=== PATIENT | female | born 1980 | race Caucasian/White ===

== ENCOUNTER 2021-06-04 10:56 | Emergency (ER) | payer MEDICARE, MEDICAID, SELFPAY ==
--- NOTE | ~2021-06-04 | CT_ITS ---
EXAMINATION: CT HEAD WITHOUT CONTRAST CLINICAL INFORMATION: Hypertension and headache COMPARISON: None TECHNIQUE: Contiguous axial imaging was performed from the skull base to vertex without intravenous administration of contrast. This CT examination was performed using dose optimization techniques as appropriate, variously including the following: *Automated exposure control *Adjustment of mA and/or kV according to patient size (this includes techniques or standardized protocols for targeted exams where dose is matched to indication/reason for exam; i.e. extremities or head) *Use of iterative reconstruction technique DLP: 651 mGy-cm FINDINGS: There is no evidence of acute intracranial hemorrhage or territorial infarction. No abnormal mass effect or midline shift is seen. Zhang to white matter differentiation is well preserved. No extra-axial fluid collections are identified. The ventricles are normal in size. There is no abnormal attenuation within the brain parenchyma. The osseous structures and soft tissues are normal. The mastoid air cells and visualized portions of the paranasal sinuses are well aerated. CT/CT head/brain wo con IMPRESSION: No acute intracranial pathology.
--- NOTE | ~2021-06-04 | CT_ITS ---
EXAMINATION: CT abdomen pelvis w con CLINICAL INFORMATION: Reason for Exam bilateral flank pain, hypertension COMPARISON: No prior CT available for comparison. TECHNIQUE: Multidetector volumetric imaging was performed from the superior aspect of the liver through the pubic symphysis 85 mL Omnipaque 350 injected Sagittal and coronal reformatted images were obtained on the technologist's workstation. This CT examination was performed using dose optimization techniques as appropriate, variously including the following: *Automated exposure control *Adjustment of mA and/or kV according to patient size (this includes techniques or standardized protocols for targeted exams where dose is matched to indication/reason for exam; i.e. extremities or head) *Use of iterative reconstruction technique DLP: 1205 mGy-cm FINDINGS: LOWER THORAX: Included lung bases are clear. HEPATOBILIARY: No focal hepatic lesions. No biliary ductal dilatation. GALLBLADDER: Gallbladder is distended. No pericholecystic fluid. SPLEEN: Spleen is enlarged 13.2 cm. PANCREAS: No focal mass or ductal dilatation. STOMACH AND GASTROINTESTINAL TRACT: Stomach is grossly unremarkable. Excess amount of stool in the colon suggests constipation. There is a segment of the sigmoid colon which exhibits circumferential wall thickening, differential would include subclinical colitis, infection or inflammatory, IBD, less commonly neoplastic. No pericolic fat stranding. No evidence of underlying diverticular disease. No CT evidence of appendicitis. ADRENALS: No adrenal nodules. KIDNEYS/URETERS: No hydronephrosis, stones or solid mass lesions. URINARY BLADDER: Circumferential wall thickening of the urinary bladder, nonspecific, this can be due to cystitis among others. PELVIC VISCERA: Unremarkable PERITONEUM: No free air or fluid. LYMPH NODES: No lymphadenopathy. VASCULAR:Abdominal aorta normal in size, no aneurysm found. BONES, ABDOMINAL WALL AND SOFT TISSUES: Age-appropriate changes of the spine and skeletal system, no destructive osteolytic or osteosclerotic bone lesion found CT/CT abdomen pelvis w con IMPRESSION: 1. No CT evidence of kidney stones or hydronephrosis. 2. There is circumferential wall thickening of a segment of the sigmoid colon left lower quadrant and pelvis without pericolic fat stranding, this is nonspecific, no evidence of significant diverticular disease, differential would include chronic subclinical colitis, infection, inflammatory, IBD versus neoplastic. Clinical correlation and follow-up recommended. May consider correlation with follow-up colonoscopy. Tsai image. 3. Excess amount of stool in the colon suggests constipation. 4. Mild circumferential wall thickening of the urinary bladder, nonspecific, in part due to its incomplete distention, cannot rule out cystitis. 5. Splenomegaly. 6. Gallbladder is distended. No pericholecystic fluid collection.
[2021-06-04 11:24] VITALS: BP 186/123; PULSE 89; RESP 18; TEMP 36.7; O2SAT 100; BMI 24.3
[2021-06-04 11:39] LABS: Glucose Urine UA NEG (NEG); Leukocyte Esterase Urine NEG (NEG); Nitrite Urine NEG (NEG); PH 6.5 (5.0-8.0); Specific Gravity - Urine <= 1.005 (1.005-1.025); Urine Blood NEG (NEG); Urine Ketones NEG (NEG); Urine Protein NEG (NEG-TRACE)
[2021-06-04 11:44] LABS: Appearance Urine CLEAR; Color Urine YELLOW; UPreg QC Valid YES; Urine Pregnancy NEGATIVE (NEGATIVE)
--- NOTE | 2021-06-04 12:14 | ED_ITS ---
HPI - General Adult General Chief complaint: General Medical Stated complaint: back pain Time Seen by Provider: 06/04/21 11:52 Source: patient Mode of arrival: ambulatory Limitations: no limitations History of Present Illness HPI narrative: 40-year-old female presents for 1 week of bilateral low back pain with a headache and hypertension. Symptoms started 1 week ago, patient thought that her back was sore from straining from packing her car or from sleeping on a lumpy bed. The pain was worse on the left side and now is worse on the right side. She has also had a mild gradual onset headache all week with no stiff neck, no fevers. Three days ago she became very fatigued, with worsening back pain with associated headache. At that time, her back pain was 9/10. The pain is a dull achy pain and it feels like a bad UTI. She feels like she was ?kicked in the back . Movement makes it worse. Today her back pain as 6/10. Back pain has been constant. She has had a headache most of the week that was gradual onset and mild, headache in the base of her neck and behind her eyes. 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 No stiff neck, no visual changes. No blood in her urine, no abdominal pain. 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 No nausea vomiting or diarrhea. No gross hematuria, no history of kidney stones, no family history of kidney stones. Patient's urine had no blood in it from urgent care today. Patient has been on lisinopril 10 mg for the past year and a half, her blood pressures are usually normotensive. Onset (ago): week(s) (1) Radiation: back Severity: moderate Severity scale (1-10): 6 Quality: aching and dull Pain Consistency: constant Relieving factors: none Exacerbating factors: movement Associated symptoms: headaches and other (hypertension) Treatments prior to arrival: none Related Data Previous Rx's Medication Instructions Recorded cyclobenzaprine 5 mg tablet 10 mg PO BEDTIME 3 Days #6 tab 06/04/21 ketorolac 10 mg tablet 10 mg PO Q6H 5 Days #20 tab 06/04/21 metronidazole 500 mg tablet 500 mg PO BID 10 Days #20 tab 08/08/21 (Flagyl) Allergies Allergy/AdvReac Type Severity Reaction Status Date / Time No Known Allergies Allergy Unverified 07/14/20 16:43 Review of Systems 2 Constitutional: Constitutional: Denies chills, Reports fatigue, Denies fever(s), Reports headache(s), Reports malaise and Denies weakness Eyes: Eyes: Denies blurry vision, Denies change in vision, Denies diplopia, Denies dry eyes, Denies loss of peripheral vision, Denies loss of vision, Denies other visual disturbances, Denies eye pain and Reports photophobia (chronic) ENT: Denies dizziness, Denies otalgia, Reports headache(s), Denies nasal discharge, Denies post nasal drip and Denies sore throat Cardiovascular: Cardiovascular: Denies chest pain, Denies chest pain with activity, Denies Epigastric Pain, Denies syncope, Denies irregular heart rhythm, Denies palpitations, Denies dyspnea and Denies dyspnea on exertion Respiratory: Respiratory: Denies chest congestion, Denies cough, Denies dyspnea and Denies dyspnea on exertion Gastrointestinal: Gastrointestinal: Denies abdominal pain, Denies melena, Denies hematochezia, Denies diarrhea, Denies loose stools and Denies vomiting Genitourinary: Genitourinary: Denies hematuria, Denies dysuria and Reports flank pain Musculoskeletal: Musculoskeletal: Reports back pain and Denies tingling Neurologic: Denies dizziness, Denies syncope, Reports headache(s), Denies loss of vision, Denies Sensory deficit (Neuro), Denies tingling and Denies weakness Psychiatric: Psychiatric: Reports no additional psychiatric complaints Endocrine: Endocrine: Reports fatigue and Denies palpitations [facility] Past Medical History Medical History (Updated 06/04/21 @ 15:59 by GERTRUDE Nowak) HTN (hypertension) Social History Social History Alcohol intake: never Patient Tobacco Use Status: Never used Tobacco Use of substances other than those prescribed or required for medical reasons: No Advance Directives: No Advance Directives Information Provided: No Patient : No Physical Exam Vital Signs: Vital Signs: Last Vital Signs Temp 99.2 F 06/04/21 15:54 Pulse 66 06/04/21 15:54 Resp 18 06/04/21 15:54 BP 166/96 H 06/04/21 15:54 Pulse Ox 96 06/04/21 15:54 Body Mass Index 24.3 Const: General: cooperative, healthy appearing, well developed, alert, awake and other (terful) Nutritional Appearance: average body habitus and well nourished Orientation/consciousness: patient oriented x3 Limitations: no limitations HENMT: Head: Yes normal to inspection, Yes normocephalic and Yes atraumatic Ears: hearing grossly normal bilaterally Face and sinus: Yes normal facial exam Mouth: Normal oral and palatal mucosa present Throat: Yes posterior oropharynx normal Eyes: Conjunctivae: conjunctivae normal Pupils: Equal, round and reactive pupils present EOM: EOMs intact bilaterally Direct Ophthalmoscopy: normal light reflex and photophobia (chronic) Neck: Neck: Yes normal visual inspection, Yes full ROM, Yes no meningeal signs, Yes trachea midline and Yes supple Resp: Effort & Inspection: normal respiratory effort and no cough Auscultation: clear to auscultation bilaterally, no crackles, no rales, no rhonchi and no wheezes Cardio: Rate: regular rate Rhythm: regular rhythm Heart sounds: S1 normal heart sound present and S2 normal heart sound present GI: Palpation (GI): Soft to palpation, not firm, nontender, no guarding and not rigid Percussion: Yes normal to percussion Auscultation: normal bowel sounds : General: Yes CVA tenderness bilateral (mild) Back/Spine/Pelvis: Back: CVA tenderness Skin: General skin exam: no rashes or lesions noted Neuro: General: patient oriented x3, tone normal, moves all extremities, Normal light touch and pain sensation, no meningeal signs, no focal motor deficits, CN's II-XI intact bilaterally and deep tendon reflexes 2+ bilaterally Cranial nerves: Yes Equal, round and reactive pupils present Cognition (Neuro): normal cognition Sensory Exam: No Sensory deficit (Neuro) Extrem: General: Yes normal to inspection, Yes full ROM and Yes capillary refill normal Psych: Appearance: grossly normal Mental Status: mental status grossly normal Affect: Anxious affect present Attitude: cooperative Thought process: Normal thought process present Thought content: Normal thought content present Course Course Course Narrative: 40-year-old female presents for 1 week of bilateral lower back pain with associated headache. Patient went to urgent care today, and was sent here for her hypertension, the patient blood pressure is 186/123. Patient had negative urine with no hematuria and negative test at urgent care. Patient is neurologically intact. On exam, patient has mild bilateral CVA tenderness no focal neuro deficits, physical exam is otherwise benign. Will get labs, repeat urine, CT abdomen pelvis with IV contrast to rule out renal artery stenosis, include head CT. Reevaluation(s) Reevaluation #1: Head CT negative, labs are unremarkable, abdominal CT shows colitis. Will treat with antibiotics for colitis, Ki of muscle relaxants and ketorolac. Consultation she needs to follow up with her PCP for colonoscopy. Medical Decision Making Lab Data Result diagrams: 06/04/21 13:13 06/04/21 13:13 Labs: Lab Results 06/04/21 06/04/21 06/04/21 Range/Units 11:34 11:34 13:13 WBC 4.7 L (4.8-10.8) X10*3/uL RBC 4.30 (4.20-5.50) X10*6/uL Hgb 13.0 (12.0-16.0) g/dl Hct 39.0 (37-47) % MCV 90.7 (80-98) fL MCH 30.2 (27.0-33.0) pg MCHC 33.3 (31.0-35.0) g/dl RDW 13.1 (11.0-16.0) % Plt Count 143 L (160-400) X10*3/uL MPV 9.4 (9.4-12.3) fL Immature Gran % (Auto) 0.2 (0.0-0.4) % Neut % (Auto) 67.0 (45-73) % Lymph % (Auto) 23.5 (20-40) % [place] % (Auto) 8.5 (2-11) % Eos % (Auto) 0.4 (0-4) % Baso % (Auto) 0.4 (0-2) % Lymph # (Auto) 1.1 L (1.2-4.9) X10*3/uL [place] # (Auto) 0.4 (0.1-1.2) X10*3/uL Eos # (Auto) 0.0 (0.0-0.4) X10*3/uL Baso # (Auto) 0.0 (0.0-0.2) X10*3/uL Abs Immat Gran (auto) 0.01 (0.00-0.03) X10*3/uL Absolute Neuts (auto) 3.1 (2.0-8.3) X10*3/uL Absolute Nucleated RBC 0.000 (0.0-0.012) X10*3/uL Nucleated RBC % (auto) 0.0 (0.0-0.2) /100WBC Sodium (135-145) mmol/L Potassium (3.3-5.1) mmol/L Chloride (96-108) mmol/L Carbon Dioxide (22-29) mmol/L Anion Gap (12-20) BUN (9-16) mg/dL Creatinine (0.5-1.4) mg/dL Estim Creat Clear Calc Estimated GFR Random Glucose (60-115) mg/dL Calcium (8.4-10.2) mg/dL Total Bilirubin (0.0-1.0) mg/dL AST (5-31) U/L ALT (0-31) U/L Alkaline Phosphatase (39-117) U/L Total Protein (6.5-8.0) g/dL Albumin (3.5-5.0) g/dL Urine Color YELLOW Urine Appearance CLEAR Urine pH 6.5 (5.0-8.0) Ur Specific [place] <= 1.005 (1.005-1.025) Urine Protein NEG (NEG-TRACE) MG/DL Urine Glucose (UA) NEG (NEG) MG/DL Urine Ketones NEG (NEG) MG/DL Urine Blood NEG (NEG) Urine Nitrite NEG (NEG) Ur Leukocyte Esterase NEG (NEG) Urine Test NEGATIVE (NEGATIVE) Coronavirus (PCR) (Negative) Influenza Type A (PCR) (Negative) Influenza Type B (PCR) (Negative) RSV RNA Qual (PCR) (Negative) 06/04/21 06/04/21 Range/Units 13:13 14:53 WBC (4.8-10.8) X10*3/uL RBC (4.20-5.50) X10*6/uL Hgb (12.0-16.0) g/dl Hct (37-47) % MCV (80-98) fL MCH (27.0-33.0) pg MCHC (31.0-35.0) g/dl RDW (11.0-16.0) % Plt Count (160-400) X10*3/uL MPV (9.4-12.3) fL Immature Gran % (Auto) (0.0-0.4) % Neut % (Auto) (45-73) % Lymph % (Auto) (20-40) % [place] % (Auto) (2-11) % Eos % (Auto) (0-4) % Baso % (Auto) (0-2) % Lymph # (Auto) (1.2-4.9) X10*3/uL [place] # (Auto) (0.1-1.2) X10*3/uL Eos # (Auto) (0.0-0.4) X10*3/uL Baso # (Auto) (0.0-0.2) X10*3/uL Abs Immat Gran (auto) (0.00-0.03) X10*3/uL Absolute Neuts (auto) (2.0-8.3) X10*3/uL Absolute Nucleated RBC (0.0-0.012) X10*3/uL Nucleated RBC % (auto) (0.0-0.2) /100WBC Sodium 136 (135-145) mmol/L Potassium 4.0 (3.3-5.1) mmol/L Chloride 101 (96-108) mmol/L Carbon Dioxide 27 (22-29) mmol/L Anion Gap 12 (12-20) BUN 13 (9-16) mg/dL Creatinine 0.95 (0.5-1.4) mg/dL Estim Creat Clear Calc 78.5 Estimated GFR > 60 Random Glucose 116 H (60-115) mg/dL Calcium 9.4 (8.4-10.2) mg/dL Total Bilirubin 0.9 (0.0-1.0) mg/dL AST 63 H (5-31) U/L ALT 46 H (0-31) U/L Alkaline Phosphatase 99 (39-117) U/L Total Protein 8.7 H (6.5-8.0) g/dL Albumin 4.1 (3.5-5.0) g/dL Urine Color Urine Appearance Urine pH (5.0-8.0) Ur Specific [place] (1.005-1.025) Urine Protein (NEG-TRACE) MG/DL Urine Glucose (UA) (NEG) MG/DL Urine Ketones (NEG) MG/DL Urine Blood (NEG) Urine Nitrite (NEG) Ur Leukocyte Esterase (NEG) Urine Test (NEGATIVE) Coronavirus (PCR) NEGATIVE (Negative) Influenza Type A (PCR) NEGATIVE (Negative) Influenza Type B (PCR) NEGATIVE (Negative) RSV RNA Qual (PCR) NEGATIVE (Negative) Discharge Plan Discharge Clinical Impression: Colitis Back pain Qualifiers: Back pain location: low back pain Chronicity: acute Back pain laterality: bilateral Sciatica presence: without sciatica Qualified Code(s): M54.5 - Low back pain Patient Disposition: Home, Self-Care Instructions: Acute Low Back Pain (ED), Colitis (ED) Additional Instructions: Please call your primary care physician for follow-up appointment to arrange for colonoscopy. Please take the Flexeril at night, your insurance would not cover the other muscle relaxant and I wanted to prescribe. Please take the ketorolac as prescribed, do not take any ibuprofen containing products while taking ketorolac. Please take the antibiotic as prescribed. Please return to the emergency room for any new or concerning symptoms. I would addiction treatment counselor you to start using your home blood pressure monitor to make sure that this is not a blood pressure issue. Your blood pressure has come down and is not dangerously high, her labs are normal, there is no kidney pathology. Prescriptions: New ketorolac 10 mg tablet 10 mg PO Q6H 5 Days Qty: 20 RF: 0 cyclobenzaprine 5 mg tablet 10 mg PO BEDTIME 3 Days Qty: 6 RF: 0 metronidazole [Flagyl] 500 mg tablet 500 mg PO BID 10 Days Qty: 20 RF: 0
[2021-06-04 12:40] VITALS: BP 159/98; PULSE 88; RESP 16; O2SAT 99
[2021-06-04] MEDS: 0.9 % Sodium Chloride 1,000 ML 999 ML IV (13:14)
[2021-06-04 13:21] LABS: Basophils Percent Auto 0.4 % (0-2); Eosinophils Percent Auto 0.4 % (0-4); Imm Gran Abs Auto 0.01 X10*3/uL (0.00-0.03); Imm Gran Pct Auto 0.2 % (0.0-0.4); Lymphocytes Absolute Auto 1.1 X10*3/uL (1.2-4.9); Lymphocytes Percent Auto 23.5 % (20-40); MANUAL DIFF FLAG NO; Mean Corpuscular HGB Conc 33.3 g/dl (31.0-35.0); Mean Corpuscular Hemoglobin 30.2 pg (27.0-33.0); Mean Corpuscular Volume 90.7 fL (80-98); Mean Platelet Volume 9.4 fL (9.4-12.3); Monocytes Absolute Auto 0.4 X10*3/uL (0.1-1.2); Monocytes Percent Auto 8.5 % (2-11); Neutrophils Absolute Auto 3.1 X10*3/uL (2.0-8.3); Platelet Count 143 X10*3/uL (160-400); Red Cell Distribution Width 13.1 % (11.0-16.0); White Blood Count 4.7 X10*3/uL (4.8-10.8)
[2021-06-04] MEDS: Ketorolac Tromethamine 15 MG/ML VIAL IVPUSH (13:41)
[2021-06-04] MEDS: Cyclobenzaprine HCl 5 MG TABLET PO (13:42)
[2021-06-04 13:51] LABS: Alanine Aminotransferase 46 U/L (0-31); Albumin Level 4.1 g/dL (3.5-5.0); Alkaline Phosphatase 99 U/L (39-117); Anion Gap 12 (12-20); Aspartate Amino Transferase 63 U/L (5-31); Bilirubin Total 0.9 mg/dL (0.0-1.0); Blood Urea Nitrogen 13 mg/dL (9-16); Calcium 9.4 mg/dL (8.4-10.2); Chloride 101 mmol/L (96-108); Creatinine Clr Calc Pharmacy 78.5; Estimated Glomerular Filt Rate > 60; Glucose Random 116 mg/dL (60-115); Sodium 136 mmol/L (135-145); Total Protein 8.7 g/dL (6.5-8.0)
[2021-06-04 13:56] LABS: Carbon Dioxide 27 mmol/L (22-29)
[2021-06-04] MEDS: iohexoL 350 MG/ML 100 ML INFUS..BTL 85 ML IV (14:39)
[2021-06-04 15:39] LABS: Influenza A PCR NEGATIVE (Negative); Influenza B PCR NEGATIVE (Negative); Resp Syncy Virus RNA Qual PCR NEGATIVE (Negative); SARS COV2 PCR INHOUSE NEGATIVE (Negative)
[2021-06-04 15:54] VITALS: BP 166/96; PULSE 66; RESP 18; TEMP 37.3; O2SAT 96
== END 2021-06-04 16:14 | disposition home or self-care (01) ==
PROVIDERS: Physician Assistant; Emergency Provider Emergency Medicine Emergency Medical Services; PCP Nurse Practitioner Family
DX: K52.9 Noninfective gastroenteritis and colitis, unspecified (principal); M54.5 Low back pain; R51.9 Headache, unspecified; I10 Essential (primary) hypertension; Z20.822 Contact with and (suspected) exposure to COVID-19
CPT/HCPCS: 0241U; 36415; 70450; 74177; 80053; 81003; 81025; 85025; 96361; 96374; 99284; J1885; Q9967

== ENCOUNTER 2022-06-30 03:53 | Emergency (ER) | payer MEDICARE, MEDICAID, SELFPAY ==
--- NOTE | ~2022-06-30 | XR_ITS ---
EXAMINATION: XR FOOT, RIGHT CLINICAL INFORMATION: Pain COMPARISON: None TECHNIQUE: AP, lateral, and oblique views of the right foot. FINDINGS: The bones and soft tissues are normal. No fracture. Alignment is anatomic. Joint spaces are maintained. XR/XR foot RT min 3V IMPRESSION: Normal right foot.
[2022-06-30 04:04] VITALS: BP 150/93; PULSE 79; RESP 18; TEMP 37.7; O2SAT 99; BMI 25.1
[2022-06-30 05:10] LABS: Hematocrit 37.3 % (37.0-47.0); Hemoglobin 12.2 g/dl (12.0-16.0); Mean Corpuscular HGB Conc 32.7 g/dl (31.0-35.0); Mean Corpuscular Volume 91.9 fL (80.0-98.0); Mean Platelet Volume 9.5 fL (9.4-12.3); Platelet Count 140 X10*3/uL (160-400); Red Blood Count 4.06 X10*6/uL (4.20-5.50); Red Cell Distribution Width 12.7 % (11.0-16.0); White Blood Count 4.2 X10*3/uL (4.8-10.8)
[2022-06-30 05:27] LABS: Alanine Aminotransferase 50 U/L (0-31); Albumin Level 3.9 g/dL (3.5-5.0); Alkaline Phosphatase 110 U/L (39-117); Anion Gap 17 (12-20); Aspartate Amino Transferase 77 U/L (5-31); Bilirubin Total 0.4 mg/dL (0.0-1.0); Blood Urea Nitrogen 10 mg/dL (9-16); Calcium 9.4 mg/dL (8.4-10.2); Carbon Dioxide 24 mmol/L (22-29); Chloride 102 mmol/L (96-108); Creatinine Clr Calc Pharmacy 95.7; Estimated Glomerular Filt Rate > 60; Glucose Random 115 mg/dL (60-115); Sodium 139 mmol/L (135-145); Total Protein 8.8 g/dL (6.5-8.0)
[2022-06-30 05:48] VITALS: BP 135/79; PULSE 69; RESP 16; TEMP 37.1; O2SAT 98
--- NOTE | 2022-06-30 06:32 | PC.NURSE ---
Pt c/o R foot pain. Pt states that if she applies pressure on the foot the pain level goes from an 8 to a 10. Source of foot pain is unknown. Foot pain was minor started today but progressively got worse throughout the day. Pt denies pain radiating anywhere else.
--- NOTE | 2022-06-30 06:46 | ED.EXTPRO ---
HPI - Extremity Problem General Chief complaint: General Medical Stated complaint: right foot pain, unknown as to why Time Seen by Provider: 06/30/22 06:45 Source: patient Mode of arrival: ambulatory Limitations: no limitations History of Present Illness MD Complaint: other (R foot pain) Onset (ago): day(s) ( ) Pain Consistency: constant Location: right and lower extremity Quality: aching and dull Radiation: none Relieving factors: immobilization Exacerbating factors: weight bearing Associated symptoms: denies other symptoms Context: other (unknown injury started hurting after wearing clogs at work) Related Data Previous Rx's Medication Instructions Recorded cyclobenzaprine 5 mg tablet 10 mg PO BEDTIME 3 days #6 tabs 06/04/21 ketorolac 10 mg tablet 10 mg PO Q6H 5 days #20 tabs 06/04/21 metronidazole 500 mg tablet 500 mg PO BID 10 days #20 tabs 06/04/21 (Flagyl) cyclobenzaprine 10 mg tablet 10 mg PO TID PRN muscle spasm #14 06/30/22 tabs ibuprofen 600 mg tablet 600 mg PO Q6H PRN pain #30 tabs 06/30/22 Allergies Allergy/AdvReac Type Severity Reaction Status Date / Time No Known Allergies Allergy Unverified 07/14/20 16:43 Review of Systems Review of Systems: Constitutional : No Fever, No Chills ENT/Mouth : No Ear Pain, No Hoarseness, No sore throat Eyes: No Eye Pain, No Swelling, No Redness, No Foreign Body Cardiovascular : No Chest Pain, No SOB Respiratory : No Cough, No Dyspnea Gastrointestinal : No Nausea, No Vomiting, No Diarrhea, No abdominal Pain Genitourinary : No Dysuria, No Hematuria Musculoskeletal : positive joint pain, No Myalgias, No Joint Swelling Skin : No Skin lacerations, No rash Neuro : No Weakness, No Numbness, No Loss of Consciousness, No Dizziness, No Headache PMFSH Past Medical History Attestation statement: The following information was validated with the patient. Medical History HTN (hypertension) Social History Social History Alcohol intake: never Patient Tobacco Use Status: Never used Tobacco Use of substances other than those prescribed or required for medical reasons: No Advance Directives: No Physical Exam Vital Signs: Vital Signs: Last Vital Signs Temp 98.7 F 06/30/22 05:48 Pulse 69 06/30/22 05:48 Resp 16 06/30/22 05:48 BP 135/79 06/30/22 05:48 Pulse Ox 98 06/30/22 05:48 O2 Del Method 06/30/22 05:48 BMI result Body Mass Index 25.1 Appearance: Alert. Oriented X3. No acute distress. Eyes: Pupils equal, round and reactive to light. ENT: Pharynx normal. Neck: Normal inspection. Neck supple. CVS: Pulses normal. Respiratory: No respiratory distress. Abdomen: Soft and nontender. Skin: Skin warm and dry. Normal skin color. Extremities: No lower extremity edema. R foot along 5th metatarsal mild swelling and moderate ttp Neuro: Oriented X 3. No motor deficit. No sensory deficit. MDM - Extremity (Nontraumatic) MDM Narrative Medical decision making narrative: 41 yo female atraumatic R foot pain along 5th metatarsal - distal NV intact. xray for fracture ordered. Possible strain/sprain/contusion/fracture. IM toradol for pain. Dispo per results and findings. Lab Data Result diagrams: 06/30/22 05:05 06/30/22 05:05 Labs: Lab Results 06/30/22 06/30/22 Range/Units 05:05 05:05 WBC 4.2 L (4.8-10.8) X10*3/uL RBC 4.06 L (4.20-5.50) X10*6/uL Hgb 12.2 (12.0-16.0) g/dl Hct 37.3 (37.0-47.0) % MCV 91.9 (80.0-98.0) fL MCH 30.0 (27.0-33.0) pg MCHC 32.7 (31.0-35.0) g/dl RDW 12.7 (11.0-16.0) % Plt Count 140 L (160-400) X10*3/uL MPV 9.5 (9.4-12.3) fL Absolute Nucleated RBC 0.000 (0.0-0.012) X10*3/uL Nucleated RBC % (auto) 0.0 (0.0-0.2) /100WBC Sodium 139 (135-145) mmol/L Potassium 4.0 (3.3-5.1) mmol/L Chloride 102 (96-108) mmol/L Carbon Dioxide 24 (22-29) mmol/L Anion Gap 17 (12-20) BUN 10 (9-16) mg/dL Creatinine 0.80 (0.5-1.4) mg/dL Estim Creat Clear Calc 95.7 Estimated GFR > 60 Random Glucose 115 (60-115) mg/dL Calcium 9.4 (8.4-10.2) mg/dL Total Bilirubin 0.4 (0.0-1.0) mg/dL AST 77 H (5-31) U/L ALT 50 H (0-31) U/L Alkaline Phosphatase 110 (39-117) U/L Total Protein 8.8 H (6.5-8.0) g/dL Albumin 3.9 (3.5-5.0) g/dL Procedures Orthopedic Splinting/Casting Injury #1: Side: right Lower Extremity Injury Location: foot Lower Extremity Immobilizer: post-op shoe Other Orthopedic Equipment: crutches Discharge Plan Discharge Clinical Impression: Foot sprain Qualifiers: Encounter type: initial encounter Laterality: right Qualified Code(s): S93.601A - Unspecified sprain of right foot, initial encounter Patient Disposition: Home, Self-Care Instructions: Crutch Instructions (ED), Foot Sprain (ED), Post Surgical Shoe (ED) Additional Instructions: return to ED for any worsening symptoms or concerns xrays do not show broken bone use post op shoe for 1 week crutches for 5 days - if not better you may need MRI with your doctor to look for stress fracture rest ice elevated for the next 3 days Prescriptions: New cyclobenzaprine 10 mg tablet 10 mg PO TID PRN (Reason: muscle spasm) Qty: 14 0RF ibuprofen 600 mg tablet 600 mg PO Q6H PRN (Reason: pain) Qty: 30 0RF No Action ketorolac 10 mg tablet 10 mg PO Q6H 5 Days Qty: 20 0RF cyclobenzaprine 5 mg tablet 10 mg PO BEDTIME 3 Days Qty: 6 0RF metronidazole [Flagyl] 500 mg tablet 500 mg PO BID 10 Days Qty: 20 0RF Stand Alone Forms: Work/School Release
[2022-06-30] MEDS: Ketorolac Tromethamine 60 MG/2 ML VIAL IM (07:22)
== END 2022-06-30 07:51 | disposition home or self-care (01) ==
PROVIDERS: Emergency Provider Emergency Medicine
DX: S93.601A Unspecified sprain of right foot, initial encounter (principal); X58.XXXA Exposure to other specified factors, initial encounter; Y93.9 Activity, unspecified; Y92.9 Unspecified place or not applicable; Y99.9 Unspecified external cause status
CPT/HCPCS: 36415; 73630; 80053; 85027; 96372; 99284; J1885

== ENCOUNTER 2023-02-06 12:38 | Emergency (ER) | payer MEDICARE, MEDICAID, SELFPAY | END 2023-02-06 13:16 | disposition left against medical advice (07) | PROVIDERS: Emergency Provider Emergency Medicine; PCP Nurse Practitioner Family | DX: Z53.21 Procedure and treatment not carried out due to patient leaving prior to being seen by health care provider (principal) ==

== ENCOUNTER 2025-02-04 15:58 | Inpatient (IN) | payer MEDICARE, MEDICAID, SELFPAY ==
[2025-02-04] VITALS (7 sets, daily range): BP systolic 166–214; BP diastolic 105–141; PULSE 76–100; RESP 16–18; TEMP 37.2; O2SAT 97–99; BMI 27.3
--- NOTE | ~2025-02-04 | CT_ITS ---
CLINICAL HISTORY: lower abd pain fever CT abdomen and pelvis with contrast Comparison: None Findings: The visualized portions of the lungs are normal in appearance. Liver is enlarged with mild nodular appearance of the surface. No intrahepatic or extrahepatic ductal dilatation is seen. The hepatic and portal veins are patent. No calcified gallstones in the gallbladder. There is dilation of the gallbladder. Pancreas and adrenals are normal in appearance. There is enlargement of the spleen measuring 15 cm in size. No suspicious focal lesion of the kidneys. No hydronephrosis or calculi. The abdominal aorta demonstrates no evidence of aneurysmal dilatation or dissection. There is asymmetric hyperdensity in the right iliac vein and femoral vein. There is moderate amount of fecal material within the colon. There is mild bowel wall thickening of the sigmoid colon. No evidence of bowel obstruction. Appendix is not visualized in the right lower quadrant. No secondary evidence of acute appendicitis. The pelvic organs are within normal limits. No intraperitoneal free air or fluid is visualized. No pathologic lymphadenopathy is seen. Calcifications of the pelvis are likely to be phleboliths. There are no osseous or soft tissue abnormalities. IMPRESSION: There is mild bowel wall thickening of the sigmoid colon. Colitis can not be excluded. Hepatosplenomegaly. Mild nodular appearance of the liver surface. Clinical correlation is recommended to exclude cirrhosis. Asymmetric hyperdensity in the right iliac vein and femoral vein. The finding may be related to contrast injection. Clinical correlation is recommended. Correlation with venous Doppler ultrasound findings as indicated. This document has been electronically signed by: Richard Connelly MD on 02/04/2025 21:09:42
--- NOTE | ~2025-02-04 | US_ITS ---
EXAMINATION: US LOWER EXTREMITY VEINS LIMITED FOLLOW UP RIGHT HISTORY: ?hyperdensity R iliac vein and femoral vein on CT COMPARISON: Correlation is made with a CT of the pelvis dated 02/04/2025. TECHNIQUE: Duplex and color Doppler sonographic examination of the deep venous system of the right lower extremity was performed. FINDINGS: The common femoral, superficial femoral, and popliteal veins are patent demonstrating normal compressibility, spontaneous flow, and augmentation. There is a normal color and spectral Doppler waveform appearance of the visualized deep venous system above the knee. The posterior tibial and peroneal veins are patent. US/US venous duplex LE RT IMPRESSION: No evidence of acute DVT in the right lower extremity. Electronically signed by: Joesph Meehan MD 02/05/2025 08:19 AM EDT
--- NOTE | ~2025-02-04 | US_ITS ---
EXAMINATION: US ABDOMEN LIMITED CLINICAL INFORMATION: Abdominal pain, liver fibrosis, elevated LFTs.. COMPARISON: None available. Correlation made with CT abdomen and pelvis 02/04/2025. TECHNIQUE: Real-time imaging of the right upper quadrant abdominal viscera. FINDINGS: PANCREAS: Visualized portions are unremarkable. LIVER: The liver is mildly enlarged with right lobe measuring 19.3 cm. Nodular liver contour. Heterogeneous in echotexture. No focal hepatic lesion. There is no intrahepatic biliary duct dilatation seen. GALLBLADDER: The gallbladder is mildly distended without evidence of stones, sludge, polyps, wall thickening or pericholecystic fluid. COMMON BILE DUCT: Normal in caliber measuring 0.6 cm in diameter. FREE FLUID: None. OTHER: Prominent peripancreatic lymph node noted measuring 3.3 x 1.3 x 2.2 cm, nonspecific. This is likely reactive in the setting of cirrhosis. This was also present on the recent CT exam. US/US abdomen limited IMPRESSION: 1. Mild hepatomegaly with nodular contour and heterogeneous echotexture, findings suggesting underlying cirrhosis. No suspicious lesion. 2. Mildly distended gallbladder which is otherwise normal without calculus. 3. Prominent peripancreatic lymph node as discussed. Electronically signed by: Jamaal Hill MD 02/05/2025 10:56 AM EDT
--- NOTE | 2025-02-04 16:33 | ED_ITS ---
HPI - Abdominal Pain General Chief Complaint: Abdominal Pain Stated Complaint: abd pain, bloating Time Seen by Provider: 02/04/25 17:30 Related Data Previous Rx's ?Medication ?Instructions ?Recorded cyclobenzaprine 5 mg tablet 10 mg (2 x 5 mg) PO BEDTIME 3 days 06/04/21 #6 tabs ketorolac 10 mg tablet 10 mg PO Q6H 5 days #20 tabs 06/04/21 metronidazole 500 mg tablet 500 mg PO BID 10 days #20 tabs 06/04/21 (Flagyl) cyclobenzaprine 10 mg tablet 10 mg PO TID PRN muscle spasm #14 06/30/22 tabs ibuprofen 600 mg tablet 600 mg PO Q6H PRN pain #30 tabs 06/30/22 Allergies Allergy/AdvReac Type Severity Reaction Status Date / Time Penicillins Allergy Unknown Verified 02/04/25 16:36 Sulfa (Sulfonamide Allergy Unknown Verified 02/04/25 16:36 Antibiotics) PMFSH Past Medical History Medical History HTN (hypertension) Social History Social History (System 09/11/23 @ 14:16 by Rehana Solorio) Alcohol intake: never Patient Tobacco Use Status: Never used Tobacco Smoked in Last 30 Days: No Use of substances other than those prescribed or required for medical reasons: Yes Substance Use Type: Heroin Advance Directives: No Advance Directives Information Provided: No Do you have a plan to hurt others: No Plan Patient : No Physical Exam ED Vital Signs: Vital Signs - 24 hr 02/04/25 16:35 02/04/25 17:47 02/04/25 20:00 Temperature 98.9 F Pulse Rate 100 88 85 Respiratory Rate 16 18 18 Blood Pressure 207/141 H 214/126 H 199/119 H Pulse Oximetry 98 99 98 Oxygen Delivery Method Room Air Room Air Room Air 02/04/25 20:25 Temperature Pulse Rate Respiratory Rate Blood Pressure 198/119 H Pulse Oximetry Oxygen Delivery Method BMI result Body Mass Index 27.3 Course Course Course Narrative: This is a Rapid Medical Exam performed in triage by Kourtney Rose PA-C. Full HPI, ROS and PE to be performed by primary ED provider. 44 y/o F with PMHx HTN, Hep C presenting to the ED c/o lower abd pain radiating to back, constipation x 1 week and N/V since yesterday. Reports fever, RM. Denies abd surgery, diarrhea, CP. Last BM today. PE: hypertensive (201/141), ttp over lower bad, no rebounding or guarding Plan: labs, EKG, UA Medical Decision Making Lab Data 02/04/25 17:02 02/04/25 17:02 Labs: Lab Results 02/04/25 02/04/25 02/04/25 Range/Units 17:02 17:51 20:20 WBC 4.6 L (4.8-10.8) X10*3/uL RBC 3.98 L (4.20-5.50) X10*6/uL Hgb 12.8 (12.0-16.0) g/dl Hct 36.7 L (37.0-47.0) % MCV 92.2 (80.0-98.0) fL MCH 32.2 (27.0-33.0) pg MCHC 34.9 (31.0-35.0) g/dl RDW 13.2 (11.0-16.0) % Plt Count 77 L D (160-400) X10*3/uL MPV 10.4 (9.4-12.3) fL Immature Gran % (Auto) 0.4 (0.0-0.4) % Neut % (Auto) 80.0 H (45-73) % Lymph % (Auto) 12.3 L (20-40) % [place] % (Auto) 6.7 (2-11) % Eos % (Auto) 0.4 (0-4) % Baso % (Auto) 0.2 (0-2) % Lymph # (Auto) 0.6 L (1.2-4.9) X10*3/uL [place] # (Auto) 0.3 (0.1-1.2) X10*3/uL Eos # (Auto) 0.0 (0.0-0.4) X10*3/uL Baso # (Auto) 0.0 (0.0-0.2) X10*3/uL Abs Immat Gran (auto) 0.02 (0.00-0.03) X10*3/uL Absolute Neuts (auto) 3.7 (2.0-8.3) x10*3/uL Absolute Nucleated RBC 0.000 (0.0-0.012) X10*3/uL Nucleated RBC % (auto) 0.0 (0.0-0.2) /100WBC Smear Tech's Comments VERIFIED Sodium 132 L (135-145) mmol/L Potassium 3.7 (3.3-5.1) mmol/L Chloride 100 (96-108) mmol/L Carbon Dioxide 22 (22-29) mmol/L Anion Gap 14 (12-20) BUN 12 (9-16) mg/dL Creatinine 0.69 (0.5-1.4) mg/dL Estim Creat Clear Calc 115.2 Estimated GFR > 60 Random Glucose 115 (60-115) mg/dL Lactic Acid (0.5-2.0) mmol/L Calcium 8.8 D (8.4-10.2) mg/dL Magnesium 1.6 (1.6-2.6) mg/dL Total Bilirubin 4.0 H (0.0-1.0) mg/dL Direct Bilirubin 2.2 H (0.0-0.5) mg/dL AST 137 H (5-31) U/L ALT 44 H (0-31) U/L Alkaline Phosphatase 128 H (39-117) U/L Troponin I High Sens 8.6 (<3.5-17.0) ng/L Total Protein 9.9 H (6.5-8.0) g/dL Albumin 3.2 L (3.5-5.0) g/dL Lipase 40 (8-78) U/L Urine Color Yellow Urine Appearance Clear Urine pH 6.5 (5.0-9.0) Ur Specific [place] <= 1.005 (1.005-1.025) Urine Protein Negative (Neg-Trace) mg/dL Urine Glucose (UA) Negative (Negative) mg/dL Urine Ketones Negative (Negative) mg/dL Urine Blood Moderate (2+) H (Negative) Urine Nitrite Negative (Negative) Ur Leukocyte Esterase Small (1+) H (Negative) Urine RBC 11-20 H (0-2) /HPF Urine WBC 6-10 H (0-5) /HPF Ur Squamous Epith Cells 0-2 (0-2) /HPF Urine Bacteria 4+ (None Seen) Hyaline Casts 0-2 (0-2) /LPF Urine Test NEGATIVE (NEGATIVE) Urine Opiates Screen POSITIVE H (Not Detect) Ur Buprenorphine Scrn Not Detected (Not Detect) ng/mL Ur Oxycodone Screen Not Detected (Not Detect) ng/mL Urine Methadone Screen Positive H (Not Detect) ng/mL Urine Fentanyl Screen POSITIVE H (Not Detect) Ur Barbiturates Screen Not Detected (Not Detect) Ur Phencyclidine Scrn Not Detected (Not Detect) Ur Amphetamines Screen Not Detected (Not Detect) U Benzodiazepines Scrn Not Detected (Not Detect) Urine Cocaine Screen Not Detected (Not Detect) U Marijuana (THC) Screen Not Detected (Not Detect) Influenza Type A (PCR) NEGATIVE (Negative) Influenza Type B (PCR) NEGATIVE (Negative) RSV RNA Qual (PCR) NEGATIVE (Negative) SARS-CoV-2 RNA (RT-PCR) NEGATIVE (Negative) 02/04/25 Range/Units 20:51 WBC (4.8-10.8) X10*3/uL RBC (4.20-5.50) X10*6/uL Hgb (12.0-16.0) g/dl Hct (37.0-47.0) % MCV (80.0-98.0) fL MCH (27.0-33.0) pg MCHC (31.0-35.0) g/dl RDW (11.0-16.0) % Plt Count (160-400) X10*3/uL MPV (9.4-12.3) fL Immature Gran % (Auto) (0.0-0.4) % Neut % (Auto) (45-73) % Lymph % (Auto) (20-40) % [place] % (Auto) (2-11) % Eos % (Auto) (0-4) % Baso % (Auto) (0-2) % Lymph # (Auto) (1.2-4.9) X10*3/uL [place] # (Auto) (0.1-1.2) X10*3/uL Eos # (Auto) (0.0-0.4) X10*3/uL Baso # (Auto) (0.0-0.2) X10*3/uL Abs Immat Gran (auto) (0.00-0.03) X10*3/uL Absolute Neuts (auto) (2.0-8.3) x10*3/uL Absolute Nucleated RBC (0.0-0.012) X10*3/uL Nucleated RBC % (auto) (0.0-0.2) /100WBC Smear Tech's Comments Sodium (135-145) mmol/L Potassium (3.3-5.1) mmol/L Chloride (96-108) mmol/L Carbon Dioxide (22-29) mmol/L Anion Gap (12-20) BUN (9-16) mg/dL Creatinine (0.5-1.4) mg/dL Estim Creat Clear Calc Estimated GFR Random Glucose (60-115) mg/dL Lactic Acid 1.0 (0.5-2.0) mmol/L Calcium (8.4-10.2) mg/dL Magnesium (1.6-2.6) mg/dL Total Bilirubin (0.0-1.0) mg/dL Direct Bilirubin (0.0-0.5) mg/dL AST (5-31) U/L ALT (0-31) U/L Alkaline Phosphatase (39-117) U/L Troponin I High Sens (<3.5-17.0) ng/L Total Protein (6.5-8.0) g/dL Albumin (3.5-5.0) g/dL Lipase (8-78) U/L Urine Color Urine Appearance Urine pH (5.0-9.0) Ur Specific [place] (1.005-1.025) Urine Protein (Neg-Trace) mg/dL Urine Glucose (UA) (Negative) mg/dL Urine Ketones (Negative) mg/dL Urine Blood (Negative) Urine Nitrite (Negative) Ur Leukocyte Esterase (Negative) Urine RBC (0-2) /HPF Urine WBC (0-5) /HPF Ur Squamous Epith Cells (0-2) /HPF Urine Bacteria (None Seen) Hyaline Casts (0-2) /LPF Urine Test (NEGATIVE) Urine Opiates Screen (Not Detect) Ur Buprenorphine Scrn (Not Detect) ng/mL Ur Oxycodone Screen (Not Detect) ng/mL Urine Methadone Screen (Not Detect) ng/mL Urine Fentanyl Screen (Not Detect) Ur Barbiturates Screen (Not Detect) Ur Phencyclidine Scrn (Not Detect) Ur Amphetamines Screen (Not Detect) U Benzodiazepines Scrn (Not Detect) Urine Cocaine Screen (Not Detect) U Marijuana (THC) Screen (Not Detect) Influenza Type A (PCR) (Negative) Influenza Type B (PCR) (Negative) RSV RNA Qual (PCR) (Negative) SARS-CoV-2 RNA (RT-PCR) (Negative) Medications Administered Discontinued Medications Generic Name Dose Route Start Last Admin Trade Name Freq PRN Reason Stop Dose Admin Sodium Chloride 1,000 mls @ 999 mls/hr 02/04/25 19:30 02/04/25 20:14 Ns IV 02/04/25 20:30 999 mls/hr .Q1H1M MARIKA Administration Iohexol 100 ml 02/04/25 19:34 02/04/25 19:35 Iohexol 350 Mg/Ml 100 Ml Infus..Btl IV 02/04/25 19:35 85 ml ONCE ONE Administration Lisinopril 10 mg 02/04/25 19:18 02/04/25 20:25 Lisinopril 10 Mg Tablet PO 02/04/25 19:19 10 mg ONCE ONE Administration Protocol Discharge Plan Discharge Clinical Impression: Hypertensive emergency Patient Disposition: Admitted As Inpatient Prescriptions: No Action ketorolac 10 mg tablet 10 mg PO Q6H 5 Days Qty: 20 0RF cyclobenzaprine 5 mg tablet 10 mg PO BEDTIME 3 Days Qty: 6 0RF metronidazole [Flagyl] 500 mg tablet 500 mg PO BID 10 Days Qty: 20 0RF cyclobenzaprine 10 mg tablet 10 mg PO TID PRN (Reason: muscle spasm) Qty: 14 0RF ibuprofen 600 mg tablet 600 mg PO Q6H PRN (Reason: pain) Qty: 30 0RF Print Language: Egyptian
--- NOTE | 2025-02-04 16:40 | ECG_ITS ---
Test Reason : ABDOMINAL PAIN Blood Pressure : */* mmHG Vent. Rate : 93 BPM Atrial Rate : 93 BPM P-R Int : 120 ms QRS Dur : 100 ms QT Int : 400 ms P-R-T Axes : 53 -20 21 degrees QTcB Int : 497 ms Normal sinus rhythm Prolonged QT Abnormal ECG No previous ECGs available Referred By: Kourtney Rose Electronically Signed By: Bello Reid
[2025-02-04 17:08] LABS: Basophils Percent Auto 0.2 % (0-2); Imm Gran Abs Auto 0.02 X10*3/uL (0.00-0.03); Imm Gran Pct Auto 0.4 % (0.0-0.4); MANUAL DIFF FLAG SCAN; Mean Corpuscular Volume 92.2 fL (80.0-98.0); Neutrophils Absolute Auto 3.7 x10*3/uL (2.0-8.3); PLT CLUMP 1; SCAN SMEAR FLAG 1
[2025-02-04 17:09] LABS: Eosinophils Percent Auto 0.4 % (0-4); Hematocrit 36.7 % (37.0-47.0); Hemoglobin 12.8 g/dl (12.0-16.0); Lymphocytes Absolute Auto 0.6 X10*3/uL (1.2-4.9); Lymphocytes Percent Auto 12.3 % (20-40); Mean Corpuscular HGB Conc 34.9 g/dl (31.0-35.0); Mean Corpuscular Hemoglobin 32.2 pg (27.0-33.0); Mean Platelet Volume 10.4 fL (9.4-12.3); Monocytes Absolute Auto 0.3 X10*3/uL (0.1-1.2); Monocytes Percent Auto 6.7 % (2-11); Red Blood Count 3.98 X10*6/uL (4.20-5.50); Red Cell Distribution Width 13.2 % (11.0-16.0)
[2025-02-04 17:19] LABS: White Blood Count 4.6 X10*3/uL (4.8-10.8)
[2025-02-04 17:20] LABS: Platelet Count 77 X10*3/uL (160-400)
[2025-02-04 17:27] LABS: Alanine Aminotransferase 44 U/L (0-31); Albumin Level 3.2 g/dL (3.5-5.0); Alkaline Phosphatase 128 U/L (39-117); Anion Gap 14 (12-20); Aspartate Amino Transferase 137 U/L (5-31); Bilirubin Direct 2.2 mg/dL (0.0-0.5); Blood Urea Nitrogen 12 mg/dL (9-16); Calcium 8.8 mg/dL (8.4-10.2); Carbon Dioxide 22 mmol/L (22-29); Chloride 100 mmol/L (96-108); Creatinine Clr Calc Pharmacy 115.2; Estimated Glomerular Filt Rate > 60; Glucose Random 115 mg/dL (60-115); Lipase 40 U/L (8-78); Magnesium 1.6 mg/dL (1.6-2.6); Potassium 3.7 mmol/L (3.3-5.1); Sodium 132 mmol/L (135-145); Total Protein 9.9 g/dL (6.5-8.0)
[2025-02-04 17:30] LABS: Troponin-I High Sensitivity 8.6 ng/L (<3.5-17.0)
[2025-02-04 17:44] LABS: SLIDE REVIEW VERIFIED
[2025-02-04 18:06] LABS: Appearance Urine Clear; Color Urine Yellow; Glucose Urine UA Negative (Negative); Leukocyte Esterase Urine Small (1+) (Negative); Nitrite Urine Negative (Negative); PH 6.5 (5.0-9.0); Specific Gravity - Urine <= 1.005 (1.005-1.025); UMIC TRIGGER UACC YES; Urine Blood Moderate (2+) (Negative); Urine Ketones Negative (Negative); Urine Protein Negative (Neg-Trace)
[2025-02-04 18:07] LABS: UPreg QC Valid YES; Urine Pregnancy NEGATIVE (NEGATIVE)
[2025-02-04 18:09] LABS: Bacteria Urine 4+ (None Seen); Hyaline Casts Urine 0-2 /LPF (0-2); Squamous Epithelial Cell Urine 0-2 /HPF (0-2); UACC Culture Trigger YES
[2025-02-04 18:11] LABS: Amphetamine Screen Urine Not Detected (Not Detect); Barbiturates, Urine Not Detected (Not Detect); Benzodiazepines Screen Urine Not Detected (Not Detect); Buprenorphine Scr Not Detected (Not Detect); Cannabinoid Screen Urine Not Detected (Not Detect); Cocaine Screen Urine Not Detected (Not Detect); Fentanyl, urine POSITIVE (Not Detect); Methadone Screen, Urine Positive (Not Detect); Opiate Screen Urine POSITIVE (Not Detect); Oxycodone Screen Urine Not Detected (Not Detect); Phencyclidine Screen Urine Not Detected (Not Detect)
[2025-02-04] MEDS: iohexoL 350 MG/ML 100 ML INFUS..BTL IV (19:35)
[2025-02-04] MEDS: 0.9 % Sodium Chloride 1,000 ML 999 ML IV (20:14)
[2025-02-04] MEDS: lisinopriL 10 MG TABLET PO (20:25)
[2025-02-04 21:10] LABS: Influenza A PCR NEGATIVE (Negative); Influenza B PCR NEGATIVE (Negative); Resp Syncy Virus RNA Qual PCR NEGATIVE (Negative); SARS COV2 PCR INHOUSE NEGATIVE (Negative)
[2025-02-04] MEDS: Labetalol HCL 100 MG/20 ML VIAL 10 MG IVPUSH (21:57)
--- NOTE | 2025-02-04 21:57 | ED.ABDPAIN ---
HPI - Abdominal Pain General Chief Complaint: Abdominal Pain Stated Complaint: abd pain, bloating Time Seen by Provider: 02/04/25 17:30 History of Present Illness HPI narrative: Patient is a 44-year-old female with a history of polysubstance abuse history of hypertension history of IV drug use endorse using heroin recently complaining of abdominal pain diffuse since yesterday with some nausea. Patient claims the pain is over the entire abdomen. No chest pain no diaphoresis. No vaginal discharge. No pain on urination. Patient is from home. No abdominal surgery done in the past. No vaginal discharge. Related Data Previous Rx's ?Medication ?Instructions ?Recorded cyclobenzaprine 5 mg tablet 10 mg (2 x 5 mg) PO BEDTIME 3 days 06/04/21 #6 tabs ketorolac 10 mg tablet 10 mg PO Q6H 5 days #20 tabs 06/04/21 metronidazole 500 mg tablet 500 mg PO BID 10 days #20 tabs 06/04/21 (Flagyl) cyclobenzaprine 10 mg tablet 10 mg PO TID PRN muscle spasm #14 06/30/22 tabs ibuprofen 600 mg tablet 600 mg PO Q6H PRN pain #30 tabs 06/30/22 Allergies Allergy/AdvReac Type Severity Reaction Status Date / Time Penicillins Allergy Unknown Verified 02/04/25 16:36 Sulfa (Sulfonamide Allergy Unknown Verified 02/04/25 16:36 Antibiotics) Review of Systems Review of Systems Positive abdominal pain Yes all other systems are reviewed and are negative PMFSH Past Medical History Attestation statement: The following information was validated with the patient. Medical History HTN (hypertension) Social History Social History Alcohol intake: never Patient Tobacco Use Status: Never used Tobacco Smoked in Last 30 Days: No Use of substances other than those prescribed or required for medical reasons: Yes Substance Use Type: Heroin Advance Directives: No Advance Directives Information Provided: No Do you have a plan to hurt others: No Plan Patient : No Physical Exam ED Vital Signs: Vital Signs - 24 hr 02/04/25 16:35 02/04/25 17:47 02/04/25 20:00 Temperature 98.9 F Pulse Rate 100 88 85 Respiratory Rate 16 18 18 Blood Pressure 207/141 H 214/126 H 199/119 H Pulse Oximetry 98 99 98 Oxygen Delivery Method Room Air Room Air Room Air 02/04/25 20:25 Temperature Pulse Rate Respiratory Rate Blood Pressure 198/119 H Pulse Oximetry Oxygen Delivery Method BMI result Body Mass Index 27.3 Appearance: Alert. Oriented X3. No acute distress. Eyes: Pupils equal, round and reactive to light. ENT: Pharynx normal. Neck: Normal inspection. Neck supple. No lymph nodes noted. No crepitus CVS: Normal heart rate and rhythm. Pulses normal. Normal S1 and S2 Respiratory: No respiratory distress. Breath sounds normal. No Wheezing. No rales Abdomen: Soft and nontender. No rigidity. No distention. good BS x4 Skin: Skin warm and dry. Normal skin color. Normal skin turgor. Multiple track hendrickson noted. Extremities: No lower extremity edema. Neurovascular intact to all extremities. No Lacerations. No Rash Neuro: Oriented X 3. No motor deficit. No sensory deficit. Moving all extermities. No slurred speech Medical Decision Making Medical Decision Making [facility] Narrative: Patient is 44 years old history of IVDU presented with having diffuse abdominal pain in the extremely Elevated at 2 20/120. Patient is white count is 5. Electrolytes are normal. LFTs are significantly elevated when compared to prior. With a total bilirubin of 4 direct of 2.2 AST ALT also elevated patient's troponin was negative. Urine showed no gross signs of infection. Tox screen was positive for opioids. Positive for methadone positive for fentanyl. Patient's test was negative no related issue. A CT scan of the abdomen pelvis was done which showed no acute evidence of appendicitis no obstruction no abscess. Question colitis. Question cirrhosis of the liver. Because of patient's extremely elevated blood pressure we gave her dose of lisinopril which is what medication she was on for hypertension. The blood pressure remain at approximately 190/120. We elected to give patient additional dose of labetalol. Will admit patient for further evaluation the hospitalist team was consulted Differential Diagnosis Differential Diagnoses: The differential diagnosis associated with the presentation includes abdominal pathology including diverticulitis kidney stone obstruction abscess perforation. Admission/Observation Consideration of admission/observation: Escalation of care including admission/observation considered Consult Healthcare Provider Management of the patient was discussed with: Hospitalist Lab Data [facility] Lab Attestation statement: I reviewed the patient's lab results. 02/04/25 17:02 02/04/25 17:02 Labs: Lab Results 02/04/25 02/04/25 02/04/25 Range/Units 17:02 17:51 20:20 WBC 4.6 L (4.8-10.8) X10*3/uL RBC 3.98 L (4.20-5.50) X10*6/uL Hgb 12.8 (12.0-16.0) g/dl Hct 36.7 L (37.0-47.0) % MCV 92.2 (80.0-98.0) fL MCH 32.2 (27.0-33.0) pg MCHC 34.9 (31.0-35.0) g/dl RDW 13.2 (11.0-16.0) % Plt Count 77 L D (160-400) X10*3/uL MPV 10.4 (9.4-12.3) fL Immature Gran % (Auto) 0.4 (0.0-0.4) % Neut % (Auto) 80.0 H (45-73) % Lymph % (Auto) 12.3 L (20-40) % [place] % (Auto) 6.7 (2-11) % Eos % (Auto) 0.4 (0-4) % Baso % (Auto) 0.2 (0-2) % Lymph # (Auto) 0.6 L (1.2-4.9) X10*3/uL [place] # (Auto) 0.3 (0.1-1.2) X10*3/uL Eos # (Auto) 0.0 (0.0-0.4) X10*3/uL Baso # (Auto) 0.0 (0.0-0.2) X10*3/uL Abs Immat Gran (auto) 0.02 (0.00-0.03) X10*3/uL Absolute Neuts (auto) 3.7 (2.0-8.3) x10*3/uL Absolute Nucleated RBC 0.000 (0.0-0.012) X10*3/uL Nucleated RBC % (auto) 0.0 (0.0-0.2) /100WBC Smear Tech's Comments VERIFIED Sodium 132 L (135-145) mmol/L Potassium 3.7 (3.3-5.1) mmol/L Chloride 100 (96-108) mmol/L Carbon Dioxide 22 (22-29) mmol/L Anion Gap 14 (12-20) BUN 12 (9-16) mg/dL Creatinine 0.69 (0.5-1.4) mg/dL Estim Creat Clear Calc 115.2 Estimated GFR > 60 Random Glucose 115 (60-115) mg/dL Lactic Acid (0.5-2.0) mmol/L Calcium 8.8 D (8.4-10.2) mg/dL Magnesium 1.6 (1.6-2.6) mg/dL Total Bilirubin 4.0 H (0.0-1.0) mg/dL Direct Bilirubin 2.2 H (0.0-0.5) mg/dL AST 137 H (5-31) U/L ALT 44 H (0-31) U/L Alkaline Phosphatase 128 H (39-117) U/L Troponin I High Sens 8.6 (<3.5-17.0) ng/L Total Protein 9.9 H (6.5-8.0) g/dL Albumin 3.2 L (3.5-5.0) g/dL Lipase 40 (8-78) U/L Urine Color Yellow Urine Appearance Clear Urine pH 6.5 (5.0-9.0) Ur Specific [place] <= 1.005 (1.005-1.025) Urine Protein Negative (Neg-Trace) mg/dL Urine Glucose (UA) Negative (Negative) mg/dL Urine Ketones Negative (Negative) mg/dL Urine Blood Moderate (2+) H (Negative) Urine Nitrite Negative (Negative) Ur Leukocyte Esterase Small (1+) H (Negative) Urine RBC 11-20 H (0-2) /HPF Urine WBC 6-10 H (0-5) /HPF Ur Squamous Epith Cells 0-2 (0-2) /HPF Urine Bacteria 4+ (None Seen) Hyaline Casts 0-2 (0-2) /LPF Urine Test NEGATIVE (NEGATIVE) Urine Opiates Screen POSITIVE H (Not Detect) Ur Buprenorphine Scrn Not Detected (Not Detect) ng/mL Ur Oxycodone Screen Not Detected (Not Detect) ng/mL Urine Methadone Screen Positive H (Not Detect) ng/mL Urine Fentanyl Screen POSITIVE H (Not Detect) Ur Barbiturates Screen Not Detected (Not Detect) Ur Phencyclidine Scrn Not Detected (Not Detect) Ur Amphetamines Screen Not Detected (Not Detect) U Benzodiazepines Scrn Not Detected (Not Detect) Urine Cocaine Screen Not Detected (Not Detect) U Marijuana (THC) Screen Not Detected (Not Detect) Influenza Type A (PCR) NEGATIVE (Negative) Influenza Type B (PCR) NEGATIVE (Negative) RSV RNA Qual (PCR) NEGATIVE (Negative) SARS-CoV-2 RNA (RT-PCR) NEGATIVE (Negative) 02/04/25 Range/Units 20:51 WBC (4.8-10.8) X10*3/uL RBC (4.20-5.50) X10*6/uL Hgb (12.0-16.0) g/dl Hct (37.0-47.0) % MCV (80.0-98.0) fL MCH (27.0-33.0) pg MCHC (31.0-35.0) g/dl RDW (11.0-16.0) % Plt Count (160-400) X10*3/uL MPV (9.4-12.3) fL Immature Gran % (Auto) (0.0-0.4) % Neut % (Auto) (45-73) % Lymph % (Auto) (20-40) % [place] % (Auto) (2-11) % Eos % (Auto) (0-4) % Baso % (Auto) (0-2) % Lymph # (Auto) (1.2-4.9) X10*3/uL [place] # (Auto) (0.1-1.2) X10*3/uL Eos # (Auto) (0.0-0.4) X10*3/uL Baso # (Auto) (0.0-0.2) X10*3/uL Abs Immat Gran (auto) (0.00-0.03) X10*3/uL Absolute Neuts (auto) (2.0-8.3) x10*3/uL Absolute Nucleated RBC (0.0-0.012) X10*3/uL Nucleated RBC % (auto) (0.0-0.2) /100WBC Smear Tech's Comments Sodium (135-145) mmol/L Potassium (3.3-5.1) mmol/L Chloride (96-108) mmol/L Carbon Dioxide (22-29) mmol/L Anion Gap (12-20) BUN (9-16) mg/dL Creatinine (0.5-1.4) mg/dL Estim Creat Clear Calc Estimated GFR Random Glucose (60-115) mg/dL Lactic Acid 1.0 (0.5-2.0) mmol/L Calcium (8.4-10.2) mg/dL Magnesium (1.6-2.6) mg/dL Total Bilirubin (0.0-1.0) mg/dL Direct Bilirubin (0.0-0.5) mg/dL AST (5-31) U/L ALT (0-31) U/L Alkaline Phosphatase (39-117) U/L Troponin I High Sens (<3.5-17.0) ng/L Total Protein (6.5-8.0) g/dL Albumin (3.5-5.0) g/dL Lipase (8-78) U/L Urine Color Urine Appearance Urine pH (5.0-9.0) Ur Specific [place] (1.005-1.025) Urine Protein (Neg-Trace) mg/dL Urine Glucose (UA) (Negative) mg/dL Urine Ketones (Negative) mg/dL Urine Blood (Negative) Urine Nitrite (Negative) Ur Leukocyte Esterase (Negative) Urine RBC (0-2) /HPF Urine WBC (0-5) /HPF Ur Squamous Epith Cells (0-2) /HPF Urine Bacteria (None Seen) Hyaline Casts (0-2) /LPF Urine Test (NEGATIVE) Urine Opiates Screen (Not Detect) Ur Buprenorphine Scrn (Not Detect) ng/mL Ur Oxycodone Screen (Not Detect) ng/mL Urine Methadone Screen (Not Detect) ng/mL Urine Fentanyl Screen (Not Detect) Ur Barbiturates Screen (Not Detect) Ur Phencyclidine Scrn (Not Detect) Ur Amphetamines Screen (Not Detect) U Benzodiazepines Scrn (Not Detect) Urine Cocaine Screen (Not Detect) U Marijuana (THC) Screen (Not Detect) Influenza Type A (PCR) (Negative) Influenza Type B (PCR) (Negative) RSV RNA Qual (PCR) (Negative) SARS-CoV-2 RNA (RT-PCR) (Negative) Independent Interpretation I performed an independent interpretation of an: EKG ( My interpretation of her EKG showed a sinus pattern heart rate is 80 OK QRS QTC normal no acute ST segment elevation.) and CT Scan ( CT scan showed no obstruction no abscess no perforation.) Radiology Impression Discussion of test interpretation with radiology: I have reviewed the radiologist's reading. External Record Review External record reviewed: Inpatient record Chronic Conditions history of IV drug use Social Determinants Patient?s care significantly limited by Social Determinants of Health including: Alcoholism and drug addiction in family and Problems related to primary support group Medications Administered Discontinued Medications Generic Name Dose Route Start Last Admin Trade Name Freq PRN Reason Stop Dose Admin Sodium Chloride 1,000 mls @ 999 mls/hr 02/04/25 19:30 02/04/25 21:15 Ns IV 02/04/25 20:30 Infused .Q1H1M MARIKA Infusion Iohexol 100 ml 02/04/25 19:34 02/04/25 19:35 Iohexol 350 Mg/Ml 100 Ml Infus..Btl IV 02/04/25 19:35 85 ml ONCE ONE Administration Lisinopril 10 mg 02/04/25 19:18 02/04/25 20:25 Lisinopril 10 Mg Tablet PO 02/04/25 19:19 10 mg ONCE ONE Administration Protocol Discharge Plan Discharge Clinical Impression: Hypertensive emergency, Abdominal pain Patient Disposition: Admitted As Inpatient Print Language: Danish
--- NOTE | 2025-02-04 22:36 | PM.IMHP ---
History of Present Illness Date of Service: 02/04/25 Attending physician on admission: Ehsan Miranda Chief Complaint: abd pain Pt is a 44 yo f with a pmhx significant for HALLIE on methadone, hx HTN (no current meds), liver fibrosis followed by [facility] YUNG, and anxiety, who presented to the ED due to lower abd pain, subjective fever of 101-102, nausea, and vomiting with constipation for the past few days. she states this feels similar to a previous bout of diveticulitis. she recently lost her mother and reports that she has used IV heroin a few times, but is on methadone through [facility] in [place]. she also reports that she has been followed by Hermila YUNG for her elevated LFTs, that have been increasing she was was diagnosed with liver fibrosis, last US in May 2024. she denies any RM, chest pain, SOB or urinary sx. Review of Systems Constitutional: Constitutional: Denies body ache(s), Denies chills, Denies fatigue, Reports fever(s) and Denies headache(s) Eyes: Eyes: Denies change in vision and Denies photophobia ENT: Denies headache(s), Denies nasal congestion, Denies nasal discharge and Denies sore throat Cardiovascular: Cardiovascular: Denies chest pain, Denies rapid heart rate, Denies leg edema, Denies lightheadedness and Denies dyspnea Respiratory: Respiratory: Denies chest congestion, Denies cough, Denies dyspnea and Denies wheezing Gastrointestinal: Gastrointestinal: Reports abdominal pain, Denies melena, Reports bloating, Denies hematochezia, Denies coffee ground emesis, Denies constipation, Reports heartburn, Denies diarrhea and Reports vomiting Genitourinary: Genitourinary: Denies hematuria, Denies dysuria and Denies urinary urgency Musculoskeletal: Musculoskeletal: Denies myalgias Integumentary/Breasts: Skin/Breast: Denies rash Neurologic: Denies confusion and Denies headache(s) Psychiatric: Psychiatric: Denies confusion Endocrine: Endocrine: Denies fatigue Hematologic/Lymphatic: Hematologic/Lymphatic: Denies easy bleeding and Denies easy bruising Allergic/Immunologic: Allergic/Immunologic: Denies wheezing [facility] Medical History (Updated 02/04/25 @ 22:51 by Diane Yu PA-C) Anxiety IVDU (intravenous drug user) Substance use disorder Liver fibrosis HTN (hypertension) Functional capacity: independent ambulation Social History Alcohol intake: never Patient Tobacco Use Status: Never used Tobacco Smoked in Last 30 Days: No Use of substances other than those prescribed or required for medical reasons: Yes Substance Use Type: Heroin Advance Directives: No Advance Directives Information Provided: No Do you have a plan to hurt others: No Plan Patient : No Narrative: no smoking or etoh. on methadone, recent IVDU. Meds Allergies Allergy/AdvReac Type Severity Reaction Status Date / Time Penicillins Allergy Unknown Verified 02/04/25 16:36 Sulfa (Sulfonamide Allergy Unknown Verified 02/04/25 16:36 Antibiotics) Active Medications: Current Medications Acetaminophen (Acetaminophen 325 Mg Tablet) 650 mg PO Q6H PRN PRN Reason: Pain, Mild 1-3,fever,headache Amlodipine Besylate (Amlodipine Besylate 2.5 Mg Tablet) 2.5 mg PO DAILY MARIKA; Protocol Calcium Carbonate (Calcium Carbonate 750 Mg Tab.Chew) 750 mg PO Q4H PRN PRN Reason: Heartburn Ceftriaxone Sodium (Ceftriaxone Sodium 1 Gm Vial) 1 gm IVPUSH Q24H MARIKA Enoxaparin Sodium (Enoxaparin Sodium 40 Mg/0.4 Ml Syringe) 40 mg SUBCUT Q24H MARIKA Hydromorphone HCl (Hydromorphone Hcl 1 Mg/Ml Syringe) 0.5 mg IVPUSH Q4H PRN; Protocol PRN Reason: Pain, Severe (Pain Scale 7-10) Metronidazole (Flagyl) 500 mg in 100 mls @ 100 mls/hr IV Q8H MARIKA Magnesium Hydroxide (Milk Of Magnesia 30 Ml Oral.Susp) 30 ml PO DAILY PRN PRN Reason: Constipation Melatonin (Melatonin 3 Mg Tablet) 6 mg PO BEDTIME PRN PRN Reason: Insomnia Morphine Sulfate (Morphine Sulfate 4 Mg/Ml Cartridge) 2 mg IVPUSH Q4H PRN; Protocol PRN Reason: Pain, Moderate(Pain Scale 4-6) Sodium Chloride (0.9 % Sodium Chloride Flush 3 Ml Syringe) 3 ml IVFLUSH QSHIFT MARIKA Physical Exam Vital Signs and Narrative: Vital Signs: Last Vital Signs Temp 98.9 F 02/04/25 22:00 Pulse 77 02/04/25 22:00 Resp 18 04/10/25 22:00 BP 192/109 H 02/04/25 22:00 Pulse Ox 97 02/04/25 22:00 O2 Del Method Room Air 02/04/25 22:00 BMI result Body Mass Index 27.3 General: AOx3, no acute distress Resp: CTA bilaterally CVS: S1, S2, RRR GI: +BS, etnder LLQ, no distention Skin: Warm, dry Neuro: Cranial nerves II-XII grossly intact bilaterally. Motor grossly intact bilaterally Extremities: No LE edema Psych: Appropriate affect Const: General: No confusion Orientation/consciousness: No confusion Eyes: Direct Ophthalmoscopy: No photophobia Neuro: General: No confusion Results Labs 02/04/25 17:02 02/04/25 17:02 Labs: Laboratory Results - last 24 hr 02/04/25 02/04/25 02/04/25 17:02 17:51 20:20 MCV 92.2 MCH 32.2 MCHC 34.9 RDW 13.2 Plt Count 77 L D MPV 10.4 Immature Gran % (Auto) 0.4 Neut % (Auto) 80.0 H Lymph % (Auto) 12.3 L Maries % (Auto) 6.7 Eos % (Auto) 0.4 Baso % (Auto) 0.2 Lymph # (Auto) 0.6 L Maries # (Auto) 0.3 Eos # (Auto) 0.0 Baso # (Auto) 0.0 Abs Immat Gran (auto) 0.02 Absolute Neuts (auto) 3.7 Absolute Nucleated RBC 0.000 Nucleated RBC % (auto) 0.0 Smear Tech's Comments VERIFIED Anion Gap 14 Estim Creat Clear Calc 115.2 Estimated GFR > 60 Random Glucose 115 Lactic Acid Calcium 8.8 D Magnesium 1.6 Total Bilirubin 4.0 H Direct Bilirubin 2.2 H AST 137 H ALT 44 H Alkaline Phosphatase 128 H Total Protein 9.9 H Albumin 3.2 L Lipase 40 Urine Color Yellow Urine Appearance Clear Urine pH 6.5 Ur Specific [place] <= 1.005 Urine Protein Negative Urine Glucose (UA) Negative Urine Ketones Negative Urine Blood Moderate (2+) H Urine Nitrite Negative Ur Leukocyte Esterase Small (1+) H Urine RBC 11-20 H Urine WBC 6-10 H Ur Squamous Epith Cells 0-2 Urine Bacteria 4+ Hyaline Casts 0-2 Urine Test NEGATIVE Urine Opiates Screen POSITIVE H Ur Buprenorphine Scrn Not Detected Ur Oxycodone Screen Not Detected Urine Methadone Screen Positive H Urine Fentanyl Screen POSITIVE H Ur Barbiturates Screen Not Detected Ur Phencyclidine Scrn Not Detected Ur Amphetamines Screen Not Detected U Benzodiazepines Scrn Not Detected Urine Cocaine Screen Not Detected U Marijuana (THC) Screen Not Detected Influenza Type A (PCR) NEGATIVE Influenza Type B (PCR) NEGATIVE RSV RNA Qual (PCR) NEGATIVE SARS-CoV-2 RNA (RT-PCR) NEGATIVE 02/04/25 20:51 MCV MCH MCHC RDW Plt Count MPV Immature Gran % (Auto) Neut % (Auto) Lymph % (Auto) Maries % (Auto) Eos % (Auto) Baso % (Auto) Lymph # (Auto) Maries # (Auto) Eos # (Auto) Baso # (Auto) Abs Immat Gran (auto) Absolute Neuts (auto) Absolute Nucleated RBC Nucleated RBC % (auto) Smear Tech's Comments Anion Gap Estim Creat Clear Calc Estimated GFR Random Glucose Lactic Acid 1.0 Calcium Magnesium Total Bilirubin Direct Bilirubin AST ALT Alkaline Phosphatase Total Protein Albumin Lipase Urine Color Urine Appearance Urine pH Ur Specific [place] Urine Protein Urine Glucose (UA) Urine Ketones Urine Blood Urine Nitrite Ur Leukocyte Esterase Urine RBC Urine WBC Ur Squamous Epith Cells Urine Bacteria Hyaline Casts Urine Test Urine Opiates Screen Ur Buprenorphine Scrn Ur Oxycodone Screen Urine Methadone Screen Urine Fentanyl Screen Ur Barbiturates Screen Ur Phencyclidine Scrn Ur Amphetamines Screen U Benzodiazepines Scrn Urine Cocaine Screen U Marijuana (THC) Screen Influenza Type A (PCR) Influenza Type B (PCR) RSV RNA Qual (PCR) SARS-CoV-2 RNA (RT-PCR) Assessment and Plan (1) Colitis: Status: Acute (2) Hypertensive urgency: Status: Acute (3) Elevated LFTs: Status: Acute (4) Acute hyponatremia: Status: Acute (5) Substance use disorder: Status: Acute Plan Pt is a 44 yo f with a pmhx significant for HALLIE on methadone, hx HTN (no current meds), liver fibrosis followed by [facility], and anxiety, who presented to the ED due to lower abd pain, subjective fever of 101-102, nausea, and vomiting with constipation for the past few days. colitis, mild, sigmoid - WBC 4.6, vitals stable, lactic acid normal, no sepsis - A/P CT with possible mild sigmoid colitis, hepatosplenomegaly, ?cirrhosis, and asymmetric hyperdensity R iliac vein and femoral vein - UA negative - LFTs elevated, but at baseline per pt - RLE venous US ordered - given 1L NS in ED, pt tolerating PO, will hold off on further fluids - pt requesting full liquid diet rather than clears - morphine and dilaudid PRN for pain - ceftriaxone and flagyl for colitis - GI consult hypertensive urgency - hx of HTN, could also be secondary to pain. no hx aneurysm. - given labetalol 10mg and lisinopril 10mg in ED - start amlodipine 2.5mg QD - monitor BP Q4H elevated LFTs - chronic, pt with liver fibrosis - hep panel - GI consult acute hypovolemic hyponatremia - secondary to poor PO intake and vomiting - given 1L NS in ED, hold off on further fluids - monitor lytes HALLIE - on methadone but recent IVDU - pt already followed by [facility] full code VTE prophy: lovenox Pt with abd pain likely secondary to colitis and hypertensive urgency, requiring admission for at least 2 midnights stay for IV abx, pain management, and monitoring. Quality Stroke Does the patient have a stroke diagnosis?: No VTE Prior VTE?: No VTE Risk Level:: Medical - moderate - high VTE Device Contraindication: Treatment Not Indicated VTE Drug Contraindication: N/A - Med Ordered
--- NOTE | 2025-02-04 23:02 | PC.NURSE ---
Report given at this time.
[2025-02-05] VITALS (9 sets, daily range): BP systolic 119–177; BP diastolic 73–99; PULSE 65–77; RESP 14–18; TEMP 36.3–36.7; O2SAT 97–100
[2025-02-05] MEDS: cefTRIAXone sodium 1 GM VIAL IVPUSH ×2 (00:55→22:21)
[2025-02-05] MEDS: Enoxaparin Sodium 40 MG/0.4 ML SYRINGE SUBCUT (00:55)
[2025-02-05] MEDS: 0.9 % Sodium Chloride Flush 3 ML SYRINGE IVFLUSH ×4 (01:55→22:21)
[2025-02-05] MEDS: metroNIDAZOLE/NS 500 MG/100 ML PIGGYBACK 100 MG IV ×3 (01:55→17:40)
[2025-02-05 04:25] LABS: HBS Num1 8.86 mIU/mL (0-7.99); HBc Num1 3.63 S/CO (0.00-0.79); HBsAGNum1 0.28 S/CO (0.00-0.99); Hepatitis B Surface Antigen Negative (Negative); ~HepC Num1 12.55 S/CO (0.00-0.79); ~Hepatitis C Antibody Reactive (Nonreactive)
[2025-02-05 05:06] LABS: HBS Num2 8.57 mIU/mL (0-7.99); HBS Num3 8.77 mIU/mL (0-7.99); HBc Num3 4.47 S/CO; Hepatitis B Core Antibody Reactive (Nonreactive); ~Hepatitis B Surface Antibody GRAYZONE (Nonreactive)
--- NOTE | 2025-02-05 07:35 | P.CNGI_ITS ---
History of Present Illness Data of Consult Service Date: 02/05/25 Requesting physician: Diane Yu Primary Care Provider: None Physician HPI Reason for consult: elevated LFTs, hepatosplenomegaly, ?cirrhosis, ?colitis 44 YF with polysubstance abuse on methadone, hx HTN (no current meds), liver fibrosis followed by [facility], and anxiety, seen at [facility] on 02/04/25 with lower abd and back pain, subjective fever of 101-102, nausea, vomiting and constipation for the past week. Pt denies any RM, chest pain, SOB or urinary sx. On 02/02/25, Pt noted increased pain with fever and vomiting and unable to keep anything down even water. The following day she was able to drink some fluids. Came to the ER yesterday with 8/10 abdominal pain. Pain was initially 8/10 and constant and became worse on moving and pressing on her belly Notes improvement in abd pain to 5/10 today and pain is intermittent Pt stated her symptoms are similar to a previous episode of diveticulitis. Pt also notes constipation and no BM since 01/31 (only had a small BM yesterday). Pt reports she was diagnosed with Hepatitis C 15 yrs ago (acquired by sharing needles) and has not been treated for it. She is being followed by [facility] in [place] since last year for liver disease and Hepatitis C. Had workup initiated to start Hep C treatment and was unable to follow up due to issues with her insurance She plans to FU with [facility] after discharge - once she is on [facility]. She recently lost her mother and reports that she has used IV heroin a few times, and is on methadone through [facility] in [place]. Pt notes she has been followed by [facility] for her elevated LFTs, that have been increasing She was was diagnosed with liver fibrosis, last US in May 2024. Pt complains of dyspepsia and denies heartburn, dysphagia, melena or hematochezia. She denies smoking or ETOH abuse. 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 Patient denies known family history of colon polyps or colon cancer, multiple family members have diverticulosis. 02/04/[address] SCAN SHOWED: There is mild bowel wall thickening of the sigmoid colon. Colitis can not be excluded. Hepatosplenomegaly. Mild nodular appearance of the liver surface. Clinical correlation is recommended to exclude cirrhosis. Asymmetric hyperdensity in the right iliac vein and femoral vein. The finding may be related to contrast injection. Clinical correlation is recommended. Correlation with venous Doppler ultrasound findings as indicated. Review of Systems 2 Constitutional: Constitutional: Denies body ache(s), Denies chills, Denies fatigue, Reports fever(s) and Denies headache(s) Eyes: Eyes: Denies change in vision and Denies photophobia ENT: Denies headache(s), Denies nasal congestion, Denies nasal discharge and Denies sore throat Cardiovascular: Cardiovascular: Denies chest pain, Denies rapid heart rate, Denies leg edema, Denies lightheadedness and Denies dyspnea Respiratory: Respiratory: Denies chest congestion, Denies cough, Denies dyspnea and Denies wheezing Gastrointestinal: Gastrointestinal: Reports abdominal pain, Denies melena, Reports bloating, Denies hematochezia, Denies coffee ground emesis, Denies constipation, Reports heartburn, Denies diarrhea and Reports vomiting Genitourinary: Genitourinary: Denies hematuria, Denies dysuria and Denies urinary urgency Musculoskeletal: Musculoskeletal: Denies myalgias Integumentary/Breasts: Skin/Breast: Denies rash Neurologic: Denies confusion and Denies headache(s) Psychiatric: Psychiatric: Denies confusion Endocrine: Endocrine: Denies fatigue Hematologic/Lymphatic: Hematologic/Lymphatic: Denies easy bleeding and Denies easy bruising Allergic/Immunologic: Allergic/Immunologic: Denies wheezing PMFSH Past Medical History Medical History (Updated 02/04/25 @ 22:51 by Diane Yu PA-C) Anxiety IVDU (intravenous drug user) Substance use disorder Liver fibrosis HTN (hypertension) Social History Social History Household Members: Other Household Members Other:: friend and niece Housing: Condominium Do you presently have visiting nurse or other home services: No Alcohol intake: never Patient Tobacco Use Status: Never used Tobacco Smoked in Last 30 Days: No Use of substances other than those prescribed or required for medical reasons: Yes Substance Use Type: Heroin Substance Use Frequency: Monthly Last Used Substance: Days (ago) Last Used Substance Other:: last week per pt Currently Displaying Signs/Symptoms of Drug Intoxication Withdrawal: No Any prior treatment program specific to substance use: Yes Have you been hit, kicked, punched, or otherwise hurt by someone within the past year? If so, by whom?: No Do you feel safe in your current relationship?: No Current Relationship Is there a partner from a previous relationship who is making you feel unsafe now?: No Are you made to feel afraid or neglected: No Advance Directives: No Advance Directives Information Provided: No Do you have a plan to hurt others: No Plan Recently lost weight without trying: No Nutrition Risks: No Nutritional Risk Patient : No : No service: No Meds Allergies Allergy/AdvReac Type Severity Reaction Status Date / Time Penicillins Allergy Unknown Verified 02/04/25 16:36 Sulfa (Sulfonamide Allergy Unknown Verified 02/04/25 16:36 Antibiotics) Active Medications: Current Medications Acetaminophen (Acetaminophen 325 Mg Tablet) 650 mg PO Q6H PRN PRN Reason: Pain, Mild 1-3,fever,headache Amlodipine Besylate (Amlodipine Besylate 2.5 Mg Tablet) 2.5 mg PO DAILY MARIKA; Protocol Calcium Carbonate (Calcium Carbonate 750 Mg Tab.Chew) 750 mg PO Q4H PRN PRN Reason: Heartburn Ceftriaxone Sodium (Ceftriaxone Sodium 1 Gm Vial) 1 gm IVPUSH Q24H [facility] Last Admin: 02/05/25 00:55 Dose: 1 gm Enoxaparin Sodium (Enoxaparin Sodium 40 Mg/0.4 Ml Syringe) 40 mg SUBCUT Q24H [facility] Last Admin: 02/05/25 00:55 Dose: 40 mg Hydromorphone HCl (Hydromorphone Hcl 1 Mg/Ml Syringe) 0.5 mg IVPUSH Q4H PRN; Protocol PRN Reason: Pain, Severe (Pain Scale 7-10) Metronidazole (Flagyl) 500 mg in 100 mls @ 100 mls/hr IV Q8H [facility] Magnesium Hydroxide (Milk Of Magnesia 30 Ml Oral.Susp) 30 ml PO DAILY PRN PRN Reason: Constipation Melatonin (Melatonin 3 Mg Tablet) 6 mg PO BEDTIME PRN PRN Reason: Insomnia Morphine Sulfate (Morphine Sulfate 4 Mg/Ml Cartridge) 2 mg IVPUSH Q4H PRN; Protocol PRN Reason: Pain, Moderate(Pain Scale 4-6) Sodium Chloride (0.9 % Sodium Chloride Flush 3 Ml Syringe) 3 ml IVFLUSH QSHIFT [facility] Last Admin: 02/05/25 01:55 Dose: 3 ml Home Medications ?Medication ?Instructions ?Recorded ?Confirmed ?Last Taken ?Type ibuprofen 200 mg tablet 400 mg PO Q6H PRN Pain 02/05/25 02/05/25 Unknown History methadone 10 mg/mL oral concentrate 50 mg PO DAILY 02/05/25 02/05/25 02/04/25 History Physical Exam 2 Vital Signs: Vital Signs: Last Vital Signs Temp 98.0 F 02/05/25 06:26 Pulse 70 02/05/25 06:26 Resp 18 02/05/25 06:26 BP 119/73 02/05/25 06:26 Pulse Ox 98 02/05/25 06:26 O2 Del Method Room Air 02/05/25 06:26 BMI result Body Mass Index 27.3 Const: General: cooperative and no acute distress; No confusion Nutritional Appearance: overweight Orientation/consciousness: No confusion L imitations: no limitations HEENT: Head: Yes normal to inspection Ears: hearing grossly normal bilaterally Mouth: Normal oral and palatal mucosa present Eyes: Sclerae: sclerae normal Pupils: Equal, round and reactive pupils present Direct Ophthalmoscopy: No photophobia Neck: Neck: Yes normal visual inspection Chest: Chest palpation & inspection: normal inspection of the chest Resp: Effort & Inspection: normal respiratory effort Auscultation: clear to auscultation bilaterally Cardio: Palpation: normal PMI Rate: regular rate Rhythm: regular rhythm Heart sounds: S1 normal heart sound present, S2 normal heart sound present and no murmurs GI: Palpation (GI): Soft to palpation, Tenderness to palpation present (GI) (mild lower abdominal tenderness) and No hepatosplenomegaly present A uscultation: normal bowel sounds Rectal Exam - Female: deferred Skin: General skin exam: no rashes or lesions noted and other (multiple tattoos) Neuro: General: No confusion Cranial nerves: Yes Equal, round and reactive pupils present Psych: Appearance: grossly normal Mental Status: mental status grossly normal Results Labs 02/05/25 09:40 02/05/25 09:40 Labs: Short CBC 02/04/25 Range/Units 17:02 WBC 4.6 L (4.8-10.8) X10*3/uL Hgb 12.8 (12.0-16.0) g/dl Hct 36.7 L (37.0-47.0) % Plt Count 77 L D (160-400) X10*3/uL BMP 02/04/25 17:02 Sodium 132 L Potassium 3.7 Chloride 100 Carbon Dioxide 22 BUN 12 Creatinine 0.69 Calcium 8.8 D Liver Function 02/04/25 Range/Units 17:02 Total Bilirubin 4.0 H (0.0-1.0) mg/dL Direct Bilirubin 2.2 H (0.0-0.5) mg/dL AST 137 H (5-31) U/L ALT 44 H (0-31) U/L Alkaline Phosphatase 128 H (39-117) U/L Albumin 3.2 L (3.5-5.0) g/dL Urine 02/04/25 Range/Units 17:51 Urine Color Yellow Urine Appearance Clear Urine pH 6.5 (5.0-9.0) Ur Specific [place] <= 1.005 (1.005-1.025) Urine Protein Negative (Neg-Trace) mg/dL Urine Glucose (UA) Negative (Negative) mg/dL Assessment and Plan (1) Elevated LFTs: Status: Acute (2) Colitis: Status: Acute (3) Abdominal pain: Status: Acute Plan 44 YF with polysubstance abuse on methadone, hx HTN (no current meds), liver fibrosis followed by [facility], and anxiety, admitted to [facility] on 02/04/25 with lower abd and back pain, subjective fever of 101-102, nausea, vomiting and constipation for the past week. Pt also notes constipation and no BM since 01/31 (only had a small BM yesterday). Pt reports she was diagnosed with Hepatitis C 15 yrs ago (acquired by sharing needles) and has not been treated for it. She is being followed by [facility] in [place] since last year for liver disease and Hepatitis C. Had workup initiated to start Hep C treatment and was unable to follow up due to issues with her insurance She plans to FU with [facility] after discharge - once she is on [facility]. She was was diagnosed with liver fibrosis, last US in May 2024. She denies smoking or ETOH abuse. Hepatitis serologies showed positive hepatitis B core antibody (likely due to past Hep B infection) and hepatitis-C antibody. Hepatitis-B surface antibody in the ivey zone Elevated LFTs and liver fibrosis likely related to Chronic Hep C. Sigmoid colitis on CT scan possibly infectious colitis or ischemic colitis associated with dehydration - abd pain is improving RECOMMENDATIONS: 1. Agree with IV antibiotics and pain medications 2. Continue full liquid diet and advance diet as tolerated 3. Check prothrombin time with am labs - order placed. 4. Pt can follow up with [facility] after discharge to initiate Hep C treatment 5. A screening colonoscopy can be scheduled after 6 to 8 weeks with [facility] Procedures Date of Service Date of Service: 02/05/25
--- NOTE | 2025-02-05 09:31 | PHA.MEDREC ---
Pharmacy Consult ? Medication Reconciliation Pharmacy has completed the medication reconciliation, spoke to patient who said she does not take anything except methadone 50mg and prn advil. Stated her last dose of methadone was yesterday (02/04).
--- NOTE | 2025-02-05 09:31 | HE.PHANOTE ---
METHADONE Dose: 50mg, last dosed at the clinic 02/02/25 @1035 and given 2 take home doses per Amy Montano LPN at [facility] .
[2025-02-05] MEDS: amLODIPine Besylate 2.5 MG TABLET PO (09:37)
[2025-02-05 09:50] LABS: Basophils Percent Auto 0.4 % (0-2); Eosinophils Percent Auto 0.9 % (0-4); Hematocrit 33.8 % (37.0-47.0); Hemoglobin 11.4 g/dl (12.0-16.0); Lymphocytes Absolute Auto 0.4 X10*3/uL (1.2-4.9); Lymphocytes Percent Auto 19.6 % (20-40); MANUAL DIFF FLAG SCAN; Mean Corpuscular HGB Conc 33.7 g/dl (31.0-35.0); Mean Corpuscular Hemoglobin 32.4 pg (27.0-33.0); Mean Platelet Volume 11.4 fL (9.4-12.3); Monocytes Absolute Auto 0.2 X10*3/uL (0.1-1.2); Monocytes Percent Auto 7.6 % (2-11); Neutrophils Absolute Auto 1.6 x10*3/uL (2.0-8.3); Neutrophils Percent Auto 71.5 % (45-73); Platelet Count 64 X10*3/uL (160-400); Red Blood Count 3.52 X10*6/uL (4.20-5.50); Red Cell Distribution Width 13.6 % (11.0-16.0); SCAN SMEAR FLAG 1; White Blood Count 2.3 X10*3/uL (4.8-10.8)
[2025-02-05 10:19] LABS: Alanine Aminotransferase 41 U/L (0-31); Albumin Level 2.7 g/dL (3.5-5.0); Alkaline Phosphatase 101 U/L (39-117); Anion Gap 10 (12-20); Aspartate Amino Transferase 129 U/L (5-31); Blood Urea Nitrogen 11 mg/dL (9-16); Calcium 8.1 mg/dL (8.4-10.2); Carbon Dioxide 23 mmol/L (22-29); Chloride 107 mmol/L (96-108); Creatinine Clr Calc Pharmacy 126.1; Estimated Glomerular Filt Rate > 60; Glucose Random 119 mg/dL (60-115); Potassium 3.5 mmol/L (3.3-5.1); Sodium 136 mmol/L (135-145); Total Protein 8.4 g/dL (6.5-8.0)
[2025-02-05 10:23] LABS: SLIDE REVIEW VERIFIED
--- NOTE | 2025-02-05 12:49 | HO.PM.IMPN ---
Subjective Subjective Date of Service: 02/05/25 Interval History: seen and examined this morning follow up for abdominal pain no diarrhea, no nausea, no fever Review of Systems Review of Systems: Yes all other systems are reviewed and are negative Constitutional Constitutional: Denies chills and Denies fever(s) ENT Ears, Nose, Mouth, and Throat: Denies dizziness Cardiovascular Cardiovascular: Denies chest pain, Denies palpitations and Denies dyspnea Respiratory Respiratory: Denies cough and Denies dyspnea Neurologic Neurologic: Denies dizziness Endocrine Endocrine: Denies palpitations Physical Exam Vital Signs: Vital Signs: Last Vital Signs Temp 97.6 F 02/05/25 12:00 Pulse 70 02/05/25 12:00 Resp 16 02/05/25 12:00 BP 156/93 H 02/05/25 12:00 Pulse Ox 99 02/05/25 12:00 O2 Del Method Room Air 02/05/25 12:00 BMI result Body Mass Index 27.3 Const: General: cooperative, comfortable, no acute distress, alert and awake Nutritional Appearance: average body habitus Orientation/consciousness: patient oriented x3 Resp: Effort & Inspection: normal respiratory effort, able to speak in complete sentences, no respiratory distress and no use of accessory muscles Cardio: Rate: regular rate GI: Inspection: No distended Palpation (GI): Soft to palpation Neuro: General: patient oriented x3, moves all extremities and CN's II-XI intact bilaterally Objective Data Active Medications Acetaminophen (Acetaminophen 325 Mg Tablet) 650 mg PO Q6H PRN PRN Reason: Pain, Mild 1-3,fever,headache Amlodipine Besylate (Amlodipine Besylate 2.5 Mg Tablet) 2.5 mg PO DAILY [facility]; Protocol Last Admin: 02/05/25 09:37 Dose: 2.5 mg Documented By: FABIO Calcium Carbonate (Calcium Carbonate 750 Mg Tab.Chew) 750 mg PO Q4H PRN PRN Reason: Heartburn Ceftriaxone Sodium (Ceftriaxone Sodium 1 Gm Vial) 1 gm IVPUSH Q24H [facility] Last Admin: 02/05/25 00:55 Dose: 1 gm Documented By: LISSET Enoxaparin Sodium (Enoxaparin Sodium 40 Mg/0.4 Ml Syringe) 40 mg SUBCUT Q24H [facility] Last Admin: 02/05/25 00:55 Dose: 40 mg Documented By: HO.RICET Hydromorphone HCl (Hydromorphone Hcl 1 Mg/Ml Syringe) 0.5 mg IVPUSH Q4H PRN; Protocol PRN Reason: Pain, Severe (Pain Scale 7-10) Metronidazole (Flagyl) 500 mg in 100 mls @ 100 mls/hr IV Q8H [facility] Last Infusion: 02/05/25 11:03 Dose: Infused Documented By: FABIO Magnesium Hydroxide (Milk Of Magnesia 30 Ml Oral.Susp) 30 ml PO DAILY PRN PRN Reason: Constipation Melatonin (Melatonin 3 Mg Tablet) 6 mg PO BEDTIME PRN PRN Reason: Insomnia Methadone HCl (Methadone Hcl 20 Mg/2 Ml Oral.Conc) 50 mg PO DAILY [facility] Last Admin: 02/05/25 10:33 Dose: Not Given Documented By: FABIO Non-Admin Reason: Medication Discontinued Oxycodone HCl (Oxycodone Hcl Immed Release 5 Mg Tablet) 5 mg PO Q6H PRN PRN Reason: Pain, Moderate(Pain Scale 4-6) Sodium Chloride (0.9 % Sodium Chloride Flush 3 Ml Syringe) 3 ml IVFLUSH QSHIFT [facility] Last Admin: 02/05/25 08:59 Dose: 3 ml Documented By: FABIO Labs 02/05/25 09:40 02/05/25 09:40 Labs: Laboratory Results - last 24 hr 02/04/25 02/04/25 02/04/25 17:02 17:51 20:20 MCV 92.2 MCH 32.2 MCHC 34.9 RDW 13.2 Plt Count 77 L D MPV 10.4 Immature Gran % (Auto) 0.4 Neut % (Auto) 80.0 H Lymph % (Auto) 12.3 L Bowie % (Auto) 6.7 Eos % (Auto) 0.4 Baso % (Auto) 0.2 Lymph # (Auto) 0.6 L Bowie # (Auto) 0.3 Eos # (Auto) 0.0 Baso # (Auto) 0.0 Abs Immat Gran (auto) 0.02 Absolute Neuts (auto) 3.7 Absolute Nucleated RBC 0.000 Nucleated RBC % (auto) 0.0 Smear Tech's Comments VERIFIED Anion Gap 14 Estim Creat Clear Calc 115.2 Estimated GFR > 60 Random Glucose 115 Lactic Acid Calcium 8.8 D Magnesium 1.6 Total Bilirubin 4.0 H Direct Bilirubin 2.2 H AST 137 H ALT 44 H Alkaline Phosphatase 128 H Total Protein 9.9 H Albumin 3.2 L Lipase 40 Urine Color Yellow Urine Appearance Clear Urine pH 6.5 Ur Specific [place] <= 1.005 Urine Protein Negative Urine Glucose (UA) Negative Urine Ketones Negative Urine Blood Moderate (2+) H Urine Nitrite Negative Ur Leukocyte Esterase Small (1+) H Urine RBC 11-20 H Urine WBC 6-10 H Ur Squamous Epith Cells 0-2 Urine Bacteria 4+ Hyaline Casts 0-2 Urine Test NEGATIVE Urine Opiates Screen POSITIVE H Ur Buprenorphine Scrn Not Detected Ur Oxycodone Screen Not Detected Urine Methadone Screen Positive H Urine Fentanyl Screen POSITIVE H Ur Barbiturates Screen Not Detected Ur Phencyclidine Scrn Not Detected Ur Amphetamines Screen Not Detected U Benzodiazepines Scrn Not Detected Urine Cocaine Screen Not Detected U Marijuana (THC) Screen Not Detected Hep Bs Antigen Hep Bs Antibody Hep B Core Total Ab Hepatitis C Ab (EIA) Influenza Type A (PCR) NEGATIVE Influenza Type B (PCR) NEGATIVE RSV RNA Qual (PCR) NEGATIVE SARS-CoV-2 RNA (RT-PCR) NEGATIVE 02/04/25 02/04/25 02/05/25 20:51 23:38 09:40 MCV 96.0 MCH 32.4 MCHC 33.7 RDW 13.6 Plt Count 64 L MPV 11.4 Immature Gran % (Auto) 0.0 Neut % (Auto) 71.5 Lymph % (Auto) 19.6 L Bowie % (Auto) 7.6 Eos % (Auto) 0.9 Baso % (Auto) 0.4 Lymph # (Auto) 0.4 L Bowie # (Auto) 0.2 Eos # (Auto) 0.0 Baso # (Auto) 0.0 Abs Immat Gran (auto) 0.00 Absolute Neuts (auto) 1.6 L Absolute Nucleated RBC 0.000 Nucleated RBC % (auto) 0.0 Smear Tech's Comments VERIFIED Anion Gap 10 L Estim Creat Clear Calc 126.1 Estimated GFR > 60 Random Glucose 119 H Lactic Acid 1.0 Calcium 8.1 L D Magnesium Total Bilirubin 3.0 H Direct Bilirubin AST 129 H ALT 41 H Alkaline Phosphatase 101 Total Protein 8.4 H Albumin 2.7 L Lipase Urine Color Urine Appearance Urine pH Ur Specific [place] Urine Protein Urine Glucose (UA) Urine Ketones Urine Blood Urine Nitrite Ur Leukocyte Esterase Urine RBC Urine WBC Ur Squamous Epith Cells Urine Bacteria Hyaline Casts Urine Test Urine Opiates Screen Ur Buprenorphine Scrn Ur Oxycodone Screen Urine Methadone Screen Urine Fentanyl Screen Ur Barbiturates Screen Ur Phencyclidine Scrn Ur Amphetamines Screen U Benzodiazepines Scrn Urine Cocaine Screen U Marijuana (THC) Screen Hep Bs Antigen Negative Hep Bs Antibody GRAYZONE Hep B Core Total Ab Reactive Hepatitis C Ab (EIA) Reactive H Influenza Type A (PCR) Influenza Type B (PCR) RSV RNA Qual (PCR) SARS-CoV-2 RNA (RT-PCR) Microbiology Microbiology Results: Microbiology 02/04/25 18:10 Urine Culture - Preliminary Urine clean catch - Clean Catch Midstream Culture in progress. Assessment and Plan (1) Elevated LFTs: Status: Acute (2) Hypertensive urgency: Status: Acute (3) Colitis: Status: Acute Plan Pt is a 44 yo f with a pmhx significant for HALLIE on methadone, hx HTN (no current meds), liver fibrosis followed by [facility], and [facility], who presented to the ED due to lower abd pain, subjective fever of 101-102, nausea, and vomiting with constipation for the past few days. abdominal pain CT with possible colitis sigmoid; lactic acid normal, no sepsis no further nausea, vomiting; no diarrhea continue ceftriaxone and flagyl for colitis GI consult pending Blood cultures pending hypertensive urgency hx of HTN, could also be secondary to pain Increase Norvasc to 5 mg daily Monitor blood pressure closely elevated LFTs Transaminitis elevated at baseline, bili now elevated Abdominal ultrasound with no evidence of gallstones Ultrasound showing probable cirrhosis -Likely due to patient's history of hepatitis-C which has been untreated HCP+ remainder of hepatitis screen pending GI consult pending Pancytopenia Likely due to liver disease acute hypovolemic hyponatremia resolved HALLIE continue methadone full code VTE: lovenox Patient requires ongoing inpatient stay for abd pain likely secondary to colitis and hypertensive urgency, requiring IV abx, pain management, and monitoring. Quality Stroke Does the patient have a stroke diagnosis?: No VTE Prior VTE?: No VTE Risk Level:: Medical - moderate - high VTE Device Contraindication: Treatment Not Indicated VTE Drug Contraindication: N/A - Med Ordered
--- NOTE | 2025-02-05 14:11 | MHC.CM.PN ---
PT FROM HOME WITH FRIEND, NIECE. INDP W/ CARE NO SERVICES NO PCP, PT DECLINED HCP IMM DELIVERED DP- HOME SELF CARE VIA OWN CAR
--- NOTE | 2025-02-05 15:33 | PC.NURSE ---
BP elevated 177/99 pulse 69,pt c/o headache,will medicate with tylenol,GERTRUDE Kay notified
[2025-02-05] MEDS: Acetaminophen 325 MG TABLET 650 MG PO (15:36)
[2025-02-05] MEDS: amLODIPine Besylate 5 MG TABLET PO (16:20)
[2025-02-05] MEDS: polyethylene glycoL 3350 17 GM POWD.PACK PO (17:06)
[2025-02-06] MEDS: metroNIDAZOLE/NS 500 MG/100 ML PIGGYBACK 100 MG IV ×2 (02:41→09:26)
[2025-02-06 03:47] VITALS: BP 148/78; PULSE 63; RESP 18; TEMP 36.2; O2SAT 99
[2025-02-06 06:06] LABS: Alanine Aminotransferase 45 U/L (0-31); Albumin Level 2.7 g/dL (3.5-5.0); Alkaline Phosphatase 106 U/L (39-117); Anion Gap 12 (12-20); Aspartate Amino Transferase 133 U/L (5-31); Bilirubin Total 2.5 mg/dL (0.0-1.0); Blood Urea Nitrogen 8 mg/dL (9-16); Calcium 8.3 mg/dL (8.4-10.2); Carbon Dioxide 21 mmol/L (22-29); Chloride 108 mmol/L (96-108); Creatinine Clr Calc Pharmacy 111.9; Estimated Glomerular Filt Rate > 60; Glucose Random 73 mg/dL (60-115); Potassium 3.8 mmol/L (3.3-5.1); Sodium 137 mmol/L (135-145); Total Protein 8.5 g/dL (6.5-8.0)
[2025-02-06 07:15] VITALS: BP 139/86; PULSE 69; RESP 16; TEMP 36.8; O2SAT 97
[2025-02-06 08:02] LABS: Eosinophils Percent Auto 2.2 % (0-4); Hematocrit 33.3 % (37.0-47.0); Hemoglobin 11.1 g/dl (12.0-16.0); Imm Gran Abs Auto 0.01 X10*3/uL (0.00-0.03); Imm Gran Pct Auto 0.6 % (0.0-0.4); Lymphocytes Absolute Auto 0.5 X10*3/uL (1.2-4.9); Lymphocytes Percent Auto 26.1 % (20-40); MANUAL DIFF FLAG SCAN; Mean Corpuscular HGB Conc 33.3 g/dl (31.0-35.0); Mean Corpuscular Hemoglobin 31.9 pg (27.0-33.0); Mean Corpuscular Volume 95.7 fL (80.0-98.0); Mean Platelet Volume 10.3 fL (9.4-12.3); Monocytes Absolute Auto 0.2 X10*3/uL (0.1-1.2); Monocytes Percent Auto 12.2 % (2-11); Neutrophils Absolute Auto 1.1 x10*3/uL (2.0-8.3); Neutrophils Percent Auto 58.9 % (45-73); Red Blood Count 3.48 X10*6/uL (4.20-5.50); Red Cell Distribution Width 13.5 % (11.0-16.0); SCAN SMEAR FLAG 1
[2025-02-06 08:10] LABS: Platelet Count 58 X10*3/uL (160-400); White Blood Count 1.8 X10*3/uL (4.8-10.8)
[2025-02-06 08:38] LABS: SLIDE REVIEW VERIFIED
--- NOTE | 2025-02-06 08:59 | P.DS_ITS ---
DS: Providers Provider Date of Service: 02/06/25 Date of admission: 02/04/25 22:32 Date of discharge: 02/06/25 Primary care physician: None Physician Consults: 02/04/25 21:58 Consult to Gastroenterology Routine Consulting Provider: Monty Auguste Reason for consultation: elevated LFTs, hepatosplenomegaly, ?cirrhosis, ?colitis Has provider been notified: No 02/05/25 09:53 Inpt - Recovery Team Routine Comment: Reason for consultation: HALLIE eval DS: Diagnosis Discharge Diagnosis (1) Elevated LFTs: Status: Acute (2) Colitis: Status: Acute (3) Abdominal pain: Status: Acute DS: Summary Hospital Course Hospital Course: History and physical as per admitting provider. Pt is a 44 yo f with a pmhx significant for HALLIE on methadone, hx HTN (no current meds), liver fibrosis followed by Hermila YUNG, and anxiety, who presented to the ED due to lower abd pain, subjective fever of 101-102, nausea, and vomiting with constipation for the past few days. she states this feels similar to a previous bout of diveticulitis. she recently lost her mother and reports that she has used IV heroin a few times, but is on methadone through [facility] in [place]. she also reports that she has been followed by Hermila YUNG for her elevated LFTs, that have been increasing she was was diagnosed with liver fibrosis, last US in May 2024. she denies any RM, chest pain, SOB or urinary sx. 44-year-old woman treated for abdominal pain secondary to colitis with nausea, vomiting initially, no diarrhea. Treated with Rocephin and Flagyl. Seen and evaluated by Gastroenterology with recommendation for outpatient follow up with regular mobile developer and outpatient colonoscopy. Patient was able to tolerate a regular diet. She will be discharged on oral Levaquin and Flagyl for 5 more days. She had an episode of hypertensive urgency likely secondary to pain. Norvasc was increased to 5 mg daily blood pressure has recovered well. She was noted to have elevated LFTs but normally elevated at baseline, abdominal ultrasound negative for gallstones, ultrasound showing probable cirrhosis seco ndary to untreated hepatitis-C. Patient should follow up with mobile developer for treatment of hep C. Pancytopenia secondary to liver disease Hyponatremia. Resolved with the placement Substance abuse. Continue methadone. Seek outpatient treatment for assistance with this. Time Attestation Discharge Coordination Time (in mins): 40 Quality: Safe Use of Opioids Does Pt have an Active Cancer Diagnosis on the Problem List?: No Quality: Stroke Does the patient have a stroke diagnosis?: No Physical Exam Vital Signs: Vital Signs: Last Vital Signs Temp 98.3 F 02/06/25 07:15 Pulse 69 02/06/25 07:15 Resp 16 02/06/25 07:15 BP 139/86 02/06/25 07:15 Pulse Ox 97 02/06/25 07:15 O2 Del Method Room Air 02/06/25 07:15 BMI result Body Mass Index 27.3 Appearing in no acute distress head is normocephalic atraumatic eyes pupils are PERRLA sclera is anicteric mouth throat mucous membranes are intact and moist neck is supple no lymphadenopathy, no JVD noted lung sounds are clear to auscultation heart regular rate rhythm, clear S1, S2 positive bowel sounds, abdomen is soft, nontender neuro patient is alert x3, no focal deficits DS: Data Data Completed and Pending Labs on day of discharge: Laboratory Results - last 24 hr 02/05/25 02/06/25 02/06/25 09:40 05:22 07:43 WBC 2.3 L 1.8 L RBC 3.52 L 3.48 L Hgb 11.4 L 11.1 L Hct 33.8 L 33.3 L MCV 96.0 95.7 MCH 32.4 31.9 MCHC 33.7 33.3 RDW 13.6 13.5 Plt Count 64 L 58 L MPV 11.4 10.3 Immature Gran % (Auto) 0.0 0.6 H Neut % (Auto) 71.5 58.9 Lymph % (Auto) 19.6 L 26.1 [place] % (Auto) 7.6 12.2 H Eos % (Auto) 0.9 2.2 Baso % (Auto) 0.4 0.0 Lymph # (Auto) 0.4 L 0.5 L [place] # (Auto) 0.2 0.2 Eos # (Auto) 0.0 0.0 Baso # (Auto) 0.0 0.0 Abs Immat Gran (auto) 0.00 0.01 Absolute Neuts (auto) 1.6 L 1.1 L Absolute Nucleated RBC 0.000 0.000 Nucleated RBC % (auto) 0.0 0.0 Smear Tech's Comments VERIFIED VERIFIED Sodium 136 137 Potassium 3.5 3.8 Chloride 107 108 Carbon Dioxide 23 21 L Anion Gap 10 L 12 BUN 11 8 L Creatinine 0.63 0.71 Estim Creat Clear Calc 126.1 111.9 Estimated GFR > 60 > 60 Random Glucose 119 H 73 Calcium 8.1 L D 8.3 L Total Bilirubin 3.0 H 2.5 H AST 129 H 133 H ALT 41 H 45 H Alkaline Phosphatase 101 106 Total Protein 8.4 H 8.5 H Albumin 2.7 L 2.7 L Preliminary micro results at discharge 02/04/25 20:45 Blood Culture - Preliminary Blood - Venous No growth after 24 hours. 02/04/25 20:51 Blood Culture - Preliminary Blood - Venous No growth after 24 hours. 02/04/25 18:10 Urine Culture - Preliminary Urine clean catch - Clean Catch Midstream Culture in progress. Discharge Plan Discharge Anticipated Discharge Date/Time: 02/06/25 08:48 Patient Disposition: Home, Self-Care Discharge Diagnosis: Colitis Hypertensive urgency Transaminitis Hyponatremia Discharge Medications: New levofloxacin 750 mg tablet 750 mg PO DAILY Qty: 5 0RF metronidazole 500 mg tablet 500 mg PO Q8H Qty: 15 0RF Continued ibuprofen 200 mg Tablet 400 mg PO Q6H PRN (Reason: Pain) methadone 10 mg/mL Concentrate 50 mg PO DAILY Discharge Orders: Discharge Order (Routine); Ordered 02/06/25 Ordered By: Kristy Marcial Diet: Advance to usual diet Activity on Discharge: As tolerated Stand Alone Forms: Patient Portal Discharge page Print Language: Luxembourgish Care Plan Goals: Complete abx course Health Concerns: Colitis Hypertensive urgency Transaminitis Hyponatremia Plan of Treatment: Follow-up with primary care provider as needed Take all medications as prescribed Assessment: See discharge summary
--- NOTE | 2025-02-06 09:17 | MHC.CM.PN ---
PT TO DC TODAY, HOME WITH NO SERVICES, VIA SELF TRANSPORT
[2025-02-06] MEDS: 0.9 % Sodium Chloride Flush 3 ML SYRINGE IVFLUSH (09:25)
[2025-02-06] MEDS: polyethylene glycoL 3350 17 GM POWD.PACK PO (09:27)
[2025-02-06] MEDS: methADONE HCl 20 MG/2 ML ORAL.CONC 50 MG PO (09:27)
[2025-02-06] MEDS: amLODIPine Besylate 5 MG TABLET PO (09:28)
[2025-02-07 13:39] LABS: Hepatitis B Core Antibody IgM NON-REACTIVE (NON-REACTIVE)
[2025-02-09 08:07] LABS: Hepatitis A Antibody IgM 0.39 Index (0-0.79); ~Hepatitis A Antibody IgM Nonreactive (Nonreactive)
== END 2025-02-06 11:58 | disposition home or self-care (01) | DRG 392 ==
LOC: HO.ED 21:49 → HO.EDOVER 22:37 → HO.S3 02-05 07:17
PROVIDERS: Physician Assistant; Admitting Provider Physician Assistant; Emergency Provider Emergency Medicine Emergency Medical Services; Visit Provider Nurse Practitioner Acute Care
DX: K52.9 Noninfective gastroenteritis and colitis, unspecified (principal); I16.1 Hypertensive emergency; F11.20 Opioid dependence, uncomplicated; E87.1 Hypo-osmolality and hyponatremia; D61.818 Other pancytopenia; K74.69 Other cirrhosis of liver; B18.2 Chronic viral hepatitis C; I10 Essential (primary) hypertension; K74.00 Hepatic fibrosis, unspecified; F19.10 Other psychoactive substance abuse, uncomplicated; E86.1 Hypovolemia; Z86.19 Personal history of other infectious and parasitic diseases; Z20.822 Contact with and (suspected) exposure to COVID-19; Z79.899 Other long term (current) drug therapy
CPT/HCPCS: 0241U; 36415; 74177; 76705; 80048; 80053; 80076; 80307; 81001; 81025; 83605; 83690; 83735; 84484; 85025; 86704; 86705; 86706; 86709; 86803; 87040; 87086; 87088; 87186; 87340; 93005; 93971; 99285; J0696; J1650; J1836; J1920; Q9967; S9485

== ENCOUNTER → 2025-02-04 16:40 | Outpatient (BNV) | payer MEDICARE, MEDICAID, SELFPAY | PROVIDERS: Admitting Provider Physician Assistant; Emergency Provider Emergency Medicine Emergency Medical Services; Visit Provider Internal Medicine Cardiovascular Disease | DX: I45.81 Long QT syndrome (principal) | CPT/HCPCS: 93010 ==

== ENCOUNTER → 2025-02-04 19:18 | Outpatient (BNV) | payer MEDICARE, MEDICAID, SELFPAY | PROVIDERS: Emergency Provider Emergency Medicine Emergency Medical Services; Visit Provider Nuclear Medicine | DX: R10.30 Lower abdominal pain, unspecified (principal) | CPT/HCPCS: 74177 ==

== ENCOUNTER 2025-02-04 22:32 | Outpatient (BNV) | payer MEDICARE, MEDICAID, SELFPAY | END 2025-02-05 07:27 | PROVIDERS: Admitting Provider Physician Assistant; Emergency Provider Emergency Medicine Emergency Medical Services; Visit Provider Radiology Diagnostic Radiology | DX: R10.11 Right upper quadrant pain (principal); I82.421 Acute embolism and thrombosis of right iliac vein | CPT/HCPCS: 76705; 93971 ==

== ENCOUNTER → 2025-02-04 22:32 | Outpatient (BNV) | payer MEDICARE, MEDICAID, SELFPAY | PROVIDERS: Admitting Provider Physician Assistant; Emergency Provider Emergency Medicine Emergency Medical Services; Visit Provider Physician Assistant Medical | DX: R79.89 Other specified abnormal findings of blood chemistry (principal); K52.9 Noninfective gastroenteritis and colitis, unspecified; R10.9 Unspecified abdominal pain | CPT/HCPCS: 99223; 99232; 99239 ==

== ENCOUNTER → 2025-02-04 22:32 | Outpatient (BNV) | payer MEDICAID, SELFPAY | PROVIDERS: Admitting Provider Physician Assistant; Emergency Provider Emergency Medicine Emergency Medical Services; Visit Provider Internal Medicine Gastroenterology | DX: R74.01 Elevation of levels of liver transaminase levels (principal); K52.9 Noninfective gastroenteritis and colitis, unspecified; R10.9 Unspecified abdominal pain | CPT/HCPCS: 99222 ==

== ENCOUNTER 2025-08-19 17:08 | Inpatient (IN) | payer MEDICARE, MEDICAID, SELFPAY ==
--- NOTE | ~2025-08-19 | US_ITS ---
CLINICAL HISTORY: pain, asess for ascites, also check liver cyst US abdomen limited Comparison: 02/05/2025 Findings: The liver is 16 cm in length with a heterogeneous echotexture and lobulated contour. Correlate for hepatocellular pathology such as cirrhosis. There is no intrahepatic bile duct dilatation. The common duct is 5.0 mm in diameter. The gallbladder is normal. There is positive sonographic Galdamez sign. The main portal vein is antegrade. Moderate ascites, largest pockets in the lower quadrants. IMPRESSION: 1. Nonspecific hepatic findings possibly related to cirrhosis. Correlate clinically. 2. Ascites. 3. Sonographic galdamez's sign, significance indeterminate This document has been electronically signed by: Geovani Gonzalez MD on 08/29/2025 08:39:28
--- NOTE | ~2025-08-19 | CT_ITS ---
CLINICAL HISTORY: abd pain, anemia, cirrhosis Exam: CT Abdomen and Pelvis Without IV Contrast Comparison: Ultrasound of the gallbladder 08/28/2025 Findings: Above the diaphragm there are bilateral posterior lower lobe consolidations with air bronchograms. The liver is enlarged, 20 cm, the liver density is homogeneous The gallbladder is mildly distended. No calculi visible with CT and no calculi on recent ultrasound Spleen is enlarged, measuring 16 cm in length. No pancreatic ductal dilatation. Pancreas size is normal. No hydronephrosis Normal bowel caliber No secondary signs of acute appendicitis There is moderate ascites. The abdominal aorta caliber is normal Bladder outline is smooth No suspicious skeletal lesions Impression: 1. Bilateral posterior costophrenic sulcus consolidations/early pneumonia. 2. Anasarca with small posterior lower lung field effusions , mesenteric edema, moderate ascites, and abdominal wall edema consistent with fluid and electrolyte imbalance. 3. Hepatosplenomegaly This document has been electronically signed by: Christopher Lopez MD on 08/29/2025 13:33:58
--- NOTE | ~2025-08-19 | XR_ITS ---
EXAMINATION: XR ABDOMEN KUB CLINICAL INDICATION: abdominal pain COMPARISON: Correlated to CT dated February 04, 2025. TECHNIQUE: AP view of the abdomen. FINDINGS: Gas throughout nondilated intestine. Multilevel spondylosis. Degenerative changes in the hips and sacroiliac joints. Patient's large body habitus/obesity. Spleen shadow projects below the rib cage. XR/XR abdomen 1V IMPRESSION: No intestinal obstruction pattern. Splenomegaly. Electronically signed by: Tao Hall MD 08/26/2025 01:52 PM EDT
--- NOTE | ~2025-08-19 | XR_ITS ---
CLINICAL HISTORY: sob 1 view chest x-ray Comparison: CR/SR - XR CHEST 1 VIEW - 08/30/25 16:48 EST Findings: Left upper lobe and right lung patchy areas of ground-glass opacity. Right arm approach PICC line with tip projected over the right atrium. Cardiomegaly. No acute fracture. IMPRESSION: 1. Bilateral pneumonias. 2. Cardiomegaly. 3. Right arm PICC line with tip projected over the right atrium. This document has been electronically signed by: Ivan Fitzpatrick MD on 09/02/2025 22:11:25
--- NOTE | ~2025-08-19 | XR_ITS ---
EXAMINATION: XR CHEST CLINICAL INFORMATION: hypoxia COMPARISON: None available. TECHNIQUE: Frontal view of the chest was obtained. FINDINGS: Right PICC in place, tip terminating at the cavoatrial junction. There is prominence of the cardiac silhouette. The mediastinal and hilar contours appear normal. The lungs demonstrate low lung volumes bilaterally. There are patchy opacities in the bilateral perihilar regions and lower lungs, suggestive of pneumonia. No definite effusion or pneumothorax. No focal osseous or soft tissue abnormality. XR/XR chest 1V IMPRESSION: 1. PICC in good position. 2. Low lung volumes bilaterally. 3. Patchy opacities in the bilateral perihilar regions and lower lungs, suggestive of pneumonia in the appropriate clinical setting. Electronically signed by: Jamaal Hill MD 08/30/2025 04:16 PM GABRIEL LANDAVERDE
--- NOTE | ~2025-08-19 | XR_ITS ---
CLINICAL HISTORY: Persistent pain and swelling Two views of the right knee. COMPARISON: XR right knee dated 08/20/25 at 00:08 EDT FINDINGS: Large suprapatellar joint effusion with small amount of internal gas. Joint spaces are maintained. Well corticated ossification present along the tibial spine possibly representing an intra-articular ossification. Visualized portions of the distal femur, patella, and proximal tibia and fibula appear intact. Fabella present. IMPRESSION: 1. Large right suprapatellar joint effusion with small amount of internal gas. This raises suspicion for septic infection. Of note joint effusion has increased since prior imaging and internal gas is new since prior imaging. This document has been electronically signed by: Bill Dover MD on 08/22/2025 14:44:16
--- NOTE | ~2025-08-19 | US_ITS ---
CLINICAL HISTORY: edema, rule out DVT Right lower extremity duplex venous Doppler Comparison: US - US VENOUS DUPLEX LE RT - 08/19/25 17:50 EDT Technique: Grayscale/Color/Duplex Doppler sonographic evaluation of the deep venous system within the right lower extremity. Findings: Right lower extremity Common femoral vein: Patent CFV/GSV junction: Patent Femoral vein: Patent Popliteal vein: Patent Infrapopliteal veins: Patent where seen Soft tissue: No focal abnormality Impression: 1. Negative for right lower extremity DVT. 2. No Lara's cyst This document has been electronically signed by: William Villa MD on 08/27/2025 19:40:14
--- NOTE | ~2025-08-19 | XR_ITS ---
CLINICAL HISTORY: large effusion septic --- Additional Notes or Special Instructions: She can not really range the joint, I am taking the x-ray 2 view right knee Comparison: None provided Findings: This examination is limited by suboptimal patient positioning. No acute fracture or dislocation injury identified. No cortical destruction of the bone. Small to moderate right suprapatellar joint fluid visualized on the lateral image. Edema identified throughout the right knee soft tissues. IMPRESSION: 1. Mildly limited examination related to suboptimal patient positioning, limiting evaluation of the proximal right fibula. No acute fracture or dislocation injury identified at the right knee. No radiographic evidence for active osteomyelitis. 2. Nonspecific edema identified throughout the right knee soft tissues with small to moderate volume right suprapatellar joint fluid. This document has been electronically signed by: Junaid Grant MD on 08/20/2025 00:45:25
--- NOTE | ~2025-08-19 | CT_ITS ---
CLINICAL HISTORY: LIVER FAILURE CT abdomen and pelvis without contrast Comparison: CT/REG/SR - CT ABDOMEN PELVIS WO IV CON - 08/29/25 12:22 EST Findings: Trace bilateral pleural effusions. Right lower lobe and right middle lobe meniscus of subsegmental atelectasis. The gallbladder and solid organs are within normal limits. No renal stones. There is diffuse fecal material seen throughout the colon. Calcified coronary atherosclerotic disease. The uterus is within normal limits. Small amount of ascites. The bladder is decompressed Aguirre catheter in lumen. The bones are intact. Circumferential subcutaneous edema. IMPRESSION: 1. Trace bilateral pleural effusions. 2. Small amount of ascites. 3. Anasarca. 4. Right lower lobe and right middle lobe pneumonias. 5. Constipation. 6. Calcified coronary atherosclerotic disease. 7. No acute intraabdominal or pelvic findings. This document has been electronically signed by: Ivan Fitzpatrick MD on 09/02/2025 18:23:19
--- NOTE | ~2025-08-19 | US_ITS ---
CLINICAL HISTORY: R lower extremity swelling Venous duplex ultrasound right lower extremity Comparison: None provided Findings: The visualized deep veins are fully compressible with normal Doppler color flow and spectral tracings. No popliteal cyst. IMPRESSION: 1. Negative for right lower extremity deep vein thrombosis. This document has been electronically signed by: Guy Dubois MD on 08/19/2025 18:36:16
--- NOTE | ~2025-08-19 | US_ITS ---
EXAMINATION: US GUIDED PARACENTESIS CLINICAL INFORMATION: Rule out SBP. COMPARISON: Ultrasound abdomen 08/28/2025. TECHNIQUE: Following explaining ultrasound-guided paracentesis procedure, benefits and risk, a written consent was obtained. Patient was placed supine on ultrasound stretcher and preliminary four-quadrant ultrasound imaging was obtained. An optimal site was selected along the right lower quadrant and marked on the skin. The marked site was cleaned and draped in usual sterile manner. Through a small skin incision a 5 [place] Yueh catheter was advanced from the skin into the peritoneal space . After observing fluid return, stylet was withdrawn and catheter connected to vacuum bottle via connecting cannula. Initially 50 mL of ascites fluid was collected in a syringe and sent to lab for diagnostic evaluation. After removing all fluid and observing no more fluid return, catheter was withdrawn and complete hemostasis achieved at puncture site. Sterile dressing applied post procedure. Patient tolerated procedure extremely well. FINDINGS: There is small to moderate amount of ascites. Approximately 700 mL of clear yellowish-xiomy color fluid was drained from the right lower quadrant. Part of this fluid was sent to lab as requested. US/US paracentesis abd w/image IMPRESSION: Successful ultrasound-guided diagnostic and therapeutic paracentesis performed without immediate complications. Electronically signed by: Cisoc Norwood MD 08/31/2025 08:04 AM [facility]
[2025-08-19 17:24] VITALS: BP 143/78; BP 151/84; PULSE 100; PULSE 92; RESP 18; TEMP 36.5; O2SAT 97; O2SAT 99; BMI 27.4
--- NOTE | 2025-08-19 17:24 | ED_ITS ---
HPI - Extremity Injury (Lower) General Chief Complaint: Extremity Injury, Lower Stated Complaint: pain and swelling R leg x 1 week: Ortho found zero Time Seen by Provider: 08/19/25 19:05 Source: patient Limitations: no limitations History of Present Illness ED Provider: Radha Aguirre PA-C HPI Narrative: 44-year-old female with a history of hypertension, IVDA on methadone, hepatitis- C, liver fibrosis, colitis, who presents to the ER with complaints of right lower leg pain and swelling. Reports that she tripped over her cat and twisted her right knee. She had an MRI at [facility] which showed knee joint synovitis, advanced patellofemoral compartment chondromalacia. She does report that she went back to the orthopedist who she followed up with and was told to report to the emergency room for further evaluation. She does admit to active IVDA secondary to significant pain in her leg. Associated faint erythema and warmth of the joint. The patient is unable to flex or extend secondary to pain. Denies fever. Related Data Home Medications ?Medication ?Instructions ?Recorded ?Confirmed ibuprofen 200 mg tablet 400 mg PO Q6H PRN Pain 02/0502/05/25 methadone 10 mg/mL oral concentrate 50 mg PO DAILY 09/2102/05/25 Previous Rx's ?Medication ?Instructions ?Recorded amlodipine 5 mg tablet 5 mg PO DAILY #30 tabs 02/06 levofloxacin 750 mg tablet 750 mg PO DAILY #5 tabs 10/21 metronidazole 500 mg tablet 500 mg PO Q8H #15 tabs 10/21 Allergies Allergy/AdvReac Type Severity Reaction Status Date / Time Penicillins Allergy Unknown Verified 08/19/25 17:28 Sulfa (Sulfonamide Allergy Unknown Verified 08/19/25 17:28 Antibiotics) Review of Systems 2 Review of Systems: Yes all other systems are reviewed and are negative Constitutional: Constitutional: Denies fatigue and Denies fever(s) Cardiovascular: Cardiovascular: Denies chest pain and Denies dyspnea Respiratory: Respiratory: Denies dyspnea Musculoskeletal: Musculoskeletal: Reports arthralgias and Reports joint swelling Integumentary/Breasts: Skin/Breast: Reports erythema and Reports skin swelling Endocrine: Endocrine: Denies fatigue PMF Past Medical History Attestation statement: The following information was validated with the patient. Medical History (Updated 08/20/25 @ 00:19 by GERTRUDE Null) Anxiety IVDU (intravenous drug user) Substance use disorder Liver fibrosis HTN (hypertension) Social History Social History Household Members: Other Household Members Other:: friend and niece Housing: Condominium Do you presently have visiting nurse or other home services: No Alcohol intake: never Patient Tobacco Use Status: Never used Tobacco Smoked in Last 30 Days: No Use of substances other than those prescribed or required for medical reasons: Yes Substance Use Type: Heroin Substance Use Frequency: Chronic Longstanding Advance Directives: No Advance Directives Information Provided: Yes service: No Physical Exam 2 Vital Signs: Vital Signs: Last Vital Signs Temp 98.3 F 08/19/25 22:08 Pulse 93 08/19/25 23:11 Resp 18 08/19/25 23:11 BP 129/71 08/19/25 23:11 Pulse Ox 92 08/19/25 23:11 O2 Del Method Room Air 08/19/25 23:11 BMI result Body Mass Index 27.4 Const: Other: Alert, appears older than stated age Orientation/consciousness: patient oriented x3 Resp: Effort & Inspection: normal respiratory effort Cardio: Other: Normal peripheral perfusion Skin: Other: Warm dry no rash Neuro: General: patient oriented x3, gait normal, no focal motor deficits and CN's II-XI intact bilaterally Extrem: Other: Erythema and warmth noted of the right knee which is markedly swollen when compared to the left. The swelling spans from thigh to the foot, pulses intact, the erythema radiates superiorly over medial thigh patient is not able to flex or extend the knee Psych: Other: Cooperative, anxious, tearful at times Course Course Course Narrative: This is an RME: Additional HPI, ROS, PE not included below will be deferred to primary provider. RME assessment and note performed by: Adele Pedraza PA-C This is a [id number], with a hx of IVDA on methadone, colitis, who presents to the ER with complaints of right lower leg pain and swelling. Reports that she tripped over her cat and twisted her right knee. She had an MRI at [facility] which showed knee joint synovitis, advanced patellofemoral compartment chondromalacia. She does report that she went back to the orthopedist who she followed up with and was told to report to the emergency room for further evaluation. She does admit to active IVDA secondary to significant pain in her leg. She does have palpable pulses. She has 3+ pitting edema noted in the right lower extremity. Plan: Labs, ultrasound, further ER evaluation needed. Consultations Consultation #1: Dr. Wilkinson Time: 00:12 Medications Administered Discontinued Medications Generic Name Dose Route Start Last Admin Trade Name Toña PRN Reason Stop Dose Admin Hydromorphone HCl 1 mg 08/19/25 19:55 08/19/25 20:40 Hydromorphone Hcl 1 Mg/Ml Syringe IVPUSH 08/19/25 19:56 1 mg ONCE ONE Administration Protocol Hydromorphone HCl 1 mg 08/19/25 22:46 08/19/25 23:00 Hydromorphone Hcl 1 Mg/Ml Syringe IVPUSH 08/19/25 22:47 1 mg ONCE ONE Administration Protocol Sodium Chloride 1,000 mls @ 999 mls/hr 08/19/25 20:00 08/19/25 21:57 Ns IV 08/19/25 21:00 Infused .Q1H1M MARIKA Infusion Vancomycin HCl 1,500 mg/ 500 mls @ 333.333 mls/hr 08/19/25 19:56 08/19/25 22:47 Sodium Chloride IV 08/19/25 21:25 Infused POSTOP ONE Infusion Ceftriaxone Sodium 2 gm/ 50 mls @ 100 mls/hr 08/19/25 19:56 08/19/25 21:56 Sodium Chloride IV 08/19/25 20:25 Infused ONCE ONE Infusion Lidocaine/Epinephrine 10 ml 08/19/25 20:42 08/19/25 21:08 Lidocaine Hcl 1%/Epi 1:100,000 10 Ml Vial INFILTRATI 08/19/25 20:43 10 ml ONCE ONE Administration Midazolam HCl 2 mg 08/19/25 19:55 08/19/25 20:40 Midazolam Hcl 2 Mg/2 Ml Vial IVPUSH 08/19/25 19:56 2 mg ONCE ONE Administration Midazolam HCl 4 mg 08/19/25 22:46 08/19/25 23:01 Midazolam Hcl 2 Mg/2 Ml Vial IVPUSH 08/19/25 22:47 4 mg ONCE ONE Administration Medical Decision Making Medical Decision Making MDM Narrative: 44-year-old female with a history of hypertension, IVDA on methadone, colitis, who presents to the ER with complaints of right lower leg pain and swelling. Reports that she tripped over her cat and twisted her right knee. She had an MRI at [facility] which showed knee joint synovitis, advanced patellofemoral compartment chondromalacia. She does report that she went back to the orthopedist who she followed up with and was told to report to the emergency room for further evaluation. She does admit to active IVDA secondary to significant pain in her leg. Associated faint erythema and warmth of the joint. The patient is unable to flex or extend secondary to pain. Denies fever. Problem: IV drug abuse, liver fibrosis, hepatitis-C History: Per patient I have considered the following differential diagnoses: Septic arthritis/effusion, we already know with the patient has Plan: Patient has a MRI report here with her, she has significant swelling is unable to range the joint, this is most certainly a septic joint. We will be obtaining fluid analysis of the synovial fluid. We will be obtaining blood cultures and a lactic, starting vanco and ceftriaxone. We will reach out to the orthopedic service, she will be admitted to Medicine with them following the joint fluid studies. I have independently reviewed the following tests: Labs: Pancytopenic, left shift of 94, hyponatremic at 132, , creatinine 1.25, lactic 1.4, chronically elevated LFTs, C-reactive protein 12, ESR 121, joint analysis pending X-ray right knee: Differential Diagnosis Differential Diagnoses: The differential diagnosis associated with the presentation includes See medical decision-making Admission/Observation Consideration of admission/observation: Escalation of care including admission/observation considered We will require adding Consult Healthcare Provider Management of the patient was discussed with: Hospitalist and Lithographic Retoucher Apprentice Orthopedic Lab Data MDM Lab Attestation statement: I reviewed the patient's lab results. 08/19/25 17:49 08/19/25 17:49 Labs: Lab Results 08/19/25 08/19/25 08/19/25 Range/Units 17:49 20:31 23:23 WBC 5.1 (4.8-10.8) X10*3/uL RBC 2.88 L (4.20-5.50) X10*6/uL Hgb 9.1 L (12.0-16.0) g/dl Hct 27.3 L (37.0-47.0) % MCV 94.8 (80.0-98.0) fL MCH 31.6 (27.0-33.0) pg MCHC 33.3 (31.0-35.0) g/dl RDW 14.6 (11.0-16.0) % Plt Count 43 L D (160-400) X10*3/uL MPV 11.9 (9.4-12.3) fL Immature Gran % (Auto) Cancelled Neut % (Auto) Cancelled Lymph % (Auto) Cancelled [place] % (Auto) Cancelled Eos % (Auto) Cancelled Baso % (Auto) Cancelled Lymph # (Auto) Cancelled [place] # (Auto) Cancelled Eos # (Auto) Cancelled Baso # (Auto) Cancelled Abs Immat Gran (auto) Cancelled Absolute Neuts (auto) Cancelled Absolute Nucleated RBC 0.000 (0.0-0.012) X10*3/uL Nucleated RBC % (auto) 0.0 (0.0-0.2) /100WBC Neutrophils % (Manual) 94 H (45-73) % Band Neutrophils % 1 L (3-5) % Lymphocytes % (Manual) 2 L (20-40) % Monocytes % (Manual) 2 (2-11) % Metamyelocytes % 1 % Abs Neuts (Manual) 4.8 (2.0-8.3) X10*3/uL Lymphocytes # (Manual) 0.1 L (1.2-4.9) X10*3/uL Monocytes # (Manual) 0.1 (0.1-1.2) X10*3/uL Metamyelocytes # 0.1 X10*3/uL Toxic Granulation PRESENT Platelet Estimate DECREASED (NORMAL) Plt Morphology Comment NORMAL RBC Morphology NORMAL ESR 121 H (0-20) MM/HR Sodium 132 L (135-145) mmol/L Potassium 3.8 (3.3-5.1) mmol/L Chloride 105 (96-108) mmol/L Carbon Dioxide 16 L (22-29) mmol/L Anion Gap 15 (12-20) BUN 25 H (9-16) mg/dL Creatinine 1.25 (0.5-1.4) mg/dL Estim Creat Clear Calc 63.7 Estimated GFR 46 Random Glucose 90 (60-115) mg/dL Lactic Acid 1.4 (0.5-2.0) mmol/L Calcium 8.7 (8.4-10.2) mg/dL Magnesium 1.9 (1.6-2.6) mg/dL Total Bilirubin 4.9 H (0.0-1.0) mg/dL Direct Bilirubin 3.3 H (0.0-0.5) mg/dL AST 113 H (5-31) U/L ALT 21 (0-31) U/L Alkaline Phosphatase 115 (39-117) U/L C-Reactive Protein 12.00 H (< or = 0.50) mg/dL Total Protein 8.3 H (6.5-8.0) g/dL Albumin 2.2 L (3.5-5.0) g/dL Synovial Source right knee Radiology Impression Discussion of test interpretation with radiology: I have reviewed the radiologist's reading. Procedures Procedure Narrative Procedure Narrative: Ultrasound-guided IV 20 gauge 1-3/4 inch IV placed in left upper extremity. Adequate blood return flushes well secured with Tegaderm Joint Aspiration/Injection Joint Asp./Inject. 1: Time Out Performed: Yes Side of body: right Joint Aspirated: knee Ultrasound Guidance: Yes Skin Prep: Povidone-Iodine1% Local Anesthetic: lidocaine 1% and with epi Amount of anesthesia used (mL): 10 Needle Size Used: 18G Fluid Obtained: purulent Total fluid obtained (mL): 20 Patient Tolerated Procedure: well Complications: none Critical Care Time Critical Care Time Critical Care Time: Yes Total Critical Care Time: 35 Attestation: I Radha Aguirre PA-C have personally performed 35 minutes of critical care time not including lines and procedures; septic joint, need for orthopedic consult, need for IV antibiotic therapy, need for analgesia, need for hospital admission Discharge Plan Discharge Clinical Impression: IVDU (intravenous drug user), Septic joint of right knee joint Patient Disposition: Admitted As Inpatient Print Language: Upper Sorbian
[2025-08-19 17:55] LABS: Hematocrit 27.3 % (37.0-47.0); Hemoglobin 9.1 g/dl (12.0-16.0); Mean Corpuscular HGB Conc 33.3 g/dl (31.0-35.0); Mean Corpuscular Hemoglobin 31.6 pg (27.0-33.0); Mean Corpuscular Volume 94.8 fL (80.0-98.0); NRBC Abs Auto 0.000 X10*3/uL (0.0-0.012); NRBC Pct Auto 0.0 /100WBC (0.0-0.2); Red Blood Count 2.88 X10*6/uL (4.20-5.50); White Blood Count 5.1 X10*3/uL (4.8-10.8)
[2025-08-19 18:07] LABS: Platelet Count 43 X10*3/uL (160-400)
[2025-08-19 18:18] LABS: Alanine Aminotransferase 21 U/L (0-31); Albumin Level 2.2 g/dL (3.5-5.0); Alkaline Phosphatase 115 U/L (39-117); Anion Gap 15 (12-20); Aspartate Amino Transferase 113 U/L (5-31); Blood Urea Nitrogen 25 mg/dL (9-16); Calcium 8.7 mg/dL (8.4-10.2); Carbon Dioxide 16 mmol/L (22-29); Chloride 105 mmol/L (96-108); Creatinine Clr Calc Pharmacy 63.7; Estimated Glomerular Filt Rate 46; Magnesium 1.9 mg/dL (1.6-2.6); Potassium 3.8 mmol/L (3.3-5.1); Sodium 132 mmol/L (135-145); Total Protein 8.3 g/dL (6.5-8.0)
[2025-08-19 18:54] LABS: Band Neutrophils Percent 1 % (3-5); Lymphocytes Absolute Manual 0.1 X10*3/uL (1.2-4.9); Lymphocytes Percent Manual 2 % (20-40); Metamyelocytes Absolute 0.1 X10*3/uL; Metamyelocytes Percent 1 %; Monocytes Absolute Manual 0.1 X10*3/uL (0.1-1.2); Monocytes Percent Manual 2 % (2-11); Neutrophils Absolute Manual 4.8 X10*3/uL (2.0-8.3); Neutrophils Percent Manual 94 % (45-73)
[2025-08-19 18:55] LABS: Toxic Granulation PRESENT
[2025-08-19 18:56] LABS: RBC Morphology NORMAL
--- NOTE | 2025-08-19 19:10 | PC.NURSE ---
Took over care at 19:00, pt a&o, right leg swollen, positive cms and pedal pulses by Doppler, area is marked. pt awaiting to be seen.
[2025-08-19 20:44] VITALS: BP 140/77; PULSE 91; RESP 16; TEMP 36.6; O2SAT 98
--- NOTE | 2025-08-19 20:51 | PC.NURSE ---
pt labs collected and sent after ultra sound Iv placed, medicated per dec, provider into drain right knee.
[2025-08-19] MEDS: Lidocaine HCl 1%/Epi 1:100,000 10 ML VIAL INFILTRATI (21:08)
--- NOTE | 2025-08-19 21:21 | PC.NURSE ---
Pt medicated per mar.
[2025-08-19 22:08] VITALS: BP 132/76; PULSE 85; RESP 14; TEMP 36.8; O2SAT 96
--- NOTE | 2025-08-19 22:23 | MHC.EDTECH ---
Patient used bedpan
[2025-08-19 22:59] VITALS: BP 129/71; PULSE 90; RESP 20; O2SAT 92
[2025-08-19 23:11] VITALS: BP 129/71; PULSE 93; RESP 18; O2SAT 92
[2025-08-19 23:14] VITALS: BP 124/63; PULSE 91; RESP 17; O2SAT 92
[2025-08-19 23:36] LABS: Source Synovial Fluid right knee
[2025-08-20] VITALS (25 sets, daily range): BP systolic 122–175; BP diastolic 65–94; PULSE 84–99; RESP 13–22; TEMP 36.1–37; O2SAT 92–98
--- NOTE | 2025-08-20 00:21 | PC.NURSE ---
right knee drain, x-ray taken.
--- NOTE | 2025-08-20 00:24 | PM.IMHP ---
History of Present Illness Date of Service: 08/20/25 Attending physician on admission: Ehsan Miranda Chief Complaint: R knee pain Patient is a 44-year-old female with a past medical history significant for hypertension, hep C, liver fibrosis, IVDA on methadone, colitis, who presented to the ED due to complaints of right lower leg pain and swelling. The patient reports that she tripped over a cat and twisted her right knee. She had an MRI at [facility] recently which showed right knee joint synovitis with advanced patellofemoral compartment chondromalacia. She went back to her orthopedist for follow-up after her MRI and was suggested to report to the emergency department. She has been having increased pain, faint erythema and warmth of the joint. No fever, chills, nausea or vomiting. She has been unable to flex or extend her leg due to the pain. She reports using IV drugs due to her pain. Joint fluid analysis pending, suspicious for septic arthritis. Patient to be admitted for IV antibiotics and orthopedic consultation. Duplex ultrasound negative for DVT. Review of Systems Constitutional: Constitutional: Denies body ache(s), Denies chills, Denies fatigue, Denies fever(s) and Denies headache(s) Eyes: Eyes: Denies change in vision ENT: Denies headache(s), Denies nasal congestion and Denies sore throat Cardiovascular: Cardiovascular: Denies chest pain, Denies rapid heart rate, Reports leg edema, Denies lightheadedness and Denies dyspnea Respiratory: Respiratory: Denies cough, Denies dyspnea and Denies wheezing Gastrointestinal: Gastrointestinal: Denies abdominal pain, Denies nausea and Denies vomiting Genitourinary: Genitourinary: Denies dysuria and Denies urinary urgency Musculoskeletal: Musculoskeletal: Reports as per HPI Integumentary/Breasts: Skin/Breast: Reports as per HPI Neurologic: Denies confusion and Denies headache(s) Psychiatric: Psychiatric: Denies confusion Endocrine: Endocrine: Denies fatigue Hematologic/Lymphatic: Hematologic/Lymphatic: Denies easy bleeding and Denies easy bruising Allergic/Immunologic: Allergic/Immunologic: Denies wheezing [facility] Medical History Anxiety IVDU (intravenous drug user) Substance use disorder Liver fibrosis HTN (hypertension) Functional capacity: independent ambulation Social History Household Members: Other Household Members Other:: friend and niece Housing: Condominium Do you presently have visiting nurse or other home services: No Alcohol intake: never Patient Tobacco Use Status: Never used Tobacco Smoked in Last 30 Days: No Use of substances other than those prescribed or required for medical reasons: Yes Substance Use Type: Heroin Substance Use Frequency: Chronic Longstanding Advance Directives: No Advance Directives Information Provided: Yes service: No Meds Allergies Allergy/AdvReac Type Severity Reaction Status Date / Time Penicillins Allergy Unknown Verified 08/19/25 17:28 Sulfa (Sulfonamide Allergy Unknown Verified 08/19/25 17:28 Antibiotics) Home Medications ?Medication ?Instructions ?Recorded ?Confirmed ?Last Taken ?Type ibuprofen 200 mg tablet 400 mg PO Q6H PRN Pain 02/05/25 02/05/25 Unknown History methadone 10 mg/mL oral concentrate 50 mg PO DAILY 02/05/25 02/05/25 02/04/25 History Physical Exam Vital Signs and Narrative: Vital Signs: Last Vital Signs Temp 98.3 F 08/19/25 22:08 Pulse 93 08/19/25 23:11 Resp 18 08/19/25 23:11 BP 129/71 08/19/25 23:11 Pulse Ox 92 08/19/25 23:11 O2 Del Method Room Air 08/19/25 23:11 BMI result Body Mass Index 27.4 General: AOx3, no acute distress Resp: CTA bilaterally CVS: S1, S2, RRR GI: +BS, NT, no distention Skin: Warm, dry Neuro: Cranial nerves II-XII grossly intact bilaterally. Motor grossly intact bilaterally Extremities: 2+ edema RLE. unable to move RLE due to pain. mild erythema and warmth R knee. Psych: Appropriate affect Const: General: No confusion Orientation/consciousness: No confusion Neuro: General: No confusion Results Labs 08/19/25 17:49 08/19/25 17:49 Labs: Laboratory Results - last 24 hr 08/19/25 08/19/25 08/19/25 17:49 20:31 23:23 MCV 94.8 MCH 31.6 MCHC 33.3 RDW 14.6 Plt Count 43 L D MPV 11.9 Immature Gran % (Auto) Cancelled Neut % (Auto) Cancelled Lymph % (Auto) Cancelled [place] % (Auto) Cancelled Eos % (Auto) Cancelled Baso % (Auto) Cancelled Lymph # (Auto) Cancelled [place] # (Auto) Cancelled Eos # (Auto) Cancelled Baso # (Auto) Cancelled Abs Immat Gran (auto) Cancelled Absolute Neuts (auto) Cancelled Absolute Nucleated RBC 0.000 Nucleated RBC % (auto) 0.0 Neutrophils % (Manual) 94 H Band Neutrophils % 1 L Lymphocytes % (Manual) 2 L Monocytes % (Manual) 2 Metamyelocytes % 1 Abs Neuts (Manual) 4.8 Lymphocytes # (Manual) 0.1 L Monocytes # (Manual) 0.1 Metamyelocytes # 0.1 Toxic Granulation PRESENT Platelet Estimate DECREASED Plt Morphology Comment NORMAL RBC Morphology NORMAL ESR 121 H Anion Gap 15 Estim Creat Clear Calc 63.7 Estimated GFR 46 Random Glucose 90 Lactic Acid 1.4 Calcium 8.7 Magnesium 1.9 Total Bilirubin 4.9 H Direct Bilirubin 3.3 H AST 113 H ALT 21 Alkaline Phosphatase 115 C-Reactive Protein 12.00 H Total Protein 8.3 H Albumin 2.2 L Synovial Source right knee Assessment and Plan (1) Septic joint of right knee joint: Status: Acute (2) RICHARD (acute kidney injury): Status: Acute (3) Metabolic acidosis: Status: Acute Plan Patient is a 44-year-old female with a past medical history significant for hypertension, hep C, liver fibrosis, IVDA on methadone, colitis, who presented to the ED due to complaints of right lower leg pain and swelling. joint aspiration in ED suspicious for septic arthritis septic arthritis - joint fluid anaysis pending - vancomycin and ceftriaxone - ortho consult and ID consult - NPO pending ortho consult - pain management RICHARD, metabolic acidosis - IVF - monitor BMP - avoid nephrotoxins when possible HTN - continue home meds hep C s/p tx - elevated LFTs at baseline due to liver fibrosis chronic pancytopenia - secondary to liver disease, at baseline IVDU - addiction med consult med rec pending full code VTE prophy: SCDs where tolerated, anticoagulant contraindicated due to thrombocytopenia Pt with suspected septic arthritis, requiring admission for at least 2 midnights stay for IV abx and ortho consult. Quality Stroke Does the patient have a stroke diagnosis?: No VTE Prior VTE?: No VTE Risk Level:: Medical - moderate - high VTE Device Contraindication: N/A - Device Ordered VTE Drug Contraindication: Treatment Not Tolerated
[2025-08-20] MEDS: Lactated Ringers 1,000 ML 80 ML IVCONT (01:10)
--- NOTE | 2025-08-20 01:35 | PC.NURSE ---
pt resting in bed reposition for comfort.
[2025-08-20 04:34] LABS: BF Shift QC OK YES
[2025-08-20 04:35] LABS: Man Diluent Bkgrd OK YES
[2025-08-20 04:45] LABS: Hemoglobin 8.0 g/dl (12.0-16.0); NRBC Abs Auto 0.000 X10*3/uL (0.0-0.012); NRBC Pct Auto 0.0 /100WBC (0.0-0.2); PLT CLUMP 1
[2025-08-20 04:47] LABS: Hematocrit 24.7 % (37.0-47.0); Mean Corpuscular HGB Conc 32.4 g/dl (31.0-35.0); Mean Corpuscular Hemoglobin 31.0 pg (27.0-33.0); Mean Corpuscular Volume 95.7 fL (80.0-98.0); Red Blood Count 2.58 X10*6/uL (4.20-5.50)
[2025-08-20 05:06] LABS: Anion Gap 14 (12-20); Blood Urea Nitrogen 23 mg/dL (9-16); Calcium 8.2 mg/dL (8.4-10.2); Carbon Dioxide 19 mmol/L (22-29); Chloride 108 mmol/L (96-108); Creatinine Clr Calc Pharmacy 69.8; Estimated Glomerular Filt Rate 52; Potassium 3.5 mmol/L (3.3-5.1); Sodium 137 mmol/L (135-145)
[2025-08-20 05:15] LABS: WBC ABN SCTR FOR CBC 1
[2025-08-20] MEDS: Dextrose 5 % and Lactated Ring 1,000 ML 80 ML IVCONT ×2 (05:20→15:29)
[2025-08-20 05:26] LABS: Band Neutrophils Percent 40 % (3-5); Lymphocytes Percent Manual 3 % (20-40); Neutrophils Percent Manual 57 % (45-73); RBC Morphology NORMAL
[2025-08-20 05:27] LABS: Burr Cells 2+ (3-5) /OIF; Large Platelet PRESENT; Schistocytes 1+ (0-2) /OIF
[2025-08-20 05:28] LABS: Toxic Vacuolation PRESENT
[2025-08-20 05:29] LABS: Lymphocytes Absolute Manual 0.2 X10*3/uL (1.2-4.9); Neutrophils Absolute Manual 4.9 X10*3/uL (2.0-8.3); Platelet Count 34 X10*3/uL (160-400); White Blood Count 5.0 X10*3/uL (4.8-10.8)
[2025-08-20 05:44] LABS: Glucose, Whole Blood 137 mg/dL (60-115)
--- NOTE | 2025-08-20 07:23 | PC.NURSE ---
Arrived to ED overflow via stretcher at approx 0200. Pt A&O x 4. CALLAHAN. Able to follow commands. Able to make needs known. IVF running per MAR. at 0503, RN was notified of critical?glucose of 46 by lab. GERTRUDE Yu was notified. New orders for D50 and change of fluids given. POC recheck was 137. Call rivera in reach. Fall precautions in place.?See flowsheets, worklist tasks, and MAR for more info. Plan of care ongoing.?
--- NOTE | 2025-08-20 08:16 | MHC.RECOVRN ---
TW called [facility] [phone] and verified Methadone. Last dose was 55mg 08/19/25 @ 0721am, no take homes given per Albertina HAZEL. verification form sent to pharmacy and primary RNRafia verified via telephone.
--- NOTE | 2025-08-20 08:24 | HE.PHANOTE ---
METHADONE Pt last received 55mg on 08/19/25 @ 0721 per [facility]IR Eng at [facility], .
[2025-08-20 08:57] LABS: MN% 13.4 %; Monocytes Synovial Fluid 2 %; PMN% 86.6 %
[2025-08-20 09:04] LABS: Lymphocytes Synovial Fluid 11 %; Neutrophils Synovial Fluid 87 %; RBC Synovial Fluid 0.280 X10*6/uL
[2025-08-20] MEDS: methADONE HCl 20 MG/2 ML ORAL.CONC 55 MG PO (09:04)
[2025-08-20 09:05] LABS: Other Cells Synovial Fluid 0
--- NOTE | 2025-08-20 10:05 | PM.CNOR ---
History of Present Illness HPI Consult date: 08/20/25 Chief complaint: Septic Arthritis Narrative: Ms. Jeff is a 44-year-old female who presented to the emergency department for complaints of extreme right knee pain with the inability to ambulate. She reports that roughly 1 week ago she was seen at [facility] for complaints of right knee pain. They ordered an MRI which was only significant for synovitis. She continued to have increasing pain. She does have a past medical history significant for IVDA and states that her pain was so significant that she recently injected heroin. Her pain continued to increase and therefore she contacted [facility] who recommended presenting to the emergency department for further evaluation and treatment. While in the emergency department a right knee aspiration was performed and sent for analysis. Patient has joint fluid g stain was significant for 4+ polys and 4+ Gram-positive cocci. The patient was admitted to the medicine service with orthopedic consult. She has been NPO. Review of Systems Review of Systems: Yes all other systems are reviewed and are negative PMFSH Past Medical History Medical History Anxiety IVDU (intravenous drug user) Substance use disorder Liver fibrosis HTN (hypertension) Social History Social History Household Members: Other Household Members Other:: friend and niece Housing: [facility] Do you presently have visiting nurse or other home services: No Alcohol intake: never Patient Tobacco Use Status: Never used Tobacco Smoked in Last 30 Days: No Use of substances other than those prescribed or required for medical reasons: Yes Substance Use Type: Heroin Substance Use Frequency: Chronic Longstanding Advance Directives: No Advance Directives Information Provided: Yes service: No Meds Allergies Allergy/AdvReac Type Severity Reaction Status Date / Time Penicillins Allergy Unknown Verified 08/19/25 17:28 Sulfa (Sulfonamide Allergy Unknown Verified 08/19/25 17:28 Antibiotics) Active Medications: Current Medications Acetaminophen (Acetaminophen 325 Mg Tablet) 650 mg PO Q6H PRN PRN Reason: Pain, Mild 1-3,fever,headache Calcium Carbonate (Calcium Carbonate 750 Mg Tab.Chew) 750 mg PO Q4H PRN PRN Reason: Heartburn Hydromorphone HCl (Hydromorphone Hcl 1 Mg/Ml Syringe) 0.5 mg IVPUSH Q4H PRN; Protocol PRN Reason: Pain, Severe (Pain Scale 7-10) Last Admin: 08/20/25 09:57 Dose: 0.5 mg Ceftriaxone Sodium 2 gm/ (Sodium Chloride) 50 mls @ 100 mls/hr IV Q24H [facility] Dextrose/Lactated Ringer's (D5lr) 1,000 mls @ 80 mls/hr IVCONT .[id number] [facility] Last Admin: 08/20/25 05:20 Dose: 80 mls/hr Vancomycin HCl 1,000 mg/ (Sodium Chloride) 270 mls @ 270 mls/hr IV Q12H [facility] Magnesium Hydroxide (Milk Of Magnesia 30 Ml Oral.Susp) 30 ml PO DAILY PRN PRN Reason: Constipation Melatonin (Melatonin 3 Mg Tablet) 6 mg PO BEDTIME PRN PRN Reason: Insomnia Methadone HCl (Methadone Hcl 20 Mg/2 Ml Oral.Conc) 55 mg PO DAILY [facility] Last Admin: 08/20/25 09:04 Dose: 55 mg Ondansetron HCl (Ondansetron Hcl 4 Mg/2 Ml Vial) 4 mg IVPUSH Q8H PRN PRN Reason: Nausea and Vomiting Oxycodone HCl (Oxycodone Hcl Immed Release 5 Mg Tablet) 5 mg PO Q6H PRN PRN Reason: Pain, Moderate(Pain Scale 4-6) Pharmacy Consult (Consult Rx Vancomycin Dosing) 1 each MISCELLANE DAILY PRN PRN Reason: Consult order Sodium Chloride (0.9 % Sodium Chloride Flush 3 Ml Syringe) 3 ml IVFLUSH QSHIFT [facility] Last Admin: 08/20/25 08:59 Dose: Not Given Home Medications ?Medication ?Instructions ?Recorded ?Confirmed ?Last Taken ?Type ibuprofen 200 mg tablet 400 mg PO Q6H PRN Pain 02/05/25 02/05/25 Unknown History methadone 10 mg/mL oral concentrate 55 mg PO DAILY 02/05/25 08/20/25 08/19/25 07:21 History Physical Exam Vital Signs: Vital Signs: Last Vital Signs Temp 97.8 F 08/20/25 08:00 Pulse 88 08/20/25 08:00 Resp 16 08/20/25 08:00 BP 137/79 08/20/25 08:00 Pulse Ox 96 08/20/25 08:00 O2 Del Method Room Air 08/20/25 08:00 BMI result Body Mass Index 27.4 Const: General: cooperative, healthy appearing and no acute distress Resp: Effort & Inspection: normal respiratory effort and able to speak in complete sentences Extrem: Other: Right knee pain out of proportion to palpation. Unable to flex and extend the knee due to extreme pain. Able to dorsiflex and plantar flex. Sensation is reportedly intact. Pedal pulse intact. Psych: Appearance: grossly normal Mental Status: mental status grossly normal Attitude: cooperative Results Labs 08/20/25 04:32 08/20/25 04:32 Labs: Abnormal lab results 08/19/25 08/20/25 08/20/25 Range/Units 17:49 04:32 05:39 RBC 2.88 L 2.58 L (4.20-5.50) X10*6/uL Hgb 9.1 L 8.0 L (12.0-16.0) g/dl Hct 27.3 L 24.7 L (37.0-47.0) % Plt Count 43 L D 34 L (160-400) X10*3/uL Immature Gran % (Auto) 0.6 H (0.0-0.4) % Neut % (Auto) 83.7 H (45-73) % Lymph % (Auto) 4.4 L (20-40) % Lymph # (Auto) 0.2 L (1.2-4.9) X10*3/uL Neutrophils % (Manual) 94 H (45-73) % Band Neutrophils % 1 L 40 H (3-5) % Lymphocytes % (Manual) 2 L 3 L (20-40) % Lymphocytes # (Manual) 0.1 L 0.2 L (1.2-4.9) X10*3/uL ESR 121 H (0-20) MM/HR Sodium 132 L (135-145) mmol/L Carbon Dioxide 16 L 19 L (22-29) mmol/L BUN 25 H 23 H (9-16) mg/dL POC Glucose 137 H (60-115) mg/dL Random Glucose 46 L* (60-115) mg/dL Calcium 8.2 L (8.4-10.2) mg/dL Total Bilirubin 4.9 H (0.0-1.0) mg/dL Direct Bilirubin 3.3 H (0.0-0.5) mg/dL AST 113 H (5-31) U/L C-Reactive Protein 12.00 H (< or = 0.50) mg/dL Total Protein 8.3 H (6.5-8.0) g/dL Albumin 2.2 L (3.5-5.0) g/dL H & H 08/19/25 08/20/25 Range/Units 17:49 04:32 Hgb 9.1 L 8.0 L (12.0-16.0) g/dl Hct 27.3 L 24.7 L (37.0-47.0) % All other labs normal. Assessment and Plan (1) IVDU (intravenous drug user): Status: Acute (2) Septic joint of right knee joint: Status: Acute Plan The risks, benefits, and alternatives were discussed in detail with the patient. Risks include but are not limited to: bleeding, infection, blood clots (DVT/PE), stiffness, persistent pain, nerve/vessel injury, anesthesia risks, recurrence of symptoms, need for further surgery, and possible amputation for severe/life-threatening/uncontrolled infection or extensive necrosis. Benefits: pain relief, improved function, improved mobility, management of infection, joint preservation. Alternatives: IV antibiotics and close monitoring, serial needle aspirations. The patient had ample opportunity to ask questions. All questions were answered to the patient's satisfaction. The patient verbalized understanding and agreed to move forward with a right knee arthroscopic lavage with Dr. Muñoz. The patient demonstrates understanding of the risks, benefits and alternatives. She will remain NPO with plans to bring her to the operating room this morning. Procedures Date of Service Date of Service: 08/20/25
--- NOTE | 2025-08-20 10:15 | PHA.MEDREC ---
Addendum entered by Christine Dang PharmD 08/20/25 10:32: [facility] reviewed Original Note: Pharmacy Consult ? Medication Reconciliation Pharmacy has completed the medication reconciliation. Patient was able to name all of her medications. Patient confirmed Methadone 55 mg daily from [facility], last does was yesterday.
[2025-08-20 10:41] LABS: UPreg QC Valid YES
--- NOTE | 2025-08-20 10:47 | HO.NURTONUR ---
Pt A/Ox4. Present to ED with right knee pain. Taken to pre-op at 1045 for washout with ortho. 20g u/s IV to left upper arm. IV Vanco infusing at time of transfer to preop. Report given to Elaina in short stay
[2025-08-20 10:53] LABS: Cannabinoid Screen Urine Not Detected (Not Detect)
--- NOTE | 2025-08-20 10:56 | HO.ANESPROP2 ---
HPI - Anesthesia Eval Consult details Narrative: septic knee, ivda,last heroin saturday per pt PMFSH Active Problems Active Problems: All Active Problems Metabolic acidosis (Acute) RICHARD (acute kidney injury) (Acute) Septic joint of right knee joint (Acute) Colitis (Acute) Anxiety (Acute) IVDU (intravenous drug user) (Acute) Liver fibrosis (Acute) Past Medical History Medical History Anxiety IVDU (intravenous drug user) Substance use disorder Liver fibrosis HTN (hypertension) Functional capacity: independent ambulation Family History Family history of problems with anesthesia: No Surgical History History of Problems with Anesthesia: No Social History Social History Household Members: Other Household Members Other:: friend and niece Housing: [facility] Do you presently have visiting nurse or other home services: No Alcohol intake: never Patient Tobacco Use Status: Never used Tobacco Smoked in Last 30 Days: No Use of substances other than those prescribed or required for medical reasons: Yes Substance Use Type: Heroin Substance Use Frequency: Chronic Longstanding Advance Directives: No Advance Directives Information Provided: Yes service: No Meds Allergies Allergy/AdvReac Type Severity Reaction Status Date / Time Penicillins Allergy Unknown Verified 08/19/25 17:28 Sulfa (Sulfonamide Allergy Unknown Verified 08/19/25 17:28 Antibiotics) Active Medications: Current Medications Acetaminophen (Acetaminophen 325 Mg Tablet) 650 mg PO Q6H PRN PRN Reason: Pain, Mild 1-3,fever,headache Calcium Carbonate (Calcium Carbonate 750 Mg Tab.Chew) 750 mg PO Q4H PRN PRN Reason: Heartburn Hydromorphone HCl (Hydromorphone Hcl 1 Mg/Ml Syringe) 0.5 mg IVPUSH Q4H PRN; Protocol PRN Reason: Pain, Severe (Pain Scale 7-10) Last Admin: 08/20/25 09:57 Dose: 0.5 mg Ceftriaxone Sodium 2 gm/ (Sodium Chloride) 50 mls @ 100 mls/hr IV Q24H MARIKA Dextrose/Lactated Ringer's (D5lr) 1,000 mls @ 80 mls/hr IVCONT .[id number] MARIKA Last Admin: 08/20/25 05:20 Dose: 80 mls/hr Vancomycin HCl 1,000 mg/ (Sodium Chloride) 270 mls @ 270 mls/hr IV Q12H [facility] Last Admin: 08/20/25 10:24 Dose: 270 mls/hr Magnesium Hydroxide (Milk Of Magnesia 30 Ml Oral.Susp) 30 ml PO DAILY PRN PRN Reason: Constipation Melatonin (Melatonin 3 Mg Tablet) 6 mg PO BEDTIME PRN PRN Reason: Insomnia Methadone HCl (Methadone Hcl 20 Mg/2 Ml Oral.Conc) 55 mg PO DAILY [facility] Last Admin: 08/20/25 09:04 Dose: 55 mg Ondansetron HCl (Ondansetron Hcl 4 Mg/2 Ml Vial) 4 mg IVPUSH Q8H PRN PRN Reason: Nausea and Vomiting Oxycodone HCl (Oxycodone Hcl Immed Release 5 Mg Tablet) 5 mg PO Q6H PRN PRN Reason: Pain, Moderate(Pain Scale 4-6) Pharmacy Consult (Consult Rx Vancomycin Dosing) 1 each MISCELLANE DAILY PRN PRN Reason: Consult order Sodium Chloride (0.9 % Sodium Chloride Flush 3 Ml Syringe) 3 ml IVFLUSH QSHIFT [facility] Last Admin: 08/20/25 08:59 Dose: Not Given Home Medications ?Medication ?Instructions ?Recorded ?Confirmed ?Last Taken ?Type methadone 10 mg/mL oral concentrate 55 mg PO DAILY 02/05/25 08/20/25 08/19/25 07:21 History hydrochlorothiazide 12.5 mg capsule 12.5 mg PO DAILY 08/20/25 08/20/25 Unknown History Exam Height,Weight and Vital Signs: Height 5 ft 8 in Weight 81.647 kg Last Vital Signs Temp 97.8 F 08/20/25 08:00 Pulse 88 08/20/25 08:00 Resp 16 08/20/25 08:00 BP 137/79 08/20/25 08:00 Pulse Ox 96 08/20/25 08:00 O2 Del Method Room Air 08/20/25 08:00 Pertinent Lab Results Pertinent Lab Results: Laboratory Tests 08/19/25 08/19/25 08/19/25 17:49 20:31 23:23 WBC 5.1 RBC 2.88 L Hgb 9.1 L Hct 27.3 L MCV 94.8 MCH 31.6 MCHC 33.3 RDW 14.6 Plt Count 43 L D MPV 11.9 Immature Gran % (Auto) Cancelled Neut % (Auto) Cancelled Lymph % (Auto) Cancelled [place] % (Auto) Cancelled Eos % (Auto) Cancelled Baso % (Auto) Cancelled Lymph # (Auto) Cancelled [place] # (Auto) Cancelled Eos # (Auto) Cancelled Baso # (Auto) Cancelled Abs Immat Gran (auto) Cancelled Absolute Neuts (auto) Cancelled Absolute Nucleated RBC 0.000 Nucleated RBC % (auto) 0.0 Neutrophils % (Manual) 94 H Band Neutrophils % 1 L Lymphocytes % (Manual) 2 L Monocytes % (Manual) 2 Metamyelocytes % 1 Abs Neuts (Manual) 4.8 Lymphocytes # (Manual) 0.1 L Monocytes # (Manual) 0.1 Metamyelocytes # 0.1 Toxic Granulation PRESENT Toxic Vacuolation Platelet Estimate DECREASED Large Platelets Plt Morphology Comment NORMAL RBC Morphology NORMAL Sasha Cells Schistocytes ESR 121 H Hold Purple Top Sodium 132 L Potassium 3.8 Chloride 105 Carbon Dioxide 16 L Anion Gap 15 BUN 25 H Creatinine 1.25 Estim Creat Clear Calc 63.7 Estimated GFR 46 POC Glucose Random Glucose 90 Estimat Average Glucose Hemoglobin A1c % Lactic Acid 1.4 Calcium 8.7 Magnesium 1.9 Total Bilirubin 4.9 H Direct Bilirubin 3.3 H AST 113 H ALT 21 Alkaline Phosphatase 115 C-Reactive Protein 12.00 H Total Protein 8.3 H Albumin 2.2 L Urine Test Synovial Source right knee Synovial WBC 168.760 Synovial RBC 0.280 Synovial Neutrophils 87 Synovial Lymphocytes 11 Synovial Monocytes 2 Synovial Other Cells 0 Urine Opiates Screen Ur Buprenorphine Scrn Ur Oxycodone Screen Urine Methadone Screen Urine Fentanyl Screen Ur Barbiturates Screen Ur Phencyclidine Scrn Ur Amphetamines Screen U Benzodiazepines Scrn Urine Cocaine Screen U Marijuana (THC) Screen 08/20/25 08/20/25 08/20/25 04:32 05:39 10:29 WBC 5.0 RBC 2.58 L Hgb 8.0 L Hct 24.7 L MCV 95.7 MCH 31.0 MCHC 32.4 RDW 14.6 Plt Count 34 L MPV 10.5 Immature Gran % (Auto) 0.6 H Neut % (Auto) 83.7 H Lymph % (Auto) 4.4 L [place] % (Auto) 10.7 Eos % (Auto) 0.0 Baso % (Auto) 0.6 Lymph # (Auto) 0.2 L [place] # (Auto) 0.5 Eos # (Auto) 0.0 Baso # (Auto) 0.0 Abs Immat Gran (auto) 0.03 Absolute Neuts (auto) 4.2 Absolute Nucleated RBC 0.000 Nucleated RBC % (auto) 0.0 Neutrophils % (Manual) 57 Band Neutrophils % 40 H Lymphocytes % (Manual) 3 L Monocytes % (Manual) Metamyelocytes % Abs Neuts (Manual) 4.9 Lymphocytes # (Manual) 0.2 L Monocytes # (Manual) Metamyelocytes # Toxic Granulation Toxic Vacuolation PRESENT Platelet Estimate DECREASED Large Platelets PRESENT Plt Morphology Comment NOTED RBC Morphology NORMAL Index Cells 2+ (3-5) Schistocytes 1+ (0-2) ESR Hold Purple Top SEE NOTE Sodium 137 Potassium 3.5 Chloride 108 Carbon Dioxide 19 L Anion Gap 14 BUN 23 H Creatinine 1.14 Estim Creat Clear Calc 69.8 Estimated GFR 52 POC Glucose 137 H Random Glucose 46 L* Estimat Average Glucose 88 Hemoglobin A1c % 4.7 Lactic Acid Calcium 8.2 L Magnesium Total Bilirubin Direct Bilirubin AST ALT Alkaline Phosphatase C-Reactive Protein Total Protein Albumin Urine Test Synovial Source Synovial WBC Synovial RBC Synovial Neutrophils Synovial Lymphocytes Synovial Monocytes Synovial Other Cells Urine Opiates Screen Ur Buprenorphine Scrn Ur Oxycodone Screen Urine Methadone Screen Urine Fentanyl Screen Ur Barbiturates Screen Ur Phencyclidine Scrn Ur Amphetamines Screen U Benzodiazepines Scrn Urine Cocaine Screen U Marijuana (THC) Screen 08/20/25 10:30 WBC RBC Hgb Hct MCV MCH MCHC RDW Plt Count MPV Immature Gran % (Auto) Neut % (Auto) Lymph % (Auto) [place] % (Auto) Eos % (Auto) Baso % (Auto) Lymph # (Auto) [place] # (Auto) Eos # (Auto) Baso # (Auto) Abs Immat Gran (auto) Absolute Neuts (auto) Absolute Nucleated RBC Nucleated RBC % (auto) Neutrophils % (Manual) Band Neutrophils % Lymphocytes % (Manual) Monocytes % (Manual) Metamyelocytes % Abs Neuts (Manual) Lymphocytes # (Manual) Monocytes # (Manual) Metamyelocytes # Toxic Granulation Toxic Vacuolation Platelet Estimate Large Platelets Plt Morphology Comment RBC Morphology Sasha Cells Schistocytes ESR Hold Purple Top Sodium Potassium Chloride Carbon Dioxide Anion Gap BUN Creatinine Estim Creat Clear Calc Estimated GFR POC Glucose Random Glucose Estimat Average Glucose Hemoglobin A1c % Lactic Acid Calcium Magnesium Total Bilirubin Direct Bilirubin AST ALT Alkaline Phosphatase C-Reactive Protein Total Protein Albumin Urine Test NEGATIVE Synovial Source Synovial WBC Synovial RBC Synovial Neutrophils Synovial Lymphocytes Synovial Monocytes Synovial Other Cells Urine Opiates Screen POSITIVE H Ur Buprenorphine Scrn Not Detected Ur Oxycodone Screen Not Detected Urine Methadone Screen Positive H Urine Fentanyl Screen POSITIVE H Ur Barbiturates Screen Not Detected Ur Phencyclidine Scrn Not Detected Ur Amphetamines Screen Not Detected U Benzodiazepines Scrn POSITIVE H Urine Cocaine Screen Not Detected U Marijuana (THC) Screen Not Detected Airway Mallampati Class: II TM Dist: >3cm Neck ROM: Full Heart: rrr Lungs: cta Assessment and Plan Assessment Anesthesia Assessment: Anesthesia Plan Discussed and Chart Reviewed Final Anesthetic Review Family History of Problems with Anesthesia: No History of Problems with Anesthesia: No NPO: Yes ASA Class: III Final Preanesthetic Review: No Changes in Pt Med Stat, Meds/Allgs Chart Reviewed, Consent Obtained/Reviewed and Anes Risks/Benef Reviewed Patient Risk: Intermediate Procedure Risk: Low Anesthetic Plan Anesthetic Plan: GA and Agree w/ Assess. and Plan Disposition: Standard PACU
[2025-08-20 11:00] LABS: Alanine Aminotransferase 19 U/L (0-31); Albumin Level 2.0 g/dL (3.5-5.0); Alkaline Phosphatase 123 U/L (39-117); Aspartate Amino Transferase 107 U/L (5-31); Total Protein 7.0 g/dL (6.5-8.0)
--- NOTE | 2025-08-20 11:17 | MHC.SHP ---
Pre-Procedural Eval Section A - 24 Hr Update-Section A only Date of Service: 08/20/25 The patient is an INPATIENT: Yes Changes since office visit: No Cold of Flu in the past 2 weeks, No New Medical Problems, No Changes in Medication and No Patient answered all questions The patient has been examined within 24 hours of the surgical procedure. The History & Physical has been completed within 30 days and I have reviewed it.: Yes Section B - Complete if H&P > 30 days Chief Complaint: Septic Arthritis Allergies: Allergies Allergy/AdvReac Type Severity Reaction Status Date / Time Penicillins Allergy Unknown Verified 08/19/25 17:28 Sulfa (Sulfonamide Allergy Unknown Verified 08/19/25 17:28 Antibiotics) Plan I have reviewed the history and physical and performed a pertinent physical examination on my patient. No changes have occurred unless specified. Time Spent With Patient Time: Total time managing care of this patient today ____ minutes.
--- NOTE | 2025-08-20 12:30 | PM.OP ---
Brief Operative Note Date of Service: 08/20/25 Pre-op diagnosis: Septic right knee Post-op diagnosis: same Procedure: Arthroscopic lavage and debridement right knee Implants: none Surgeon: Ty Muñoz MD Anesthesia: GLMA and local Was an Business Intelligence Engineer used for this Procedure?: No Estimated blood loss (mL): 25 Tourniquet time (min): 29 IV fluids (mL): 750 Pathology: none sent Condition: stable Disposition: PACU
--- NOTE | 2025-08-20 14:43 | PM.EVENT ---
Event Note Date of Service: 08/20/25 Event Note: Patient is a 44-year-old female with a past medical history significant for hypertension, hep C, liver fibrosis, IVDA on methadone, colitis, who presented to the ED due to complaints of right lower leg pain and swelling. joint aspiration in ED suspicious for septic arthritis GPC bacteremia due to Right knee septic arthritis / blood cultures from 08/19 growing GPC; gram stain from right knee fluid analysis growing GPC plan for wash out today per ortho continue IV vancomycin for now, await final sensitivities check surveillance blood cultures 08/21 - if persistently positive check echo ortho following ID consult pending RICHARD, metabolic acidosis renal function and bicarb improving with IVF hold HCTZ HTN hold HCTZ for RICHARD continue norvasc hep C s/p tx/liver fibrosis elevated LFTs at baseline chronic pancytopenia secondary to liver disease, at baseline H/H trending down, likely in the setting of acute illness, no overt bleeding noted repeat H/H this afternoon IVDU continue methadone addiction med consult full code VTE ppx: SCDs where tolerated, anticoagulant contraindicated due to thrombocytopenia Pt with suspected septic arthritis, requiring admission for at least 2 midnights stay for IV abx and ortho consult. Time Spent With Patient Time: Total time managing care of this patient today ____ minutes.
[2025-08-20 14:51] LABS: Glucose Synovial Fluid 2; Total Protein Synovial Fluid 5.7
[2025-08-20] MEDS: oxyCODONE HCl Immed Release 5 MG TABLET PO ×2 (15:23→22:04)
--- NOTE | 2025-08-20 15:23 | MHC.CM.PN ---
pt is independent has own ride home dc plan home no services
[2025-08-20] MEDS: 0.9 % Sodium Chloride Flush 3 ML SYRINGE IVFLUSH (15:35)
--- NOTE | 2025-08-20 15:52 | HO.ADDICT_ITS ---
History of Present Illness Date of Service: 08/20/2025 Chief Complaint: Septic Arthritis Reason for Consult: OUD Sources of Information: patient interviewed and chart reviewed HPI Narrative: Patient is a 44 year old female with history of OUD, medically admitted with septic arthritis of the knee. She is engaged in treatment for OUD--methadone 55mg QD. Consult requested for ongoing substance use. Patient seen in room 376. She was in OR earlier for lavage of the knee. She is awake, alert, and c/o significant pain. Appearing uncomfortable, restless, slightly irritable. Not appropriate to obtain full substance history due to patient level of discomfort Chart review shows that patient reported recent IVDU to address Medical Evaluation Reviewed: Yes Review of Systems Constitutional: Reports as per HPI Diagnostics Vital Signs (24Hr): Vital Signs - 24 hr 08/19/25 17:24 08/19/25 20:44 08/19/25 22:08 Temperature 97.7 F 97.8 F 98.3 F Pulse Rate 100 91 85 Respiratory Rate 18 16 14 Blood Pressure 143/78 H 140/77 H 132/76 Pulse Oximetry 99 98 96 Oxygen Delivery Method Room Air Room Air Room Air Oxygen Flow Rate 08/19/25 22:59 08/19/25 23:11 08/19/25 23:14 Temperature Pulse Rate 90 93 91 Respiratory Rate 20 18 17 Blood Pressure 129/71 129/71 124/63 Pulse Oximetry 92 92 92 Oxygen Delivery Method Room Air Room Air Room Air Oxygen Flow Rate 08/20/25 00:00 08/20/25 01:24 08/20/25 02:19 Temperature 97.0 F Pulse Rate 92 93 84 Respiratory Rate 15 18 16 Blood Pressure 133/71 131/65 135/69 Pulse Oximetry 93 96 Oxygen Delivery Method Room Air Room Air Oxygen Flow Rate 08/20/25 04:35 08/20/25 08:00 08/20/25 10:57 Temperature 97.2 F 97.8 F 98.6 F Pulse Rate 84 88 99 Respiratory Rate 16 16 18 Blood Pressure 122/74 137/79 136/77 Pulse Oximetry 94 96 96 Oxygen Delivery Method Room Air Room Air Room Air Oxygen Flow Rate 08/20/25 12:40 08/20/25 12:45 08/20/25 12:45 Temperature 98.4 F Pulse Rate 95 99 Respiratory Rate 18 20 20 Blood Pressure 137/86 151/82 H Pulse Oximetry 98 98 Oxygen Delivery Method Simple Mask Simple Mask Oxygen Flow Rate 6 6 08/20/25 12:50 08/20/25 12:50 08/20/25 12:55 Temperature Pulse Rate 96 Respiratory Rate 20 20 16 Blood Pressure 151/85 H Pulse Oximetry 98 Oxygen Delivery Method Simple Mask Oxygen Flow Rate 6 08/20/25 12:55 08/20/25 13:00 08/20/25 13:00 Temperature Pulse Rate 93 96 Respiratory Rate 20 18 20 Blood Pressure 145/87 H 158/87 H Pulse Oximetry 98 98 Oxygen Delivery Method Simple Mask Simple Mask Oxygen Flow Rate 6 6 08/20/25 13:03 08/20/25 13:03 08/20/25 13:08 Temperature Pulse Rate 92 92 Respiratory Rate 20 16 13 Blood Pressure 149/83 H 155/90 H Pulse Oximetry 94 92 Oxygen Delivery Method Room Air Room Air Oxygen Flow Rate 08/20/25 13:08 08/20/25 13:13 08/20/25 13:13 Temperature Pulse Rate 92 Respiratory Rate 13 17 22 H Blood Pressure 155/88 H Pulse Oximetry 92 Oxygen Delivery Method Room Air Oxygen Flow Rate 08/20/25 13:18 08/20/25 13:18 08/20/25 13:23 Temperature Pulse Rate 91 90 Respiratory Rate 17 17 15 Blood Pressure 141/84 H 155/88 H Pulse Oximetry 94 94 Oxygen Delivery Method Nasal Cannula Nasal Cannula Oxygen Flow Rate 3 3 08/20/25 13:30 08/20/25 13:30 08/20/25 13:35 Temperature Pulse Rate 88 Respiratory Rate 15 15 18 Blood Pressure 155/92 H Pulse Oximetry 96 Oxygen Delivery Method Nasal Cannula Oxygen Flow Rate 3 08/20/25 13:35 08/20/25 13:40 08/20/25 13:50 Temperature Pulse Rate 88 87 Respiratory Rate 18 17 20 Blood Pressure 155/84 H 154/86 H Pulse Oximetry 95 98 Oxygen Delivery Method Nasal Cannula Nasal Cannula Oxygen Flow Rate 3 3 08/20/25 13:50 08/20/25 13:55 08/20/25 14:10 Temperature 97.8 F Pulse Rate 92 87 87 Respiratory Rate 16 15 16 Blood Pressure 159/85 H 144/85 H 135/83 Pulse Oximetry 97 96 97 Oxygen Delivery Method Nasal Cannula Nasal Cannula Nasal Cannula Oxygen Flow Rate 3 3 3 08/20/25 14:44 08/20/25 15:45 Temperature 98.6 F 98.1 F Pulse Rate 85 88 Respiratory Rate 18 16 Blood Pressure 175/83 H 169/94 H Pulse Oximetry 96 96 Oxygen Delivery Method Nasal Cannula Room Air Oxygen Flow Rate 2 BMI result Body Mass Index 27.4 Labs 08/20/25 04:32 08/20/25 04:32 Labs: Laboratory Results - last 48 hr 08/19/25 08/19/25 08/19/25 17:49 20:31 23:23 WBC 5.1 RBC 2.88 L Hgb 9.1 L Hct 27.3 L MCV 94.8 MCH 31.6 MCHC 33.3 RDW 14.6 Plt Count 43 L D MPV 11.9 Immature Gran % (Auto) Cancelled Neut % (Auto) Cancelled Lymph % (Auto) Cancelled [place] % (Auto) Cancelled Eos % (Auto) Cancelled Baso % (Auto) Cancelled Lymph # (Auto) Cancelled [place] # (Auto) Cancelled Eos # (Auto) Cancelled Baso # (Auto) Cancelled Abs Immat Gran (auto) Cancelled Absolute Neuts (auto) Cancelled Absolute Nucleated RBC 0.000 Nucleated RBC % (auto) 0.0 Neutrophils % (Manual) 94 H Band Neutrophils % 1 L Lymphocytes % (Manual) 2 L Monocytes % (Manual) 2 Metamyelocytes % 1 Abs Neuts (Manual) 4.8 Lymphocytes # (Manual) 0.1 L Monocytes # (Manual) 0.1 Metamyelocytes # 0.1 Toxic Granulation PRESENT Toxic Vacuolation Platelet Estimate DECREASED Large Platelets Plt Morphology Comment NORMAL RBC Morphology NORMAL [place] Cells Schistocytes ESR 121 H Hold Purple Top Sodium 132 L Potassium 3.8 Chloride 105 Carbon Dioxide 16 L Anion Gap 15 BUN 25 H Creatinine 1.25 Estim Creat Clear Calc 63.7 Estimated GFR 46 POC Glucose Random Glucose 90 Estimat Average Glucose Hemoglobin A1c % Lactic Acid 1.4 Calcium 8.7 Magnesium 1.9 Total Bilirubin 4.9 H Direct Bilirubin 3.3 H AST 113 H ALT 21 Alkaline Phosphatase 115 C-Reactive Protein 12.00 H Total Protein 8.3 H Albumin 2.2 L Urine Test Synovial Source right knee Synovial WBC 168.760 Synovial RBC 0.280 Synovial Neutrophils 87 Synovial Lymphocytes 11 Synovial Monocytes 2 Synovial Other Cells 0 Synovial Glucose 2 Synovial Total Protein 5.7 Synovial Uric Acid 3 Urine Opiates Screen Ur Buprenorphine Scrn Ur Oxycodone Screen Urine Methadone Screen Urine Fentanyl Screen Ur Barbiturates Screen Ur Phencyclidine Scrn Ur Amphetamines Screen U Benzodiazepines Scrn Urine Cocaine Screen U Marijuana (THC) Screen 08/20/25 08/20/25 08/20/25 04:32 05:39 10:26 WBC 5.0 RBC 2.58 L Hgb 8.0 L Hct 24.7 L MCV 95.7 MCH 31.0 MCHC 32.4 RDW 14.6 Plt Count 34 L MPV 10.5 Immature Gran % (Auto) 0.6 H Neut % (Auto) 83.7 H Lymph % (Auto) 4.4 L [place] % (Auto) 10.7 Eos % (Auto) 0.0 Baso % (Auto) 0.6 Lymph # (Auto) 0.2 L [place] # (Auto) 0.5 Eos # (Auto) 0.0 Baso # (Auto) 0.0 Abs Immat Gran (auto) 0.03 Absolute Neuts (auto) 4.2 Absolute Nucleated RBC 0.000 Nucleated RBC % (auto) 0.0 Neutrophils % (Manual) 57 Band Neutrophils % 40 H Lymphocytes % (Manual) 3 L Monocytes % (Manual) Metamyelocytes % Abs Neuts (Manual) 4.9 Lymphocytes # (Manual) 0.2 L Monocytes # (Manual) Metamyelocytes # Toxic Granulation Toxic Vacuolation PRESENT Platelet Estimate DECREASED Large Platelets PRESENT Plt Morphology Comment NOTED RBC Morphology NORMAL Sasha Cells 2+ (3-5) Schistocytes 1+ (0-2) ESR Hold Purple Top Sodium 137 Potassium 3.5 Chloride 108 Carbon Dioxide 19 L Anion Gap 14 BUN 23 H Creatinine 1.14 Estim Creat Clear Calc 69.8 Estimated GFR 52 POC Glucose 137 H Random Glucose 46 L* Estimat Average Glucose 88 Hemoglobin A1c % 4.7 Lactic Acid Calcium 8.2 L Magnesium Total Bilirubin 4.4 H Direct Bilirubin 3.4 H AST 107 H ALT 19 Alkaline Phosphatase 123 H C-Reactive Protein Total Protein 7.0 Albumin 2.0 L Urine Test Synovial Source Synovial WBC Synovial RBC Synovial Neutrophils Synovial Lymphocytes Synovial Monocytes Synovial Other Cells Synovial Glucose Synovial Total Protein Synovial Uric Acid Urine Opiates Screen Ur Buprenorphine Scrn Ur Oxycodone Screen Urine Methadone Screen Urine Fentanyl Screen Ur Barbiturates Screen Ur Phencyclidine Scrn Ur Amphetamines Screen U Benzodiazepines Scrn Urine Cocaine Screen U Marijuana (THC) Screen 08/20/25 08/20/25 10:29 10:30 WBC RBC Hgb Hct MCV MCH MCHC RDW Plt Count MPV Immature Gran % (Auto) Neut % (Auto) Lymph % (Auto) [place] % (Auto) Eos % (Auto) Baso % (Auto) Lymph # (Auto) [place] # (Auto) Eos # (Auto) Baso # (Auto) Abs Immat Gran (auto) Absolute Neuts (auto) Absolute Nucleated RBC Nucleated RBC % (auto) Neutrophils % (Manual) Band Neutrophils % Lymphocytes % (Manual) Monocytes % (Manual) Metamyelocytes % Abs Neuts (Manual) Lymphocytes # (Manual) Monocytes # (Manual) Metamyelocytes # Toxic Granulation Toxic Vacuolation Platelet Estimate Large Platelets Plt Morphology Comment RBC Morphology [place] Cells Schistocytes ESR Hold Purple Top SEE NOTE Sodium Potassium Chloride Carbon Dioxide Anion Gap BUN Creatinine Estim Creat Clear Calc Estimated GFR POC Glucose Random Glucose Estimat Average Glucose Hemoglobin A1c % Lactic Acid Calcium Magnesium Total Bilirubin Direct Bilirubin AST ALT Alkaline Phosphatase C-Reactive Protein Total Protein Albumin Urine Test NEGATIVE Synovial Source Synovial WBC Synovial RBC Synovial Neutrophils Synovial Lymphocytes Synovial Monocytes Synovial Other Cells Synovial Glucose Synovial Total Protein Synovial Uric Acid Urine Opiates Screen POSITIVE H Ur Buprenorphine Scrn Not Detected Ur Oxycodone Screen Not Detected Urine Methadone Screen Positive H Urine Fentanyl Screen POSITIVE H Ur Barbiturates Screen Not Detected Ur Phencyclidine Scrn Not Detected Ur Amphetamines Screen Not Detected U Benzodiazepines Scrn POSITIVE H Urine Cocaine Screen Not Detected U Marijuana (THC) Screen Not Detected Mental Status Exam Mental Status Exam Level of Consciousness: Awake and Alert Patient Behavior: Appropriate Affect Description: Blunted Speech Pattern: Clear Thought Process: Intact Thought Content: positive for Intact Judgement: Good Medications Medications Current Medications Acetaminophen (Acetaminophen 325 Mg Tablet) 650 mg PO Q6H PRN PRN Reason: Pain, Mild 1-3,fever,headache Last Admin: 08/20/25 15:23 Dose: 650 mg Amlodipine Besylate (Amlodipine Besylate 5 Mg Tablet) 5 mg PO DAILY MARIKA; Protocol Calcium Carbonate (Calcium Carbonate 750 Mg Tab.Chew) 750 mg PO Q4H PRN PRN Reason: Heartburn Fentanyl (Fentanyl Citrate/Pf 100 Mcg/2 Ml Vial) 25 mcg IVPUSH Q5M PRN PRN Reason: Pain, Moderate to Severe (Pain Scale 4-10) Stop: 08/20/25 16:58 Last Admin: 08/20/25 13:00 Dose: 25 mcg Hydromorphone HCl (Hydromorphone Hcl 1 Mg/Ml Syringe) 0.5 mg IVPUSH Q4H PRN; Protocol PRN Reason: Pain, Severe (Pain Scale 7-10) Last Admin: 08/20/25 09:57 Dose: 0.5 mg Hydromorphone HCl (Hydromorphone Hcl 0.5 Mg/0.5 Ml Syringe) 0.25 mg IVPUSH Q5M PRN PRN Reason: Pain, Moderate to Severe (Pain Scale 4-10) Stop: 08/20/25 18:58 Last Admin: 08/20/25 13:50 Dose: 0.25 mg Dextrose/Lactated Ringer's (D5lr) 1,000 mls @ 80 mls/hr IVCONT .[id number] [facility] Last Admin: 08/20/25 15:29 Dose: 80 mls/hr Vancomycin HCl 1,000 mg/ (Sodium Chloride) 270 mls @ 270 mls/hr IV Q12H [facility] Last Infusion: 08/20/25 15:10 Dose: Infused Magnesium Hydroxide (Milk Of Magnesia 30 Ml Oral.Susp) 30 ml PO DAILY PRN PRN Reason: Constipation Melatonin (Melatonin 3 Mg Tablet) 6 mg PO BEDTIME PRN PRN Reason: Insomnia Methadone HCl (Methadone Hcl 20 Mg/2 Ml Oral.Conc) 55 mg PO DAILY [facility] Last Admin: 08/20/25 09:04 Dose: 55 mg Naloxone HCl (Naloxone Hcl 0.4 Mg/Ml Vial) 0.04 mg IVPUSH Q5M PRN PRN Reason: Excessive sedation or RR < 8 Naloxone HCl (Naloxone Hcl 0.4 Mg/Ml Vial) 0.04 mg IVPUSH Q5M PRN PRN Reason: Excessive sedation or RR < 8 Ondansetron HCl (Ondansetron Hcl 4 Mg/2 Ml Vial) 4 mg IVPUSH Q8H PRN PRN Reason: Nausea and Vomiting Ondansetron HCl (Ondansetron Hcl 4 Mg/2 Ml Vial) 4 mg IVPUSH ONCE PRN PRN Reason: Nausea and Vomiting Stop: 08/20/25 16:58 Oxycodone HCl (Oxycodone Hcl Immed Release 5 Mg Tablet) 5 mg PO Q6H PRN PRN Reason: Pain, Moderate(Pain Scale 4-6) Last Admin: 08/20/25 15:23 Dose: 5 mg Pharmacy Consult (Consult Rx Vancomycin Dosing) 1 each MISCELLANE DAILY PRN PRN Reason: Consult order Sodium Chloride (0.9 % Sodium Chloride Flush 3 Ml Syringe) 3 ml IVFLUSH QSHIFT [facility]IKA Last Admin: 08/20/25 15:35 Dose: 3 ml Allergies Allergies Allergy/AdvReac Type Severity Reaction Status Date / Time Penicillins Allergy Unknown Verified 08/19/25 17:28 Sulfa (Sulfonamide Allergy Unknown Verified 08/19/25 17:28 Antibiotics) Assessment & Plan Assessment & Plan (1) Opioid use disorder: Status: Acute Code(s): F11.90 - Opioid use, unspecified, uncomplicated Assessment and Plan: * methadone dose in place 55mg QD * will likely require higher doses of opiate pain medications due to opiate tolerance, and reduced pain tolerance. 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 PMFSH Past Medical History Medical History Anxiety IVDU (intravenous drug user) Substance use disorder Liver fibrosis HTN (hypertension) Social History Social History Household Members: Other Household Members Other:: 21 yr old niece Housing: Apartment Do you presently have visiting nurse or other home services: No Alcohol intake: never Comment: COUNTS CORRECT Patient Tobacco Use Status: Never used Tobacco Substance Use Type: Heroin service: No
[2025-08-20 17:56] LABS: Hematocrit 25.6 % (37.0-47.0); Hemoglobin 8.5 g/dl (12.0-16.0)
[2025-08-20 18:09] LABS: Reticulocytes Absolute 0.064 X10*6/uL (0.026-0.095)
[2025-08-20 18:23] LABS: Iron 36 mcg/dL (30-160); Percent Iron Saturation 31 % (15-50); Total Iron Binding Capacity 118 mcg/dL (228-428); Unsaturated Iron Binding 82 ug/dL
[2025-08-20 18:36] LABS: Ferritin 690 ng/mL (10-250)
--- NOTE | 2025-08-20 21:40 | HE.PHANOTE ---
RE: vanco Random came back at 14.7; predicted trough/AUC supratherapeutic at 1g Q12, reduced to 750mg Q12h with predicted trough of 16.4, AUC of 495 mg/L. Next level 08/21 @2100
[2025-08-20] MEDS: traZODone HCL 25 MG HALFTAB PO (22:05)
[2025-08-21] VITALS (11 sets, daily range): BP systolic 121–171; BP diastolic 68–89; PULSE 74–94; RESP 14–18; TEMP 36–37.2; O2SAT 93–97
[2025-08-21] MEDS: Dextrose 5 % and Lactated Ring 1,000 ML 80 ML IVCONT ×2 (03:37→19:57)
[2025-08-21 06:19] LABS: Mean Corpuscular HGB Conc 32.4 g/dl (31.0-35.0); Mean Corpuscular Hemoglobin 31.1 pg (27.0-33.0); Mean Corpuscular Volume 95.9 fL (80.0-98.0); NRBC Abs Auto 0.000 X10*3/uL (0.0-0.012); NRBC Pct Auto 0.0 /100WBC (0.0-0.2); Red Blood Count 2.19 X10*6/uL (4.20-5.50); White Blood Count 7.4 X10*3/uL (4.8-10.8)
[2025-08-21 06:21] LABS: Platelet Count 31 X10*3/uL (160-400)
[2025-08-21 06:25] LABS: Hemoglobin 6.8 g/dl (12.0-16.0)
[2025-08-21 06:26] LABS: Hematocrit 21.0 % (37.0-47.0)
[2025-08-21 06:35] LABS: Anion Gap 10 (12-20); Blood Urea Nitrogen 30 mg/dL (9-16); Calcium 7.8 mg/dL (8.4-10.2); Carbon Dioxide 22 mmol/L (22-29); Chloride 106 mmol/L (96-108); Creatinine Clr Calc Pharmacy 75.1; Estimated Glomerular Filt Rate 56; Potassium 3.8 mmol/L (3.3-5.1); Sodium 134 mmol/L (135-145)
[2025-08-21 07:35] LABS: Band Neutrophils Percent 13 % (3-5); Lymphocytes Absolute Manual 0.1 X10*3/uL (1.2-4.9); Lymphocytes Percent Manual 1 % (20-40); Neutrophils Absolute Manual 7.3 X10*3/uL (2.0-8.3); Neutrophils Percent Manual 86 % (45-73)
[2025-08-21 07:43] LABS: Burr Cells 1+ (0-2) /OIF; Dohle Bodies PRESENT; RBC Morphology NOTED; Schistocytes 1+ (0-2) /OIF; Toxic Granulation PRESENT
[2025-08-21] MEDS: methADONE HCl 20 MG/2 ML ORAL.CONC 55 MG PO (08:17)
[2025-08-21] MEDS: 0.9 % Sodium Chloride Flush 3 ML SYRINGE IVFLUSH ×2 (08:20→17:29)
--- NOTE | 2025-08-21 09:16 | HO.POSTANES ---
Post Anesthesia Evaluation Post Anesthesia Evaluation Date of Service: 08/21/25 Vital Signs: Vital Signs Temp Pulse Resp BP Pulse Ox O2 Del Method 08/21/25 07:43 97.0 F 81 18 123/68 95 Room Air 08/21/25 03:45 96.8 F 78 16 140/79 H 93 Room Air 08/21/25 00:00 96.8 F 78 18 131/72 94 Room Air Anesthesia: General LMA Mental Status: Awake Pain Control: Satisfactory Nausea/Vomiting: None Hydration: Adequate Anesthesia-Related Issues: No Anes. Related Issues
--- NOTE | 2025-08-21 09:51 | HO.PM.IMPN ---
Subjective Subjective Date of Service: 08/21/25 Interval History: seen and examined this morning follow up for abdominal pain no diarrhea, no nausea, no fever Review of Systems Review of Systems: Yes all other systems are reviewed and are negative Constitutional Constitutional: Denies chills and Denies fever(s) ENT Ears, Nose, Mouth, and Throat: Denies dizziness Cardiovascular Cardiovascular: Denies chest pain, Denies palpitations and Denies dyspnea Respiratory Respiratory: Denies cough and Denies dyspnea Neurologic Neurologic: Denies dizziness Endocrine Endocrine: Denies palpitations Physical Exam Exam: Exam: Appearing in no acute distress lung sounds are clear to auscultation heart regular rate rhythm, clear S1, S2 positive bowel sounds, abdomen is soft, nontender neuro patient is alert x3, no focal deficits Knee dressing Vital Signs: Vital Signs: Last Vital Signs Temp 97.0 F 08/21/25 07:43 Pulse 81 08/21/25 07:43 Resp 18 08/21/25 07:43 BP 123/68 08/21/25 07:43 Pulse Ox 95 08/21/25 07:43 O2 Del Method Room Air 08/21/25 07:43 O2 Flow Rate 2 08/20/25 14:44 BMI result Body Mass Index 27.4 Objective Data Active Medications Acetaminophen (Acetaminophen 325 Mg Tablet) 650 mg PO Q6H PRN PRN Reason: Pain, Mild 1-3,fever,headache Last Admin: 08/20/25 22:04 Dose: 650 mg Documented By: ASHLEY Comments: per pt request Amlodipine Besylate (Amlodipine Besylate 5 Mg Tablet) 5 mg PO DAILY [facility]; Protocol Last Admin: 08/21/25 08:16 Dose: 5 mg Documented By: CHRIS Calcium Carbonate (Calcium Carbonate 750 Mg Tab.Chew) 750 mg PO Q4H PRN PRN Reason: Heartburn Hydromorphone HCl (Hydromorphone Hcl 1 Mg/Ml Syringe) 0.5 mg IVPUSH Q4H PRN; Protocol PRN Reason: Pain, Severe (Pain Scale 7-10) Last Admin: 08/21/25 08:16 Dose: 0.5 mg Documented By: CHRIS Dextrose/Lactated Ringer's (D5lr) 1,000 mls @ 80 mls/hr IVCONT .[id number] [facility] Last Admin: 08/21/25 06:20 Dose: Not Given Documented By: ASHLEY Non-Admin Reason: IV Running Vancomycin HCl 750 mg/ Sodium (Chloride) 265 mls @ 265 mls/hr IV Q12H [facility] Last Infusion: 08/21/25 00:22 Dose: Infused Documented By: ASHLEY Magnesium Hydroxide (Milk Of Magnesia 30 Ml Oral.Susp) 30 ml PO DAILY PRN PRN Reason: Constipation Melatonin (Melatonin 3 Mg Tablet) 6 mg PO BEDTIME PRN PRN Reason: Insomnia Methadone HCl (Methadone Hcl 20 Mg/2 Ml Oral.Conc) 55 mg PO DAILY [facility] Last Admin: 08/21/25 08:17 Dose: 55 mg Documented By: CHRIS Co-signed By: BENTLEY Naloxone HCl (Naloxone Hcl 0.4 Mg/Ml Vial) 0.04 mg IVPUSH Q5M PRN PRN Reason: Excessive sedation or RR < 8 Naloxone HCl (Naloxone Hcl 0.4 Mg/Ml Vial) 0.04 mg IVPUSH Q5M PRN PRN Reason: Excessive sedation or RR < 8 Ondansetron HCl (Ondansetron Hcl 4 Mg/2 Ml Vial) 4 mg IVPUSH Q8H PRN PRN Reason: Nausea and Vomiting Oxycodone HCl (Oxycodone Hcl Immed Release 5 Mg Tablet) 5 mg PO Q6H PRN PRN Reason: Pain, Moderate(Pain Scale 4-6) Last Admin: 08/20/25 22:04 Dose: 5 mg Documented By: ASHLEY Comments: per pt request Pharmacy Consult (Consult Rx Vancomycin Dosing) 1 each MISCELLANE DAILY PRN PRN Reason: Consult order Sodium Chloride (0.9 % Sodium Chloride Flush 3 Ml Syringe) 3 ml IVFLUSH QSHIFT [facility] Last Admin: 08/21/25 08:20 Dose: 3 ml Documented By: CHRIS Trazodone HCl (Trazodone Hcl 25 Mg Halftab) 25 mg PO BEDTIME MRX1 PRN PRN Reason: Sleep Last Admin: 08/20/25 22:05 Dose: 25 mg Documented By: ASHLEY Labs 08/21/25 05:46 08/21/25 05:46 Labs: Laboratory Results - last 24 hr 08/19/25 08/20/25 08/20/25 23:23 10:26 10:29 MCV MCH MCHC RDW Plt Count MPV Immature Gran % (Auto) Neut % (Auto) Lymph % (Auto) [place] % (Auto) Eos % (Auto) Baso % (Auto) Lymph # (Auto) [place] # (Auto) Eos # (Auto) Baso # (Auto) Abs Immat Gran (auto) Absolute Neuts (auto) Absolute Nucleated RBC Nucleated RBC % (auto) Neutrophils % (Manual) Band Neutrophils % Lymphocytes % (Manual) Abs Neuts (Manual) Lymphocytes # (Manual) Toxic Granulation Dohle Bodies Platelet Estimate Plt Morphology Comment RBC Morphology [place] Cells Schistocytes Absolute Retic Percent Retic Immature Retic Fraction Retic Hgb Equivalent Hold Purple Top SEE NOTE Anion Gap Estim Creat Clear Calc Estimated GFR Random Glucose Haptoglobin 97 Calcium Iron 36 TIBC 118 L % Saturation 31 Unsat Iron Binding 82 Ferritin 690 H Total Bilirubin 4.4 H Direct Bilirubin 3.4 H AST 107 H ALT 19 Alkaline Phosphatase 123 H Lactate Dehydrogenase 152 Total Protein 7.0 Albumin 2.0 L Urine Test Synovial Glucose 2 Synovial Total Protein 5.7 Synovial Uric Acid 3 Random Vancomycin Urine Opiates Screen Ur Buprenorphine Scrn Ur Oxycodone Screen Urine Methadone Screen Urine Fentanyl Screen Ur Barbiturates Screen Ur Phencyclidine Scrn Ur Amphetamines Screen U Benzodiazepines Scrn Urine Cocaine Screen U Marijuana (THC) Screen Blood Type Antibody Screen SHELLEY, Polyspecific Positive SHELLEY Work-up Crossmatch 08/20/25 08/20/25 08/20/25 10:30 17:48 21:12 MCV MCH MCHC RDW Plt Count MPV Immature Gran % (Auto) Neut % (Auto) Lymph % (Auto) [place] % (Auto) Eos % (Auto) Baso % (Auto) Lymph # (Auto) [place] # (Auto) Eos # (Auto) Baso # (Auto) Abs Immat Gran (auto) Absolute Neuts (auto) Absolute Nucleated RBC Nucleated RBC % (auto) Neutrophils % (Manual) Band Neutrophils % Lymphocytes % (Manual) Abs Neuts (Manual) Lymphocytes # (Manual) Toxic Granulation Dohle Bodies Platelet Estimate Plt Morphology Comment RBC Morphology [place] Cells Schistocytes Absolute Retic 0.064 Percent Retic 2.4 H Immature Retic Fraction 21.2 H Retic Hgb Equivalent 38.8 H Hold Purple Top Anion Gap Estim Creat Clear Calc Estimated GFR Random Glucose Haptoglobin Calcium Iron TIBC % Saturation Unsat Iron Binding Ferritin Total Bilirubin Direct Bilirubin AST ALT Alkaline Phosphatase Lactate Dehydrogenase Total Protein Albumin Urine Test NEGATIVE Synovial Glucose Synovial Total Protein Synovial Uric Acid Random Vancomycin 14.7 L Urine Opiates Screen POSITIVE H Ur Buprenorphine Scrn Not Detected Ur Oxycodone Screen Not Detected Urine Methadone Screen Positive H Urine Fentanyl Screen POSITIVE H Ur Barbiturates Screen Not Detected Ur Phencyclidine Scrn Not Detected Ur Amphetamines Screen Not Detected U Benzodiazepines Scrn POSITIVE H Urine Cocaine Screen Not Detected U Marijuana (THC) Screen Not Detected Blood Type Antibody Screen SHELLEY, Polyspecific Positive SHELLEY Work-up Crossmatch 08/21/25 08/21/25 05:46 06:56 MCV 95.9 MCH 31.1 MCHC 32.4 RDW 14.9 Plt Count 31 L MPV 10.2 Immature Gran % (Auto) Cancelled Neut % (Auto) Cancelled Lymph % (Auto) Cancelled [place] % (Auto) Cancelled Eos % (Auto) Cancelled Baso % (Auto) Cancelled Lymph # (Auto) Cancelled [place] # (Auto) Cancelled Eos # (Auto) Cancelled Baso # (Auto) Cancelled Abs Immat Gran (auto) Cancelled Absolute Neuts (auto) Cancelled Absolute Nucleated RBC 0.000 Nucleated RBC % (auto) 0.0 Neutrophils % (Manual) 86 H Band Neutrophils % 13 H Lymphocytes % (Manual) 1 L Abs Neuts (Manual) 7.3 Lymphocytes # (Manual) 0.1 L Toxic Granulation PRESENT Dohle Bodies PRESENT Platelet Estimate DECREASED Plt Morphology Comment NORMAL RBC Morphology NOTED [place] Cells 1+ (0-2) Schistocytes 1+ (0-2) Absolute Retic Percent Retic Immature Retic Fraction Retic Hgb Equivalent Hold Purple Top Anion Gap 10 L Estim Creat Clear Calc 75.1 Estimated GFR 56 Random Glucose 122 H Haptoglobin Calcium 7.8 L Iron TIBC % Saturation Unsat Iron Binding Ferritin Total Bilirubin Direct Bilirubin AST ALT Alkaline Phosphatase Lactate Dehydrogenase Total Protein Albumin Urine Test Synovial Glucose Synovial Total Protein Synovial Uric Acid Random Vancomycin Urine Opiates Screen Ur Buprenorphine Scrn Ur Oxycodone Screen Urine Methadone Screen Urine Fentanyl Screen Ur Barbiturates Screen Ur Phencyclidine Scrn Ur Amphetamines Screen U Benzodiazepines Scrn Urine Cocaine Screen U Marijuana (THC) Screen Blood Type A Negative Antibody Screen NEGATIVE SHELLEY, Polyspecific NEGATIVE Positive SHELLEY Work-up TNP Crossmatch See Detail Microbiology Microbiology Results: Microbiology 08/19/25 20:31 Blood Culture - Preliminary Blood - Venous Methicillin Res Staph Aureus 08/19/25 20:31 Blood Culture - Preliminary Blood - Venous Methicillin Res Staph Aureus 08/19/25 23:23 Gram Stain - Final Knee aspirate Gross Specimen Examination - Final Fluid Crystals - Final Assessment and Plan (1) Anxiety: Status: Acute Plan 44-year-old female with a past medical history significant for hypertension, hep C, liver fibrosis, IVDA on methadone, colitis, who presented to the ED due to complaints of right lower leg pain and swelling. joint aspiration in ED suspicious for septic arthritis Acute on chronic Anemia/pancytopenia, unspecified so far no blood loss HH 6.8/21.0 2 units PRBC ordered check CBC post transfusion MRSA bacteremia due to Right knee septic arthritis / blood cultures gram stain from right knee fluid analysis growing GPC s/p wash out 08/20 continue IV vancomycin, will need picc line echocardiogram ortho following ID consult pending RICHARD, metabolic acidosis renal function and bicarb improving with IVF hold HCTZ HTN hold HCTZ for RICHARD continue norvasc hep C s/p tx/liver fibrosis elevated LFTs at baseline Chronic pancytopenia secondary to liver disease, at baseline, also o/p workup as per PCP H/H trending down, likely in the setting of acute illness, no overt bleeding noted repeat H/H this afternoon IVDU continue methadone addiction med consult full code VTE ppx: SCDs where tolerated, anticoagulant contraindicated due to thrombocytopenia Pt with suspected septic arthritis, requiring admission for at least 2 midnights stay for IV abx and ortho consult. Quality Stroke Does the patient have a stroke diagnosis?: No VTE Prior VTE?: No VTE Risk Level:: Medical - moderate - high VTE Device Contraindication: N/A - Device Ordered VTE Drug Contraindication: Treatment Not Tolerated
--- NOTE | 2025-08-21 10:04 | P.PNOP_ITS ---
Subjective Subjective Date of Service: 08/21/25 Interval history: POD1 s/p right knee arthroscopic lavage Patient is resting in bed comfortably No overnight events Reports pain No additional complaints Physical Exam Vital Signs: Vital Signs: Last Vital Signs Temp 98.9 F 08/21/25 09:57 Pulse 84 08/21/25 09:57 Resp 16 08/21/25 09:57 BP 140/80 H 08/21/25 09:57 Pulse Ox 95 08/21/25 07:43 O2 Del Method Room Air 08/21/25 07:43 O2 Flow Rate 2 08/20/25 14:44 BMI result Body Mass Index 27.4 Const: General: cooperative, healthy appearing and no acute distress Resp: Effort & Inspection: normal respiratory effort and able to speak in com plete sentences Extrem: Other: Right knee global tenderness to palpation. Unable to flex and extend the knee due to extreme pain. Able to dorsiflex and plantar flex. Sensation is reportedly intact. Pedal pulse intact. Psych: Appearance: grossly normal Mental Status: mental status grossly normal Attitude: cooperative Procedures Date of Service Date of Service: 08/21/25 Progress Note: A&P Assessment and plan (1) IVDU (intravenous drug user): Status: Acute (2) Septic joint of right knee joint: Status: Acute Plan Continue pain mgmnt Encourage gentle ROM of the knee WBAT Continue abx per medicine Time Spent With Patient Time: Total time managing care of this patient today ____ minutes. Quality Stroke Does the patient have a stroke diagnosis?: No VTE Prior VTE?: No VTE Risk Level:: Medical - moderate - high VTE Device Contraindication: N/A - Device Ordered VTE Drug Contraindication: Treatment Not Tolerated
[2025-08-21] MEDS: oxyCODONE HCl Immed Release 5 MG TABLET PO ×2 (13:11→19:54)
[2025-08-21 22:04] LABS: Hematocrit 25.6 % (37.0-47.0); Hemoglobin 8.7 g/dl (12.0-16.0)
[2025-08-21] MEDS: traZODone HCL 25 MG HALFTAB PO (22:49)
[2025-08-22 02:59] VITALS: BP 117/77; PULSE 71; RESP 16; TEMP 36.5; O2SAT 94
[2025-08-22 07:18] VITALS: BP 176/99; PULSE 70; RESP 18; TEMP 36.7; O2SAT 97
[2025-08-22] MEDS: oxyCODONE HCl Immed Release 5 MG TABLET PO ×3 (07:43→21:00)
[2025-08-22] MEDS: Dextrose 5 % and Lactated Ring 1,000 ML 80 ML IVCONT ×2 (07:44→20:29)
[2025-08-22] MEDS: methADONE HCl 20 MG/2 ML ORAL.CONC 55 MG PO (07:45)
[2025-08-22 12:00] VITALS: BP 140/73; PULSE 90; RESP 16; TEMP 36.9; O2SAT 98
--- NOTE | 2025-08-22 12:03 | P.PNIM_ITS ---
Subjective Subjective Date of Service: 08/22/25 Interval History: seen and examined this morning follow up for abdominal pain no diarrhea, no nausea, no fever still with alot of pain to knee Review of Systems Review of Systems: Yes all other systems are reviewed and are negative Constitutional Constitutional: Denies chills and Denies fever(s) ENT Ears, Nose, Mouth, and Throat: Denies dizziness Cardiovascular Cardiovascular: Denies chest pain, Denies palpitations and Denies dyspnea Respiratory Respiratory: Denies cough and Denies dyspnea Neurologic Neurologic: Denies dizziness Endocrine Endocrine: Denies palpitations Physical Exam 2 Exam: Exam: Appearing in no acute distress lung sounds are clear to auscultation heart regular rate rhythm, clear S1, S2 positive bowel sounds, abdomen is soft, nontender neuro patient is alert x3, no focal deficits Right LE edema from knee to ankle, dressing intact Vital Signs: Vital Signs: Last Vital Signs Temp 98.1 F 08/22/25 07:18 Pulse 70 08/22/25 07:18 Resp 18 08/22/25 07:18 BP 176/99 H 08/22/25 07:18 Pulse Ox 97 08/22/25 07:18 O2 Del Method Room Air 08/22/25 07:18 O2 Flow Rate 2 08/20/25 14:44 BMI result Body Mass Index 27.4 Objective Data Active Medications Acetaminophen (Acetaminophen 325 Mg Tablet) 650 mg PO Q6H PRN PRN Reason: Pain, Mild 1-3,fever,headache Last Admin: 08/21/25 19:53 Dose: 650 mg Documented By: ASHLEY Comments: per pt request Amlodipine Besylate (Amlodipine Besylate 5 Mg Tablet) 5 mg PO DAILY [facility]; Protocol Last Admin: 08/22/25 07:43 Dose: 5 mg Documented By: DIANA Calcium Carbonate (Calcium Carbonate 750 Mg Tab.Chew) 750 mg PO Q4H PRN PRN Reason: Heartburn Diazepam (Diazepam 10 Mg/2 Ml Cartridge) 10 mg IVPUSH Q6H PRN PRN Reason: Anxiety Hydromorphone HCl (Hydromorphone Hcl 1 Mg/Ml Syringe) 0.5 mg IVPUSH Q3H PRN; Protocol PRN Reason: Pain, Severe (Pain Scale 7-10) Last Admin: 08/22/25 09:41 Dose: 0.5 mg Documented By: DIANA Dextrose/Lactated Ringer's (D5lr) 1,000 mls @ 80 mls/hr IVCONT .[id number] [facility] Last Admin: 08/22/25 07:44 Dose: 80 mls/hr Documented By: DIANA Vancomycin HCl 750 mg/ Sodium (Chloride) 265 mls @ 265 mls/hr IV Q12H [facility] Last Infusion: 08/22/25 11:54 Dose: Infused Documented By: DIANA Magnesium Hydroxide (Milk Of Magnesia 30 Ml Oral.Susp) 30 ml PO DAILY PRN PRN Reason: Constipation Melatonin (Melatonin 3 Mg Tablet) 6 mg PO BEDTIME PRN PRN Reason: Insomnia Methadone HCl (Methadone Hcl 20 Mg/2 Ml Oral.Conc) 55 mg PO DAILY [facility] Last Admin: 08/22/25 07:45 Dose: 55 mg Documented By: DIANA Co-signed By: CHRIS Naloxone HCl (Naloxone Hcl 0.4 Mg/Ml Vial) 0.04 mg IVPUSH Q5M PRN PRN Reason: Excessive sedation or RR < 8 Naloxone HCl (Naloxone Hcl 0.4 Mg/Ml Vial) 0.04 mg IVPUSH Q5M PRN PRN Reason: Excessive sedation or RR < 8 Ondansetron HCl (Ondansetron Hcl 4 Mg/2 Ml Vial) 4 mg IVPUSH Q8H PRN PRN Reason: Nausea and Vomiting Oxycodone HCl (Oxycodone Hcl Immed Release 5 Mg Tablet) 5 mg PO Q4H PRN PRN Reason: Pain, Moderate(Pain Scale 4-6) Last Admin: 08/22/25 07:43 Dose: 5 mg Documented By: DIANA Pharmacy Consult (Consult Rx Vancomycin Dosing) 1 each MISCELLANE DAILY PRN PRN Reason: Consult order Sodium Chloride (0.9 % Sodium Chloride Flush 3 Ml Syringe) 3 ml IVFLUSH QSHIFT [facility] Last Admin: 08/22/25 11:54 Dose: Not Given Documented By: DIANA Non-Admin Reason: IV Running Tramadol HCl (Tramadol Hcl 50 Mg Tablet) 50 mg PO Q6H PRN PRN Reason: Pain, Mild (Pain Scale 1-3) Last Admin: 08/21/25 16:12 Dose: 50 mg Documented By: EKATERINA Trazodone HCl (Trazodone Hcl 25 Mg Halftab) 25 mg PO BEDTIME MRX1 PRN PRN Reason: Sleep Last Admin: 08/21/25 22:49 Dose: 25 mg Documented By: ASHLEY Labs 08/21/25 21:53 08/21/25 05:46 Labs: Laboratory Results - last 24 hr 08/21/25 08/21/25 06:56 21:53 Random Vancomycin 17.2 Blood Type A Negative Antibody Screen NEGATIVE Crossmatch See Detail Microbiology Microbiology Results: Microbiology 08/21/25 13:05 Blood Culture - Preliminary Blood - Venous Prelim: GPC Gram Stain only 08/19/25 23:23 Gram Stain - Final Knee aspirate Anaerobic Culture - Preliminary Culture in progress. Gross Specimen Examination - Final Fluid Crystals - Final Joint Fluid Culture - Final Methicillin Res Staph Aureus 08/19/25 20:31 Blood Culture - Final Blood - Venous Methicillin Res Staph Aureus 08/19/25 20:31 Blood Culture - Final Blood - Venous Methicillin Res Staph Aureus Assessment and Plan (1) Anxiety: Status: Acute Plan 44-year-old female with a past medical history significant for hypertension, hep C, liver fibrosis, IVDA on methadone, colitis, who presented to the ED due to complaints of right lower leg pain and swelling. joint aspiration in ED suspicious for septic arthritis Acute on chronic Anemia/pancytopenia, unspecified so far no blood loss HH 6.8/21.0 s/p 2 units PRBC ordered 08/21/25 CBC post tx normalized MRSA bacteremia due to Right knee septic arthritis 2/2 blood cultures gram stain from right knee fluid analysis growing MRSA s/p wash out 08/20 continue IV vancomycin, will need picc line echocardiogram ortho following ID consult pending Repeat blood cx GPC unable to bare weight to right knee RICHARD, metabolic acidosis. Resolved IVF continue to hold HCTZ HTN hold HCTZ for RICHARD continue norvasc hep C s/p tx/liver fibrosis elevated LFTs at baseline Chronic pancytopenia secondary to liver disease, at baseline, also o/p workup as per PCP H/H trending down, likely in the setting of acute illness, no overt bleeding noted repeat H/H this afternoon IVDU continue methadone addiction med consult full code VTE ppx: SCDs where tolerated, anticoagulant contraindicated due to thrombocytopenia Pt with suspected septic arthritis, requiring admission for at least 2 midnights stay for IV abx and ortho consult. Quality Stroke Does the patient have a stroke diagnosis?: No VTE Prior VTE?: No VTE Risk Level:: Medical - moderate - high VTE Device Contraindication: N/A - Device Ordered VTE Drug Contraindication: Treatment Not Tolerated
[2025-08-22 15:11] LABS: MANUAL DIFF FLAG NO
[2025-08-22 15:14] LABS: Hematocrit 29.2 % (37.0-47.0); Hemoglobin 9.9 g/dl (12.0-16.0); Imm Gran Abs Auto 0.38 X10*3/uL (0.00-0.03); Imm Gran Pct Auto 1.8 % (0.0-0.4); Lymphocytes Absolute Auto 1.2 X10*3/uL (1.2-4.9); Mean Corpuscular HGB Conc 33.9 g/dl (31.0-35.0); Mean Corpuscular Hemoglobin 31.7 pg (27.0-33.0); Mean Corpuscular Volume 93.6 fL (80.0-98.0); NRBC Abs Auto 0.000 X10*3/uL (0.0-0.012); NRBC Pct Auto 0.0 /100WBC (0.0-0.2); Red Blood Count 3.12 X10*6/uL (4.20-5.50); White Blood Count 21.5 X10*3/uL (4.8-10.8)
[2025-08-22 15:38] LABS: Platelet Count 82 X10*3/uL (160-400)
[2025-08-22 20:00] VITALS: BP 163/70; PULSE 76; RESP 18; TEMP 36.3; O2SAT 96
[2025-08-22 21:25] LABS: Anion Gap 10 (12-20); Blood Urea Nitrogen 28 mg/dL (9-16); Calcium 7.9 mg/dL (8.4-10.2); Carbon Dioxide 22 mmol/L (22-29); Chloride 106 mmol/L (96-108); Creatinine Clr Calc Pharmacy 89.4; Estimated Glomerular Filt Rate > 60; Potassium 3.4 mmol/L (3.3-5.1); Sodium 135 mmol/L (135-145)
[2025-08-22] MEDS: 0.9 % Sodium Chloride Flush 3 ML SYRINGE IVFLUSH (23:06)
[2025-08-22] MEDS: traZODone HCL 25 MG HALFTAB PO (23:11)
[2025-08-22 23:49] VITALS: BP 165/80; PULSE 80; RESP 18; TEMP 36.7; O2SAT 97
[2025-08-23] VITALS (16 sets, daily range): BP systolic 107–171; BP diastolic 62–105; PULSE 80–101; RESP 9–19; TEMP 36.4–37.8; O2SAT 96–100
[2025-08-23] MEDS: oxyCODONE HCl Immed Release 5 MG TABLET PO (06:32)
[2025-08-23 06:57] LABS: Hematocrit 26.7 % (37.0-47.0); Hemoglobin 9.1 g/dl (12.0-16.0); Mean Corpuscular HGB Conc 34.1 g/dl (31.0-35.0); Mean Corpuscular Hemoglobin 31.7 pg (27.0-33.0); Mean Corpuscular Volume 93.0 fL (80.0-98.0); NRBC Abs Auto 0.020 X10*3/uL (0.0-0.012); NRBC Pct Auto 0.2 /100WBC (0.0-0.2); Red Blood Count 2.87 X10*6/uL (4.20-5.50); White Blood Count 11.5 X10*3/uL (4.8-10.8)
[2025-08-23 06:58] LABS: Platelet Count 59 X10*3/uL (160-400)
--- NOTE | 2025-08-23 07:00 | CA_ITS ---
Transthoracic Echocardiogram Patient (Last, First, Middle): Afia Jeff M Gender: F Date of : 1980 Age: 44 Procedure Date: 08/23/2025 Procedure Type: Transthoracic Echocardiogram Location: S3E Height: 172.72 cm Weight: 81.65 kg BSA: 1.95 m2 Heart Rate: 88 bpm BP: 163 / 62 mmHg Oncology Patient Navigator: SINA Referring MD: Kristy Marcial NP Symptoms: MRSA bacteremia Study Quality: Adequate ECG Rhythm: Sinus Conclusions: - The left ventricular systolic function is normal. The calculated ejection fraction is 66% by biplane method. - No obvious valvular pathology seen on this study. - There is mild dilatation of the ascending aorta measuring 3.90 cm. - Probable liver cyst, 7.2 x 4.8cm, consider dedicated liver ultrasound. Findings Left Ventricle Normal left ventricular cavity size. There is mildly increased left ventricular wall thickness. The left ventricular systolic function is normal. The calculated ejection fraction is 66% by biplane method. There is no evidence of regional wall motion abnormalities. Diastolic function is normal for age. Right Ventricle Normal right ventricular cavity size and systolic function. Atria The left atrium is moderately dilated. The right atrium is normal in size. Aortic Valve There is a normal trileaflet aortic valve. There is no aortic valve stenosis. There is no aortic valve regurgitation. Mitral Valve The mitral valve appears normal. There is no mitral valve regurgitation. There is no mitral valve stenosis. Pulmonic Valve The pulmonic valve is likely normal. Tricuspid Valve Normal tricuspid valve structure. There is no tricuspid valve regurgitation. Tricuspid regurgitation envelope is inadequate for calculation of right ventricular systolic pressure. Great Vessels There is mild dilatation of the ascending aorta measuring 3.90 cm. Venous The inferior vena cava is normal in size and collapses greater than 50% with inspiration. Pericardium/Pleural There is no evidence of pericardial effusion. Prior Study Comparison No prior study available for comparison. Recommendations, Care & Conclusions No obvious valvular pathology seen on this study. Measurements 2D Linear Measurements IVSd: 1.14 0.6-0.9/0.6-1.0 cm LVIDd: 5.42 3.9-5.3/4.2-5.9 cm LVIDd Index: 2.78 2.4-3.2/2.2-3.1 cm/m2 LVIDs: 3.35 2.0-3.6 cm LVPWd: 1.08 0.7-1.1 cm LA Diam: 3.80 2.7-3.8/3.0-4.0 cm LAIDs Index: 1.95 1.5-2.3 cm/m2 LV Mass: 298.19 67-162/88-224 g LV Mass Index: 152.92 43-95/49-115 g/m2 LVOT Diam: 2.10 3.0+(-)1.3 cm 2D Systolic Function EF 4C: 63.20 >55% EF 2C: 70.00 >55% EF BiP: 65.90 >55% Mitral Valve MV Pk E: 1.02 MV PK A: 0.82 MV Decel Time: 192.00 E/A: 1.20 E'Lateral: 11.40 E'Medial: 7.40 E/E' Med: 13.80 E/E' Lat: 8.90 PHT: 56.00 MVA PHT: 3.93 Decel [place]: 5.32 Aortic Valve AoV Pk Leland: 2.07 AoV Mn Leland: 1.55 AoV VTI: 0.43 AoV Pk Grad: 17.00 Aov Mn Grad: 10.00 TARA Cont.VTI: 2.47 LVOT LVOT Pk Leland: 1.51 LVOT Mn Leland: 1.14 LVOT VTI: 0.30 LVOT Pk Grad: 9.00 LVOT Mn Grad: 6.00 LVOT Diam: 2.10 LVOT Area: 3.46 Diastolic Function MV Pk E: 1.02 MV Pk A: 0.82 E/A: 1.20 E'Medial: 7.40 E/E' Med: 13.80 E' Laterial: 11.40 E/E' Lat: 8.90 Right Ventricle TAPSE (mm): 30.20 TVS' Leland: 13.90 Tricuspid Valve RA Press: 3.00 Great Vessels Aorta Sinus of Valsalva: 3.70 2.0-3.5 cm Ao Asc: 3.90 2.1-3.4 cm Ao Arch: 3.30 Pulmonary Veins Pulm Vein S/D 1.40 Pulmonary Valve PV Pk Leland: 1.39 Peak PV Grad: 8.00 Updated in Other Vendor System with Status of Final Jose Juan Rai MD electronically signed on 08/23/2025 11:50:16 AM with status of Final
[2025-08-23 07:12] LABS: Anion Gap 12 (12-20); Blood Urea Nitrogen 25 mg/dL (9-16); Calcium 7.6 mg/dL (8.4-10.2); Carbon Dioxide 20 mmol/L (22-29); Chloride 108 mmol/L (96-108); Creatinine Clr Calc Pharmacy 102.1; Estimated Glomerular Filt Rate > 60; Potassium 3.7 mmol/L (3.3-5.1); Sodium 136 mmol/L (135-145)
--- NOTE | 2025-08-23 07:49 | PM.PNORT ---
Subjective Subjective Date of Service: 08/23/25 Interval history: POD3 s/p right knee arthroscopic lavage Patient is resting in bed No overnight events Reports extreme pain Unable to move the right knee due to pain No additional complaints Physical Exam Vital Signs: Vital Signs: Last Vital Signs Temp 98.1 F 08/23/25 03:32 Pulse 88 08/23/25 03:32 Resp 18 08/23/25 05:30 BP 163/62 H 08/23/25 03:32 Pulse Ox 97 08/23/25 03:32 O2 Del Method Room Air 08/23/25 03:32 O2 Flow Rate 2 08/20/25 14:44 BMI result Body Mass Index 27.4 Const: General: cooperative, healthy appearing and no acute distress Resp: Effort & Inspection: normal respiratory effort and able to speak in complete sentences Extrem: Other: Right knee global tenderness to palpation. Unable to flex and extend the knee due to extreme pain. Incision sites are c/d/i. Sutures intact. No drainage. Able to dorsiflex and plantar flex but significantly limited due to pain. Sensation is reportedly intact. Pedal pulse intact. Psych: Appearance: grossly normal Mental Status: mental status grossly normal Attitude: cooperative Procedures Date of Service Date of Service: 08/23/25 Progress Note: A&P Assessment and plan (1) IVDU (intravenous drug user): Status: Acute (2) Septic joint of right knee joint: Status: Acute Plan Continue pain mgmnt NPO Possible washout later today Encourage gentle ROM ID consult pending Continue abx per medicine Time Spent With Patient Time: Total time managing care of this patient today ____ minutes. Quality Stroke Does the patient have a stroke diagnosis?: No VTE Prior VTE?: No VTE Risk Level:: Medical - moderate - high VTE Device Contraindication: N/A - Device Ordered VTE Drug Contraindication: Treatment Not Tolerated
[2025-08-23] MEDS: methADONE HCl 20 MG/2 ML ORAL.CONC 55 MG PO (07:52)
[2025-08-23] MEDS: 0.9 % Sodium Chloride Flush 3 ML SYRINGE IVFLUSH ×2 (07:59→16:06)
--- NOTE | 2025-08-23 08:44 | HO.PM.IMPN ---
Subjective Subjective Date of Service: 08/23/25 Interval History: seen and examined this morning follow up for right knee pain no diarrhea, no nausea, no fever Review of Systems Review of Systems: Yes all other systems are reviewed and are negative Constitutional Constitutional: Denies chills and Denies fever(s) ENT Ears, Nose, Mouth, and Throat: Denies dizziness Cardiovascular Cardiovascular: Denies chest pain, Denies palpitations and Denies dyspnea Respiratory Respiratory: Denies cough and Denies dyspnea Neurologic Neurologic: Denies dizziness Endocrine Endocrine: Denies palpitations Physical Exam Exam: Exam: Appearing in no acute distress lung sounds are clear to auscultation heart regular rate rhythm, clear S1, S2 positive bowel sounds, abdomen is soft, nontender neuro patient is alert x3, no focal deficits Right knee down to foot with edema Vital Signs: Vital Signs: Last Vital Signs Temp 98.1 F 08/23/25 03:32 Pulse 88 08/23/25 03:32 Resp 18 08/23/25 05:30 BP 171/96 H 08/23/25 07:51 Pulse Ox 97 08/23/25 03:32 O2 Del Method Room Air 08/23/25 03:32 O2 Flow Rate 2 08/20/25 14:44 BMI result Body Mass Index 27.4 Objective Data Active Medications Acetaminophen (Acetaminophen 325 Mg Tablet) 650 mg PO Q6H PRN PRN Reason: Pain, Mild 1-3,fever,headache Last Admin: 08/22/25 14:23 Dose: 650 mg Documented By: DIANA Amlodipine Besylate (Amlodipine Besylate 5 Mg Tablet) 5 mg PO DAILY [facility]; Protocol Last Admin: 08/23/25 07:51 Dose: 5 mg Documented By: EBONIE Calcium Carbonate (Calcium Carbonate 750 Mg Tab.Chew) 750 mg PO Q4H PRN PRN Reason: Heartburn Diazepam (Diazepam 10 Mg/2 Ml Cartridge) 10 mg IVPUSH Q6H PRN PRN Reason: Anxiety Hydromorphone HCl (Hydromorphone Hcl 1 Mg/Ml Syringe) 0.5 mg IVPUSH Q3H PRN; Protocol PRN Reason: Pain, Severe (Pain Scale 7-10) Last Admin: 08/23/25 05:30 Dose: 0.5 mg Documented By: ANA Dextrose/Lactated Ringer's (D5lr) 1,000 mls @ 80 mls/hr IVCONT .[id number] [facility] Last Infusion: 08/23/25 00:05 Dose: 80 mls/hr Documented By: ANA Vancomycin HCl 750 mg/ Sodium (Chloride) 265 mls @ 265 mls/hr IV Q12H [facility] Last Infusion: 08/23/25 00:05 Dose: Infused Documented By: ANA Levofloxacin (Levaquin) 750 mg in 150 mls @ 100 mls/hr IV Q24H [facility] Last Infusion: 08/22/25 18:30 Dose: Infused Documented By: DIANA Ketorolac Tromethamine (Ketorolac Tromethamine 15 Mg/Ml Vial) 15 mg IVPUSH Q6H [facility] Last Admin: 08/23/25 04:36 Dose: 15 mg Documented By: ANA Magnesium Hydroxide (Milk Of Magnesia 30 Ml Oral.Susp) 30 ml PO DAILY PRN PRN Reason: Constipation Melatonin (Melatonin 3 Mg Tablet) 6 mg PO BEDTIME PRN PRN Reason: Insomnia Methadone HCl (Methadone Hcl 20 Mg/2 Ml Oral.Conc) 55 mg PO DAILY [facility] Last Admin: 08/23/25 07:52 Dose: 55 mg Documented By: EBONIE Co-signed By: EDMUND Naloxone HCl (Naloxone Hcl 0.4 Mg/Ml Vial) 0.04 mg IVPUSH Q5M PRN PRN Reason: Excessive sedation or RR < 8 Naloxone HCl (Naloxone Hcl 0.4 Mg/Ml Vial) 0.04 mg IVPUSH Q5M PRN PRN Reason: Excessive sedation or RR < 8 Ondansetron HCl (Ondansetron Hcl 4 Mg/2 Ml Vial) 4 mg IVPUSH Q8H PRN PRN Reason: Nausea and Vomiting Oxycodone HCl (Oxycodone Hcl Immed Release 5 Mg Tablet) 5 mg PO Q4H PRN PRN Reason: Pain, Moderate(Pain Scale 4-6) Last Admin: 08/23/25 06:32 Dose: 5 mg Documented By: ANA Pharmacy Consult (Consult Rx Vancomycin Dosing) 1 each MISCELLANE DAILY PRN PRN Reason: Consult order Sodium Chloride (0.9 % Sodium Chloride Flush 3 Ml Syringe) 3 ml IVFLUSH QSHIFT [facility] Last Admin: 08/23/25 07:59 Dose: 3 ml Documented By: EBONIE Tramadol HCl (Tramadol Hcl 50 Mg Tablet) 50 mg PO Q6H PRN PRN Reason: Pain, Mild (Pain Scale 1-3) Last Admin: 08/21/25 16:12 Dose: 50 mg Documented By: EKATERINA Trazodone HCl (Trazodone Hcl 25 Mg Halftab) 25 mg PO BEDTIME MRX1 PRN PRN Reason: Sleep Last Admin: 08/22/25 23:11 Dose: 25 mg Documented By: ANA Labs 08/23/25 06:41 08/23/25 06:41 Labs: Laboratory Results - last 24 hr 08/22/25 08/22/25 08/23/25 15:00 20:58 06:41 MCV 93.6 93.0 MCH 31.7 31.7 MCHC 33.9 34.1 RDW 14.9 15.2 Plt Count 82 L D 59 L D MPV 10.2 10.2 Immature Gran % (Auto) 1.8 H Neut % (Auto) 85.4 H Lymph % (Auto) 5.4 L Love % (Auto) 6.8 Eos % (Auto) 0.2 Baso % (Auto) 0.4 Lymph # (Auto) 1.2 Love # (Auto) 1.5 H Eos # (Auto) 0.0 Baso # (Auto) 0.1 Abs Immat Gran (auto) 0.38 H Absolute Neuts (auto) 18.4 H Absolute Nucleated RBC 0.000 0.020 H Nucleated RBC % (auto) 0.0 0.2 Anion Gap 10 L 12 Estim Creat Clear Calc 89.4 102.1 Estimated GFR > 60 > 60 Random Glucose 83 73 Calcium 7.9 L 7.6 L Random Vancomycin 17.2 Microbiology Microbiology Results: Microbiology 08/19/25 23:23 Gram Stain - Final Knee aspirate Anaerobic Culture - Preliminary Culture in progress. Gross Specimen Examination - Final Fluid Crystals - Final Joint Fluid Culture - Final Methicillin Res Staph Aureus 08/21/25 10:09 Blood Culture - Final Blood - Venous 08/21/25 13:05 Blood Culture - Final Blood - Venous Methicillin Res Staph Aureus 08/19/25 20:31 Blood Culture - Final Blood - Venous Methicillin Res Staph Aureus 08/19/25 20:31 Blood Culture - Final Blood - Venous Methicillin Res Staph Aureus Assessment and Plan (1) Anxiety: Status: Acute Plan 44-year-old female with a past medical history significant for hypertension, hep C, liver fibrosis, IVDA on methadone, colitis, who presented to the ED due to complaints of right lower leg pain and swelling. joint aspiration in ED suspicious for septic arthritis Acute on chronic Anemia/pancytopenia, unspecified so far no blood loss HH 6.8/21.0, s/p 2 units PRBC ordered 08/21/25 CBC post tx normalized MRSA bacteremia due to Right knee septic arthritis 2/2 blood cultures with repeat positive gram stain from right knee fluid analysis growing MRSA s/p wash out 08/20 echocardiogram without valvular abnormality ID consult pending unable to bare weight to right knee continue IV vancomycin, will need picc line, added Levaquin due to fever washout today RICHARD, metabolic acidosis. Resolved s/p IVF continue to hold HCTZ HTN hold HCTZ for RICHARD continue norvasc hep C s/p tx/liver fibrosis elevated LFTs at baseline Chronic pancytopenia secondary to liver disease, at baseline, also o/p workup as per PCP H/H trending down, likely in the setting of acute illness, no overt bleeding noted IVDU continue methadone addiction med consult full code VTE ppx: SCDs where tolerated, anticoagulant contraindicated due to thrombocytopenia Pt with suspected septic arthritis, requiring admission for at least 2 midnights stay for IV abx and ortho consult. Quality Stroke Does the patient have a stroke diagnosis?: No VTE Prior VTE?: No VTE Risk Level:: Medical - moderate - high VTE Device Contraindication: N/A - Device Ordered VTE Drug Contraindication: Treatment Not Tolerated
[2025-08-23 09:03] LABS: Alanine Aminotransferase 40 U/L (0-31); Albumin Level 2.0 g/dL (3.5-5.0); Alkaline Phosphatase 111 U/L (39-117); Aspartate Amino Transferase 143 U/L (5-31); Total Protein 7.6 g/dL (6.5-8.0)
[2025-08-23] MEDS: diazePAM 10 MG/2 ML CARTRIDGE IVPUSH ×2 (09:23→17:33)
[2025-08-23] MEDS: Dextrose 5 % and Lactated Ring 1,000 ML 80 ML IVCONT (09:27)
--- NOTE | 2025-08-23 12:23 | MHC.SHP ---
Pre-Procedural Eval Section A - 24 Hr Update-Section A only Date of Service: 08/23/25 The patient is an INPATIENT: Yes Changes since office visit: No Cold of Flu in the past 2 weeks, No New Medical Problems, No Changes in Medication and No Patient answered all questions The patient has been examined within 24 hours of the surgical procedure. The History & Physical has been completed within 30 days and I have reviewed it.: Yes Section B - Complete if H&P > 30 days Chief Complaint: Septic Arthritis Allergies: Allergies Allergy/AdvReac Type Severity Reaction Status Date / Time Penicillins Allergy Unknown Verified 08/19/25 17:28 Sulfa (Sulfonamide Allergy Unknown Verified 08/19/25 17:28 Antibiotics) Plan I have reviewed the history and physical and performed a pertinent physical examination on my patient. No changes have occurred unless specified. Time Spent With Patient Time: Total time managing care of this patient today ____ minutes.
[2025-08-23] MEDS: Lactated Ringers 1,000 ML 80 ML IVCONT (12:26)
--- NOTE | 2025-08-23 12:33 | HO.ANESPROP2 ---
HPI - Anesthesia Eval Consult details Narrative: knee wash out PMFSH Active Problems Active Problems: All Active Problems Opioid use disorder (Acute) Metabolic acidosis (Acute) RICHARD (acute kidney injury) (Acute) Septic joint of right knee joint (Acute) Colitis (Acute) Anxiety (Acute) IVDU (intravenous drug user) (Acute) Liver fibrosis (Acute) Past Medical History Medical History Anxiety IVDU (intravenous drug user) Substance use disorder Liver fibrosis HTN (hypertension) Functional capacity: independent ambulation Family History Family history of problems with anesthesia: No Surgical History History of Problems with Anesthesia: No Social History Social History Household Members: Other Household Members Other:: 21 yr old niece Housing: Apartment Do you presently have visiting nurse or other home services: No Alcohol intake: never Comment: COUNTS CORRECT Patient Tobacco Use Status: Never used Tobacco Substance Use Type: Heroin service: No Meds Allergies Allergy/AdvReac Type Severity Reaction Status Date / Time Penicillins Allergy Unknown Verified 08/19/25 17:28 Sulfa (Sulfonamide Allergy Unknown Verified 08/19/25 17:28 Antibiotics) Active Medications: Current Medications Acetaminophen (Acetaminophen 325 Mg Tablet) 650 mg PO Q6H PRN PRN Reason: Pain, Mild 1-3,fever,headache Last Admin: 08/22/25 14:23 Dose: 650 mg Amlodipine Besylate (Amlodipine Besylate 5 Mg Tablet) 5 mg PO DAILY [facility]; Protocol Last Admin: 08/23/25 07:51 Dose: 5 mg Calcium Carbonate (Calcium Carbonate 750 Mg Tab.Chew) 750 mg PO Q4H PRN PRN Reason: Heartburn Diazepam (Diazepam 10 Mg/2 Ml Cartridge) 10 mg IVPUSH Q6H PRN PRN Reason: Anxiety Hydromorphone HCl (Hydromorphone Hcl 1 Mg/Ml Syringe) 0.5 mg IVPUSH Q3H PRN; Protocol PRN Reason: Pain, Severe (Pain Scale 7-10) Last Admin: 08/23/25 05:30 Dose: 0.5 mg Dextrose/Lactated Ringer's (D5lr) 1,000 mls @ 80 mls/hr IVCONT .[id number] MARIKA Last Admin: 08/23/25 09:27 Dose: 80 mls/hr Vancomycin HCl 750 mg/ Sodium (Chloride) 265 mls @ 265 mls/hr IV Q12H [facility] Last Admin: 08/23/25 11:39 Dose: 265 mls/hr Levofloxacin (Levaquin) 750 mg in 150 mls @ 100 mls/hr IV Q24H [facility] Last Infusion: 08/22/25 18:30 Dose: Infused Lactated Ringer's (Lr) 1,000 mls @ 80 mls/hr IVCONT .[id number] [facility] Last Admin: 08/23/25 12:26 Dose: 80 mls/hr Ketorolac Tromethamine (Ketorolac Tromethamine 15 Mg/Ml Vial) 15 mg IVPUSH Q6H [facility] Last Admin: 08/23/25 11:33 Dose: 15 mg Magnesium Hydroxide (Milk Of Magnesia 30 Ml Oral.Susp) 30 ml PO DAILY PRN PRN Reason: Constipation Melatonin (Melatonin 3 Mg Tablet) 6 mg PO BEDTIME PRN PRN Reason: Insomnia Methadone HCl (Methadone Hcl 20 Mg/2 Ml Oral.Conc) 55 mg PO DAILY [facility] Last Admin: 08/23/25 07:52 Dose: 55 mg Naloxone HCl (Naloxone Hcl 0.4 Mg/Ml Vial) 0.04 mg IVPUSH Q5M PRN PRN Reason: Excessive sedation or RR < 8 Naloxone HCl (Naloxone Hcl 0.4 Mg/Ml Vial) 0.04 mg IVPUSH Q5M PRN PRN Reason: Excessive sedation or RR < 8 Ondansetron HCl (Ondansetron Hcl 4 Mg/2 Ml Vial) 4 mg IVPUSH Q8H PRN PRN Reason: Nausea and Vomiting Oxycodone HCl (Oxycodone Hcl Immed Release 5 Mg Tablet) 5 mg PO Q4H PRN PRN Reason: Pain, Moderate(Pain Scale 4-6) Last Admin: 08/23/25 06:32 Dose: 5 mg Pharmacy Consult (Consult Rx Vancomycin Dosing) 1 each MISCELLANE DAILY PRN PRN Reason: Consult order Sodium Chloride (0.9 % Sodium Chloride Flush 3 Ml Syringe) 3 ml IVFLUSH QSHIFT [facility] Last Admin: 08/23/25 07:59 Dose: 3 ml Tramadol HCl (Tramadol Hcl 50 Mg Tablet) 50 mg PO Q6H PRN PRN Reason: Pain, Mild (Pain Scale 1-3) Last Admin: 08/21/25 16:12 Dose: 50 mg Trazodone HCl (Trazodone Hcl 25 Mg Halftab) 25 mg PO BEDTIME MRX1 PRN PRN Reason: Sleep Last Admin: 08/22/25 23:11 Dose: 25 mg Home Medications ?Medication ?Instructions ?Recorded ?Confirmed ?Last Taken ?Type methadone 10 mg/mL oral concentrate 55 mg PO DAILY 02/05/25 08/20/25 08/19/25 07:21 History hydrochlorothiazide 12.5 mg capsule 12.5 mg PO DAILY 08/20/25 08/20/25 Unknown History Exam Height,Weight and Vital Signs: Height 5 ft 8 in Weight 81.647 kg Last Vital Signs Temp 99.3 F 08/23/25 12:01 Pulse 89 08/23/25 12:01 Resp 16 08/23/25 12:01 BP 139/93 H 08/23/25 12:01 Pulse Ox 98 08/23/25 12:01 O2 Del Method Room Air 08/23/25 12:01 O2 Flow Rate 2 08/20/25 14:44 Pertinent Lab Results Pertinent Lab Results: Laboratory Tests 08/19/25 08/19/25 08/19/25 17:49 20:31 23:23 WBC 5.1 RBC 2.88 L Hgb 9.1 L Hct 27.3 L MCV 94.8 MCH 31.6 MCHC 33.3 RDW 14.6 Plt Count 43 L D MPV 11.9 Immature Gran % (Auto) Cancelled Neut % (Auto) Cancelled Lymph % (Auto) Cancelled [place] % (Auto) Cancelled Eos % (Auto) Cancelled Baso % (Auto) Cancelled Lymph # (Auto) Cancelled [place] # (Auto) Cancelled Eos # (Auto) Cancelled Baso # (Auto) Cancelled Abs Immat Gran (auto) Cancelled Absolute Neuts (auto) Cancelled Absolute Nucleated RBC 0.000 Nucleated RBC % (auto) 0.0 Neutrophils % (Manual) 94 H Band Neutrophils % 1 L Lymphocytes % (Manual) 2 L Monocytes % (Manual) 2 Metamyelocytes % 1 Abs Neuts (Manual) 4.8 Lymphocytes # (Manual) 0.1 L Monocytes # (Manual) 0.1 Metamyelocytes # 0.1 Toxic Granulation PRESENT Toxic Vacuolation Dohle Bodies Platelet Estimate DECREASED Large Platelets Plt Morphology Comment NORMAL RBC Morphology NORMAL [place] Cells Schistocytes ESR 121 H Absolute Retic Percent Retic Immature Retic Fraction Retic Hgb Equivalent Hold Purple Top Sodium 132 L Potassium 3.8 Chloride 105 Carbon Dioxide 16 L Anion Gap 15 BUN 25 H Creatinine 1.25 Estim Creat Clear Calc 63.7 Estimated GFR 46 POC Glucose Random Glucose 90 Estimat Average Glucose Hemoglobin A1c % Haptoglobin Lactic Acid 1.4 Calcium 8.7 Magnesium 1.9 Iron TIBC % Saturation Unsat Iron Binding Ferritin Total Bilirubin 4.9 H Direct Bilirubin 3.3 H AST 113 H ALT 21 Alkaline Phosphatase 115 Lactate Dehydrogenase C-Reactive Protein 12.00 H Total Protein 8.3 H Albumin 2.2 L Urine Test Synovial Source right knee Synovial WBC 168.760 Synovial RBC 0.280 Synovial Neutrophils 87 Synovial Lymphocytes 11 Synovial Monocytes 2 Synovial Other Cells 0 Synovial Glucose 2 Synovial Total Protein 5.7 Synovial Uric Acid 3 Random Vancomycin Urine Opiates Screen Ur Buprenorphine Scrn Ur Oxycodone Screen Urine Methadone Screen Urine Fentanyl Screen Ur Barbiturates Screen Ur Phencyclidine Scrn Ur Amphetamines Screen U Benzodiazepines Scrn Urine Cocaine Screen U Marijuana (THC) Screen Blood Type Antibody Screen SHELLEY, Polyspecific Positive SHELLEY Work-up Crossmatch 08/20/25 08/20/25 08/20/25 04:32 05:39 10:26 WBC 5.0 RBC 2.58 L Hgb 8.0 L Hct 24.7 L MCV 95.7 MCH 31.0 MCHC 32.4 RDW 14.6 Plt Count 34 L MPV 10.5 Immature Gran % (Auto) 0.6 H Neut % (Auto) 83.7 H Lymph % (Auto) 4.4 L [place] % (Auto) 10.7 Eos % (Auto) 0.0 Baso % (Auto) 0.6 Lymph # (Auto) 0.2 L [place] # (Auto) 0.5 Eos # (Auto) 0.0 Baso # (Auto) 0.0 Abs Immat Gran (auto) 0.03 Absolute Neuts (auto) 4.2 Absolute Nucleated RBC 0.000 Nucleated RBC % (auto) 0.0 Neutrophils % (Manual) 57 Band Neutrophils % 40 H Lymphocytes % (Manual) 3 L Monocytes % (Manual) Metamyelocytes % Abs Neuts (Manual) 4.9 Lymphocytes # (Manual) 0.2 L Monocytes # (Manual) Metamyelocytes # Toxic Granulation Toxic Vacuolation PRESENT Dohle Bodies Platelet Estimate DECREASED Large Platelets PRESENT Plt Morphology Comment NOTED RBC Morphology NORMAL [place] Cells 2+ (3-5) Schistocytes 1+ (0-2) ESR Absolute Retic Percent Retic Immature Retic Fraction Retic Hgb Equivalent Hold Purple Top Sodium 137 Potassium 3.5 Chloride 108 Carbon Dioxide 19 L Anion Gap 14 BUN 23 H Creatinine 1.14 Estim Creat Clear Calc 69.8 Estimated GFR 52 POC Glucose 137 H Random Glucose 46 L* Estimat Average Glucose 88 Hemoglobin A1c % 4.7 Haptoglobin 97 Lactic Acid Calcium 8.2 L Magnesium Iron 36 TIBC 118 L % Saturation 31 Unsat Iron Binding 82 Ferritin 690 H Total Bilirubin 4.4 H Direct Bilirubin 3.4 H AST 107 H ALT 19 Alkaline Phosphatase 123 H Lactate Dehydrogenase 152 C-Reactive Protein Total Protein 7.0 Albumin 2.0 L Urine Test Synovial Source Synovial WBC Synovial RBC Synovial Neutrophils Synovial Lymphocytes Synovial Monocytes Synovial Other Cells Synovial Glucose Synovial Total Protein Synovial Uric Acid Random Vancomycin Urine Opiates Screen Ur Buprenorphine Scrn Ur Oxycodone Screen Urine Methadone Screen Urine Fentanyl Screen Ur Barbiturates Screen Ur Phencyclidine Scrn Ur Amphetamines Screen U Benzodiazepines Scrn Urine Cocaine Screen U Marijuana (THC) Screen Blood Type Antibody Screen SHELLEY, Polyspecific Positive SHELLEY Work-up Crossmatch 08/20/25 08/20/25 08/20/25 10:29 10:30 17:48 WBC RBC Hgb 8.5 L Hct 25.6 L MCV MCH MCHC RDW Plt Count MPV Immature Gran % (Auto) Neut % (Auto) Lymph % (Auto) [place] % (Auto) Eos % (Auto) Baso % (Auto) Lymph # (Auto) [place] # (Auto) Eos # (Auto) Baso # (Auto) Abs Immat Gran (auto) Absolute Neuts (auto) Absolute Nucleated RBC Nucleated RBC % (auto) Neutrophils % (Manual) Band Neutrophils % Lymphocytes % (Manual) Monocytes % (Manual) Metamyelocytes % Abs Neuts (Manual) Lymphocytes # (Manual) Monocytes # (Manual) Metamyelocytes # Toxic Granulation Toxic Vacuolation Dohle Bodies Platelet Estimate Large Platelets Plt Morphology Comment RBC Morphology [place] Cells Schistocytes ESR Absolute Retic 0.064 Percent Retic 2.4 H Immature Retic Fraction 21.2 H Retic Hgb Equivalent 38.8 H Hold Purple Top SEE NOTE Sodium Potassium Chloride Carbon Dioxide Anion Gap BUN Creatinine Estim Creat Clear Calc Estimated GFR POC Glucose Random Glucose Estimat Average Glucose Hemoglobin A1c % Haptoglobin Lactic Acid Calcium Magnesium Iron TIBC % Saturation Unsat Iron Binding Ferritin Total Bilirubin Direct Bilirubin AST ALT Alkaline Phosphatase Lactate Dehydrogenase C-Reactive Protein Total Protein Albumin Urine Test NEGATIVE Synovial Source Synovial WBC Synovial RBC Synovial Neutrophils Synovial Lymphocytes Synovial Monocytes Synovial Other Cells Synovial Glucose Synovial Total Protein Synovial Uric Acid Random Vancomycin Urine Opiates Screen POSITIVE H Ur Buprenorphine Scrn Not Detected Ur Oxycodone Screen Not Detected Urine Methadone Screen Positive H Urine Fentanyl Screen POSITIVE H Ur Barbiturates Screen Not Detected Ur Phencyclidine Scrn Not Detected Ur Amphetamines Screen Not Detected U Benzodiazepines Scrn POSITIVE H Urine Cocaine Screen Not Detected U Marijuana (THC) Screen Not Detected Blood Type Antibody Screen SHELLEY, Polyspecific Positive SHELLEY Work-up Crossmatch 08/20/25 08/21/25 08/21/25 21:12 05:46 06:56 WBC 7.4 RBC 2.19 L Hgb 6.8 L* Hct 21.0 L* MCV 95.9 MCH 31.1 MCHC 32.4 RDW 14.9 Plt Count 31 L MPV 10.2 Immature Gran % (Auto) Cancelled Neut % (Auto) Cancelled Lymph % (Auto) Cancelled [place] % (Auto) Cancelled Eos % (Auto) Cancelled Baso % (Auto) Cancelled Lymph # (Auto) Cancelled [place] # (Auto) Cancelled Eos # (Auto) Cancelled Baso # (Auto) Cancelled Abs Immat Gran (auto) Cancelled Absolute Neuts (auto) Cancelled Absolute Nucleated RBC 0.000 Nucleated RBC % (auto) 0.0 Neutrophils % (Manual) 86 H Band Neutrophils % 13 H Lymphocytes % (Manual) 1 L Monocytes % (Manual) Metamyelocytes % Abs Neuts (Manual) 7.3 Lymphocytes # (Manual) 0.1 L Monocytes # (Manual) Metamyelocytes # Toxic Granulation PRESENT Toxic Vacuolation Dohle Bodies PRESENT Platelet Estimate DECREASED Large Platelets Plt Morphology Comment NORMAL RBC Morphology NOTED [place] Cells 1+ (0-2) Schistocytes 1+ (0-2) ESR Absolute Retic Percent Retic Immature Retic Fraction Retic Hgb Equivalent Hold Purple Top Sodium 134 L Potassium 3.8 Chloride 106 Carbon Dioxide 22 Anion Gap 10 L BUN 30 H Creatinine 1.06 Estim Creat Clear Calc 75.1 Estimated GFR 56 POC Glucose Random Glucose 122 H Estimat Average Glucose Hemoglobin A1c % Haptoglobin Lactic Acid Calcium 7.8 L Magnesium Iron TIBC % Saturation Unsat Iron Binding Ferritin Total Bilirubin Direct Bilirubin AST ALT Alkaline Phosphatase Lactate Dehydrogenase C-Reactive Protein Total Protein Albumin Urine Test Synovial Source Synovial WBC Synovial RBC Synovial Neutrophils Synovial Lymphocytes Synovial Monocytes Synovial Other Cells Synovial Glucose Synovial Total Protein Synovial Uric Acid Random Vancomycin 14.7 L Urine Opiates Screen Ur Buprenorphine Scrn Ur Oxycodone Screen Urine Methadone Screen Urine Fentanyl Screen Ur Barbiturates Screen Ur Phencyclidine Scrn Ur Amphetamines Screen U Benzodiazepines Scrn Urine Cocaine Screen U Marijuana (THC) Screen Blood Type A Negative Antibody Screen NEGATIVE SHELLEY, Polyspecific NEGATIVE Positive SHELLEY Work-up TNP Crossmatch See Detail 08/21/25 08/22/25 08/22/25 21:53 15:00 20:58 WBC 21.5 H RBC 3.12 L D Hgb 8.7 L D 9.9 L Hct 25.6 L D 29.2 L MCV 93.6 MCH 31.7 MCHC 33.9 RDW 14.9 Plt Count 82 L D MPV 10.2 Immature Gran % (Auto) 1.8 H Neut % (Auto) 85.4 H Lymph % (Auto) 5.4 L [place] % (Auto) 6.8 Eos % (Auto) 0.2 Baso % (Auto) 0.4 Lymph # (Auto) 1.2 [place] # (Auto) 1.5 H Eos # (Auto) 0.0 Baso # (Auto) 0.1 Abs Immat Gran (auto) 0.38 H Absolute Neuts (auto) 18.4 H Absolute Nucleated RBC 0.000 Nucleated RBC % (auto) 0.0 Neutrophils % (Manual) Band Neutrophils % Lymphocytes % (Manual) Monocytes % (Manual) Metamyelocytes % Abs Neuts (Manual) Lymphocytes # (Manual) Monocytes # (Manual) Metamyelocytes # Toxic Granulation Toxic Vacuolation Dohle Bodies Platelet Estimate Large Platelets Plt Morphology Comment RBC Morphology [place] Cells Schistocytes ESR Absolute Retic Percent Retic Immature Retic Fraction Retic Hgb Equivalent Hold Purple Top Sodium 135 Potassium 3.4 Chloride 106 Carbon Dioxide 22 Anion Gap 10 L BUN 28 H Creatinine 0.89 Estim Creat Clear Calc 89.4 Estimated GFR > 60 POC Glucose Random Glucose 83 Estimat Average Glucose Hemoglobin A1c % Haptoglobin Lactic Acid Calcium 7.9 L Magnesium Iron TIBC % Saturation Unsat Iron Binding Ferritin Total Bilirubin Direct Bilirubin AST ALT Alkaline Phosphatase Lactate Dehydrogenase C-Reactive Protein Total Protein Albumin Urine Test Synovial Source Synovial WBC Synovial RBC Synovial Neutrophils Synovial Lymphocytes Synovial Monocytes Synovial Other Cells Synovial Glucose Synovial Total Protein Synovial Uric Acid Random Vancomycin 17.2 17.2 Urine Opiates Screen Ur Buprenorphine Scrn Ur Oxycodone Screen Urine Methadone Screen Urine Fentanyl Screen Ur Barbiturates Screen Ur Phencyclidine Scrn Ur Amphetamines Screen U Benzodiazepines Scrn Urine Cocaine Screen U Marijuana (THC) Screen Blood Type Antibody Screen SHELLEY, Polyspecific Positive SHELLEY Work-up Crossmatch 08/23/25 06:41 WBC 11.5 H RBC 2.87 L Hgb 9.1 L Hct 26.7 L MCV 93.0 MCH 31.7 MCHC 34.1 RDW 15.2 Plt Count 59 L D MPV 10.2 Immature Gran % (Auto) Neut % (Auto) Lymph % (Auto) [place] % (Auto) Eos % (Auto) Baso % (Auto) Lymph # (Auto) [place] # (Auto) Eos # (Auto) Baso # (Auto) Abs Immat Gran (auto) Absolute Neuts (auto) Absolute Nucleated RBC 0.020 H Nucleated RBC % (auto) 0.2 Neutrophils % (Manual) Band Neutrophils % Lymphocytes % (Manual) Monocytes % (Manual) Metamyelocytes % Abs Neuts (Manual) Lymphocytes # (Manual) Monocytes # (Manual) Metamyelocytes # Toxic Granulation Toxic Vacuolation Dohle Bodies Platelet Estimate Large Platelets Plt Morphology Comment RBC Morphology [place] Cells Schistocytes ESR Absolute Retic Percent Retic Immature Retic Fraction Retic Hgb Equivalent Hold Purple Top Sodium 136 Potassium 3.7 Chloride 108 Carbon Dioxide 20 L Anion Gap 12 BUN 25 H Creatinine 0.78 Estim Creat Clear Calc 102.1 Estimated GFR > 60 POC Glucose Random Glucose 73 Estimat Average Glucose Hemoglobin A1c % Haptoglobin Lactic Acid Calcium 7.6 L Magnesium Iron TIBC % Saturation Unsat Iron Binding Ferritin Total Bilirubin 4.8 H Direct Bilirubin 3.2 H AST 143 H ALT 40 H Alkaline Phosphatase 111 Lactate Dehydrogenase C-Reactive Protein Total Protein 7.6 Albumin 2.0 L Urine Test Synovial Source Synovial WBC Synovial RBC Synovial Neutrophils Synovial Lymphocytes Synovial Monocytes Synovial Other Cells Synovial Glucose Synovial Total Protein Synovial Uric Acid Random Vancomycin Urine Opiates Screen Ur Buprenorphine Scrn Ur Oxycodone Screen Urine Methadone Screen Urine Fentanyl Screen Ur Barbiturates Screen Ur Phencyclidine Scrn Ur Amphetamines Screen U Benzodiazepines Scrn Urine Cocaine Screen U Marijuana (THC) Screen Blood Type Antibody Screen SHELLEY, Polyspecific Positive SHELLEY Work-up Crossmatch Airway Mallampati Class: II TM Dist: >3cm Neck ROM: Full Heart: rrr Lungs: cta Assessment and Plan Assessment Anesthesia Assessment: Anesthesia Plan Discussed and Chart Reviewed Final Anesthetic Review Family History of Problems with Anesthesia: No History of Problems with Anesthesia: No NPO: Yes ASA Class: III Final Preanesthetic Review: No Changes in Pt Med Stat, Meds/Allgs Chart Reviewed, Consent Obtained/Reviewed and Anes Risks/Benef Reviewed Patient Risk: Intermediate Procedure Risk: Low Anesthetic Plan Anesthetic Plan: GA and Agree w/ Assess. and Plan Disposition: Standard PACU
[2025-08-23 12:38] LABS: HIV Num 1 0.07 S/CO (0.00-0.99)
--- NOTE | 2025-08-23 16:04 | MHC.CM.PN ---
PER MD ROUNDS, PT WILL NEED PLACEMENT FOR IV ABX AND WILL LIKELY BE READY TO DC EARLY NEXT WEEK REFERRALS PLACED TO SNFS ACCEPTING METHADONE [facility] IS OFFERING PENDING ID RECOMMENDATIONS AND METHADONE ARRANGEMENTS IN [facility] IS OFFERING PENDING METHADONE ARRANGMENTS AT [facility], ABX INFORMATION AND ABX END DATE.
--- NOTE | 2025-08-23 16:24 | P.CNID_ITS ---
History of Present Illness Data of Consult Service Date: 08/23/25 Requesting physician: Kristy Marcial Primary Care Provider: Naye Hallman NP HPI Reason for consult: continued MRSA bacteremia,right knee effusion She presents with right knee swelling and pain. She has MRSA knee effusion and MRSA bacteremia 08/19.08/21.08/22. There is no vegetation reported on TTE. She uses IVDU,heroin. Review of Systems 2 Review of Systems: Yes all other systems are reviewed and are negative PMFSH Past Medical History Medical History Anxiety IVDU (intravenous drug user) Substance use disorder Liver fibrosis HTN (hypertension) Family History Family history: reviewed and not pertinent Social History Social History Household Members: Other Household Members Other:: 21 yr old niece Housing: Apartment Do you presently have visiting nurse or other home services: No Alcohol intake: never Comment: COUNTS CORRECT Patient Tobacco Use Status: Never used Tobacco Substance Use Type: Heroin service: No Meds Allergies Allergy/AdvReac Type Severity Reaction Status Date / Time Penicillins Allergy Unknown Verified 08/19/25 17:28 Sulfa (Sulfonamide Allergy Unknown Verified 08/19/25 17:28 Antibiotics) Active Medications: Current Medications Acetaminophen (Acetaminophen 325 Mg Tablet) 650 mg PO Q6H PRN PRN Reason: Pain, Mild 1-3,fever,headache Last Admin: 08/22/25 14:23 Dose: 650 mg Amlodipine Besylate (Amlodipine Besylate 5 Mg Tablet) 5 mg PO DAILY [facility]; Protocol Last Admin: 08/23/25 07:51 Dose: 5 mg Calcium Carbonate (Calcium Carbonate 750 Mg Tab.Chew) 750 mg PO Q4H PRN PRN Reason: Heartburn Diazepam (Diazepam 10 Mg/2 Ml Cartridge) 10 mg IVPUSH Q6H PRN PRN Reason: Anxiety Hydromorphone HCl (Hydromorphone Hcl 1 Mg/Ml Syringe) 0.5 mg IVPUSH Q3H PRN; Protocol PRN Reason: Pain, Severe (Pain Scale 7-10) Last Admin: 08/23/25 05:30 Dose: 0.5 mg Hydromorphone HCl (Hydromorphone Hcl 0.5 Mg/0.5 Ml Syringe) 0.5 mg IVPUSH Q5M PRN PRN Reason: Pain, Moderate to Severe (Pain Scale 4-10) Stop: 08/23/25 19:42 Vancomycin HCl 750 mg/ Sodium (Chloride) 265 mls @ 265 mls/hr IV Q12H [facility] Last Infusion: 08/23/25 12:39 Dose: Infused Lactated Ringer's (Lr) 1,000 mls @ 80 mls/hr IVCONT .[id number] [facility] Last Admin: 08/23/25 12:26 Dose: 80 mls/hr Ketorolac Tromethamine (Ketorolac Tromethamine 15 Mg/Ml Vial) 15 mg IVPUSH Q6H [facility] Last Admin: 08/23/25 16:06 Dose: 15 mg Magnesium Hydroxide (Milk Of Magnesia 30 Ml Oral.Susp) 30 ml PO DAILY PRN PRN Reason: Constipation Melatonin (Melatonin 3 Mg Tablet) 6 mg PO BEDTIME PRN PRN Reason: Insomnia Methadone HCl (Methadone Hcl 20 Mg/2 Ml Oral.Conc) 55 mg PO DAILY [facility] Last Admin: 08/23/25 07:52 Dose: 55 mg Naloxone HCl (Naloxone Hcl 0.4 Mg/Ml Vial) 0.04 mg IVPUSH Q5M PRN PRN Reason: Excessive sedation or RR < 8 Ondansetron HCl (Ondansetron Hcl 4 Mg/2 Ml Vial) 4 mg IVPUSH Q8H PRN PRN Reason: Nausea and Vomiting Ondansetron HCl (Ondansetron Hcl 4 Mg/2 Ml Vial) 4 mg IVPUSH ONCE PRN PRN Reason: Nausea and Vomiting Stop: 08/23/25 18:35 Oxycodone HCl (Oxycodone Hcl Immed Release 5 Mg Tablet) 5 mg PO Q4H PRN PRN Reason: Pain, Moderate(Pain Scale 4-6) Last Admin: 08/23/25 06:32 Dose: 5 mg Pharmacy Consult (Consult Rx Vancomycin Dosing) 1 each MISCELLANE DAILY PRN PRN Reason: Consult order Sodium Chloride (0.9 % Sodium Chloride Flush 3 Ml Syringe) 3 ml IVFLUSH QSHIFT [facility] Last Admin: 08/23/25 16:06 Dose: 3 ml Tramadol HCl (Tramadol Hcl 50 Mg Tablet) 50 mg PO Q6H PRN PRN Reason: Pain, Mild (Pain Scale 1-3) Last Admin: 08/21/25 16:12 Dose: 50 mg Trazodone HCl (Trazodone Hcl 25 Mg Halftab) 25 mg PO BEDTIME MRX1 PRN PRN Reason: Sleep Last Admin: 08/22/25 23:11 Dose: 25 mg Home Medications ?Medication ?Instructions ?Recorded ?Confirmed ?Last Taken ?Type methadone 10 mg/mL oral concentrate 55 mg PO DAILY 09/2108/20/25 08/19/25 07:21 History hydrochlorothiazide 12.5 mg capsule 12.5 mg PO DAILY 1 08/20/25 Unknown History Physical Exam 2 Vital Signs: Vital Signs: Last Vital Signs Temp 98.1 F 08/23/25 16:00 Pulse 83 08/23/25 16:00 Resp 16 08/23/25 16:00 BP 150/88 H 08/23/25 16:00 Pulse Ox 96 08/23/25 16:00 O2 Del Method Room Air 08/23/25 16:00 O2 Flow Rate 4 08/23/25 13:44 BMI result Body Mass Index 27.4 Const: General: cooperative HEENT: Head: Yes normal to inspection Face and sinus: Yes normal facial exam Mouth: Normal oral and palatal mucosa present Teeth and gingiva: d entition normal Eyes: General: appearance normal, both eyes and all related structures P upils: Equal, round and reactive pupils present Resp: Effort & Inspection: normal respiratory effort Cardio: Rate: regular rate Rhythm: regular rhythm GI: Palpation (GI): Soft to palpation and nontender : General: Yes no CVA tenderness Back/Spine/Pelvis: Back: no CVA tenderness Skin: General skin exam: no rashes or lesions noted Neuro: General: moves all extremities Cranial nerves: Yes Equal, round and reactive pupils present Extrem: Other: right knee swelling reddened lesion between eyebrows Psych: Appearance: grossly normal Results Labs 08/23/25 06:41 08/23/25 06:41 Labs: Short CBC 08/23/25 Range/Units 06:41 WBC 11.5 H (4.8-10.8) X10*3/uL Hgb 9.1 L (12.0-16.0) g/dl Hct 26.7 L (37.0-47.0) % Plt Count 59 L D (160-400) X10*3/uL BMP 08/22/25 08/23/25 20:58 06:41 Sodium 135 136 Potassium 3.4 3.7 Chloride 106 108 Carbon Dioxide 22 20 L BUN 28 H 25 H Creatinine 0.89 0.78 Calcium 7.9 L 7.6 L Liver Function 08/23/25 Range/Units 06:41 Total Bilirubin 4.8 H (0.0-1.0) mg/dL Direct Bilirubin 3.2 H (0.0-0.5) mg/dL AST 143 H (5-31) U/L ALT 40 H (0-31) U/L Alkaline Phosphatase 111 (39-117) U/L Albumin 2.0 L (3.5-5.0) g/dL Microbiology Microbiology Results: Microbiology 08/22/25 15:00 Blood - Venous Blood Culture - Preliminary Prelim: GPC Gram Stain only 08/19/25 23:23 Knee aspirate Gram Stain - Final 08/19/25 23:23 Knee aspirate Anaerobic Culture - Preliminary Culture in progress. 08/19/25 23:23 Knee aspirate Gross Specimen Examination - Final 08/19/25 23:23 Knee aspirate Fluid Crystals - Final 08/19/25 23:23 Knee aspirate Joint Fluid Culture - Final Methicillin Res Staph Aureus 08/21/25 10:09 Blood - Venous Blood Culture - Final 08/21/25 13:05 Blood - Venous Blood Culture - Final Methicillin Res Staph Aureus 08/19/25 20:31 Blood - Venous Blood Culture - Final Methicillin Res Staph Aureus 08/19/25 20:31 Blood - Venous Blood Culture - Final Methicillin Res Staph Aureus Assessment and Plan (1) IVDU (intravenous drug user): Status: Acute (2) Opioid use disorder: Status: Acute (3) Septic joint of right knee joint: Status: Acute Plan Change to IV Daptomycin per pharmacy calculation 8-10 mg/kg/day and IV Ceftriaxone as well synergy. Likely need 4-6 weeks IV Recheck blood culture 48 h after Daptomycin started. Await Hepatitis C viral load (HIV negative).
[2025-08-24] VITALS (7 sets, daily range): BP systolic 123–146; BP diastolic 66–90; PULSE 74–90; RESP 18; TEMP 36.3–37.1; O2SAT 96–98
[2025-08-24] MEDS: traZODone HCL 25 MG HALFTAB PO ×2 (00:01→22:26)
[2025-08-24] MEDS: 0.9 % Sodium Chloride Flush 3 ML SYRINGE IVFLUSH ×3 (00:01→16:41)
[2025-08-24] MEDS: Lactated Ringers 1,000 ML 80 ML IVCONT ×2 (02:23→14:44)
[2025-08-24 07:21] LABS: Creatinine Clr Calc Pharmacy 97.1; Estimated Glomerular Filt Rate > 60
[2025-08-24] MEDS: methADONE HCl 20 MG/2 ML ORAL.CONC 55 MG PO (08:41)
--- NOTE | 2025-08-24 09:34 | HO.POSTANES ---
Post Anesthesia Evaluation Post Anesthesia Evaluation Date of Service: 08/24/25 Vital Signs: Vital Signs Temp Pulse Resp BP Pulse Ox O2 Del Method 08/24/25 08:43 18 08/24/25 08:00 98.4 F 74 18 145/84 H 97 Room Air 08/24/25 03:26 98.8 F 82 18 146/90 H 98 Room Air 08/23/25 23:35 98.3 F 88 18 132/84 96 Room Air Anesthesia: General Mental Status: Awake Pain Control: Satisfactory Nausea/Vomiting: None Hydration: Adequate Anesthesia-Related Issues: No Anes. Related Issues
--- NOTE | 2025-08-24 09:42 | HO.ADDICTPRO ---
Subjective Subjective Date of Service: 08/24/25 Reason For Visit: Septic Arthritis Interim History: Patient seen in follow up for OUD -admitted with septic joint. Reports pain is improving every day. Tearful, sharing that pain at some points felt unbearable, and she was hesitant to request pain medications. T/W provided supportive listening and encouraged patient to request pain medications as she needs them. She is feeling more optimistic today. Denies any issues related to methadone. Appetite okay. Sleep varies. Review of Systems Constitutional: Reports as per HPI Mental Status Exam Mental Status Exam Level of Consciousness: Awake, Appropriate and Alert Patient Behavior: Appropriate, Talkative and Cooperative Affect Description: Calm Speech Pattern: Clear Thought Process: Intact Thought Content: positive for Intact Judgement: Good Diagnostics Vital Signs (24Hr): Vital Signs - 24 hr 08/23/25 12:01 08/23/25 13:34 08/23/25 13:39 Temperature 99.3 F 97.5 F Pulse Rate 89 90 83 Respiratory Rate 16 9 L 10 L Blood Pressure 139/93 H 107/65 113/69 Pulse Oximetry 98 99 100 Oxygen Delivery Method Room Air Simple Mask Simple Mask Oxygen Flow Rate 8 4 08/23/25 13:44 08/23/25 13:50 08/23/25 14:05 Temperature Pulse Rate 80 98 90 Respiratory Rate 9 L 10 L 12 Blood Pressure 129/78 158/105 H 153/96 H Pulse Oximetry 100 97 97 Oxygen Delivery Method Simple Mask Room Air Room Air Oxygen Flow Rate 4 08/23/25 14:30 08/23/25 16:00 08/23/25 20:00 Temperature 98.2 F 98.1 F 98.8 F Pulse Rate 84 83 101 H Respiratory Rate 16 16 19 Blood Pressure 143/87 H 150/88 H 144/92 H Pulse Oximetry 97 96 97 Oxygen Delivery Method Room Air Room Air Room Air Oxygen Flow Rate 08/23/25 23:35 08/24/25 03:26 08/24/25 08:00 Temperature 98.3 F 98.8 F 98.4 F Pulse Rate 88 82 74 Respiratory Rate 18 18 18 Blood Pressure 132/84 146/90 H 145/84 H Pulse Oximetry 96 98 97 Oxygen Delivery Method Room Air Room Air Room Air Oxygen Flow Rate 08/24/25 08:43 Temperature Pulse Rate Respiratory Rate 18 Blood Pressure Pulse Oximetry Oxygen Delivery Method Oxygen Flow Rate BMI result Body Mass Index 27.4 Labs 08/23/25 06:41 08/24/25 05:57 Labs: Laboratory Results - last 48 hr 08/22/25 08/22/25 08/23/25 15:00 20:58 06:41 WBC 21.5 H 11.5 H RBC 3.12 L D 2.87 L Hgb 9.9 L 9.1 L Hct 29.2 L 26.7 L MCV 93.6 93.0 MCH 31.7 31.7 MCHC 33.9 34.1 RDW 14.9 15.2 Plt Count 82 L D 59 L D MPV 10.2 10.2 Immature Gran % (Auto) 1.8 H Neut % (Auto) 85.4 H Lymph % (Auto) 5.4 L [place] % (Auto) 6.8 Eos % (Auto) 0.2 Baso % (Auto) 0.4 Lymph # (Auto) 1.2 [place] # (Auto) 1.5 H Eos # (Auto) 0.0 Baso # (Auto) 0.1 Abs Immat Gran (auto) 0.38 H Absolute Neuts (auto) 18.4 H Absolute Nucleated RBC 0.000 0.020 H Nucleated RBC % (auto) 0.0 0.2 Sodium 135 136 Potassium 3.4 3.7 Chloride 106 108 Carbon Dioxide 22 20 L Anion Gap 10 L 12 BUN 28 H 25 H Creatinine 0.89 0.78 Estim Creat Clear Calc 89.4 102.1 Estimated GFR > 60 > 60 Random Glucose 83 73 Calcium 7.9 L 7.6 L Total Bilirubin 4.8 H Direct Bilirubin 3.2 H AST 143 H ALT 40 H Alkaline Phosphatase 111 Total Protein 7.6 Albumin 2.0 L Random Vancomycin 17.2 HIV 1&2 Ab/P24 Ag 4thGn 08/23/25 08/24/25 11:45 05:57 WBC RBC Hgb Hct MCV MCH MCHC RDW Plt Count MPV Immature Gran % (Auto) Neut % (Auto) Lymph % (Auto) [place] % (Auto) Eos % (Auto) Baso % (Auto) Lymph # (Auto) [place] # (Auto) Eos # (Auto) Baso # (Auto) Abs Immat Gran (auto) Absolute Neuts (auto) Absolute Nucleated RBC Nucleated RBC % (auto) Sodium Potassium Chloride Carbon Dioxide Anion Gap BUN Creatinine 0.82 Estim Creat Clear Calc 97.1 Estimated GFR > 60 Random Glucose Calcium Total Bilirubin Direct Bilirubin AST ALT Alkaline Phosphatase Total Protein Albumin Random Vancomycin HIV 1&2 Ab/P24 Ag 4thGn Nonreactive Medications Medications Current Medications Acetaminophen (Acetaminophen 325 Mg Tablet) 650 mg PO Q6H PRN PRN Reason: Pain, Mild 1-3,fever,headache Last Admin: 08/22/25 14:23 Dose: 650 mg Amlodipine Besylate (Amlodipine Besylate 5 Mg Tablet) 5 mg PO DAILY [facility]; Protocol Last Admin: 08/24/25 08:41 Dose: 5 mg Calcium Carbonate (Calcium Carbonate 750 Mg Tab.Chew) 750 mg PO Q4H PRN PRN Reason: Heartburn Diazepam (Diazepam 10 Mg/2 Ml Cartridge) 10 mg IVPUSH Q6H PRN PRN Reason: Anxiety Last Admin: 08/23/25 17:33 Dose: 10 mg Hydromorphone HCl (Hydromorphone Hcl 1 Mg/Ml Syringe) 0.5 mg IVPUSH Q3H PRN; Protocol PRN Reason: Pain, Severe (Pain Scale 7-10) Last Admin: 08/24/25 08:43 Dose: 0.5 mg Vancomycin HCl 750 mg/ Sodium (Chloride) 265 mls @ 265 mls/hr IV Q12H [facility] Last Infusion: 08/24/25 00:00 Dose: Infused Lactated Ringer's (Lr) 1,000 mls @ 80 mls/hr IVCONT .[id number] [facility] Last Admin: 08/24/25 02:23 Dose: 80 mls/hr Ketorolac Tromethamine (Ketorolac Tromethamine 15 Mg/Ml Vial) 15 mg IVPUSH Q6H [facility] Last Admin: 08/24/25 05:14 Dose: 15 mg Magnesium Hydroxide (Milk Of Magnesia 30 Ml Oral.Susp) 30 ml PO DAILY PRN PRN Reason: Constipation Melatonin (Melatonin 3 Mg Tablet) 6 mg PO BEDTIME PRN PRN Reason: Insomnia Methadone HCl (Methadone Hcl 20 Mg/2 Ml Oral.Conc) 55 mg PO DAILY [facility] Last Admin: 08/24/25 08:41 Dose: 55 mg Naloxone HCl (Naloxone Hcl 0.4 Mg/Ml Vial) 0.04 mg IVPUSH Q5M PRN PRN Reason: Excessive sedation or RR < 8 Ondansetron HCl (Ondansetron Hcl 4 Mg/2 Ml Vial) 4 mg IVPUSH Q8H PRN PRN Reason: Nausea and Vomiting Oxycodone HCl (Oxycodone Hcl Immed Release 5 Mg Tablet) 5 mg PO Q4H PRN PRN Reason: Pain, Moderate(Pain Scale 4-6) Last Admin: 08/23/25 06:32 Dose: 5 mg Pharmacy Consult (Consult Rx Vancomycin Dosing) 1 each MISCELLANE DAILY PRN PRN Reason: Consult order Sodium Chloride (0.9 % Sodium Chloride Flush 3 Ml Syringe) 3 ml IVFLUSH QSHIFT [facility] Last Admin: 08/24/25 08:44 Dose: 3 ml Tramadol HCl (Tramadol Hcl 50 Mg Tablet) 50 mg PO Q6H PRN PRN Reason: Pain, Mild (Pain Scale 1-3) Last Admin: 08/21/25 16:12 Dose: 50 mg Trazodone HCl (Trazodone Hcl 25 Mg Halftab) 25 mg PO BEDTIME MRX1 PRN PRN Reason: Sleep Last Admin: 08/24/25 00:01 Dose: 25 mg Allergies Allergies Allergy/AdvReac Type Severity Reaction Status Date / Time Penicillins Allergy Unknown Verified 08/19/25 17:28 Sulfa (Sulfonamide Allergy Unknown Verified 08/19/25 17:28 Antibiotics) Assessment & Plan Assessment & Plan (1) Opioid use disorder: Status: Acute Code(s): F11.90 - Opioid use, unspecified, uncomplicated Assessment and Plan: continue methadone as prescribed no additional follow up required at this time -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
[2025-08-24] MEDS: diazePAM 10 MG/2 ML CARTRIDGE IVPUSH (11:29)
--- NOTE | 2025-08-24 13:09 | MHC.CM.PN ---
Patient will require 4-6 wks IV abx on dc. Reviewed dc plan with patient, who accepted bed offer from [facility]. Will need guest dosing with [facility]. CM called clinic and requested copy of TEZ be faxed to CM offer. 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 Per MD, anticipate patient may be ready for dc Saturday. Clinicals faxed to [facility].
--- NOTE | 2025-08-24 15:10 | PM.PNORT ---
Subjective Subjective Date of Service: 08/24/25 Interval history: s/p right knee arthroscopic lavage 08/20 & 08/23 Patient is resting in bed -states unable to get out of bed and walk due to pain No overnight events Reports extreme pain states her pain is improving No additional complaints Physical Exam Vital Signs: Vital Signs: Last Vital Signs Temp 98.7 F 08/24/25 11:25 Pulse 90 08/24/25 11:25 Resp 18 08/24/25 11:25 BP 124/69 08/24/25 11:25 Pulse Ox 96 08/24/25 11:25 O2 Del Method Room Air 08/24/25 11:25 O2 Flow Rate 4 08/23/25 13:44 BMI result Body Mass Index 27.4 Const: General: cooperative, healthy appearing and no acute distress Resp: Effort & Inspection: normal respiratory effort and able to speak in complete sentences Extrem: Other: Right knee global tenderness to palpation. Does not want to flex and extend the knee due to pain. Incision sites are c/d/i. Sutures intact. No drainage. Able to dorsiflex and plantar flex but significantly limited due to pain. Sensation is reportedly intact. Pedal pulse intact. Psych: Appearance: grossly normal Mental Status: mental status grossly normal Attitude: cooperative Procedures Date of Service Date of Service: 08/24/25 Progress Note: A&P Assessment and plan (1) IVDU (intravenous drug user): Status: Acute (2) Septic joint of right knee joint: Status: Acute Plan Continue pain mgmnt Encourage gentle ROM , wbat ID consult IV dapto with ceft. F/u with ortho in 1 week Time Spent With Patient Time: Total time managing care of this patient today ____ minutes. Quality Stroke Does the patient have a stroke diagnosis?: No VTE Prior VTE?: No VTE Risk Level:: Medical - moderate - high VTE Device Contraindication: N/A - Device Ordered VTE Drug Contraindication: Treatment Not Tolerated
[2025-08-24 15:38] LABS: HCV Log PCR 2.05 Log IU/mL (NOT DETECTED); HepC Viral Load 111 IU/mL (NOT DETECTED)
--- NOTE | 2025-08-24 16:07 | HO.PM.IMPN ---
Subjective Subjective Date of Service: 08/24/25 Interval History: Patient seen examined at bedside this morning, no acute respiratory distress. Patient states that she is feeling better, no fevers. Seen by Infectious Disease, suggested on IV daptomycin and IV ceftriaxone to complete a total of 4-6 weeks, and recheck blood cultures 48 hours after daptomycin is initiated. Review of Systems Review of Systems: Yes all other systems are reviewed and are negative Physical Exam Exam: Exam: General: AxOx3, No acute distress Head: AT/NC ENT: Moist mucous membranes Neck: supple CVS; RRR, S1 S2 normal Lungs: Clear bilateral breath sounds, no wheezes or crackles Abd: Soft non tender, non distended Ext: RLE with edema and dressings in place MSK: moving all 4 limbs Skin: No cyanosis or edema Psych: Cooperative with exam Neurology: no focal deficit Vital Signs: Vital Signs: Last Vital Signs Temp 98.7 F 08/24/25 11:25 Pulse 90 08/24/25 11:25 Resp 18 08/24/25 11:25 BP 124/69 08/24/25 11:25 Pulse Ox 96 08/24/25 11:25 O2 Del Method Room Air 08/24/25 11:25 O2 Flow Rate 4 08/23/25 13:44 BMI result Body Mass Index 27.4 Objective Data Active Medications Acetaminophen (Acetaminophen 325 Mg Tablet) 650 mg PO Q6H PRN PRN Reason: Pain, Mild 1-3,fever,headache Last Admin: 08/22/25 14:23 Dose: 650 mg Amlodipine Besylate (Amlodipine Besylate 5 Mg Tablet) 5 mg PO DAILY [facility]; Protocol Last Admin: 08/24/25 08:41 Dose: 5 mg Documented By: EBONIE Calcium Carbonate (Calcium Carbonate 750 Mg Tab.Chew) 750 mg PO Q4H PRN PRN Reason: Heartburn Last Admin: 08/24/25 14:44 Dose: 750 mg Documented By: EBONIE Diazepam (Diazepam 10 Mg/2 Ml Cartridge) 10 mg IVPUSH Q6H PRN PRN Reason: Anxiety Last Admin: 08/24/25 11:29 Dose: 10 mg Documented By: EBONIE Hydromorphone HCl (Hydromorphone Hcl 1 Mg/Ml Syringe) 0.5 mg IVPUSH Q3H PRN; Protocol PRN Reason: Pain, Severe (Pain Scale 7-10) Last Admin: 08/24/25 08:43 Dose: 0.5 mg Documented By: EBONIE Vancomycin HCl 750 mg/ Sodium (Chloride) 265 mls @ 265 mls/hr IV Q12H [facility] Last Infusion: 08/24/25 13:01 Dose: Infused Documented By: EBONIE Lactated Ringer's (Lr) 1,000 mls @ 80 mls/hr IVCONT .[id number] [facility] Last Admin: 08/24/25 14:44 Dose: 80 mls/hr Documented By: EBONIE Daptomycin 653.176 mg/ Sodium (Chloride) 63.0635 mls @ 100 mls/hr IV Q24H [facility] Ceftriaxone Sodium 2 gm/ (Sodium Chloride) 50 mls @ 100 mls/hr IV Q24H [facility] Stop: 09/21/25 16:14 Ketorolac Tromethamine (Ketorolac Tromethamine 15 Mg/Ml Vial) 15 mg IVPUSH Q6H [facility] Last Admin: 08/24/25 11:26 Dose: 15 mg Documented By: EBONIE Magnesium Hydroxide (Milk Of Magnesia 30 Ml Oral.Susp) 30 ml PO DAILY PRN PRN Reason: Constipation Melatonin (Melatonin 3 Mg Tablet) 6 mg PO BEDTIME PRN PRN Reason: Insomnia Methadone HCl (Methadone Hcl 20 Mg/2 Ml Oral.Conc) 55 mg PO DAILY [facility] Last Admin: 08/24/25 08:41 Dose: 55 mg Documented By: EBONIE Co-signed By: EDMUND Naloxone HCl (Naloxone Hcl 0.4 Mg/Ml Vial) 0.04 mg IVPUSH Q5M PRN PRN Reason: Excessive sedation or RR < 8 Ondansetron HCl (Ondansetron Hcl 4 Mg/2 Ml Vial) 4 mg IVPUSH Q8H PRN PRN Reason: Nausea and Vomiting Oxycodone HCl (Oxycodone Hcl Immed Release 5 Mg Tablet) 5 mg PO Q4H PRN PRN Reason: Pain, Moderate(Pain Scale 4-6) Last Admin: 08/23/25 06:32 Dose: 5 mg Documented By: AAN Pharmacy Consult (Consult Rx Vancomycin Dosing) 1 each MISCELLANE DAILY PRN PRN Reason: Consult order Sodium Chloride (0.9 % Sodium Chloride Flush 3 Ml Syringe) 3 ml IVFLUSH QSHIFT [facility] Last Admin: 08/24/25 08:44 Dose: 3 ml Documented By: EBONIE Tramadol HCl (Tramadol Hcl 50 Mg Tablet) 50 mg PO Q6H PRN PRN Reason: Pain, Mild (Pain Scale 1-3) Last Admin: 08/21/25 16:12 Dose: 50 mg Documented By: EKATERINA Trazodone HCl (Trazodone Hcl 25 Mg Halftab) 25 mg PO BEDTIME MRX1 PRN PRN Reason: Sleep Last Admin: 08/24/25 00:01 Dose: 25 mg Documented By: ANA Labs 08/23/25 06:41 08/24/25 05:57 Labs: Laboratory Results - last 24 hr 08/23/25 08/24/25 11:45 05:57 Estim Creat Clear Calc 97.1 Estimated GFR > 60 Hep C Viral Load 111 H Hep C Viral Load Log 2.05 H Microbiology Microbiology Results: Microbiology 08/22/25 20:58 Blood Culture - Final Blood - Venous Methicillin Res Staph Aureus 08/22/25 15:00 Blood Culture - Final Blood - Venous Methicillin Res Staph Aureus 08/19/25 23:23 Gram Stain - Final Knee aspirate Anaerobic Culture - Preliminary Culture in progress. Gross Specimen Examination - Final Fluid Crystals - Final Joint Fluid Culture - Final Methicillin Res Staph Aureus Assessment and Plan (1) Septic joint of right knee joint: Status: Acute (2) IVDU (intravenous drug user): Status: Acute (3) Opioid use disorder: Status: Acute (4) Anxiety: Status: Acute (5) MRSA bacteremia: Status: Acute Plan 44-year-old female with a past medical history significant for hypertension, hep C, liver fibrosis, IVDA on methadone, colitis, who presented to the ED due to complaints of right lower leg pain and swelling. joint aspiration in ED suspicious for septic arthritis Acute on chronic Anemia/pancytopenia, unspecified so far no blood loss HH 6.8/21.0, s/p 2 units PRBC ordered 08/21/25 CBC post tx normalized MRSA bacteremia due to Right knee septic arthritis 2/2 blood cultures with repeat positive gram stain from right knee fluid analysis growing MRSA s/p wash out 08/20 echocardiogram without valvular abnormality ID consulted will initiate dapto + ceftriaxone, will repeat blood cultures in 48 hrs after initiating dapto unable to bare weight to right knee RICHARD, metabolic acidosis. Resolved s/p IVF continue to hold HCTZ HTN hold HCTZ for RICHARD continue norvasc, will monitor BP and adjust meds accordingly hep C s/p tx/liver fibrosis elevated LFTs at baseline Chronic pancytopenia secondary to liver disease, at baseline, also o/p workup as per PCP H/H trending down, likely in the setting of acute illness, no overt bleeding noted IVDU continue methadone addiction med consult full code VTE ppx: SCDs where tolerated, anticoagulant contraindicated due to thrombocytopenia Quality Stroke Does the patient have a stroke diagnosis?: No VTE Prior VTE?: No VTE Risk Level:: Medical - moderate - high VTE Device Contraindication: N/A - Device Ordered VTE Drug Contraindication: Treatment Not Tolerated
[2025-08-25] VITALS (7 sets, daily range): BP systolic 114–146; BP diastolic 61–85; PULSE 75–101; RESP 18–19; TEMP 36.5–37.8; O2SAT 95–97
[2025-08-25] MEDS: diazePAM 10 MG/2 ML CARTRIDGE IVPUSH ×2 (00:52→21:10)
[2025-08-25] MEDS: Lactated Ringers 1,000 ML 80 ML IVCONT ×2 (00:55→11:21)
[2025-08-25] MEDS: 0.9 % Sodium Chloride Flush 3 ML SYRINGE IVFLUSH ×4 (00:56→21:10)
[2025-08-25 06:53] LABS: Creatinine Clr Calc Pharmacy 92.6; Estimated Glomerular Filt Rate > 60
--- NOTE | 2025-08-25 07:31 | PM.PNORT ---
Subjective Subjective Date of Service: 08/25/25 Interval history: s/p right knee arthroscopic lavage 08/20 & 08/23 Patient is sleeping in bed No overnight events Does not report pain states her pain is improving No additional complaints Physical Exam Vital Signs: Vital Signs: Last Vital Signs Temp 97.8 F 08/25/25 04:00 Pulse 76 08/25/25 04:00 Resp 18 08/25/25 04:00 BP 138/82 08/25/25 04:00 Pulse Ox 95 08/25/25 04:00 O2 Del Method Room Air 08/25/25 04:00 O2 Flow Rate 4 08/23/25 13:44 BMI result Body Mass Index 27.4 Const: General: cooperative, healthy appearing and no acute distress Resp: Effort & Inspection: normal respiratory effort and able to speak in complete sentences Extrem: Other: Right knee: Incision sites are c/d/i. Bandages are c/d/i. No drainage. Sensation is reportedly intact. Pedal pulse intact. Psych: Appearance: grossly normal Mental Status: mental status grossly normal Attitude: cooperative Procedures Date of Service Date of Service: 08/25/25 Progress Note: A&P Assessment and plan (1) IVDU (intravenous drug user): Status: Acute (2) Opioid use disorder: Status: Acute (3) Septic joint of right knee joint: Status: Acute Plan Continue pain mgmnt Encourage gentle ROM , wbat ID consult IV dapto with ceft. F/u with ortho in 1 week Time Spent With Patient Time: Total time managing care of this patient today ____ minutes. Quality Stroke Does the patient have a stroke diagnosis?: No VTE Prior VTE?: No VTE Risk Level:: Medical - moderate - high VTE Device Contraindication: N/A - Device Ordered VTE Drug Contraindication: Treatment Not Tolerated
[2025-08-25] MEDS: methADONE HCl 20 MG/2 ML ORAL.CONC 55 MG PO (08:47)
--- NOTE | 2025-08-25 11:30 | HO.SKINPHOTO ---
Reached out to provider via [facility] to inquire about RLE dressing care - provider stated to keep dressing clean, dry.
--- NOTE | 2025-08-25 12:17 | P.PNIM_ITS ---
Subjective Subjective Date of Service: 08/25/25 Interval History: Patient seen examined at bedside this morning, patient states that right lower extremity pain and edema has improved. Continues on daptomycin and ceftriaxone. On labs with positive viral load for hepatitis-C, which patient notes that she has had previously. We will await blood cultures to be negative to decide EOT for treatment. Review of Systems Review of Systems: Yes all other systems are reviewed and are negative Physical Exam 2 Exam: Exam: General: AxOx3, No acute distress Head: AT/NC ENT: Moist mucous membranes Neck: supple CVS; RRR, S1 S2 normal Lungs: Clear bilateral breath sounds, no wheezes or crackles Abd: Soft non tender, non distended Ext: RLE edema with wraps in place MSK: moving all 4 limbs Skin: No cyanosis Psych: Cooperative with exam Neurology: no focal deficit Vital Signs: Vital Signs: Last Vital Signs Temp 98.6 F 08/25/25 11:57 Pulse 88 08/25/25 11:57 Resp 18 08/25/25 11:57 BP 125/74 08/25/25 11:57 Pulse Ox 96 08/25/25 11:57 O2 Del Method Room Air 08/25/25 11:57 O2 Flow Rate 4 08/23/25 13:44 BMI result Body Mass Index 27.4 Objective Data Active Medications Acetaminophen (Acetaminophen 325 Mg Tablet) 650 mg PO Q6H PRN PRN Reason: Pain, Mild 1-3,fever,headache Last Admin: 08/22/25 14:23 Dose: 650 mg Amlodipine Besylate (Amlodipine Besylate 5 Mg Tablet) 5 mg PO DAILY [facility]; Protocol Last Admin: 08/25/25 08:47 Dose: 5 mg Documented By: DOROTEO Calcium Carbonate (Calcium Carbonate 750 Mg Tab.Chew) 750 mg PO Q4H PRN PRN Reason: Heartburn Last Admin: 08/24/25 19:21 Dose: 750 mg Documented By: HUGO Diazepam (Diazepam 10 Mg/2 Ml Cartridge) 10 mg IVPUSH Q6H PRN PRN Reason: Anxiety Last Admin: 08/25/25 00:52 Dose: 10 mg Documented By: HUGO Hydromorphone HCl (Hydromorphone Hcl 1 Mg/Ml Syringe) 0.5 mg IVPUSH Q3H PRN; Protocol PRN Reason: Pain, Severe (Pain Scale 7-10) Last Admin: 08/24/25 16:40 Dose: 0.5 mg Documented By: EBONIE Daptomycin 650 mg/ Sodium (Chloride) 63 mls @ 99.912 mls/hr IV Q24H [facility] Last Infusion: 08/24/25 20:00 Dose: Infused Documented By: BUSSILYNDA Ceftriaxone Sodium 2 gm/ (Sodium Chloride) 50 mls @ 100 mls/hr IV Q24H [facility] Stop: 09/21/25 16:59 Last Infusion: 08/24/25 17:35 Dose: Infused Documented By: EBONIE Ketorolac Tromethamine (Ketorolac Tromethamine 15 Mg/Ml Vial) 15 mg IVPUSH Q6H [facility] Last Admin: 08/25/25 11:22 Dose: 15 mg Documented By: DOROTEO Magnesium Hydroxide (Milk Of Magnesia 30 Ml Oral.Susp) 30 ml PO DAILY PRN PRN Reason: Constipation Melatonin (Melatonin 3 Mg Tablet) 6 mg PO BEDTIME PRN PRN Reason: Insomnia Methadone HCl (Methadone Hcl 20 Mg/2 Ml Oral.Conc) 55 mg PO DAILY [facility] Last Admin: 08/25/25 08:47 Dose: 55 mg Documented By: DOROTEO Co-signed By: BENTLEY Naloxone HCl (Naloxone Hcl 0.4 Mg/Ml Vial) 0.04 mg IVPUSH Q5M PRN PRN Reason: Excessive sedation or RR < 8 Ondansetron HCl (Ondansetron Hcl 4 Mg/2 Ml Vial) 4 mg IVPUSH Q8H PRN PRN Reason: Nausea and Vomiting Oxycodone HCl (Oxycodone Hcl Immed Release 5 Mg Tablet) 5 mg PO Q4H PRN PRN Reason: Pain, Moderate(Pain Scale 4-6) Last Admin: 08/23/25 06:32 Dose: 5 mg Documented By: ANA Sodium Chloride (0.9 % Sodium Chloride Flush 3 Ml Syringe) 3 ml IVFLUSH QSHIFT [facility] Last Admin: 08/25/25 08:47 Dose: 3 ml Documented By: DOROTEO Tramadol HCl (Tramadol Hcl 50 Mg Tablet) 50 mg PO Q6H PRN PRN Reason: Pain, Mild (Pain Scale 1-3) Last Admin: 08/21/25 16:12 Dose: 50 mg Documented By: EKATERINA Trazodone HCl (Trazodone Hcl 25 Mg Halftab) 25 mg PO BEDTIME MRX1 PRN PRN Reason: Sleep Last Admin: 08/24/25 22:26 Dose: 25 mg Documented By: HUGO Labs 08/23/25 06:41 08/25/25 06:16 Labs: Laboratory Results - last 24 hr 08/23/25 08/24/25 08/25/25 11:45 21:44 06:16 Estim Creat Clear Calc 92.6 Estimated GFR > 60 Random Vancomycin 15.1 Hep C Viral Load 111 H Hep C Viral Load Log 2.05 H Microbiology Microbiology Results: Microbiology 08/19/25 23:23 Gram Stain - Final Knee aspirate Anaerobic Culture - Final Gross Specimen Examination - Final Fluid Crystals - Final Joint Fluid Culture - Final Methicillin Res Staph Aureus 08/22/25 20:58 Blood Culture - Final Blood - Venous Methicillin Res Staph Aureus 08/22/25 15:00 Blood Culture - Final Blood - Venous Methicillin Res Staph Aureus Assessment and Plan (1) Septic joint of right knee joint: Status: Acute (2) IVDU (intravenous drug user): Status: Acute (3) Hepatitis C infection: Status: Acute Plan Plan 44-year-old female with a past medical history significant for hypertension, hep C, liver fibrosis, IVDA on methadone, colitis, who presented to the ED due to complaints of right lower leg pain and swelling. joint aspiration in ED for possible septic arthritis. With fluid and blood cultures positive for MRSA. patient originally on vancomycin, later transition to Dapto + Ceftriaxone per ID recommendations, awaiting to have negative BC to decide EoT. Acute on chronic Anemia/pancytopenia, unspecified so far no blood loss HH 6.8/21.0, s/p 2 units PRBC ordered 08/21/25 CBC post tx normalized MRSA bacteremia due to Right knee septic arthritis 2/2 blood cultures with repeat positive gram stain from right knee fluid analysis growing MRSA s/p wash out 08/20 echocardiogram without valvular abnormality ID consulted continue dapto + ceftriaxone, will repeat blood cultures in 48 hrs after initiating dapto unable to bare weight to right knee HTN continue norvasc, will monitor BP and adjust meds accordingly hep C s/p tx/liver fibrosis elevated LFTs at baseline Chronic pancytopenia secondary to liver disease, at baseline, also o/p workup as per PCP H/H trending down, likely in the setting of acute illness, no overt bleeding noted IVDU continue methadone addiction med consult full code VTE ppx: SCDs where tolerated, anticoagulant contraindicated due to thrombocytopenia Quality Stroke Does the patient have a stroke diagnosis?: No VTE Prior VTE?: No VTE Risk Level:: Medical - moderate - high VTE Device Contraindication: N/A - Device Ordered VTE Drug Contraindication: Treatment Not Tolerated
--- NOTE | 2025-08-25 13:42 | MHC.CM.PN ---
EMR REVIEWED AND PER MD ROUNDS, PT IS NOT MEDICALLY CLEARED FOR DC TO [facility] (AWAITING CULTURES) CM HAS HAD TEZ FORMS SIGNED FOR METHADONE GUEST DOSING AND FAXED TO [facility]. [facility] HAS CONFIRMED THEY HAVE RECEIVED CLINICAL INFORMATION FROM OUR FACILITY. CM WILL CONTINUE TO FOLLOW FOR ANY CHANGE TO DC PLAN/NEEDS.
[2025-08-25] MEDS: traZODone HCL 25 MG HALFTAB PO (21:10)
[2025-08-26 04:00] VITALS: BP 147/74; PULSE 86; RESP 20; TEMP 37.7; O2SAT 98
[2025-08-26 06:35] LABS: Creatinine Clr Calc Pharmacy 77.3; Estimated Glomerular Filt Rate 58
--- NOTE | 2025-08-26 06:50 | PC.NURSE ---
jay requesting boost in bed, patient is all the way up in the bed, states she is uncomfotable in the bed, encouraged to move her weight side to side, patient stated she couldn't. At baseline patient is independent in the community.
[2025-08-26] MEDS: 0.9 % Sodium Chloride Flush 3 ML SYRINGE IVFLUSH ×3 (07:10→19:58)
[2025-08-26] MEDS: diazePAM 10 MG/2 ML CARTRIDGE IVPUSH ×2 (07:42→19:58)
[2025-08-26 08:00] VITALS: BP 150/85; PULSE 95; RESP 18; TEMP 36.8; O2SAT 97
[2025-08-26] MEDS: methADONE HCl 20 MG/2 ML ORAL.CONC 55 MG PO (08:16)
--- NOTE | 2025-08-26 08:26 | PC.NURSE ---
Pt doing well today, medicated for pain and anxiety. Able to make needs known. Took Methadone. Plan for PICC when BC are negative. Possibly early next week then d/c to [facility] for IV ABX.
[2025-08-26] MEDS: Milk of Magnesia 30 ML ORAL.SUSP PO (09:47)
[2025-08-26 09:57] LABS: Hematocrit 25.2 % (37.0-47.0); Hemoglobin 8.2 g/dl (12.0-16.0); Mean Corpuscular HGB Conc 32.5 g/dl (31.0-35.0); Mean Corpuscular Hemoglobin 32.5 pg (27.0-33.0); Mean Corpuscular Volume 100.0 fL (80.0-98.0); NRBC Abs Auto 0.000 X10*3/uL (0.0-0.012); NRBC Pct Auto 0.0 /100WBC (0.0-0.2); Red Blood Count 2.52 X10*6/uL (4.20-5.50); White Blood Count 10.8 X10*3/uL (4.8-10.8)
[2025-08-26 09:58] LABS: Platelet Count 70 X10*3/uL (160-400)
[2025-08-26 10:13] LABS: Anion Gap 9 (12-20); Blood Urea Nitrogen 25 mg/dL (9-16); Calcium 7.5 mg/dL (8.4-10.2); Carbon Dioxide 20 mmol/L (22-29); Chloride 104 mmol/L (96-108); Creatinine Clr Calc Pharmacy 78.8; Estimated Glomerular Filt Rate 59; Potassium 4.0 mmol/L (3.3-5.1); Sodium 129 mmol/L (135-145)
[2025-08-26 12:00] VITALS: BP 139/75; PULSE 96; RESP 16; TEMP 37.4; O2SAT 96
--- NOTE | 2025-08-26 12:53 | P.PNIM_ITS ---
Subjective Subjective Date of Service: 08/26/25 Interval History: Patient seen examined at bedside this morning, patient states that she is experiencing abdominal pain, states that last bowel movement was about a week ago. Recent blood cultures negative for 24 hours. Review of Systems Review of Systems: Yes all other systems are reviewed and are negative Physical Exam 2 Exam: Exam: General: AxOx3, No acute distress Head: AT/NC ENT: Moist mucous membranes Neck: supple CVS; RRR, S1 S2 normal Lungs: Clear bilateral breath sounds, no wheezes or crackles Abd: Soft non tender, non distended Ext: No edema and no calf tenderness MSK: moving all 4 limbs Skin: No cyanosis or edema Psych: Cooperative with exam Neurology: no focal deficit Vital Signs: Vital Signs: Last Vital Signs Temp 99.3 F 08/26/25 12:00 Pulse 96 08/26/25 12:00 Resp 16 08/26/25 12:00 BP 139/75 08/26/25 12:00 Pulse Ox 96 08/26/25 12:00 O2 Del Method Room Air 08/26/25 12:00 O2 Flow Rate 4 08/23/25 13:44 BMI result Body Mass Index 27.4 Objective Data Active Medications Acetaminophen (Acetaminophen 325 Mg Tablet) 650 mg PO Q6H PRN PRN Reason: Pain, Mild 1-3,fever,headache Last Admin: 08/25/25 19:48 Dose: 650 mg Documented By: NENA Amlodipine Besylate (Amlodipine Besylate 5 Mg Tablet) 5 mg PO DAILY [facility]; Protocol Last Admin: 08/26/25 08:16 Dose: 5 mg Documented By: BENTLEY Calcium Carbonate (Calcium Carbonate 750 Mg Tab.Chew) 750 mg PO Q4H PRN PRN Reason: Heartburn Last Admin: 08/26/25 09:47 Dose: 750 mg Documented By: BENTLEY Diazepam (Diazepam 10 Mg/2 Ml Cartridge) 10 mg IVPUSH Q6H PRN PRN Reason: Anxiety Last Admin: 08/26/25 07:42 Dose: 10 mg Documented By: BENTLEY Hydromorphone HCl (Hydromorphone Hcl 1 Mg/Ml Syringe) 0.5 mg IVPUSH Q3H PRN; Protocol PRN Reason: Pain, Severe (Pain Scale 7-10) Last Admin: 08/26/25 10:38 Dose: 0.5 mg Documented By: CHRIS Daptomycin 650 mg/ Sodium (Chloride) 63 mls @ 99.912 mls/hr IV Q24H [facility] Last Infusion: 08/25/25 18:43 Dose: Infused Documented By: DOROTEO Ceftriaxone Sodium 2 gm/ (Sodium Chloride) 50 mls @ 100 mls/hr IV Q24H [facility] Stop: 09/21/25 16:59 Last Infusion: 08/25/25 18:11 Dose: Infused Documented By: DOROTEO Ketorolac Tromethamine (Ketorolac Tromethamine 15 Mg/Ml Vial) 15 mg IVPUSH Q6H [facility] Last Admin: 08/26/25 09:47 Dose: 15 mg Documented By: BENTLEY Magnesium Hydroxide (Milk Of Magnesia 30 Ml Oral.Susp) 30 ml PO DAILY PRN PRN Reason: Constipation Last Admin: 08/26/25 09:47 Dose: 30 ml Documented By: BENTLEY Melatonin (Melatonin 3 Mg Tablet) 6 mg PO BEDTIME PRN PRN Reason: Insomnia Methadone HCl (Methadone Hcl 20 Mg/2 Ml Oral.Conc) 55 mg PO DAILY [facility] Last Admin: 08/26/25 08:16 Dose: 55 mg Documented By: BENTLEY Co-signed By: DIANA Naloxone HCl (Naloxone Hcl 0.4 Mg/Ml Vial) 0.04 mg IVPUSH Q5M PRN PRN Reason: Excessive sedation or RR < 8 Ondansetron HCl (Ondansetron Hcl 4 Mg/2 Ml Vial) 4 mg IVPUSH Q8H PRN PRN Reason: Nausea and Vomiting Oxycodone HCl (Oxycodone Hcl Immed Release 5 Mg Tablet) 5 mg PO Q4H PRN PRN Reason: Pain, Moderate(Pain Scale 4-6) Last Admin: 08/23/25 06:32 Dose: 5 mg Documented By: ANA Pantoprazole Sodium (Pantoprazole Sodium 40 Mg/10 Ml Vial) 40 mg IVPUSH DAILY@0630 [facility] Sodium Chloride (0.9 % Sodium Chloride Flush 3 Ml Syringe) 3 ml IVFLUSH QSHIFT [facility] Last Admin: 08/26/25 07:10 Dose: 3 ml Documented By: BENTLEY Tramadol HCl (Tramadol Hcl 50 Mg Tablet) 50 mg PO Q6H PRN PRN Reason: Pain, Mild (Pain Scale 1-3) Last Admin: 08/21/25 16:12 Dose: 50 mg Documented By: EKATERINA Trazodone HCl (Trazodone Hcl 25 Mg Halftab) 25 mg PO BEDTIME MRX1 PRN PRN Reason: Sleep Last Admin: 08/25/25 21:10 Dose: 25 mg Documented By: NENA Labs 08/26/25 09:45 08/26/25 09:45 Labs: Laboratory Results - last 24 hr 08/26/25 08/26/25 05:16 09:45 MCV 100.0 H D MCH 32.5 MCHC 32.5 RDW 16.8 H Plt Count 70 L MPV 10.3 Absolute Nucleated RBC 0.000 Nucleated RBC % (auto) 0.0 Anion Gap 9 L Estim Creat Clear Calc 77.3 78.8 Estimated GFR 58 59 Random Glucose 85 Calcium 7.5 L Total Creatine Kinase 100 Microbiology Microbiology Results: Microbiology 08/24/25 14:17 Blood Culture - Preliminary Blood - Venous Staphylococcus aureus 08/25/25 06:16 Blood Culture - Preliminary Blood - Venous No growth after 24 hours. 08/25/25 06:16 Blood Culture - Preliminary Blood - Venous No growth after 24 hours. 08/24/25 14:17 Blood Culture - Preliminary Blood - Venous No growth after 24 hours. Assessment and Plan (1) Septic joint of right knee joint: Status: Acute (2) MRSA bacteremia: Status: Acute (3) Hepatitis C infection: Status: Acute Plan 44-year-old female with a past medical history significant for hypertension, hep C, liver fibrosis, IVDA on methadone, colitis, who presented to the ED due to complaints of right lower leg pain and swelling. joint aspiration in ED for possible septic arthritis. With fluid and blood cultures positive for MRSA. patient originally on vancomycin, later transition to Dapto + Ceftriaxone per ID recommendations, awaiting to have negative BC to decide EoT. Acute on chronic Anemia/pancytopenia, unspecified so far no blood loss HH 6.8/21.0, s/p 2 units PRBC ordered 08/21/25 CBC post tx normalized MRSA bacteremia due to Right knee septic arthritis 2/2 blood cultures with repeat positive gram stain from right knee fluid analysis growing MRSA s/p wash out 08/20 echocardiogram without valvular abnormality ID consulted continue dapto + ceftriaxone, will repeat blood cultures in 48 hrs after initiating dapto. will monitor CPK while on Dapto unable to bare weight to right knee HTN continue norvasc, will monitor BP and adjust meds accordingly hep C s/p tx/liver fibrosis elevated LFTs at baseline Chronic pancytopenia secondary to liver disease, at baseline, also o/p workup as per PCP H/H trending down, likely in the setting of acute illness, no overt bleeding noted IVDU continue methadone addiction med consult Constipation will order xray, if needed will give bowel regimen full code VTE ppx: SCDs where tolerated, anticoagulant contraindicated due to thrombocytopenia Quality Stroke Does the patient have a stroke diagnosis?: No VTE Prior VTE?: No VTE Risk Level:: Medical - moderate - high VTE Device Contraindication: N/A - Device Ordered VTE Drug Contraindication: Treatment Not Tolerated
[2025-08-26 16:00] VITALS: BP 149/82; PULSE 101; RESP 20; TEMP 36.8; O2SAT 97
[2025-08-26 19:38] VITALS: BP 147/73; PULSE 103; RESP 19; TEMP 36.9; O2SAT 97
[2025-08-26] MEDS: traZODone HCL 25 MG HALFTAB PO (19:58)
[2025-08-26] MEDS: oxyCODONE HCl Immed Release 5 MG TABLET PO (20:08)
[2025-08-26 23:34] VITALS: BP 116/65; PULSE 96; RESP 17; TEMP 36.4; O2SAT 93
[2025-08-27 04:00] VITALS: BP 140/78; PULSE 93; RESP 17; TEMP 37; O2SAT 96
[2025-08-27] MEDS: diazePAM 10 MG/2 ML CARTRIDGE IVPUSH (05:32)
[2025-08-27 06:52] LABS: Creatinine Clr Calc Pharmacy 73.0; Estimated Glomerular Filt Rate 54
[2025-08-27] MEDS: methADONE HCl 20 MG/2 ML ORAL.CONC 55 MG PO (07:33)
[2025-08-27] MEDS: 0.9 % Sodium Chloride Flush 3 ML SYRINGE IVFLUSH ×3 (07:34→20:49)
[2025-08-27 08:00] VITALS: BP 140/75; PULSE 94; RESP 18; TEMP 36.9; O2SAT 94
[2025-08-27 08:53] LABS: Anion Gap 12 (12-20); Blood Urea Nitrogen 25 mg/dL (9-16); Calcium 7.2 mg/dL (8.4-10.2); Carbon Dioxide 18 mmol/L (22-29); Chloride 102 mmol/L (96-108); Creatinine Clr Calc Pharmacy 72.3; Estimated Glomerular Filt Rate 54; Potassium 4.2 mmol/L (3.3-5.1); Sodium 128 mmol/L (135-145); Uric Acid 5.7 mg/dL (2.4-5.7)
[2025-08-27 09:01] LABS: Osmolality, Serum 282 mosm/kg (281-305)
[2025-08-27 12:00] VITALS: BP 119/65; PULSE 87; RESP 18; TEMP 36.1; O2SAT 94
--- NOTE | 2025-08-27 12:53 | MHC.CM.PN ---
Patient not medically cleared for dc. Probable dc Saturday after line placement. [facility] and [facility] updated. Per [facility], they have rec'd clinicals sent by CM earlier this week, but no documents from home clinic. Spoke w/ Mildred @ [facility]. She will ensure paperwork is faxed to [facility] today for start date 08/31 and will fax a copy to CM office. CM will continue to follow.
--- NOTE | 2025-08-27 15:36 | HO.PM.IMPN ---
Subjective Subjective Date of Service: 08/27/25 Interval History: Patient seen and examined at bedside this morning, patient states that she has been having worsening right lower extremity edema as well as pain. Continues on IV antibiotics for MRSA, blood cultures continued to be negative at this time. Review of Systems Review of Systems: Yes all other systems are reviewed and are negative Physical Exam Exam: Exam: General: AxOx3, No acute distress Head: AT/NC ENT: Moist mucous membranes Neck: supple CVS; RRR, S1 S2 normal Lungs: Clear bilateral breath sounds, no wheezes or crackles Abd: Soft non tender, non distended Ext: edema of RLE and no calf tenderness MSK: moving all 4 limbs Skin: No cyanosis Psych: Cooperative with exam Neurology: no focal deficit Vital Signs: Vital Signs: Last Vital Signs Temp 97.0 F 08/27/25 12:00 Pulse 87 08/27/25 12:00 Resp 18 08/27/25 12:00 BP 119/65 08/27/25 12:00 Pulse Ox 94 08/27/25 12:00 O2 Del Method Room Air 08/27/25 12:00 O2 Flow Rate 4 08/23/25 13:44 BMI result Body Mass Index 27.4 Objective Data Active Medications Acetaminophen (Acetaminophen 325 Mg Tablet) 650 mg PO Q6H PRN PRN Reason: Pain, Mild 1-3,fever,headache Last Admin: 08/27/25 04:13 Dose: 650 mg Documented By: NENA Amlodipine Besylate (Amlodipine Besylate 5 Mg Tablet) 5 mg PO DAILY [facility] 234 BEDS AT THE [facility]; Protocol Last Admin: 08/27/25 07:33 Dose: 5 mg Documented By: DIANA Calcium Carbonate (Calcium Carbonate 750 Mg Tab.Chew) 750 mg PO Q4H PRN PRN Reason: Heartburn Last Admin: 08/27/25 13:45 Dose: 750 mg Documented By: DIANA Diazepam (Diazepam 10 Mg/2 Ml Cartridge) 10 mg IVPUSH Q6H PRN PRN Reason: Anxiety Last Admin: 08/27/25 05:32 Dose: 10 mg Documented By: NENA Hydromorphone HCl (Hydromorphone Hcl 0.5 Mg/0.5 Ml Syringe) 0.5 mg IVPUSH Q3H PRN; Protocol PRN Reason: Pain, Severe (Pain Scale 7-10) Last Admin: 08/27/25 07:33 Dose: 0.5 mg Documented By: DIANA Daptomycin 650 mg/ Sodium (Chloride) 63 mls @ 99.912 mls/hr IV Q24H [facility]S [facility] 234 BEDS AT THE [facility] Last Infusion: 08/26/25 19:21 Dose: Infused Documented By: NENA Ceftriaxone Sodium 2 gm/ (Sodium Chloride) 50 mls @ 100 mls/hr IV Q24H [facility] 234 BEDS AT THE [facility] Stop: 09/21/25 16:59 Last Infusion: 08/26/25 17:31 Dose: Infused Documented By: BENTLEY Ketorolac Tromethamine (Ketorolac Tromethamine 15 Mg/Ml Vial) 15 mg IVPUSH Q6H [facility]S [facility]CLUDE 234 BEDS AT THE [facility] Last Admin: 08/27/25 09:46 Dose: 15 mg Documented By: DIANA Magnesium Hydroxide (Milk Of Magnesia 30 Ml Oral.Susp) 30 ml PO DAILY PRN PRN Reason: Constipation Last Admin: 08/26/25 09:47 Dose: 30 ml Documented By: BENTLEY Melatonin (Melatonin 3 Mg Tablet) 6 mg PO BEDTIME PRN PRN Reason: Insomnia Methadone HCl (Methadone Hcl 20 Mg/2 Ml Oral.Conc) 55 mg PO DAILY [facility] 234 BEDS AT [facility] Last Admin: 08/27/25 07:33 Dose: 55 mg Documented By: DIANA Co-signed By: TAMMY Naloxone HCl (Naloxone Hcl 0.4 Mg/Ml Vial) 0.04 mg IVPUSH Q5M PRN PRN Reason: Excessive sedation or RR < 8 Ondansetron HCl (Ondansetron Hcl 4 Mg/2 Ml Vial) 4 mg IVPUSH Q8H PRN PRN Reason: Nausea and Vomiting Oxycodone HCl (Oxycodone Hcl Immed Release 5 Mg Tablet) 5 mg PO Q4H PRN PRN Reason: Pain, Moderate(Pain Scale 4-6) Last Admin: 08/26/25 20:08 Dose: 5 mg Documented By: NENA Pantoprazole Sodium (Pantoprazole Sodium 40 Mg/10 Ml Vial) 40 mg IVPUSH DAILY@0630 [facility]S [facility]CLUDE 234 BEDS AT THE [facility] Last Admin: 08/27/25 05:26 Dose: 40 mg Documented By: NENA Sodium Chloride (0.9 % Sodium Chloride Flush 3 Ml Syringe) 3 ml IVFLUSH QSHIFT COUNTS INCLUDE 234 BEDS AT THE [facility] Last Admin: 08/27/25 07:34 Dose: 3 ml Documented By: DIANA Trazodone HCl (Trazodone Hcl 25 Mg Halftab) 25 mg PO BEDTIME MRX1 PRN PRN Reason: Sleep Last Admin: 08/26/25 19:58 Dose: 25 mg Documented By: NENA Labs 08/26/25 09:45 08/27/25 08:14 Labs: Laboratory Results - last 24 hr 08/27/25 08/27/25 08/27/25 05:43 08:14 11:29 Hold Purple Top SEE NOTE Anion Gap 12 Estim Creat Clear Calc 73.0 72.3 Estimated GFR 54 54 Random Glucose 65 Osmolality 282 Uric Acid 5.7 Calcium 7.2 L Total Creatine Kinase 165 H Urine Osmolality 378 Ur Random Sodium < 20.0 Microbiology Microbiology Results: Microbiology 08/25/25 06:16 Blood Culture - Preliminary Blood - Venous No growth after 48 hours. 08/25/25 06:16 Blood Culture - Preliminary Blood - Venous No growth after 48 hours. 08/24/25 14:17 Blood Culture - Final Blood - Venous Methicillin Res Staph Aureus 08/24/25 14:17 Blood Culture - Preliminary Blood - Venous No growth after 48 hours. Assessment and Plan (1) Septic joint of right knee joint: Status: Acute (2) MRSA bacteremia: Status: Acute (3) Anxiety: Status: Acute Plan 44-year-old female with a past medical history significant for hypertension, hep C, liver fibrosis, IVDA on methadone, colitis, who presented to the ED due to complaints of right lower leg pain and swelling. joint aspiration in ED for possible septic arthritis. With fluid and blood cultures positive for MRSA. patient originally on vancomycin, later transition to Dapto + Ceftriaxone per ID recommendations, awaiting to have negative BC to decide EoT. Acute on chronic Anemia/pancytopenia, unspecified so far no blood loss HH 6.8/21.0, s/p 2 units PRBC ordered 08/21/25 CBC post tx normalized MRSA bacteremia due to Right knee septic arthritis 2/2 blood cultures with repeat positive gram stain from right knee fluid analysis growing MRSA s/p wash out 08/20 echocardiogram without valvular abnormality ID consulted continue dapto + ceftriaxone, will repeat blood cultures in 48 hrs after initiating dapto. will monitor CPK while on Dapto unable to bare weight to right knee will order RLE US given edema and pain HTN continue norvasc, will monitor BP and adjust meds accordingly hep C s/p tx/liver fibrosis elevated LFTs at baseline Chronic pancytopenia secondary to liver disease, at baseline, also o/p workup as per PCP H/H trending down, likely in the setting of acute illness, no overt bleeding noted IVDU continue methadone addiction med consult full code VTE ppx: SCDs where tolerated, anticoagulant contraindicated due to thrombocytopenia Quality Stroke Does the patient have a stroke diagnosis?: No VTE Prior VTE?: No VTE Risk Level:: Medical - moderate - high VTE Device Contraindication: N/A - Device Ordered VTE Drug Contraindication: Treatment Not Tolerated
[2025-08-27 16:00] VITALS: BP 115/62; PULSE 92; RESP 19; TEMP 36.4; O2SAT 92
[2025-08-27 19:45] VITALS: BP 132/67; PULSE 97; RESP 18; TEMP 36.9; O2SAT 95
[2025-08-27] MEDS: traZODone HCL 25 MG HALFTAB PO (20:49)
[2025-08-27 23:45] VITALS: BP 124/62; PULSE 99; RESP 16; TEMP 36.5; O2SAT 93
[2025-08-28] VITALS (11 sets, daily range): BP systolic 109–140; BP diastolic 59–79; PULSE 81–108; RESP 14–18; TEMP 36.8–37.3; O2SAT 92–100
[2025-08-28] MEDS: Milk of Magnesia 30 ML ORAL.SUSP PO (06:41)
[2025-08-28] MEDS: 0.9 % Sodium Chloride Flush 3 ML SYRINGE IVFLUSH ×3 (07:51→19:35)
[2025-08-28] MEDS: methADONE HCl 20 MG/2 ML ORAL.CONC 55 MG PO (07:51)
--- NOTE | 2025-08-28 11:08 | MHC.RECOVRN ---
T/W met with pt. in 376-1 to check in and offer support. Pt laying in bed awake and alert, tearful at times due to needing LT IV abx. No acute or unmanaged discomfort noted or reported. T/W offered support and active listening. Pt just met with provider and reported tightening and swelling in her abd. Provider is going to order testing to see if pt has ascites and needs tap. Pt requesting some ADL products. Products supplied. Pt declines any other concerns at this time. ACS available PRN
--- NOTE | 2025-08-28 14:15 | HO.PM.IMPN ---
Subjective Subjective Date of Service: 08/28/25 Interval History: c/o R knee pain, abd distension; no fever Review of Systems Review of Systems: Yes all other systems are reviewed and are negative Physical Exam Vital Signs: Vital Signs: Last Vital Signs Temp 98.9 F 08/28/25 11:37 Pulse 97 08/28/25 11:37 Resp 16 08/28/25 11:37 BP 109/59 L 08/28/25 11:37 Pulse Ox 92 08/28/25 11:37 O2 Del Method Room Air 08/28/25 11:37 O2 Flow Rate 4 08/23/25 13:44 BMI result Body Mass Index 27.4 Gen: in no acute distress HEENT: sclera icteric, moist mucus membranes Neck: supple Lungs: clear to auscultation bilaterally Heart: regular rate and rhythm, no murmurs Abd: somewhht distended, tender Ext: 2+ bilateral leg edema Skin: warm/well-perfused, jaundiced Neuro: alert and oriented x3, no focal findings Psych: appropriate affect Objective Data Active Medications Acetaminophen (Acetaminophen 325 Mg Tablet) 650 mg PO Q6H PRN PRN Reason: Pain, Mild 1-3,fever,headache Last Admin: 08/27/25 04:13 Dose: 650 mg Documented By: NENA Amlodipine Besylate (Amlodipine Besylate 5 Mg Tablet) 5 mg PO DAILY [facility]; Protocol Last Admin: 08/28/25 07:50 Dose: 5 mg Documented By: ESTEBAN Calcium Carbonate (Calcium Carbonate 750 Mg Tab.Chew) 750 mg PO Q4H PRN PRN Reason: Heartburn Last Admin: 08/28/25 02:30 Dose: 750 mg Documented By: ANA Diazepam (Diazepam 10 Mg/2 Ml Cartridge) 10 mg IVPUSH Q6H PRN PRN Reason: Anxiety Last Admin: 08/27/25 05:32 Dose: 10 mg Documented By: NENA Hydromorphone HCl (Hydromorphone Hcl 0.5 Mg/0.5 Ml Syringe) 0.5 mg IVPUSH Q3H PRN; Protocol PRN Reason: Pain, Severe (Pain Scale 7-10) Last Admin: 08/28/25 14:10 Dose: 0.5 mg Documented By: ESTEBAN Daptomycin 650 mg/ Sodium (Chloride) 63 mls @ 99.912 mls/hr IV Q24H [facility] Last Infusion: 08/27/25 18:40 Dose: Infused Documented By: DIANA Ceftriaxone Sodium 2 gm/ (Sodium Chloride) 50 mls @ 100 mls/hr IV Q24H [facility] Stop: 09/21/25 16:59 Last Infusion: 08/27/25 17:03 Dose: Infused Documented By: DIANA Magnesium Hydroxide (Milk Of Magnesia 30 Ml Oral.Susp) 30 ml PO DAILY PRN PRN Reason: Constipation Last Admin: 08/28/25 06:41 Dose: 30 ml Documented By: ANA Melatonin (Melatonin 3 Mg Tablet) 6 mg PO BEDTIME PRN PRN Reason: Insomnia Methadone HCl (Methadone Hcl 20 Mg/2 Ml Oral.Conc) 55 mg PO DAILY [facility] Last Admin: 08/28/25 07:51 Dose: 55 mg Documented By: ESTEBAN Co-signed By: EBONIE Naloxone HCl (Naloxone Hcl 0.4 Mg/Ml Vial) 0.04 mg IVPUSH Q5M PRN PRN Reason: Excessive sedation or RR < 8 Ondansetron HCl (Ondansetron Hcl 4 Mg/2 Ml Vial) 4 mg IVPUSH Q8H PRN PRN Reason: Nausea and Vomiting Oxycodone HCl (Oxycodone Hcl Immed Release 5 Mg Tablet) 5 mg PO Q4H PRN PRN Reason: Pain, Moderate(Pain Scale 4-6) Last Admin: 08/26/25 20:08 Dose: 5 mg Documented By: NENA Pantoprazole Sodium (Pantoprazole Sodium 40 Mg/10 Ml Vial) 40 mg IVPUSH DAILY@0630 [facility] Last Admin: 08/28/25 06:22 Dose: 40 mg Documented By: ANA Sodium Chloride (0.9 % Sodium Chloride Flush 3 Ml Syringe) 3 ml IVFLUSH QSHIFT [facility] Last Admin: 08/28/25 07:51 Dose: 3 ml Documented By: ESTEBAN Trazodone HCl (Trazodone Hcl 25 Mg Halftab) 25 mg PO BEDTIME MRX1 PRN PRN Reason: Sleep Last Admin: 08/27/25 20:49 Dose: 25 mg Documented By: ANA Labs 08/26/25 09:45 08/27/25 08:14 Assessment and Plan (1) Septic joint of right knee joint: Status: Acute (2) MRSA bacteremia: Status: Acute (3) Anxiety: Status: Acute Plan d9, 44yo F with hep C cirrhosis, IVDA on methadone, HTN presenting with RLE pain/swelling; R knee aspirated in ED and ultimately found to have MRSA septic arthritis and bacteremia. MRSA bacteremia/MRSA septic arthritis of R knee - s/p OR washout 08/20; TTE without endocarditis - BCx 08/25 cleared, per ID 6 wk of daptomycin + ceftriaxone, will need PICC, ordered for 08/30 acute/chronic anemia/pancytopenia due to cirrhosis - transfused 2u pRBCs 08/21/25, CBC stable since abd pain - US for ascites check, if present, will order paracentesis ZENIA - Addiction Medicine consulted, continue methadone HTN: amlodipine HCV, chronic: will need outpt treatment VTE ppx: SCDs dispo: STR In my clinical judgment, the patient requires continued inpatient hospitalization for the following reasons: IV ABX Total time managing care of this patient today: 40 minutes. Quality Stroke Does the patient have a stroke diagnosis?: No VTE Prior VTE?: No VTE Risk Level:: Medical - moderate - high VTE Device Contraindication: N/A - Device Ordered VTE Drug Contraindication: Treatment Not Tolerated
[2025-08-28] MEDS: diazePAM 10 MG/2 ML CARTRIDGE IVPUSH (19:35)
[2025-08-29] VITALS (16 sets, daily range): BP systolic 109–156; BP diastolic 66–83; PULSE 85–106; RESP 15–20; TEMP 36.2–36.8; O2SAT 93–96
--- NOTE | 2025-08-29 03:04 | PC.NURSE ---
0305- medicated patient with IVP Dilaudid at this time, time will appear early, however, to note clocks were set back due to daylight savings time and would reflect a time of 0405. Also noted small amount of bleeding noted to outer side of right knee when she rolled to void on bedpan. ABD pad placed with gauze wrap as much as pt could tolerate with lifting leg to wrap. Will continue to watch closely
[2025-08-29 07:37] LABS: Anion Gap 12 (12-20); Blood Urea Nitrogen 34 mg/dL (9-16); Calcium 7.6 mg/dL (8.4-10.2); Carbon Dioxide 17 mmol/L (22-29); Chloride 100 mmol/L (96-108); Creatinine Clr Calc Pharmacy 38.6; Estimated Glomerular Filt Rate 26; Potassium 5.2 mmol/L (3.3-5.1); Sodium 124 mmol/L (135-145)
[2025-08-29 08:14] LABS: Alanine Aminotransferase 40 U/L (0-31); Albumin Level 1.5 g/dL (3.5-5.0); Alkaline Phosphatase 120 U/L (39-117); Aspartate Amino Transferase 135 U/L (5-31); Magnesium 2.6 mg/dL (1.6-2.6); Total Protein 7.5 g/dL (6.5-8.0)
[2025-08-29] MEDS: methADONE HCl 20 MG/2 ML ORAL.CONC 55 MG PO (08:19)
[2025-08-29] MEDS: 0.9 % Sodium Chloride Flush 3 ML SYRINGE IVFLUSH ×3 (08:20→22:54)
[2025-08-29 08:22] LABS: Glucose, Whole Blood 63 mg/dL (60-115)
[2025-08-29 10:26] LABS: Mean Corpuscular HGB Conc 34.2 g/dl (31.0-35.0); Mean Corpuscular Hemoglobin 32.5 pg (27.0-33.0); Mean Corpuscular Volume 95.0 fL (80.0-98.0); NRBC Abs Auto 0.000 X10*3/uL (0.0-0.012); NRBC Pct Auto 0.0 /100WBC (0.0-0.2); PLT CLUMP 1; Red Blood Count 2.00 X10*6/uL (4.20-5.50)
[2025-08-29] MEDS: Albumin Human 25 % 100 ML IV ×3 (10:28→22:55)
[2025-08-29] MEDS: Octreotide Acetate 100 MCG/ML AMPUL 50 MCG SUBCUT ×2 (10:29→16:35)
[2025-08-29 10:36] LABS: Platelet Count 82 X10*3/uL (160-400); White Blood Count 10.9 X10*3/uL (4.8-10.8)
[2025-08-29 11:04] LABS: Hemoglobin 6.5 g/dl (12.0-16.0)
[2025-08-29 11:05] LABS: Hematocrit 19.0 % (37.0-47.0)
--- NOTE | 2025-08-29 11:35 | P.PNIM_ITS ---
Subjective Subjective Date of Service: 08/29/25 Interval History: c/o abd pain + distension SCr worse Hb 6.5 No hematemesis, hematochezia, or melena. Review of Systems Review of Systems: Yes all other systems are reviewed and are negative Physical Exam 2 Vital Signs: Vital Signs: Last Vital Signs Temp 97.8 F 08/29/25 07:16 Pulse 93 08/29/25 07:16 Resp 16 08/29/25 07:16 BP 126/66 08/29/25 08:20 Pulse Ox 95 08/29/25 07:16 O2 Del Method Room Air 08/29/25 07:16 O2 Flow Rate 4 08/23/25 13:44 BMI result Body Mass Index 27.4 Gen: chronically ill-appearing HEENT: sclera icteric, moist mucus membranes Neck: supple Lungs: clear to auscultation bilaterally Heart: regular rate and rhythm, no murmurs Abd: distended with fluid wave, tender Ext: 2+ bilateral leg edema Skin: warm/well-perfused, jaundiced Neuro: alert and oriented x3, no focal findings Psych: appropriate affect Objective Data Active Medications Acetaminophen (Acetaminophen 325 Mg Tablet) 650 mg PO Q6H PRN PRN Reason: Pain, Mild 1-3,fever,headache Last Admin: 08/27/25 04:13 Dose: 650 mg Documented By: NENA Amlodipine Besylate (Amlodipine Besylate 5 Mg Tablet) 5 mg PO DAILY [facility]; Protocol Last Admin: 08/29/25 08:20 Dose: 5 mg Documented By: DICK Calcium Carbonate (Calcium Carbonate 750 Mg Tab.Chew) 750 mg PO Q4H PRN PRN Reason: Heartburn Last Admin: 08/29/25 06:39 Dose: 750 mg Documented By: ANA Diazepam (Diazepam 10 Mg/2 Ml Cartridge) 10 mg IVPUSH Q6H PRN PRN Reason: Anxiety Last Admin: 08/28/25 19:35 Dose: 10 mg Documented By: ANA Hydromorphone HCl (Hydromorphone Hcl 0.5 Mg/0.5 Ml Syringe) 0.5 mg IVPUSH Q3H PRN; Protocol PRN Reason: Pain, Severe (Pain Scale 7-10) Last Admin: 08/29/25 10:36 Dose: 0.5 mg Documented By: DICK Daptomycin 650 mg/ Sodium (Chloride) 63 mls @ 99.912 mls/hr IV Q24H [facility] Last Infusion: 08/28/25 18:58 Dose: Infused Documented By: ANA Ceftriaxone Sodium 2 gm/ (Sodium Chloride) 50 mls @ 100 mls/hr IV Q24H [facility] Stop: 09/21/25 16:59 Last Infusion: 08/28/25 18:53 Dose: Infused Documented By: ANA Albumin Human (Kedbumin 25 %) 100 mls @ 100 mls/hr IV Q6H [facility] Stop: 08/30/25 04:44 Last Admin: 08/29/25 10:28 Dose: 100 mls/hr Documented By: DICK Magnesium Hydroxide (Milk Of Magnesia 30 Ml Oral.Susp) 30 ml PO DAILY PRN PRN Reason: Constipation Last Admin: 08/28/25 06:41 Dose: 30 ml Documented By: ANA Melatonin (Melatonin 3 Mg Tablet) 6 mg PO BEDTIME PRN PRN Reason: Insomnia Methadone HCl (Methadone Hcl 20 Mg/2 Ml Oral.Conc) 55 mg PO DAILY [facility] Last Admin: 08/29/25 08:19 Dose: 55 mg Documented By: DICK Co-signed By: EBONIE Naloxone HCl (Naloxone Hcl 0.4 Mg/Ml Vial) 0.04 mg IVPUSH Q5M PRN PRN Reason: Excessive sedation or RR < 8 Octreotide Acetate (Octreotide Acetate 100 Mcg/Ml Ampul) 50 mcg SUBCUT Q8H [facility] Last Admin: 08/29/25 10:29 Dose: 50 mcg Documented By: DICK Ondansetron HCl (Ondansetron Hcl 4 Mg/2 Ml Vial) 4 mg IVPUSH Q8H PRN PRN Reason: Nausea and Vomiting Oxycodone HCl (Oxycodone Hcl Immed Release 5 Mg Tablet) 5 mg PO Q4H PRN PRN Reason: Pain, Moderate(Pain Scale 4-6) Last Admin: 08/26/25 20:08 Dose: 5 mg Documented By: NENA Pantoprazole Sodium (Pantoprazole Sodium 40 Mg/10 Ml Vial) 40 mg IVPUSH BID@0630,1630 [facility] Sodium Chloride (0.9 % Sodium Chloride Flush 3 Ml Syringe) 3 ml IVFLUSH QSHIFT [facility] Last Admin: 08/29/25 08:20 Dose: 3 ml Documented By: DICK Trazodone HCl (Trazodone Hcl 25 Mg Halftab) 25 mg PO BEDTIME MRX1 PRN PRN Reason: Sleep Last Admin: 08/27/25 20:49 Dose: 25 mg Documented By: ANA Labs 08/29/25 08:47 08/29/25 06:30 Labs: Laboratory Results - last 24 hr 08/29/25 08/29/25 08/29/25 06:30 08:18 08:47 MCV 95.0 D MCH 32.5 MCHC 34.2 RDW 18.4 H Plt Count 82 L MPV 11.5 Absolute Nucleated RBC 0.000 Nucleated RBC % (auto) 0.0 Anion Gap 12 Estim Creat Clear Calc 38.6 Estimated GFR 26 POC Glucose 63 Random Glucose 53 L* Calcium 7.6 L Magnesium 2.6 Total Bilirubin 7.2 H Direct Bilirubin 5.2 H AST 135 H ALT 40 H Alkaline Phosphatase 120 H Total Protein 7.5 Albumin 1.5 L Microbiology Microbiology Results: Microbiology 08/24/25 14:17 Blood Culture - Preliminary Blood - Venous No growth after 5 days. Assessment and Plan (1) Septic joint of right knee joint: Status: Acute (2) MRSA bacteremia: Status: Acute (3) Anxiety: Status: Acute Plan d10, 44yo F with hep C cirrhosis, IVDA on methadone, HTN presenting with RLE pain/swelling; R knee aspirated in ED and ultimately found to have MRSA septic arthritis and bacteremia; now with RICHARD and severe anemia RICHARD hypoNa - suspicious for HRS. Will give octreotide and albumin. Transfuse as below. Nephrology consult. Recheck BMP tomorrow acute/chronic anemia/pancytopenia due to cirrhosis - check FOBT, transfuse another 2u pRBCs [got 2u on 08/21/25], recheck H+H tomorrow, continue IV PPI, if FOBT+ consult GI hyperK, mild - recheck tomorrow after 1 dose of SZC abd pain, ascites - CT A/P without contrast, paracentesis tomorrow MRSA bacteremia/MRSA septic arthritis of R knee - s/p OR washout 08/20; TTE without endocarditis - BCx 08/25 cleared, per ID 6 wk of daptomycin + ceftriaxone, will need PICC, ordered for 08/30 opioid abuse - Addiction Medicine consulted, continue methadone HTN: amlodipine HCV, chronic: will need outpt treatment VTE ppx: SCDs dispo: STR In my clinical judgment, the patient requires continued inpatient hospitalization for the following reasons: IV ABX, renal failure Total time managing care of this patient today: 55 minutes. Quality Stroke Does the patient have a stroke diagnosis?: No VTE Prior VTE?: No VTE Risk Level:: Medical - moderate - high VTE Device Contraindication: N/A - Device Ordered VTE Drug Contraindication: Treatment Not Tolerated
[2025-08-29] MEDS: diazePAM 10 MG/2 ML CARTRIDGE IVPUSH (11:44)
--- NOTE | 2025-08-29 14:18 | PC.NURSE ---
Pt drowsy but arousable this shift. States throughout shift discomfort and pain to her legs, back, and abdomen. Medicated per orders (see MAR). Medicated once for anxiety with prn valium with good effect. Bilateral lower extremity edema, abdomen distended- Stat CT abdomen complete. Awaiting type and screen for blood transfusion today. -Dr Garcia aware
--- NOTE | 2025-08-29 15:58 | MHC.CM.PN ---
THIS CM MET WITH PATIENT PER HER REQUEST, PATIENT ASKED FOR ASSISTANCE WITH COMPLETING A HCP. NEW HCP COMPLETED WITH PATIENT, NOW ON FILE.
[2025-08-30] VITALS (8 sets, daily range): BP systolic 110–148; BP diastolic 66–79; PULSE 79–89; RESP 16–20; TEMP 36.4–36.9; O2SAT 90–94
[2025-08-30] MEDS: Octreotide Acetate 100 MCG/ML AMPUL 50 MCG SUBCUT ×3 (02:49→17:12)
[2025-08-30] MEDS: Albumin Human 25 % 100 ML IV ×3 (02:49→23:00)
[2025-08-30] MEDS: oxyCODONE HCl Immed Release 5 MG TABLET PO (02:56)
[2025-08-30] MEDS: methADONE HCl 20 MG/2 ML ORAL.CONC 55 MG PO (08:56)
[2025-08-30] MEDS: 0.9 % Sodium Chloride Flush 3 ML SYRINGE IVFLUSH (08:56)
[2025-08-30] MEDS: Albumin Human 25 % 100 ML 200 ML IV ×2 (08:56→09:36)
--- NOTE | 2025-08-30 11:32 | PM.EVENT ---
Event Note Date of Service: 08/30/25 Event Note: PICC medically necessary at this time as pt is difficult stick and has multiple IV meds [colloid, blood products, antibiotic] and needs blood draws. GFR is low due to RICHARD, likely HRS but at this time benefits of PICC outweigh risk of needing future HD. Time Spent With Patient Time: Total time managing care of this patient today ____ minutes.
--- NOTE | 2025-08-30 13:16 | P.PICC_ITS ---
PICC Line Insertion NPICC Diagnosis: Bacteremia Indication: skilled nursing ABT Pertinent Labs: Labs Technique: Following informed consent including risks, benefits and alternatives and using sterile technique including cap and mask, sterile gown, glove and drape, the right arm was prepped and draped in the usual sterile fashion of full barrier technique with CHG. Following completion of [place] Protocol the skin and soft tissues were anesthetized with 1% Lidocaine plain. Using ultrasound guidance, right brachial vein access was obtained. Over an 0.018 wire through peel-away sheath, a 5FR triple lumen PASV PICC line was positioned. Catheter length is 38cm internal length, 0cm external length, for a total trimmed length of 38cm. The procedure was performed in [facility]. Tip verification was performed by Chris Gallardo with Sherlock 3CG. Tip located in SVC. Ultrasound was used to document vein patency and for needle entry. A formal ultrasound picture and cardiac rhythm strip was recorded. [employer] [employer] has released the line for use and it is currently dressed with a StatLock, Tegaderm, and CHG disc. Verification has been performed for blood return and line patency. Arm Circumference: 32cm Equipment: Compiere POWERPICC SOLO HF Catheter with Sherlock 3CG Catheter Type: 5FR triple lumen PASV catheter Lot #: [id number]
[2025-08-30] MEDS: Lidocaine HCl 1 % MPF 5 ML VIAL SUBCUT (13:36)
[2025-08-30 13:59] LABS: MN% 41.7 %; PMN% 58.3 %; WBC Peritoneal Fluid 0.221 X10*3/uL
[2025-08-30] MEDS: Albumin Human 25 % 50 ML 100 ML IV ×4 (14:02→15:44)
[2025-08-30] MEDS: diazePAM 10 MG/2 ML CARTRIDGE IVPUSH (14:02)
[2025-08-30 14:25] LABS: BF Shift QC OK YES; Lymphocyte Peritoneal Fl 5 %; Monocytes Peritoneal Fl 21 %; Neutrophils Peritoneal Fluid 61 %; Other Peritioneal Fl 13 %
--- NOTE | 2025-08-30 14:37 | MHC.CM.PN ---
Per rounds, pt. to have parencitesis today, she will have a PICC line inserted, this is not done yet. DCP: STR at [facility]. they are following.
--- NOTE | 2025-08-30 16:26 | P.PNIM_ITS ---
Subjective Subjective Date of Service: 08/30/25 Interval History: c/o abd distension; had paracentesis, 700 mL removed today developed mild hypoxia to 89-90%, started on 1L O2 No hematemesis, hematochezia, or melena. no fever Review of Systems Review of Systems: Yes all other systems are reviewed and are negative Physical Exam 2 Vital Signs: Vital Signs: Last Vital Signs Temp 97.8 F 08/30/25 08:00 Pulse 87 08/30/25 08:00 Resp 18 08/30/25 08:00 BP 110/66 08/30/25 08:00 Pulse Ox 93 08/30/25 08:00 O2 Del Method Room Air 08/30/25 08:00 O2 Flow Rate 4 08/23/25 13:44 BMI result Body Mass Index 27.4 Gen: ill-appearing HEENT: sclera icteric, moist mucus membranes Neck: supple Lungs: clear to auscultation bilaterally Heart: regular rate and rhythm, no murmurs Abd: distended with fluid wave, tender Ext: 2+ bilateral leg edema Skin: warm/well-perfused, jaundiced Neuro: alert and oriented x3, asterixis noted Psych: appropriate affect Objective Data Active Medications Acetaminophen (Acetaminophen 325 Mg Tablet) 650 mg PO Q6H PRN PRN Reason: Pain, Mild 1-3,fever,headache Last Admin: 08/27/25 04:13 Dose: 650 mg Documented By: NENA Amlodipine Besylate (Amlodipine Besylate 5 Mg Tablet) 5 mg PO DAILY [facility]; Protocol Last Admin: 08/30/25 08:56 Dose: 5 mg Documented By: CHRIS Calcium Carbonate (Calcium Carbonate 750 Mg Tab.Chew) 750 mg PO Q4H PRN PRN Reason: Heartburn Last Admin: 08/30/25 09:54 Dose: 750 mg Documented By: CHRIS Diazepam (Diazepam 10 Mg/2 Ml Cartridge) 10 mg IVPUSH Q6H PRN PRN Reason: Anxiety Last Admin: 08/30/25 14:02 Dose: 10 mg Documented By: CHRIS Hydromorphone HCl (Hydromorphone Hcl 0.5 Mg/0.5 Ml Syringe) 0.5 mg IVPUSH Q3H PRN; Protocol PRN Reason: Pain, Severe (Pain Scale 7-10) Last Admin: 08/30/25 15:16 Dose: 0.5 mg Documented By: CHRIS Daptomycin 650 mg/ Sodium (Chloride) 63 mls @ 99.912 mls/hr IV Q24H [facility] Last Infusion: 08/29/25 18:04 Dose: Infused Documented By: FLEX Ceftriaxone Sodium 2 gm/ (Sodium Chloride) 50 mls @ 100 mls/hr IV Q24H [facility] Stop: 09/21/25 16:59 Last Infusion: 08/29/25 17:33 Dose: Infused Documented By: FLEX Lactulose (Lactulose 20 Gm/30 Ml Solution) 30 gm PO DAILY [facility] Last Admin: 08/30/25 10:53 Dose: 30 gm Documented By: CHRIS Magnesium Hydroxide (Milk Of Magnesia 30 Ml Oral.Susp) 30 ml PO DAILY PRN PRN Reason: Constipation Last Admin: 08/28/25 06:41 Dose: 30 ml Documented By: ANA Melatonin (Melatonin 3 Mg Tablet) 6 mg PO BEDTIME PRN PRN Reason: Insomnia Methadone HCl (Methadone Hcl 20 Mg/2 Ml Oral.Conc) 55 mg PO DAILY [facility] Last Admin: 08/30/25 08:56 Dose: 55 mg Documented By: CHRIS Co-signed By: MEJIA Naloxone HCl (Naloxone Hcl 0.4 Mg/Ml Vial) 0.04 mg IVPUSH Q5M PRN PRN Reason: Excessive sedation or RR < 8 Octreotide Acetate (Octreotide Acetate 100 Mcg/Ml Ampul) 50 mcg SUBCUT Q8H [facility] Last Admin: 08/30/25 08:55 Dose: 50 mcg Documented By: CHRIS Ondansetron HCl (Ondansetron Hcl 4 Mg/2 Ml Vial) 4 mg IVPUSH Q8H PRN PRN Reason: Nausea and Vomiting Oxycodone HCl (Oxycodone Hcl Immed Release 5 Mg Tablet) 5 mg PO Q4H PRN PRN Reason: Pain, Moderate(Pain Scale 4-6) Last Admin: 08/30/25 02:56 Dose: 5 mg Documented By: BERNADINE Pantoprazole Sodium (Pantoprazole Sodium 40 Mg/10 Ml Vial) 40 mg IVPUSH BID@0630,1630 [facility] Last Admin: 08/30/25 05:42 Dose: 40 mg Documented By: BERNADINE Sodium Chloride (0.9 % Sodium Chloride Flush 3 Ml Syringe) [facility] Last Admin: 08/30/25 16:03 Dose: Not Given Documented By: CHRIS Non-Admin Reason: Previously Administered Sodium Chloride (0.9 % Sodium Chloride Flush 10 Ml Syringe) [facility] Last Admin: 08/30/25 16:03 Dose: Not Given Documented By: CHRIS Non-Admin Reason: Previously Administered Trazodone HCl (Trazodone Hcl 25 Mg Halftab) 25 mg PO BEDTIME MRX1 PRN PRN Reason: Sleep Last Admin: 08/27/25 20:49 Dose: 25 mg Documented By: SEXK Labs 08/29/25 08:47 08/29/25 06:30 Labs: Laboratory Results - last 24 hr 08/29/25 08/30/25 14:37 13:15 Peritoneal WBC 0.221 Peritoneal RBC 0.003 Periton Neutrophils 61 Periton Lymphocytes 5 Peritoneal Monocytes 21 Peritoneal Other Cells 13 Blood Type A Negative Antibody Screen NEGATIVE Crossmatch See Detail Microbiology Microbiology Results: Microbiology 08/30/25 13:15 Gram Stain - Final Paracentesis Fluid 08/24/25 14:17 Blood Culture - Final Blood - Venous No growth after 5 days. 08/25/25 06:16 Blood Culture - Final Blood - Venous No growth after 5 days. 08/25/25 06:16 Blood Culture - Final Blood - Venous No growth after 5 days. Assessment and Plan (1) Septic joint of right knee joint: Status: Acute (2) MRSA bacteremia: Status: Acute (3) Anxiety: Status: Acute Plan d11, 44yo F with hep C cirrhosis, IVDA on methadone, HTN presenting with RLE pain/swelling; R knee aspirated in ED and ultimately found to have MRSA septic arthritis and bacteremia; now with RICHARD and severe anemia, ascites RICHARD hypoNa - Suspicious for HRS. Will continue give octreotide and albumin. Transfuse as below. Nephrology consult pending. Recheck BMP daily. If BP drops, would also start midodrine. ascites - paracentesis done today; follow fluid studies acute/chronic anemia/pancytopenia due to cirrhosis - check FOBT, transfused another 2u pRBCs 08/31/25[got 2u on 08/21/25], recheck H+H pending, continue IV PPI - consult GI re: worsening liver dysfunction hepatic encephalopathy - will start lactulose; titrate to 3 soft BMs/d MRSA bacteremia/MRSA septic arthritis of R knee/MRSA pneumonia - s/p OR washout 08/20; TTE without endocarditis - BCx 08/25 cleared, per ID 6 wk of daptomycin + ceftriaxone, PICC placed 08/30, end date of antibiotics 09/06/25 hyperK, mild - recheck pending after 1 dose of SZC opioid abuse - Addiction Medicine consulted, continue methadone HTN: amlodipine HCV, chronic: will need outpt treatment VTE ppx: SCDs dispo: STR In my clinical judgment, the patient requires continued inpatient hospitalization for the following reasons: IV ABX, renal failure Total time managing care of this patient today: 55 minutes. Quality Stroke Does the patient have a stroke diagnosis?: No VTE Prior VTE?: No VTE Risk Level:: Medical - moderate - high VTE Device Contraindication: N/A - Device Ordered VTE Drug Contraindication: Treatment Not Tolerated
[2025-08-30 16:41] LABS: Ammonia 81 umol/L (13-55)
[2025-08-30 16:46] LABS: INTERNATIONAL NORM RATIO 2.5 (0.9-1.1); Prothrombin Time 28.8 SEC (10.9-12.4)
[2025-08-30 16:54] LABS: Alanine Aminotransferase 27 U/L (0-31); Albumin Level 3.2 g/dL (3.5-5.0); Alkaline Phosphatase 89 U/L (39-117); Anion Gap 13 (12-20); Aspartate Amino Transferase 93 U/L (5-31); Blood Urea Nitrogen 51 mg/dL (9-16); Calcium 7.8 mg/dL (8.4-10.2); Carbon Dioxide 20 mmol/L (22-29); Chloride 98 mmol/L (96-108); Creatinine Clr Calc Pharmacy 27.7; Estimated Glomerular Filt Rate 18; Magnesium 2.9 mg/dL (1.6-2.6); Potassium 5.1 mmol/L (3.3-5.1); Sodium 126 mmol/L (135-145); Total Protein 7.4 g/dL (6.5-8.0)
[2025-08-31] VITALS (14 sets, daily range): BP systolic 111–166; BP diastolic 62–85; PULSE 81–95; RESP 16–20; TEMP 36.2–36.8; O2SAT 92–96
[2025-08-31] MEDS: Octreotide Acetate 100 MCG/ML AMPUL 50 MCG SUBCUT ×3 (01:34→18:33)
[2025-08-31] MEDS: Albumin Human 25 % 100 ML IV ×2 (03:31→16:45)
[2025-08-31] MEDS: oxyCODONE HCl Immed Release 5 MG TABLET PO ×2 (05:06→10:27)
[2025-08-31 07:48] LABS: Mean Corpuscular HGB Conc 34.0 g/dl (31.0-35.0); Mean Corpuscular Hemoglobin 32.4 pg (27.0-33.0); Mean Corpuscular Volume 95.2 fL (80.0-98.0); NRBC Abs Auto 0.000 X10*3/uL (0.0-0.012); NRBC Pct Auto 0.0 /100WBC (0.0-0.2); Red Blood Count 2.07 X10*6/uL (4.20-5.50); White Blood Count 4.8 X10*3/uL (4.8-10.8)
[2025-08-31 07:59] LABS: Platelet Count 51 X10*3/uL (160-400)
[2025-08-31 08:12] LABS: INTERNATIONAL NORM RATIO 2.2 (0.9-1.1); Prothrombin Time 25.7 SEC (10.9-12.4)
[2025-08-31 08:15] LABS: Alanine Aminotransferase 25 U/L (0-31); Albumin Level 3.1 g/dL (3.5-5.0); Alkaline Phosphatase 83 U/L (39-117); Anion Gap 13 (12-20); Aspartate Amino Transferase 93 U/L (5-31); Blood Urea Nitrogen 57 mg/dL (9-16); Calcium 8.0 mg/dL (8.4-10.2); Carbon Dioxide 20 mmol/L (22-29); Chloride 102 mmol/L (96-108); Creatinine Clr Calc Pharmacy 23.2; Estimated Glomerular Filt Rate 14; Potassium 4.9 mmol/L (3.3-5.1); Sodium 130 mmol/L (135-145); Total Protein 7.4 g/dL (6.5-8.0)
[2025-08-31 08:20] LABS: Hemoglobin 6.7 g/dl (12.0-16.0)
[2025-08-31 08:21] LABS: Hematocrit 19.7 % (37.0-47.0)
[2025-08-31] MEDS: methADONE HCl 20 MG/2 ML ORAL.CONC 55 MG PO (08:25)
--- NOTE | 2025-08-31 11:20 | P.PNIM_ITS ---
Subjective Subjective Date of Service: 08/31/25 Interval History: c/o abd distension; had paracentesis, 700 removed yesterday Anxious and edematous No hematemesis, hematochezia, or melena. no fever H/H is still low 6.7 and no obvious source of bleedi Review of Systems Review of Systems: Yes all other systems are reviewed and are negative Physical Exam 2 Vital Signs: Vital Signs: Last Vital Signs Temp 97.4 F 08/31/25 09:56 Pulse 81 08/31/25 09:56 Resp 18 08/31/25 09:56 BP 111/62 08/31/25 09:56 Pulse Ox 93 08/31/25 07:59 O2 Del Method Nasal Cannula 08/31/25 07:59 O2 Flow Rate 3 08/31/25 07:59 BMI result Body Mass Index 27.4 Objective Data Active Medications Acetaminophen (Acetaminophen 325 Mg Tablet) 650 mg PO Q6H PRN PRN Reason: Pain, Mild 1-3,fever,headache Last Admin: 08/27/25 04:13 Dose: 650 mg Documented By: NENA Amlodipine Besylate (Amlodipine Besylate 5 Mg Tablet) 5 mg PO DAILY [facility] [place]; Protocol Last Admin: 08/31/25 08:25 Dose: 5 mg Documented By: CHRIS Calcium Carbonate (Calcium Carbonate 750 Mg Tab.Chew) 750 mg PO Q4H PRN PRN Reason: Heartburn Last Admin: 08/30/25 09:54 Dose: 750 mg Documented By: CHRIS Diazepam (Diazepam 10 Mg/2 Ml Cartridge) 5 mg IVPUSH Q6H PRN PRN Reason: Anxiety Hydromorphone HCl (Hydromorphone Hcl 0.5 Mg/0.5 Ml Syringe) 0.5 mg IVPUSH Q3H PRN; Protocol PRN Reason: Pain, Severe (Pain Scale 7-10) Last Admin: 08/30/25 15:16 Dose: 0.5 mg Documented By: CHRIS Daptomycin 650 mg/ Sodium (Chloride) 63 mls @ 99.912 mls/hr IV Q24H [facility] [place] Last Infusion: 08/30/25 17:49 Dose: Infused Documented By: CHRIS Ceftriaxone Sodium 2 gm/ (Sodium Chloride) 50 mls @ 100 mls/hr IV Q24H [facility] Stop: 09/21/25 16:59 Last Infusion: 08/30/25 17:03 Dose: Infused Documented By: CHRIS Albumin Human (Kedbumin 25 %) 100 mls @ 100 mls/hr IV Q6H [facility] Stop: 08/31/25 11:29 Last Infusion: 08/31/25 04:41 Dose: Infused Documented By: BERNADINE Lactulose (Lactulose 20 Gm/30 Ml Solution) 30 gm PO BID [facility] [place] Last Admin: 08/31/25 08:25 Dose: 30 gm Documented By: CHRIS Magnesium Hydroxide (Milk Of Magnesia 30 Ml Oral.Susp) 30 ml PO DAILY PRN PRN Reason: Constipation Last Admin: 08/28/25 06:41 Dose: 30 ml Documented By: ANA Melatonin (Melatonin 3 Mg Tablet) 6 mg PO BEDTIME PRN PRN Reason: Insomnia Methadone HCl (Methadone Hcl 20 Mg/2 Ml Oral.Conc) 55 mg PO DAILY [facility] [place] Last Admin: 08/31/25 08:25 Dose: 55 mg Documented By: CHRIS Co-signed By: FLEX Naloxone HCl (Naloxone Hcl 0.4 Mg/Ml Vial) 0.04 mg IVPUSH Q5M PRN PRN Reason: Excessive sedation or RR < 8 Octreotide Acetate (Octreotide Acetate 100 Mcg/Ml Ampul) 50 mcg SUBCUT Q8H [facility] [place] Last Admin: 08/31/25 10:27 Dose: 50 mcg Documented By: CHRIS Ondansetron HCl (Ondansetron Hcl 4 Mg/2 Ml Vial) 4 mg IVPUSH Q8H PRN PRN Reason: Nausea and Vomiting Oxycodone HCl (Oxycodone Hcl Immed Release 5 Mg Tablet) 5 mg PO Q4H PRN PRN Reason: Pain, Moderate(Pain Scale 4-6) Last Admin: 08/31/25 10:27 Dose: 5 mg Documented By: CHRIS Pantoprazole Sodium (Pantoprazole Sodium 40 Mg/10 Ml Vial) 40 mg IVPUSH BID@0630,1630 [facility] [place] Last Admin: 08/31/25 06:17 Dose: 40 mg Documented By: BERNADINE Sodium Chloride (0.9 % Sodium Chloride Flush 3 Ml Syringe) 3 ml IVFLUSH QSHIFT [facility] [place] Last Admin: 08/31/25 08:29 Dose: Not Given Documented By: CHRIS Non-Admin Reason: Previously Administered Sodium Chloride (0.9 % Sodium Chloride Flush 10 Ml Syringe) 5 ml IVFLUSH QSHIFT [facility] [place] Last Admin: 08/31/25 08:29 Dose: Not Given Documented By: CHRIS Non-Admin Reason: Previously Administered Trazodone HCl (Trazodone Hcl 25 Mg Halftab) 25 mg PO BEDTIME MRX1 PRN PRN Reason: Sleep Last Admin: 08/27/25 20:49 Dose: 25 mg Documented By: SEXK Labs 08/31/25 07:30 08/31/25 07:30 Labs: Laboratory Results - last 24 hr 08/29/25 08/30/25 08/30/25 14:37 13:15 16:28 MCV MCH MCHC RDW Plt Count MPV Absolute Nucleated RBC Nucleated RBC % (auto) PT 28.8 H INR 2.5 H Anion Gap Estim Creat Clear Calc Estimated GFR Random Glucose Calcium Phosphorus Magnesium Total Bilirubin AST ALT Alkaline Phosphatase Ammonia Lactate Dehydrogenase C-Reactive Protein Total Protein Albumin Peritoneal WBC 0.221 Peritoneal RBC 0.003 Periton Neutrophils 61 Periton Lymphocytes 5 Peritoneal Monocytes 21 Peritoneal Other Cells 13 Peritoneal Tot Protein Peritoneal Albumin SEE NOTE Blood Type A Negative Antibody Screen NEGATIVE Crossmatch See Detail 08/30/25 08/31/25 16:29 07:30 MCV 95.2 MCH 32.4 MCHC 34.0 RDW 19.3 H Plt Count 51 L D MPV 9.7 Absolute Nucleated RBC 0.000 Nucleated RBC % (auto) 0.0 PT 25.7 H INR 2.2 H Anion Gap 13 13 Estim Creat Clear Calc 27.7 23.2 Estimated GFR 18 14 Random Glucose 92 84 Calcium 7.8 L 8.0 L Phosphorus 6.2 H Magnesium 2.9 H Total Bilirubin 10.1 H 9.4 H AST 93 H 93 H ALT 27 25 Alkaline Phosphatase 89 83 Ammonia 81 H Lactate Dehydrogenase 237 H C-Reactive Protein 5.61 H Total Protein 7.4 7.4 Albumin 3.2 L 3.1 L Peritoneal WBC Peritoneal RBC Periton Neutrophils Periton Lymphocytes Peritoneal Monocytes Peritoneal Other Cells Peritoneal Tot Protein Peritoneal Albumin Blood Type Antibody Screen Crossmatch Microbiology Microbiology Results: Microbiology 08/30/25 13:15 Gram Stain - Final Paracentesis Fluid Anaerobic Culture - Preliminary No growth to date. Body Fluid Culture - Preliminary No growth to date. 08/24/25 14:17 Blood Culture - Final Blood - Venous No growth after 5 days. 08/25/25 06:16 Blood Culture - Final Blood - Venous No growth after 5 days. 08/25/25 06:16 Blood Culture - Final Blood - Venous No growth after 5 days. Assessment and Plan (1) Septic joint of right knee joint: Status: Acute (2) MRSA bacteremia: Status: Acute (3) Anxiety: Status: Acute Plan 44yo F with hep C cirrhosis, IVDA on methadone, HTN presenting with RLE pain/swelling; R knee aspirated in ED and ultimately found to have MRSA septic arthritis and bacteremia; now with RICHARD and severe anemia, ascites RICHARD hypoNa - Suspicious for HRS. Continue give octreotide and albumin. Transfuse as below. Nephrology consult pending. Recheck BMP daily. If BP drops, would also start midodrine. -will end up needing dialysis ascites - paracentesis done 01/28, 700 cc removed; no sings of SBP acute/chronic anemia/pancytopenia due to cirrhosis - check FOBT, transfused another 2u pRBCs 08/31/25[got 2u on 08/21/25], recheck H+H pending, continue IV PPI - consult GI re: worsening liver dysfunction hepatic encephalopathy - continue lactulose; titrate to 3 soft BMs/d MRSA bacteremia/MRSA septic arthritis of R knee/MRSA pneumonia - s/p OR washout 08/20; TTE without endocarditis - BCx 08/25 cleared, per ID 6 wk of daptomycin + ceftriaxone, PICC placed 08/30, end date of antibiotics 09/06/25 hyperK, mild - resolved opioid abuse - Addiction Medicine consulted, continue methadone HTN: amlodipine HCV, chronic: will need outpt treatment VTE ppx: SCDs dispo: STR In my clinical judgment, the patient requires continued inpatient hospitalization for the following reasons: IV ABX, renal failure Total time managing care of this patient today: 55 minutes. Quality Stroke Does the patient have a stroke diagnosis?: No VTE Prior VTE?: No VTE Risk Level:: Medical - moderate - high VTE Device Contraindication: N/A - Device Ordered VTE Drug Contraindication: Treatment Not Tolerated
[2025-08-31] MEDS: diazePAM 10 MG/2 ML CARTRIDGE 5 MG IVPUSH ×2 (11:27→21:09)
[2025-08-31] MEDS: Furosemide 20 MG/2 ML VIAL IVPUSH (13:22)
--- NOTE | 2025-08-31 14:01 | PM.CNNEP ---
History of Present Illness Reason for Consult Consult date: 08/31/25 Reason for consult: RICHARD Chief Complaint Chief complaint: Septic Arthritis History of Present Illness Narrative: 44-year-old female with a past medical history significant for hypertension, hep C, liver fibrosis, IVDA on methadone, colitis, who presented to the ED due to complaints of right lower leg pain and swelling. The patient reports that she tripped over a cat and twisted her right knee. She had an MRI at [facility] recently which showed right knee joint synovitis with advanced patellofemoral compartment chondromalacia. She went back to her orthopedist for follow-up after her MRI and was suggested to report to the emergency department. She has been having increased pain, faint erythema and warmth of the joint. Currently in acute renal failure Creatinine continues to increase. Review of Systems Review of Systems Yes Unobtainable due to mental condition PMFSH Past Medical History Medical History Anxiety IVDU (intravenous drug user) Substance use disorder Liver fibrosis HTN (hypertension) Family History Family history: reviewed and not pertinent Social History Social History Household Members: Other Household Members Other:: 21 yr old niece Housing: Apartment Do you presently have visiting nurse or other home services: No Alcohol intake: never Comment: COUNTS CORRECT Patient Tobacco Use Status: Never used Tobacco Substance Use Type: Heroin service: No Meds Allergies Allergy/AdvReac Type Severity Reaction Status Date / Time Penicillins Allergy Unknown Verified 08/19/25 17:28 Sulfa (Sulfonamide Allergy Unknown Verified 08/19/25 17:28 Antibiotics) Active Medications: Current Medications Acetaminophen (Acetaminophen 325 Mg Tablet) 650 mg PO Q6H PRN PRN Reason: Pain, Mild 1-3,fever,headache Last Admin: 08/27/25 04:13 Dose: 650 mg Amlodipine Besylate (Amlodipine Besylate 5 Mg Tablet) 5 mg PO DAILY [facility]; Protocol Last Admin: 08/31/25 08:25 Dose: 5 mg Calcium Carbonate (Calcium Carbonate 750 Mg Tab.Chew) 750 mg PO Q4H PRN PRN Reason: Heartburn Last Admin: 08/30/25 09:54 Dose: 750 mg Diazepam (Diazepam 10 Mg/2 Ml Cartridge) 5 mg IVPUSH Q6H PRN PRN Reason: Anxiety Last Admin: 08/31/25 11:27 Dose: 5 mg Hydromorphone HCl (Hydromorphone Hcl 0.5 Mg/0.5 Ml Syringe) 0.5 mg IVPUSH Q3H PRN; Protocol PRN Reason: Pain, Severe (Pain Scale 7-10) Last Admin: 08/30/25 15:16 Dose: 0.5 mg Daptomycin 650 mg/ Sodium (Chloride) 63 mls @ 99.912 mls/hr IV Q24H [facility] Last Infusion: 08/30/25 17:49 Dose: Infused Ceftriaxone Sodium 2 gm/ (Sodium Chloride) 50 mls @ 100 mls/hr IV Q24H [facility] Stop: 09/21/25 16:59 Last Infusion: 08/30/25 17:03 Dose: Infused Lactulose (Lactulose 20 Gm/30 Ml Solution) 30 gm PO BID [facility] Last Admin: 08/31/25 08:25 Dose: 30 gm Magnesium Hydroxide (Milk Of Magnesia 30 Ml Oral.Susp) 30 ml PO DAILY PRN PRN Reason: Constipation Last Admin: 08/28/25 06:41 Dose: 30 ml Melatonin (Melatonin 3 Mg Tablet) 6 mg PO BEDTIME PRN PRN Reason: Insomnia Methadone HCl (Methadone Hcl 20 Mg/2 Ml Oral.Conc) 55 mg PO DAILY [facility] Last Admin: 08/31/25 08:25 Dose: 55 mg Naloxone HCl (Naloxone Hcl 0.4 Mg/Ml Vial) 0.04 mg IVPUSH Q5M PRN PRN Reason: Excessive sedation or RR < 8 Octreotide Acetate (Octreotide Acetate 100 Mcg/Ml Ampul) 50 mcg SUBCUT Q8H [facility] Last Admin: 08/31/25 10:27 Dose: 50 mcg Ondansetron HCl (Ondansetron Hcl 4 Mg/2 Ml Vial) 4 mg IVPUSH Q8H PRN PRN Reason: Nausea and Vomiting Oxycodone HCl (Oxycodone Hcl Immed Release 5 Mg Tablet) 5 mg PO Q4H PRN PRN Reason: Pain, Moderate(Pain Scale 4-6) Last Admin: 08/31/25 10:27 Dose: 5 mg Pantoprazole Sodium (Pantoprazole Sodium 40 Mg/10 Ml Vial) 40 mg IVPUSH BID@0630,1630 [facility] Last Admin: 08/31/25 06:17 Dose: 40 mg Sodium Chloride (0.9 % Sodium Chloride Flush 3 Ml Syringe) [facility] Last Admin: 08/31/25 08:29 Dose: Not Given Sodium Chloride (0.9 % Sodium Chloride Flush 10 Ml Syringe) [facility] Last Admin: 08/31/25 08:29 Dose: Not Given Trazodone HCl (Trazodone Hcl 25 Mg Halftab) 25 mg PO BEDTIME MRX1 PRN PRN Reason: Sleep Last Admin: 08/27/25 20:49 Dose: 25 mg Home Medications ?Medication ?Instructions ?Recorded ?Confirmed ?Last Taken ?Type methadone 10 mg/mL oral concentrate 55 mg PO DAILY 02/05/25 08/20/25 08/19/25 07:21 History hydrochlorothiazide 12.5 mg capsule 12.5 mg PO DAILY 08/20/25 08/20/25 Unknown History Physical Exam Vital Signs: Last Vital Signs Temp 97.3 F 08/31/25 13:51 Pulse 92 08/31/25 13:51 Resp 18 08/31/25 13:51 BP 150/82 H 08/31/25 13:51 Pulse Ox 96 08/31/25 11:40 O2 Del Method Nasal Cannula 08/31/25 11:40 O2 Flow Rate 3 08/31/25 11:40 BMI result Body Mass Index 27.4 Const General: ill appearing Neck Neck: Yes supple Resp Auscultation: clear to auscultation bilaterally Cardio Palpation: no palpable S3 Heart sounds: no rubs GI Palpation (GI): Soft to palpation Auscultation: normal bowel sounds Neuro Motor exam (neuro): no asterixis Results Lab Results 09/01/25 12:14 09/01/25 05:14 Lab results: Chemistry 08/29/25 08/30/25 08/31/25 06:30 16:29 07:30 Sodium 124 L 126 L 130 L Potassium 5.2 H D 5.1 4.9 Carbon Dioxide 17 L 20 L 20 L BUN 34 H 51 H 57 H Creatinine 2.06 H 2.87 H 3.43 H Calcium 7.6 L 7.8 L 8.0 L Phosphorus 6.2 H Hematology 08/29/25 08/31/25 08:47 07:30 WBC 10.9 H 4.8 Hgb 6.5 L* D 6.7 L* Plt Count 82 L 51 L D Assessment and Plan (1) RICHARD (acute kidney injury): Status: Acute Plan 44-year-old woman with hepatitis-C cirrhosis IV drug abuse with MRSA septic arthritis bacteremia history and severe anemia is currently in acute kidney injury. Differential diagnosis would include ATN. She likely has hepatorenal syndrome. Severe anemia with thrombocytopenia. LDH is marginally elevated. No schistocytes were reported. Check haptoglobin ?HUS Repeat UA and urine for protein creatinine ratio Concur with current medical management Dose all medications for EGFR of less than 10 Watch urine output closely. Avoid hypotension. Continue to avoid nephrotoxic agents including IV contrast NSAIDs etc. Overall prognosis is guarded. If there is no improvement renal function she may require renal replacement therapy. Procedures Date of Service Date of Service: 09/01/25
--- NOTE | 2025-08-31 14:23 | PM.GICN ---
History of Present Illness Data of Consult Service Date: 08/31/25 Primary Care Provider: Naye Hallman NP HPI Reason for consult: Anemia and increasing Bili 44-year-old female with a past medical history of hypertension, untreated hep C and cirrhosis, IVDA on methadone, colitis, and septic arthritis who I am seeing for assesment for worsening anemia and bilirubin Patient initially admitted with right leg pain and swelling susbsequently found to have MRSA septic arthritis and then developed worsening renal function with ascites and anemia, rising bilirubin. She had ascitic fluid tap and 700 ml removed with fluid neg for SBP. SAAG >1.1 and ascitic protein 1. suggestive of portal hypertension. Right now her main complaint is 10/10 right leg pain worse with movement, and relieved by analgesia. The leg remains swollen and tender. She has not had any melena or rectal bleeding, epistaxis -confirmed by nurse Review of Systems Review of Systems: Constitutional : No Weight loss, No Fever, No Chills ENT/Mouth : No sore throat, No Rhinorrhea Eyes: No Swelling, No Redness Cardiovascular : No Chest Pain, No SOB, No Edema Respiratory : No Cough, No Sputum, No Wheezing Gastrointestinal : see HPI Genitourinary : NO Dysuria, No Urinary Frequency, No Hematuria, No Urgency Musculoskeletal : + joint pain, No Myalgias, + Joint Swelling Skin : No Skin Lesions, No rash Neuro : No Weakness, No Numbness, No Dizziness, No Headache Psych : No Anxiety/Panic, No Depression Heme/Lymph: No Bruising, No Lymphadenopathy Endocrine : No Polyuria, No Polydipsia All other systems reviewed and are negative. [facility] Past Medical History Medical History Anxiety IVDU (intravenous drug user) Substance use disorder Liver fibrosis HTN (hypertension) Family History Family history: reviewed and not pertinent Social History Social History Household Members: Other Household Members Other:: 21 yr old niece Housing: Apartment Do you presently have visiting nurse or other home services: No Alcohol intake: never Comment: COUNTS CORRECT Patient Tobacco Use Status: Never used Tobacco Substance Use Type: Heroin service: No Meds Allergies Allergy/AdvReac Type Severity Reaction Status Date / Time Penicillins Allergy Unknown Verified 08/19/25 17:28 Sulfa (Sulfonamide Allergy Unknown Verified 08/19/25 17:28 Antibiotics) Active Medications: Current Medications Acetaminophen (Acetaminophen 325 Mg Tablet) 650 mg PO Q6H PRN PRN Reason: Pain, Mild 1-3,fever,headache Last Admin: 08/27/25 04:13 Dose: 650 mg Amlodipine Besylate (Amlodipine Besylate 5 Mg Tablet) 5 mg PO DAILY [facility]; Protocol Last Admin: 08/31/25 08:25 Dose: 5 mg Calcium Carbonate (Calcium Carbonate 750 Mg Tab.Chew) 750 mg PO Q4H PRN PRN Reason: Heartburn Last Admin: 08/30/25 09:54 Dose: 750 mg Diazepam (Diazepam 10 Mg/2 Ml Cartridge) 5 mg IVPUSH Q6H PRN PRN Reason: Anxiety Last Admin: 08/31/25 11:27 Dose: 5 mg Hydromorphone HCl (Hydromorphone Hcl 0.5 Mg/0.5 Ml Syringe) 0.5 mg IVPUSH Q3H PRN; Protocol PRN Reason: Pain, Severe (Pain Scale 7-10) Last Admin: 08/30/25 15:16 Dose: 0.5 mg Daptomycin 650 mg/ Sodium (Chloride) 63 mls @ 99.912 mls/hr IV Q24H [facility] Last Infusion: 08/30/25 17:49 Dose: Infused Ceftriaxone Sodium 2 gm/ (Sodium Chloride) 50 mls @ 100 mls/hr IV Q24H [facility] Stop: 09/21/25 16:59 Last Infusion: 08/30/25 17:03 Dose: Infused Lactulose (Lactulose 20 Gm/30 Ml Solution) 30 gm PO BID [facility] Last Admin: 08/31/25 08:25 Dose: 30 gm Magnesium Hydroxide (Milk Of Magnesia 30 Ml Oral.Susp) 30 ml PO DAILY PRN PRN Reason: Constipation Last Admin: 08/28/25 06:41 Dose: 30 ml Melatonin (Melatonin 3 Mg Tablet) 6 mg PO BEDTIME PRN PRN Reason: Insomnia Methadone HCl (Methadone Hcl 20 Mg/2 Ml Oral.Conc) 55 mg PO DAILY [facility] Last Admin: 08/31/25 08:25 Dose: 55 mg Naloxone HCl (Naloxone Hcl 0.4 Mg/Ml Vial) 0.04 mg IVPUSH Q5M PRN PRN Reason: Excessive sedation or RR < 8 Octreotide Acetate (Octreotide Acetate 100 Mcg/Ml Ampul) 50 mcg SUBCUT Q8H [facility] Last Admin: 08/31/25 10:27 Dose: 50 mcg Ondansetron HCl (Ondansetron Hcl 4 Mg/2 Ml Vial) 4 mg IVPUSH Q8H PRN PRN Reason: Nausea and Vomiting Oxycodone HCl (Oxycodone Hcl Immed Release 5 Mg Tablet) 5 mg PO Q4H PRN PRN Reason: Pain, Moderate(Pain Scale 4-6) Last Admin: 08/31/25 10:27 Dose: 5 mg Pantoprazole Sodium (Pantoprazole Sodium 40 Mg/10 Ml Vial) 40 mg IVPUSH BID@0630,1630 [facility] Last Admin: 08/31/25 06:17 Dose: 40 mg Sodium Chloride (0.9 % Sodium Chloride Flush 3 Ml Syringe) 3 ml IVFLUSH [facility] Last Admin: 08/31/25 08:29 Dose: Not Given Sodium Chloride (0.9 % Sodium Chloride Flush 10 Ml Syringe) 5 ml IVFLUSH [facility] Last Admin: 08/31/25 08:29 Dose: Not Given Trazodone HCl (Trazodone Hcl 25 Mg Halftab) 25 mg PO BEDTIME MRX1 PRN PRN Reason: Sleep Last Admin: 08/27/25 20:49 Dose: 25 mg Home Medications ?Medication ?Instructions ?Recorded ?Confirmed ?Last Taken ?Type methadone 10 mg/mL oral concentrate 55 mg PO DAILY 02/05/25 08/20/25 08/19/25 07:21 History hydrochlorothiazide 12.5 mg capsule 12.5 mg PO DAILY 08/20/25 08/20/25 Unknown History Physical Exam Exam: Exam: EXAM: GENERAL: The patient is well developed and nontoxic. VITAL SIGNS:see workflow HEENT: icteric sclerae, PERRLA, EOMI. Oropharynx clear. Moist mucous membranes. Conjunctivae appear well perfused. No thyroid mass. CHEST: Chest wall is nontender. HEART: Regular rate and rhythm without murmurs. LUNGS: Clear to auscultation bilaterally. ABDOMEN: Soft, positive bowel sounds, nontender, no organomegaly.no flank tenderness--tympanic and distended SKIN: No rash, no excessive bruising, petechiae, or purpura. NEUROLOGIC: Cranial nerves II-XII intact without motor/sensory deficit. Psych: normal affect right leg swollen Vital Signs: Vital Signs: Last Vital Signs Temp 97.3 F 08/31/25 13:51 Pulse 92 08/31/25 13:51 Resp 18 08/31/25 13:51 BP 150/82 H 08/31/25 13:51 Pulse Ox 96 08/31/25 11:40 O2 Del Method Nasal Cannula 08/31/25 11:40 O2 Flow Rate 3 08/31/25 11:40 BMI result Body Mass Index 27.4 Results Labs 08/31/25 07:30 08/31/25 07:30 Labs: Short CBC 08/31/25 Range/Units 07:30 WBC 4.8 (4.8-10.8) X10*3/uL Hgb 6.7 L* (12.0-16.0) g/dl Hct 19.7 L* (37.0-47.0) % Plt Count 51 L D (160-400) X10*3/uL BMP 08/30/25 08/31/25 16:29 07:30 Sodium 126 L 130 L Potassium 5.1 4.9 Chloride 98 102 Carbon Dioxide 20 L 20 L BUN 51 H 57 H Creatinine 2.87 H 3.43 H Calcium 7.8 L 8.0 L Liver Function 08/30/25 08/31/25 Range/Units 16:29 07:30 Total Bilirubin 10.1 H 9.4 H (0.0-1.0) mg/dL AST 93 H 93 H (5-31) U/L ALT 27 25 (0-31) U/L Alkaline Phosphatase 89 83 (39-117) U/L Albumin 3.2 L 3.1 L (3.5-5.0) g/dL Microbiology Microbiology Results: Microbiology 08/30/25 13:15 Paracentesis Fluid Gram Stain - Final 08/30/25 13:15 Paracentesis Fluid Anaerobic Culture - Preliminary No growth to date. 08/30/25 13:15 Paracentesis Fluid Body Fluid Culture - Preliminary No growth to date. 08/24/25 14:17 Blood - Venous Blood Culture - Final No growth after 5 days. 08/25/25 06:16 Blood - Venous Blood Culture - Final No growth after 5 days. 08/25/25 06:16 Blood - Venous Blood Culture - Final No growth after 5 days. 08/24/25 14:17 Blood - Venous Blood Culture - Final Methicillin Res Staph Aureus 08/19/25 23:23 Knee aspirate Gram Stain - Final 08/19/25 23:23 Knee aspirate Anaerobic Culture - Final 08/19/25 23:23 Knee aspirate Gross Specimen Examination - Final 08/19/25 23:23 Knee aspirate Fluid Crystals - Final 08/19/25 23:23 Knee aspirate Joint Fluid Culture - Final Methicillin Res Staph Aureus 08/22/25 20:58 Blood - Venous Blood Culture - Final Methicillin Res Staph Aureus 08/22/25 15:00 Blood - Venous Blood Culture - Final Methicillin Res Staph Aureus 08/21/25 10:09 Blood - Venous Blood Culture - Final 08/21/25 13:05 Blood - Venous Blood Culture - Final Methicillin Res Staph Aureus 08/19/25 20:31 Blood - Venous Blood Culture - Final Methicillin Res Staph Aureus 08/19/25 20:31 Blood - Venous Blood Culture - Final Methicillin Res Staph Aureus Assessment and Plan (1) RICHARD (acute kidney injury): Status: Acute Plan 1/ Anemia, multifactorial from portal htn and splenomegaly, renal failure, malnutrition and possible occult blood loss from stress gastritis. no overt GI blood loss. ddx: TTP, hemolytic anemia, drug induced bone marrow injury 2/ Cirrhosis, possibly decompensated from sepsis or liver injury from antibiotics 3/ Acute renal failure, may be HRS a\or related to ATN from septic arthritis or drug injury PLAN: 1/ Prognosis is guarded, check FeNa and urine Na 2/ check juan test and repeat smear 3/ consider repeating ECHO to r/o valve injury 4/ if juan pos and we suspect drug related liver injury then can consider NAC trial 5/ consider re imaging leg make sure not bleeding into surrounding muscles or hematoma given her low plts and elevated INR 6/ Low dose PPI 7/ if overt GIB then can review for EGD Procedures Date of Service Date of Service: 08/31/25
--- NOTE | 2025-08-31 16:09 | PM.PSYCN ---
History of Present Illness Date of Service: 08/31/25 Chief Complaint: Septic Arthritis Reason for Consult: depression Requesting physician: Mike Garcia Sources of Information: patient interviewed and chart reviewed HPI Narrative: Patient is a 44 year old female with hx of hep C cirrhosis, IVDA on methadone, HTN presenting with RLE pain/swelling; R knee aspirated in ED and ultimately found to have MRSA septic arthritis and bacteremia; now with RICHARD and severe anemia, ascites. Psychiatric consult placed for: depression During psychiatric assessment, pt presents alert and oriented x3. calm and cooperative. tearful at times. Patient reports she came to the hospital d/t her knee hurting real bad ; pt stated, I'm very sick. I'm letting people down because I can't be there caring for them. I've been saying I want to but it's only because I'm in a lot of pain. I don't really want to . I'm worried I'm going to . Patient reports hx of feeling depressed; pt stated, I'm depressed sometimes. It's how I've always been. I know how to deal with it. I don't want to start anything. I'd like to make a decision when I'm feeling better . Patient reports she has a counselor at her methadone clinic in [place], [place]. Pt reports she does not have outpatient psychiatric prescriber and has not taken any psychiatric medications in years . denies SI/HI/VH/AH. Past Psychiatric History: denies hx of inpatient psychiatric hospitalizations. denies hx of SA/SIB. Methadone clinic in [place], [place]. Medical Evaluation Reviewed: Yes [facility] Medical History Anxiety IVDU (intravenous drug user) Substance use disorder Liver fibrosis HTN (hypertension) Family History: depression Social History: Lives with friend. single. no kids. unemployed. highest level of education completed, associates degree. Substance History: hx of opioid use. Trauma History: yes Diagnostics Vital Signs (24Hr): Vital Signs - 24 hr 08/30/25 19:21 08/30/25 19:35 08/30/25 23:35 Temperature 97.9 F 97.6 F Pulse Rate 87 84 Respiratory Rate 16 18 Blood Pressure 139/71 146/71 H Pulse Oximetry 90 L 92 90 L Oxygen Delivery Method Nasal Cannula Nasal Cannula Nasal Cannula Oxygen Flow Rate 1 2 2 08/31/25 03:21 08/31/25 05:00 08/31/25 07:59 Temperature 98 F 97.7 F Pulse Rate 88 88 Respiratory Rate 18 20 16 Blood Pressure 139/67 154/77 H Pulse Oximetry 92 93 Oxygen Delivery Method Nasal Cannula Nasal Cannula Oxygen Flow Rate 3 3 08/31/25 09:39 08/31/25 09:56 08/31/25 11:40 Temperature 97.8 F 97.4 F 97.5 F Pulse Rate 84 81 90 Respiratory Rate 18 18 18 Blood Pressure 123/65 111/62 144/71 H Pulse Oximetry 96 Oxygen Delivery Method Nasal Cannula Oxygen Flow Rate 3 08/31/25 13:12 08/31/25 13:34 08/31/25 13:50 Temperature 97.4 F 97.4 F 97.3 F Pulse Rate 93 93 92 Respiratory Rate 18 18 18 Blood Pressure 137/70 142/77 H 150/82 H Pulse Oximetry Oxygen Delivery Method Oxygen Flow Rate 08/31/25 13:51 08/31/25 13:51 08/31/25 15:28 Temperature 97.3 F 97.3 F 97.5 F Pulse Rate 92 92 95 Respiratory Rate 18 18 18 Blood Pressure 150/82 H 150/82 H 146/81 H Pulse Oximetry 95 Oxygen Delivery Method Nasal Cannula Oxygen Flow Rate 3 BMI result Body Mass Index 27.4 Labs 08/31/25 07:30 08/31/25 07:30 Labs: Laboratory Results - last 48 hr 08/29/25 08/30/25 08/30/25 14:37 13:15 16:28 WBC RBC Hgb Hct MCV MCH MCHC RDW Plt Count MPV Absolute Nucleated RBC Nucleated RBC % (auto) PT 28.8 H INR 2.5 H Sodium Potassium Chloride Carbon Dioxide Anion Gap BUN Creatinine Estim Creat Clear Calc Estimated GFR Random Glucose Calcium Phosphorus Magnesium Total Bilirubin AST ALT Alkaline Phosphatase Ammonia Lactate Dehydrogenase Total Creatine Kinase C-Reactive Protein Total Protein Albumin Peritoneal WBC 0.221 Peritoneal RBC 0.003 Periton Neutrophils 61 Periton Lymphocytes 5 Peritoneal Monocytes 21 Peritoneal Other Cells 13 Peritoneal Tot Protein Peritoneal Albumin SEE NOTE Blood Type A Negative Antibody Screen NEGATIVE SHELLEY, Polyspecific NEGATIVE Positive SHELLEY Work-up TNP Crossmatch See Detail 08/30/25 08/31/25 16:29 07:30 WBC 4.8 RBC 2.07 L Hgb 6.7 L* Hct 19.7 L* MCV 95.2 MCH 32.4 MCHC 34.0 RDW 19.3 H Plt Count 51 L D MPV 9.7 Absolute Nucleated RBC 0.000 Nucleated RBC % (auto) 0.0 PT 25.7 H INR 2.2 H Sodium 126 L 130 L Potassium 5.1 4.9 Chloride 98 102 Carbon Dioxide 20 L 20 L Anion Gap 13 13 BUN 51 H 57 H Creatinine 2.87 H 3.43 H Estim Creat Clear Calc 27.7 23.2 Estimated GFR 18 14 Random Glucose 92 84 Calcium 7.8 L 8.0 L Phosphorus 6.2 H Magnesium 2.9 H Total Bilirubin 10.1 H 9.4 H AST 93 H 93 H ALT 27 25 Alkaline Phosphatase 89 83 Ammonia 81 H Lactate Dehydrogenase 237 H Total Creatine Kinase 52 C-Reactive Protein 5.61 H Total Protein 7.4 7.4 Albumin 3.2 L 3.1 L Peritoneal WBC Peritoneal RBC Periton Neutrophils Periton Lymphocytes Peritoneal Monocytes Peritoneal Other Cells Peritoneal Tot Protein Peritoneal Albumin Blood Type Antibody Screen SHELLEY, Polyspecific Positive SHELLEY Work-up Crossmatch Imaging Radiology Impressions: ITS Impressions Abdomen X-Ray 08/26/25 13:30 IMPRESSION: No intestinal obstruction pattern. Splenomegaly. Electronically signed by: Tao Hall MD 08/26/2025 01:52 PM EDT RP Paracentesis Ultrasound 08/30/25 13:05 IMPRESSION: Successful ultrasound-guided diagnostic and therapeutic paracentesis performed without immediate complications. Electronically signed by: Cisco Norwood MD 08/31/2025 08:04 AM EST RP Chest X-Ray 08/30/25 15:59 IMPRESSION: 1. PICC in good position. 2. Low lung volumes bilaterally. 3. Patchy opacities in the bilateral perihilar regions and lower lungs, suggestive of pneumonia in the appropriate clinical setting. Electronically signed by: Jamaal Hill MD 08/30/2025 04:16 PM EST RP Mental Status Exam Mental Status Exam Patient Appearance: Disheveled Patient Orientation: Person, Place, Time and Situation Level of Consciousness: Awake and Alert Patient Behavior: Appropriate, Cooperative and Crying Mood Description: Fearful and Sad Affect Description: Constricted Ability to Follow Directions: Good Speech Pattern: Clear Memory Description: Intact Hallucinations: None Delusions: Not Present Thought Process: Intact Thought Content: positive for Intact Medications Medications Current Medications Acetaminophen (Acetaminophen 325 Mg Tablet) 650 mg PO Q6H PRN PRN Reason: Pain, Mild 1-3,fever,headache Last Admin: 08/27/25 04:13 Dose: 650 mg Amlodipine Besylate (Amlodipine Besylate 5 Mg Tablet) 5 mg PO DAILY [facility]; Protocol Last Admin: 08/31/25 08:25 Dose: 5 mg Calcium Carbonate (Calcium Carbonate 750 Mg Tab.Chew) 750 mg PO Q4H PRN PRN Reason: Heartburn Last Admin: 08/30/25 09:54 Dose: 750 mg Diazepam (Diazepam 10 Mg/2 Ml Cartridge) 5 mg IVPUSH Q6H PRN PRN Reason: Anxiety Last Admin: 08/31/25 11:27 Dose: 5 mg Hydromorphone HCl (Hydromorphone Hcl 0.5 Mg/0.5 Ml Syringe) 0.5 mg IVPUSH Q3H PRN; Protocol PRN Reason: Pain, Severe (Pain Scale 7-10) Last Admin: 08/30/25 15:16 Dose: 0.5 mg Daptomycin 650 mg/ Sodium (Chloride) 63 mls @ 99.912 mls/hr IV Q24H [facility] Last Infusion: 08/30/25 17:49 Dose: Infused Ceftriaxone Sodium 2 gm/ (Sodium Chloride) 50 mls @ 100 mls/hr IV Q24H [facility] Stop: 09/21/25 16:59 Last Infusion: 08/30/25 17:03 Dose: Infused Lactulose (Lactulose 20 Gm/30 Ml Solution) 30 gm PO BID [facility] Last Admin: 08/31/25 08:25 Dose: 30 gm Magnesium Hydroxide (Milk Of Magnesia 30 Ml Oral.Susp) 30 ml PO DAILY PRN PRN Reason: Constipation Last Admin: 08/28/25 06:41 Dose: 30 ml Melatonin (Melatonin 3 Mg Tablet) 6 mg PO BEDTIME PRN PRN Reason: Insomnia Methadone HCl (Methadone Hcl 20 Mg/2 Ml Oral.Conc) 55 mg PO DAILY [facility] Last Admin: 08/31/25 08:25 Dose: 55 mg Naloxone HCl (Naloxone Hcl 0.4 Mg/Ml Vial) 0.04 mg IVPUSH Q5M PRN PRN Reason: Excessive sedation or RR < 8 Octreotide Acetate (Octreotide Acetate 100 Mcg/Ml Ampul) 50 mcg SUBCUT Q8H [facility] Last Admin: 08/31/25 10:27 Dose: 50 mcg Ondansetron HCl (Ondansetron Hcl 4 Mg/2 Ml Vial) 4 mg IVPUSH Q8H PRN PRN Reason: Nausea and Vomiting Oxycodone HCl (Oxycodone Hcl Immed Release 5 Mg Tablet) 5 mg PO Q4H PRN PRN Reason: Pain, Moderate(Pain Scale 4-6) Last Admin: 08/31/25 10:27 Dose: 5 mg Pantoprazole Sodium (Pantoprazole Sodium 40 Mg/10 Ml Vial) 40 mg IVPUSH BID@0630,1630 [facility] Last Admin: 08/31/25 06:17 Dose: 40 mg Sodium Chloride (0.9 % Sodium Chloride Flush 3 Ml Syringe) 3 ml IVFLUSH [facility] Last Admin: 08/31/25 15:36 Dose: Not Given Sodium Chloride (0.9 % Sodium Chloride Flush 10 Ml Syringe) 5 ml IVFLUSH [facility] Last Admin: 08/31/25 15:36 Dose: Not Given Trazodone HCl (Trazodone Hcl 25 Mg Halftab) 25 mg PO BEDTIME MRX1 PRN PRN Reason: Sleep Last Admin: 08/27/25 20:49 Dose: 25 mg Allergies Allergies Allergy/AdvReac Type Severity Reaction Status Date / Time Penicillins Allergy Unknown Verified 08/19/25 17:28 Sulfa (Sulfonamide Allergy Unknown Verified 08/19/25 17:28 Antibiotics) Assessment & Plan Assessment & Plan (1) Anxiety: Status: Acute Code(s): F41.9 - Anxiety disorder, unspecified (2) Opioid use disorder: Status: Acute Code(s): F11.90 - Opioid use, unspecified, uncomplicated Plan -Patient is currently not interested in starting psychiatric medications. She states she plans on following up with her methadone clinic and possibly going to a walk in clinic if interested in medications in the future. -Re-consult psychiatry if patient changes their mind. Total time managing care of this patient today _30___ minutes. Patient educated on: diagnosis and medication risk/benefits
[2025-08-31] MEDS: 0.9 % Sodium Chloride Flush 3 ML SYRINGE IVFLUSH (21:16)
[2025-08-31] MEDS: 0.9 % Sodium Chloride Flush 10 ML SYRINGE 5 ML IVFLUSH (21:17)
[2025-09-01] MEDS: Octreotide Acetate 100 MCG/ML AMPUL 50 MCG SUBCUT ×3 (02:27→18:01)
[2025-09-01 02:57] LABS: Appearance Urine Clear; Glucose Urine UA Negative (Negative); PH 5.5 (5.0-9.0); Specific Gravity - Urine 1.025 (1.005-1.025); UMIC TRIGGER UA YES
[2025-09-01 03:18] VITALS: BP 135/78; PULSE 86; RESP 18; TEMP 36.6; O2SAT 92
[2025-09-01 03:44] LABS: Total Protein Urine Random 415 mg/dL (<12)
[2025-09-01] MEDS: diazePAM 10 MG/2 ML CARTRIDGE 5 MG IVPUSH ×2 (04:34→20:11)
[2025-09-01 07:31] VITALS: BP 174/85; PULSE 98; RESP 20; TEMP 36.4; O2SAT 92
[2025-09-01 08:41] LABS: Alanine Aminotransferase 25 U/L (0-31); Albumin Level 3.0 g/dL (3.5-5.0); Alkaline Phosphatase 83 U/L (39-117); Anion Gap 17 (12-20); Aspartate Amino Transferase 103 U/L (5-31); Blood Urea Nitrogen 62 mg/dL (9-16); Calcium 8.0 mg/dL (8.4-10.2); Carbon Dioxide 17 mmol/L (22-29); Chloride 100 mmol/L (96-108); Creatinine Clr Calc Pharmacy 20.8; Estimated Glomerular Filt Rate 13; Magnesium 3.1 mg/dL (1.6-2.6); Potassium 4.9 mmol/L (3.3-5.1); Sodium 129 mmol/L (135-145); Total Protein 7.5 g/dL (6.5-8.0)
[2025-09-01] MEDS: methADONE HCl 20 MG/2 ML ORAL.CONC 55 MG PO (08:42)
[2025-09-01] MEDS: 0.9 % Sodium Chloride Flush 3 ML SYRINGE IVFLUSH ×2 (08:48→16:38)
[2025-09-01] MEDS: 0.9 % Sodium Chloride Flush 10 ML SYRINGE 5 ML IVFLUSH ×3 (08:49→19:19)
--- NOTE | 2025-09-01 11:50 | PC.NURSE ---
Pt administered 100mcg octreiodtide sub cutaneous at 1130. MAR reflects 50mcg.
[2025-09-01 12:00] VITALS: BP 133/77; PULSE 89; RESP 18; TEMP 36.4; O2SAT 94
[2025-09-01 12:25] LABS: Hematocrit 23.3 % (37.0-47.0); Hemoglobin 8.0 g/dl (12.0-16.0); Mean Corpuscular HGB Conc 34.3 g/dl (31.0-35.0); Mean Corpuscular Hemoglobin 30.9 pg (27.0-33.0); Mean Corpuscular Volume 90.0 fL (80.0-98.0); NRBC Abs Auto 0.000 X10*3/uL (0.0-0.012); NRBC Pct Auto 0.0 /100WBC (0.0-0.2); Red Blood Count 2.59 X10*6/uL (4.20-5.50); White Blood Count 8.3 X10*3/uL (4.8-10.8)
[2025-09-01 12:27] LABS: Platelet Count 55 X10*3/uL (160-400)
--- NOTE | 2025-09-01 12:53 | P.PNIM_ITS ---
Subjective Subjective Date of Service: 09/01/25 Interval History: Seen in f/u for liver failure renal failure, concern for HRS, MRSA bacteremia and septic joint on Dapto and Ceftriaxone Review of Systems Review of Systems: Yes all other systems are reviewed and are negative Physical Exam 2 Exam: Exam: General: confused, generally edematous HEET: Sclera icteris Resp: CTA bilateral CVS: S1,S2,RRR, anasarca GI: +BS, Non-specific tenderness, some distention Skin: No rash, yellowish looking Neuro: motor grossly intact Psych: appropriate affect Vital Signs: Vital Signs: Last Vital Signs Temp 97.5 F 09/01/25 12:00 Pulse 89 09/01/25 12:00 Resp 18 09/01/25 12:00 BP 133/77 09/01/25 12:00 Pulse Ox 94 09/01/25 12:00 O2 Del Method Room Air 09/01/25 12:00 O2 Flow Rate 2 08/31/25 23:47 BMI result Body Mass Index 27.4 Objective Data Active Medications Acetaminophen (Acetaminophen 325 Mg Tablet) 650 mg PO Q6H PRN PRN Reason: Pain, Mild 1-3,fever,headache Last Admin: 08/27/25 04:13 Dose: 650 mg Documented By: NENA Amlodipine Besylate (Amlodipine Besylate 5 Mg Tablet) 5 mg PO DAILY [facility]; Protocol Last Admin: 09/01/25 08:49 Dose: 5 mg Documented By: XIN Calcium Carbonate (Calcium Carbonate 750 Mg Tab.Chew) 750 mg PO Q4H PRN PRN Reason: Heartburn Last Admin: 08/30/25 09:54 Dose: 750 mg Documented By: CHRIS Diazepam (Diazepam 10 Mg/2 Ml Cartridge) 5 mg IVPUSH Q6H PRN PRN Reason: Anxiety Last Admin: 09/01/25 04:34 Dose: 5 mg Documented By: ANA MARÍA Daptomycin 650 mg/ Sodium (Chloride) 63 mls @ 99.912 mls/hr IV Q24H [facility] Last Infusion: 08/31/25 21:58 Dose: Infused Documented By: ANA MARÍA Ceftriaxone Sodium 2 gm/ (Sodium Chloride) 50 mls @ 100 mls/hr IV Q24H [facility] Stop: 09/21/25 16:59 Last Infusion: 08/31/25 17:20 Dose: Infused Documented By: CHRIS Lactulose (Lactulose 20 Gm/30 Ml Solution) 30 gm PO BID [facility] Last Admin: 09/01/25 08:43 Dose: 30 gm Documented By: XIN Magnesium Hydroxide (Milk Of Magnesia 30 Ml Oral.Susp) 30 ml PO DAILY PRN PRN Reason: Constipation Last Admin: 08/28/25 06:41 Dose: 30 ml Documented By: ANA Melatonin (Melatonin 3 Mg Tablet) 6 mg PO BEDTIME PRN PRN Reason: Insomnia Methadone HCl (Methadone Hcl 20 Mg/2 Ml Oral.Conc) 55 mg PO DAILY [facility] Last Admin: 09/01/25 08:42 Dose: 55 mg Documented By: XIN Co-signed By: KARLA Naloxone HCl (Naloxone Hcl 0.4 Mg/Ml Vial) 0.04 mg IVPUSH Q5M PRN PRN Reason: Excessive sedation or RR < 8 Octreotide Acetate (Octreotide Acetate 100 Mcg/Ml Ampul) 50 mcg SUBCUT Q8H [facility] Last Admin: 09/01/25 11:25 Dose: 50 mcg Documented By: XIN Ondansetron HCl (Ondansetron Hcl 4 Mg/2 Ml Vial) 4 mg IVPUSH Q8H PRN PRN Reason: Nausea and Vomiting Pantoprazole Sodium (Pantoprazole Sodium 40 Mg/10 Ml Vial) 40 mg IVPUSH BID@0630,1630 [facility] Last Admin: 09/01/25 04:34 Dose: 40 mg Documented By: ANA MARÍA Sodium Chloride (0.9 % Sodium Chloride Flush 3 Ml Syringe) 3 ml IVFLUSH [facility] Last Admin: 09/01/25 08:48 Dose: 3 ml Documented By: XIN Sodium Chloride (0.9 % Sodium Chloride Flush 10 Ml Syringe) [facility] Last Admin: 09/01/25 08:49 Dose: 5 ml Documented By: XIN Trazodone HCl (Trazodone Hcl 25 Mg Halftab) 25 mg PO BEDTIME MRX1 PRN PRN Reason: Sleep Last Admin: 08/27/25 20:49 Dose: 25 mg Documented By: ANA Labs 09/02/25 11:47 09/02/25 11:47 Labs: Laboratory Results - last 24 hr 08/29/25 08/31/25 09/01/25 14:37 07:30 02:11 MCV MCH MCHC RDW Plt Count MPV Absolute Nucleated RBC Nucleated RBC % (auto) Anion Gap Estim Creat Clear Calc Estimated GFR Random Glucose Haptoglobin Calcium Magnesium Total Bilirubin Direct Bilirubin AST ALT Alkaline Phosphatase Lactate Dehydrogenase Total Creatine Kinase 52 Total Protein Albumin Urine Color BROWN Urine Appearance Clear Urine pH 5.5 Ur Specific [place] 1.025 Urine Protein 300 (3+) H Urine Glucose (UA) Negative Urine Ketones Negative Urine Blood Large (3+) H Urine Nitrite Positive H Ur Leukocyte Esterase Negative Urine RBC >20 H Urine WBC 6-10 H Ur Squamous Epith Cells 0-2 Urine Bacteria 1+ Hyaline Casts 0-2 Urine Yeast Present U Random Total Protein 415 H Ur Random Sodium 33.0 Urine Creatinine 74.03 Blood Type A Negative Antibody Screen NEGATIVE SHELLEY, Polyspecific NEGATIVE Positive SHELLEY Work-up TNP Crossmatch See Detail 09/01/25 09/01/25 09/01/25 05:13 05:14 12:14 MCV 90.0 D MCH 30.9 MCHC 34.3 RDW 19.9 H Plt Count 55 L MPV 10.0 Absolute Nucleated RBC 0.000 Nucleated RBC % (auto) 0.0 Anion Gap 17 Estim Creat Clear Calc 20.8 Estimated GFR 13 Random Glucose 76 Haptoglobin < 8 L Calcium 8.0 L Magnesium 3.1 H Total Bilirubin 10.9 H Direct Bilirubin 6.6 H AST 103 H ALT 25 Alkaline Phosphatase 83 Lactate Dehydrogenase 283 H Total Creatine Kinase Total Protein 7.5 Albumin 3.0 L Urine Color Urine Appearance Urine pH Ur Specific [place] Urine Protein Urine Glucose (UA) Urine Ketones Urine Blood Urine Nitrite Ur Leukocyte Esterase Urine RBC Urine WBC Ur Squamous Epith Cells Urine Bacteria Hyaline Casts Urine Yeast U Random Total Protein Ur Random Sodium Urine Creatinine Blood Type Antibody Screen SHELLEY, Polyspecific Positive SHELLEY Work-up Crossmatch Microbiology Microbiology Results: Microbiology 08/30/25 13:15 Gram Stain - Final Paracentesis Fluid Anaerobic Culture - Preliminary No growth to date. Body Fluid Culture - Final No growth after 2 days Assessment and Plan (1) Septic joint of right knee joint: Status: Acute (2) MRSA bacteremia: Status: Acute (3) Anxiety: Status: Acute Plan 44yo F with hep C cirrhosis, IVDA on methadone, HTN presenting with RLE pain/swelling; R knee aspirated in ED and ultimately found to have MRSA septic arthritis and bacteremia; now with RICHARD and severe anemia, ascites RICHARD hypoNa - Suspicious for HRS. Continue give octreotide and albumin. Transfuse as below. Nephrology consult following. Recheck BMP daily If BP drops, will need midodrine -May end up needing dialysis ascites - paracentesis done 01/28, 700 cc removed; no sings of SBP acute/chronic anemia/pancytopenia due to cirrhosis - check FOBT, transfused another 2u pRBCs 08/31/25[got 2u on 08/21/25], recheck H+H pending, continue IV PPI - GI following hepatic encephalopathy - continue lactulose; titrate to 3 soft BMs/d MRSA bacteremia/MRSA septic arthritis of R knee/MRSA pneumonia - s/p OR washout 08/20; TTE without endocarditis - BCx 08/25 cleared, per ID 6 wk of daptomycin + ceftriaxone, PICC placed 08/30, end date of antibiotics 09/06/25 hyperK, mild - resolved opioid abuse - Addiction Medicine consulted, continue methadone HTN: amlodipine HCV, chronic: will need outpt treatment and follow up VTE ppx: SCDs dispo: STR In my clinical judgment, the patient requires continued inpatient hospitalization for the following reasons: IV ABX, renal failure Total time managing care of this patient today: 55 minutes. Quality Stroke Does the patient have a stroke diagnosis?: No VTE Prior VTE?: No VTE Risk Level:: Medical - moderate - high VTE Device Contraindication: N/A - Device Ordered VTE Drug Contraindication: Treatment Not Tolerated
--- NOTE | 2025-09-01 14:10 | MHC.CM.PN ---
EMR REVIEWED AND PER MD ROUNDS, PATIENT IS NOT MEDICALLY CLEARED FOR DISCHARGE DUE TO MANAGEMENT OF RENAL FAILURE, PANCYTOPENIA, MRSA BACTEREMIA/MRSA SEPTIC ARTHRITIS OF RIGHT KNEE/MRSA PNA, ON IV ABX.
--- NOTE | 2025-09-01 15:19 | PM.GIPN ---
Subjective Subjective Date of Service: 09/01/25 Interval History: c/o ongoing leg pain, no melena or rectal bleeding no nausea or vomiting, no fever Critical Care Time (minutes): 0 Physical Exam Exam: Exam: EXAM: GENERAL: The patient is frail VITAL SIGNS:see workflow HEENT: Nonicteric sclerae, PERRLA, EOMI. Oropharynx clear. Moist mucous membranes. Conjunctivae appear well perfused. No thyroid mass. CHEST: Chest wall is nontender. HEART: Regular rate and rhythm without murmurs. LUNGS: Clear to auscultation bilaterally. ABDOMEN: Soft, positive bowel sounds, nontender--distended , no organomegaly.no flank tenderness SKIN: No rash, no excessive bruising, petechiae, or purpura. NEUROLOGIC: Cranial nerves II-XII intact without motor/sensory deficit. Psych: normal affect swollen right leg Vital Signs: Vital Signs: Last Vital Signs Temp 97.5 F 09/01/25 12:00 Pulse 89 09/01/25 12:00 Resp 18 09/01/25 12:00 BP 133/77 09/01/25 12:00 Pulse Ox 94 09/01/25 12:00 O2 Del Method Room Air 09/01/25 12:00 O2 Flow Rate 2 08/31/25 23:47 BMI result Body Mass Index 27.4 Objective Data Labs 09/01/25 12:14 09/01/25 05:14 Labs: Laboratory Results - last 24 hr 08/29/25 09/01/25 09/01/25 14:37 02:11 05:13 WBC RBC Hgb Hct MCV MCH MCHC RDW Plt Count MPV Absolute Nucleated RBC Nucleated RBC % (auto) Sodium Potassium Chloride Carbon Dioxide Anion Gap BUN Creatinine Estim Creat Clear Calc Estimated GFR Random Glucose Haptoglobin Calcium Magnesium Total Bilirubin Direct Bilirubin AST ALT Alkaline Phosphatase Lactate Dehydrogenase 283 H Total Protein Albumin Urine Color BROWN Urine Appearance Clear Urine pH 5.5 Ur Specific [place] 1.025 Urine Protein 300 (3+) H Urine Glucose (UA) Negative Urine Ketones Negative Urine Blood Large (3+) H Urine Nitrite Positive H Ur Leukocyte Esterase Negative Urine RBC >20 H Urine WBC 6-10 H Ur Squamous Epith Cells 0-2 Urine Bacteria 1+ Hyaline Casts 0-2 Urine Yeast Present U Random Total Protein 415 H Ur Random Sodium 33.0 Urine Creatinine 74.03 Crossmatch See Detail 09/01/25 09/01/25 05:14 12:14 WBC 8.3 RBC 2.59 L D Hgb 8.0 L Hct 23.3 L MCV 90.0 D MCH 30.9 MCHC 34.3 RDW 19.9 H Plt Count 55 L MPV 10.0 Absolute Nucleated RBC 0.000 Nucleated RBC % (auto) 0.0 Sodium 129 L Potassium 4.9 Chloride 100 Carbon Dioxide 17 L Anion Gap 17 BUN 62 H Creatinine 3.81 H Estim Creat Clear Calc 20.8 Estimated GFR 13 Random Glucose 76 Haptoglobin < 8 L Calcium 8.0 L Magnesium 3.1 H Total Bilirubin 10.9 H Direct Bilirubin 6.6 H AST 103 H ALT 25 Alkaline Phosphatase 83 Lactate Dehydrogenase Total Protein 7.5 Albumin 3.0 L Urine Color Urine Appearance Urine pH Ur Specific [place] Urine Protein Urine Glucose (UA) Urine Ketones Urine Blood Urine Nitrite Ur Leukocyte Esterase Urine RBC Urine WBC Ur Squamous Epith Cells Urine Bacteria Hyaline Casts Urine Yeast U Random Total Protein Ur Random Sodium Urine Creatinine Crossmatch Microbiology Microbiology Results: Microbiology 08/30/25 13:15 Paracentesis Fluid Gram Stain - Final 08/30/25 13:15 Paracentesis Fluid Anaerobic Culture - Preliminary No growth to date. 08/30/25 13:15 Paracentesis Fluid Body Fluid Culture - Final No growth after 2 days 08/24/25 14:17 Blood - Venous Blood Culture - Final No growth after 5 days. 08/25/25 06:16 Blood - Venous Blood Culture - Final No growth after 5 days. 08/25/25 06:16 Blood - Venous Blood Culture - Final No growth after 5 days. 08/24/25 14:17 Blood - Venous Blood Culture - Final Methicillin Res Staph Aureus 08/19/25 23:23 Knee aspirate Gram Stain - Final 08/19/25 23:23 Knee aspirate Anaerobic Culture - Final 08/19/25 23:23 Knee aspirate Gross Specimen Examination - Final 08/19/25 23:23 Knee aspirate Fluid Crystals - Final 08/19/25 23:23 Knee aspirate Joint Fluid Culture - Final Methicillin Res Staph Aureus 08/22/25 20:58 Blood - Venous Blood Culture - Final Methicillin Res Staph Aureus 08/22/25 15:00 Blood - Venous Blood Culture - Final Methicillin Res Staph Aureus 08/21/25 10:09 Blood - Venous Blood Culture - Final 08/21/25 13:05 Blood - Venous Blood Culture - Final Methicillin Res Staph Aureus 08/19/25 20:31 Blood - Venous Blood Culture - Final Methicillin Res Staph Aureus 08/19/25 20:31 Blood - Venous Blood Culture - Final Methicillin Res Staph Aureus Procedures Date of Service Date of Service: 09/01/25 Progress Note: A&P Assessment and plan (1) RICHARD (acute kidney injury): Status: Acute (2) Anemia: Status: Acute Plan 1. anemia, no overt losses, but haptoglobin undetectable also has blood and nitrites in urine, urine Na >10 making less HRS less likely. Likely has multifactorial anemia from combination of urine losses, RICHARD, portal HTN PLAN: 1/ check juan test and rept peripheral smear, agree with heme consult 2/ consider renal US and flow r/o hypoperfusion or hydronephrosis - possible underlying uti as well Time Spent With Patient Time: Total time managing care of this patient today ____ minutes. Quality Stroke Does the patient have a stroke diagnosis?: No VTE Prior VTE?: No VTE Risk Level:: Medical - moderate - high VTE Device Contraindication: N/A - Device Ordered VTE Drug Contraindication: Treatment Not Tolerated
[2025-09-01 15:32] LABS: OBS Int Ctl Valid YES; OBS1 POSITIVE (NEGATIVE)
[2025-09-01 15:49] VITALS: BP 125/73; PULSE 79; RESP 18; TEMP 36.2; O2SAT 93
--- NOTE | 2025-09-01 17:12 | P.CNHO_ITS ---
Subjective - Subjective Chief complaint: Consult for: Anemia. Thrombocytopenia Patient: new to practice Consult date: 09/01/25 Requesting Physician: Dr. Majano. Primary Care Provider: Naye Hallman NP Family Provider: Lexx. Medical Summary: DIAGNOSIS: 1. ANEMIA. 2. THROMBOCYTOPENIA. Group Contract Analyst Utilized?: No - Kazakh Speaking HPI - Consult Narrative Reason for consult: Consult for: Thrombocytopenia. Narrative: Afia Jeff is a 44 year old lady, with a past medical history significant for hypertension, hep C, liver fibrosis, IVDA on methadone, colitis. she presented to the ED due to complaints of right lower leg pain and swelling. The patient reports that she tripped over a cat and twisted her right knee. She had an MRI at [facility] recently which showed right knee joint synovitis with advanced patellofemoral compartment chondromalacia. She went back to her orthopedist for follow-up after her MRI and was suggested to report to the emergency department. She has been having increased pain, faint erythema and warmth of the joint. No fever, chills, nausea or vomiting. She has been unable to flex or extend her leg due to the pain. She reports using IV drugs due to her pain. Joint fluid analysis pending, suspicious for septic arthritis. She has been admitted for IV antibiotics and orthopedic consultation. Duplex ultrasound negative for DVT. Review of Systems - Neurologic Denies confusion, Denies dizziness, Denies headache(s) [facility] Medical History: Medical History (Last Reviewed 08/26/25 @ 10:32 by MANISH Alberto-L) Anxiety HTN (hypertension) IVDU (intravenous drug user) Liver fibrosis Substance use disorder Functional capacity: independent ambulation Family history: reviewed and not pertinent Social History: Social History (Last Reviewed 08/23/25 @ 16:27 by Debi Choudhary MD) Living Situation History: Household Members: Other Household Members Other:: 21 yr old niece Housing: Apartment Do you presently have visiting nurse or other home services: No Tobacco History: Patient Tobacco Use Status: Never used Tobacco Substance Use History: Substance Use Type: Heroin Occupation Assessmet: service: No Home Medications and Allergies Current Medications: Current Medications Acetaminophen (Acetaminophen 325 Mg Tablet) 650 mg PO Q6H PRN PRN Reason: Pain, Mild 1-3,fever,headache Last Admin: 08/27/25 04:13 Dose: 650 mg Amlodipine Besylate (Amlodipine Besylate 5 Mg Tablet) 5 mg PO DAILY [facility]; Protocol Last Admin: 09/01/25 08:49 Dose: 5 mg Calcium Carbonate (Calcium Carbonate 750 Mg Tab.Chew) 750 mg PO Q4H PRN PRN Reason: Heartburn Last Admin: 08/30/25 09:54 Dose: 750 mg Diazepam (Diazepam 10 Mg/2 Ml Cartridge) 5 mg IVPUSH Q6H PRN PRN Reason: Anxiety Last Admin: 09/01/25 04:34 Dose: 5 mg Daptomycin 650 mg/ Sodium (Chloride) 63 mls @ 99.912 mls/hr IV Q24H [facility] Last Infusion: 08/31/25 21:58 Dose: Infused Ceftriaxone Sodium 2 gm/ (Sodium Chloride) 50 mls @ 100 mls/hr IV Q24H [facility] Stop: 09/21/25 16:59 Last Admin: 09/01/25 16:24 Dose: 100 mls/hr Lactulose (Lactulose 20 Gm/30 Ml Solution) 30 gm PO BID [facility] Last Admin: 09/01/25 08:43 Dose: 30 gm Magnesium Hydroxide (Milk Of Magnesia 30 Ml Oral.Susp) 30 ml PO DAILY PRN PRN Reason: Constipation Last Admin: 08/28/25 06:41 Dose: 30 ml Melatonin (Melatonin 3 Mg Tablet) 6 mg PO BEDTIME PRN PRN Reason: Insomnia Methadone HCl (Methadone Hcl 20 Mg/2 Ml Oral.Conc) 55 mg PO DAILY [facility] Last Admin: 09/01/25 08:42 Dose: 55 mg Naloxone HCl (Naloxone Hcl 0.4 Mg/Ml Vial) 0.04 mg IVPUSH Q5M PRN PRN Reason: Excessive sedation or RR < 8 Octreotide Acetate (Octreotide Acetate 100 Mcg/Ml Ampul) 50 mcg SUBCUT Q8H [facility] Last Admin: 09/01/25 11:25 Dose: 50 mcg Ondansetron HCl (Ondansetron Hcl 4 Mg/2 Ml Vial) 4 mg IVPUSH Q8H PRN PRN Reason: Nausea and Vomiting Sodium Chloride (0.9 % Sodium Chloride Flush 3 Ml Syringe) 3 ml IVFLUSH QSPRFT [facility] Last Admin: 09/01/25 16:38 Dose: 3 ml Sodium Chloride (0.9 % Sodium Chloride Flush 10 Ml Syringe) 5 ml IVFLUSH QSPRFT [facility] Last Admin: 09/01/25 16:38 Dose: 5 ml Trazodone HCl (Trazodone Hcl 25 Mg Halftab) 25 mg PO BEDTIME MRX1 PRN PRN Reason: Sleep Last Admin: 08/27/25 20:49 Dose: 25 mg Home Medications ?Medication ?Instructions ?Recorded ?Confirmed ?Type methadone 10 mg/mL oral concentrate 55 mg PO DAILY 02/05/25 08/20/25 History hydrochlorothiazide 12.5 mg capsule 12.5 mg PO DAILY 08/20/25 08/20/25 Histo ry Allergies Allergy/AdvReac Type Severity Reaction Status Date / Time Penicillins Allergy Unknown Verified 08/19/25 17:28 Sulfa (Sulfonamide Allergy Unknown Verified 08/19/25 17:28 Antibiotics) Physical Exam Vital signs: Vital Signs Temp 97.2 F 09/01/25 15:49 Pulse 79 09/01/25 15:49 Resp 18 09/01/25 15:49 BP 125/73 09/01/25 15:49 Pulse Ox 93 09/01/25 15:49 O2 Del Method Nasal Cannula 09/01/25 15:49 O2 Flow Rate 2 09/01/25 15:49 Intake & Output 08/31/25 09/01/25 09/01/25 18:59 06:59 18:59 Intake Total 850 / 913 63 / 913 475 / 475 Output Total 100 / 100 Balance 850 / 813 -37 / 813 475 / 475 Urine Output (Average ml/kg/hr) 0.10 0.10 Intake: Intake, Oral Amount 475 / 475 Intake (Blood Product) Amount 700 / 700 Red Blood Cells (E0336) Unit 350 / 350 [id number] Red Blood Cells (E0336) Unit 350 / 350 [id number] Intake, IV Amount 150 / 213 63 / 213 Albumin Human 25 % 100 ml @ 100 100 / 100 mls/hr IV Q6H [facility] Rx#: [id number] DAPTOmycin 650 mg In 0.9 % 63 / 63 Sodium Chloride 50 ml @ 99.912 mls/hr IV Q24H [facility]IKA Rx#: [id number] cefTRIAXone sodium 2 gm In 0.9 50 / 50 % Sodium Chloride 50 ml @ 100 mls/hr IV Q24H [facility]IKA Rx#: [id number] Output: Output, Urine Amount 100 / 100 Other: Breakfast % Eaten 0% 75% Lunch % Eaten 0% 25% Number of Incontinent Voids 3 Number of Unmeasured Voids 1 Urine purwick Urine Color Tea Last Bowel Movement 09/01/25 Stool Bedpan Stool Amount Scant Weight 81.647 kg - Constitutional Present: severe distress - Routine HEENT Exam Head: Present: normocephalic - Routine Neck Exam Present: supple - Routine Respiratory Exam Present: decreased breath sounds - Routine Cardiovascular Exam Cardiovascular: Present: RRR, S1, S2 - Routine Abdominal Exam Present: nontender - Routine Extremities Exam Present: nontender - Routine Skin Exam Present: intact - Routine Neurological Exam Present: altered mental status. Absent: alert - Detailed Neurological Exam: Coma Scale Eye Opening: Spontaneous (4) - Routine Psychiatric Exam Present: depressed Hem/Onc Consult Result - Labs CBC & Chem 7: 09/03/25 04:52 09/03/25 04:52 Labs: Short CBC 09/01/25 Range/Units 12:14 WBC 8.3 (4.8-10.8) X10*3/uL Hgb 8.0 L (12.0-16.0) g/dl Hct 23.3 L (37.0-47.0) % Plt Count 55 L (160-400) X10*3/uL BMP 09/01/25 05:14 Sodium 129 L Potassium 4.9 Chloride 100 Carbon Dioxide 17 L BUN 62 H Creatinine 3.81 H Calcium 8.0 L Liver Function 09/01/25 Range/Units 05:14 Total Bilirubin 10.9 H (0.0-1.0) mg/dL Direct Bilirubin 6.6 H (0.0-0.5) mg/dL AST 103 H (5-31) U/L ALT 25 (0-31) U/L Alkaline Phosphatase 83 (39-117) U/L Albumin 3.0 L (3.5-5.0) g/dL Urine 09/01/25 Range/Units 02:11 Urine Color BROWN Urine Appearance Clear Urine pH 5.5 (5.0-9.0) Ur Specific [place] 1.025 (1.005-1.025) Urine Protein 300 (3+) H (Neg-Trace) mg/dL Urine Glucose (UA) Negative (Negative) mg/dL Assessment and Plan Patient Active problem list reviewed?: Yes (1) Thrombocytopenia Status: Acute Assessment and plan: Patient is a 44-year-old female with a history of hypertension, hep C, liver fibrosis, IVDA on methadone, colitis. She presented to the ED due to complaints of right lower leg pain and swelling. joint aspiration in ED suspicious for septic arthritis. Has been empirically started on vancomycin and ceftriaxone. Pending joint fluid anaysis. Managed by orthopedic and ID. Now on daptomycin and ceftriaxone. Pain management in place. CBC: WBC 8.3, HGB 8, HCT 23.3, PLT 55. /7. CBC: WBC 11, HGB 6.3, HCT 18.8, PLT 56. Serial platelet count: 70/82/51/55. Haptoglobin: Less than 8. LDH: 283. Ferritin: 690. Coom's test: Chronic Pancytopenia/thrombocytopenia: Secondary to liver disease, at baseline. H/O hep C s/p tx. LFTs: 10.9/103/25/83. ANEMIA: Multifactorial: 1. Blood loss. 2. Hemolytic component secondary to membrane abnormalities related to underlying liver disease. 3. Anemia of chronic disease. History of hepatitis-C, history of colitis. CKD. Septic arthritis. PLAN: Would recommend blood transfusion if hemoglobin drops to less than 8. Follow platelet count. Transfuse if drops to less than 10 or for bleeding. Prognosis: Guarded. Thank you for the consult, CC: Naye Hallman. Addendum: Unfortunately the patient on 09/03. - Time Spent With Patient Time Spent with Patient (in minutes): 30
--- NOTE | 2025-09-01 17:30 | P.PNNP_ITS ---
Subjective Subjective Date of Service: 09/01/25 Interval history: Events noted Ill appearing s/p Blood transfusion Physical Exam 2 Vital Signs: Vital Signs: Last Vital Signs Temp 97.2 F 09/01/25 15:49 Pulse 79 09/01/25 15:49 Resp 18 09/01/25 15:49 BP 125/73 09/01/25 15:49 Pulse Ox 93 09/01/25 15:49 O2 Del Method Nasal Cannula 09/01/25 15:49 O2 Flow Rate 2 09/01/25 15:49 BMI result Body Mass Index 27.4 Const: General: ill appearing Neck: Neck: Yes supple Resp: Auscultation: clear to auscultation bilaterally Cardio: Palpation: no palpable S3 Heart sounds: no rubs GI: Palpation (GI): Soft to palpation Auscultation: normal bowel sounds Neuro: Motor exam (neuro): no asterixis Objective Data Labs 09/01/25 12:14 09/01/25 05:14 Labs: Laboratory Results - last 24 hr 09/01/25 09/01/25 09/01/25 02:11 05:13 05:14 WBC RBC Hgb Hct MCV MCH MCHC RDW Plt Count MPV Absolute Nucleated RBC Nucleated RBC % (auto) Sodium 129 L Potassium 4.9 Chloride 100 Carbon Dioxide 17 L Anion Gap 17 BUN 62 H Creatinine 3.81 H Estim Creat Clear Calc 20.8 Estimated GFR 13 Random Glucose 76 Haptoglobin < 8 L Calcium 8.0 L Magnesium 3.1 H Total Bilirubin 10.9 H Direct Bilirubin 6.6 H AST 103 H ALT 25 Alkaline Phosphatase 83 Lactate Dehydrogenase 283 H Total Protein 7.5 Albumin 3.0 L Urine Color BROWN Urine Appearance Clear Urine pH 5.5 Ur Specific [place] 1.025 Urine Protein 300 (3+) H Urine Glucose (UA) Negative Urine Ketones Negative Urine Blood Large (3+) H Urine Nitrite Positive H Ur Leukocyte Esterase Negative Urine RBC >20 H Urine WBC 6-10 H Ur Squamous Epith Cells 0-2 Urine Bacteria 1+ Hyaline Casts 0-2 Urine Yeast Present U Random Total Protein 415 H Ur Random Sodium 33.0 Urine Creatinine 74.03 Stool Occult Blood 09/01/25 09/01/25 12:14 14:17 WBC 8.3 RBC 2.59 L D Hgb 8.0 L Hct 23.3 L MCV 90.0 D MCH 30.9 MCHC 34.3 RDW 19.9 H Plt Count 55 L MPV 10.0 Absolute Nucleated RBC 0.000 Nucleated RBC % (auto) 0.0 Sodium Potassium Chloride Carbon Dioxide Anion Gap BUN Creatinine Estim Creat Clear Calc Estimated GFR Random Glucose Haptoglobin Calcium Magnesium Total Bilirubin Direct Bilirubin AST ALT Alkaline Phosphatase Lactate Dehydrogenase Total Protein Albumin Urine Color Urine Appearance Urine pH Ur Specific [place] Urine Protein Urine Glucose (UA) Urine Ketones Urine Blood Urine Nitrite Ur Leukocyte Esterase Urine RBC Urine WBC Ur Squamous Epith Cells Urine Bacteria Hyaline Casts Urine Yeast U Random Total Protein Ur Random Sodium Urine Creatinine Stool Occult Blood POSITIVE Microbiology Microbiology Results: Microbiology 08/30/25 13:15 Paracentesis Fluid Gram Stain - Final 08/30/25 13:15 Paracentesis Fluid Anaerobic Culture - Preliminary No growth to date. 08/30/25 13:15 Paracentesis Fluid Body Fluid Culture - Final No growth after 2 days 08/24/25 14:17 Blood - Venous Blood Culture - Final No growth after 5 days. 08/25/25 06:16 Blood - Venous Blood Culture - Final No growth after 5 days. 08/25/25 06:16 Blood - Venous Blood Culture - Final No growth after 5 days. 08/24/25 14:17 Blood - Venous Blood Culture - Final Methicillin Res Staph Aureus 08/19/25 23:23 Knee aspirate Gram Stain - Final 08/19/25 23:23 Knee aspirate Anaerobic Culture - Final 08/19/25 23:23 Knee aspirate Gross Specimen Examination - Final 08/19/25 23:23 Knee aspirate Fluid Crystals - Final 08/19/25 23:23 Knee aspirate Joint Fluid Culture - Final Methicillin Res Staph Aureus 08/22/25 20:58 Blood - Venous Blood Culture - Final Methicillin Res Staph Aureus 08/22/25 15:00 Blood - Venous Blood Culture - Final Methicillin Res Staph Aureus 08/21/25 10:09 Blood - Venous Blood Culture - Final 08/21/25 13:05 Blood - Venous Blood Culture - Final Methicillin Res Staph Aureus 08/19/25 20:31 Blood - Venous Blood Culture - Final Methicillin Res Staph Aureus 08/19/25 20:31 Blood - Venous Blood Culture - Final Methicillin Res Staph Aureus Procedures Date of Service Date of Service: 09/01/25 Assessment & Plan Assessment and plan (1) RICHARD (acute kidney injury): Status: Acute Plan 44-year-old woman with hepatitis-C cirrhosis IV drug abuse with MRSA septic arthritis bacteremia history and severe anemia is currently in acute kidney injury. Differential diagnosis would include ATN. She likely has hepatorenal syndrome. Severe anemia with thrombocytopenia. LDH is marginally elevated. No schistocytes were reported. Low haptoglobin suggestive of hemolysis ?HUS Check peripheral smear for schiztocytes Hematology evaluation Concur with current medical management Dose all medications for EGFR of less than 10 Watch urine output closely. Avoid hypotension. Continue to avoid nephrotoxic agents including IV contrast NSAIDs etc. Overall prognosis is guarded. If there is no improvement renal function she may require renal replacement therapy. Time Spent With Patient Time: Total time managing care of this patient today ____ minutes. Progress Note: Quality Stroke Does the patient have a stroke diagnosis?: No
--- NOTE | 2025-09-01 18:04 | PC.NURSE ---
Pt has had minimal stool output today. Incontinent of urine, which remains unmeasured. Pt refusing soap suds enema at this time.
[2025-09-01 19:23] VITALS: BP 140/88; PULSE 87; RESP 16; TEMP 36.3; O2SAT 95
[2025-09-01 23:27] VITALS: BP 137/83; PULSE 84; RESP 17; TEMP 36.6; O2SAT 94
[2025-09-02] VITALS (10 sets, daily range): BP systolic 132–173; BP diastolic 74–90; PULSE 82–93; RESP 17–20; TEMP 36.1–36.6; O2SAT 90–97
[2025-09-02] MEDS: Octreotide Acetate 100 MCG/ML AMPUL 50 MCG SUBCUT ×3 (02:24→18:29)
[2025-09-02] MEDS: 0.9 % Sodium Chloride Flush 3 ML SYRINGE IVFLUSH ×4 (02:25→20:04)
[2025-09-02] MEDS: diazePAM 10 MG/2 ML CARTRIDGE 5 MG IVPUSH ×2 (02:44→18:41)
[2025-09-02] MEDS: traZODone HCL 25 MG HALFTAB PO (04:41)
[2025-09-02] MEDS: 0.9 % Sodium Chloride Flush 10 ML SYRINGE 5 ML IVFLUSH ×3 (07:39→23:48)
[2025-09-02] MEDS: methADONE HCl 20 MG/2 ML ORAL.CONC 55 MG PO (08:09)
[2025-09-02 11:58] LABS: Baso%MD 0.8 %; Eos%MD 0.8 %; Hematocrit 22.0 % (37.0-47.0); Hemoglobin 7.5 g/dl (12.0-16.0); IG%MD 0.5 %; Lymph%MD 5.6 %; Mean Corpuscular HGB Conc 34.1 g/dl (31.0-35.0); Mean Corpuscular Hemoglobin 31.4 pg (27.0-33.0); Mean Corpuscular Volume 92.1 fL (80.0-98.0); Mono%MD 9.4 %; NRBC Abs Auto 0.000 X10*3/uL (0.0-0.012); NRBC Pct Auto 0.0 /100WBC (0.0-0.2); Neut%MD 82.9 %; Red Blood Count 2.39 X10*6/uL (4.20-5.50); White Blood Count 9.8 X10*3/uL (4.8-10.8)
[2025-09-02 12:05] LABS: Platelet Count 64 X10*3/uL (160-400)
[2025-09-02 12:32] LABS: Ammonia 82 umol/L (13-55)
[2025-09-02 12:40] LABS: Band Neutrophils Percent 10 % (3-5); Lymphocytes Absolute Manual 0.6 X10*3/uL (1.2-4.9); Lymphocytes Percent Manual 6 % (20-40); Monocytes Absolute Manual 0.8 X10*3/uL (0.1-1.2); Monocytes Percent Manual 8 % (2-11); Neutrophils Absolute Manual 8.4 X10*3/uL (2.0-8.3); Neutrophils Percent Manual 76 % (45-73)
[2025-09-02 12:43] LABS: Acanthocytes 1+ (0-2) /OIF; Burr Cells 1+ (0-2) /OIF; Polychromasia 1+ (0-2) /OIF; RBC Morphology NOTED; Schistocytes 1+ (0-2) /OIF; Toxic Vacuolation PRESENT
--- NOTE | 2025-09-02 12:46 | P.PNNP_ITS ---
Subjective Subjective Date of Service: 09/02/25 Interval history: Events noted Ill appearing s/p Blood transfusion Physical Exam 2 Exam: Exam: Lethargic Not verbalizing. Anasarca present Lungs with rhonchi. Jaundice. No purpura or rash. Vital Signs: Vital Signs: Last Vital Signs Temp 97.0 F 09/02/25 12:00 Pulse 83 09/02/25 12:00 Resp 18 09/02/25 12:00 BP 137/74 09/02/25 12:00 Pulse Ox 92 09/02/25 12:00 O2 Del Method Nasal Cannula 09/02/25 12:00 O2 Flow Rate 2 09/02/25 12:00 BMI result Body Mass Index 27.4 Objective Data Labs 09/02/25 11:47 09/01/25 05:14 Labs: Laboratory Results - last 24 hr 09/01/25 09/01/25 09/02/25 05:13 14:17 11:47 WBC 9.8 RBC 2.39 L Hgb 7.5 L Hct 22.0 L MCV 92.1 MCH 31.4 MCHC 34.1 RDW 19.8 H Plt Count 64 L MPV 10.1 Absolute Nucleated RBC 0.000 Nucleated RBC % (auto) 0.0 Neutrophils % (Manual) 76 H Band Neutrophils % 10 H Lymphocytes % (Manual) 6 L Monocytes % (Manual) 8 Abs Neuts (Manual) 8.4 H Lymphocytes # (Manual) 0.6 L Monocytes # (Manual) 0.8 Toxic Vacuolation PRESENT Platelet Estimate DECREASED Plt Morphology Comment NORMAL RBC Morphology NOTED Polychromasia 1+ (0-2) [place] Cells 1+ (0-2) Acanthocytes (Spur) 1+ (0-2) Schistocytes 1+ (0-2) Ammonia Stool Occult Blood POSITIVE Complement C3 22 L Complement C4 4 L 09/02/25 12:11 WBC RBC Hgb Hct MCV MCH MCHC RDW Plt Count MPV Absolute Nucleated RBC Nucleated RBC % (auto) Neutrophils % (Manual) Band Neutrophils % Lymphocytes % (Manual) Monocytes % (Manual) Abs Neuts (Manual) Lymphocytes # (Manual) Monocytes # (Manual) Toxic Vacuolation Platelet Estimate Plt Morphology Comment RBC Morphology Polychromasia S[place] Cells Acanthocytes (Spur) Schistocytes Ammonia 82 H Stool Occult Blood Complement C3 Complement C4 Microbiology Microbiology Results: Microbiology 08/30/25 13:15 Paracentesis Fluid Gram Stain - Final 08/30/25 13:15 Paracentesis Fluid Anaerobic Culture - Preliminary No growth to date. 08/30/25 13:15 Paracentesis Fluid Body Fluid Culture - Final No growth after 2 days 08/24/25 14:17 Blood - Venous Blood Culture - Final No growth after 5 days. 08/25/25 06:16 Blood - Venous Blood Culture - Final No growth after 5 days. 08/25/25 06:16 Blood - Venous Blood Culture - Final No growth after 5 days. 08/24/25 14:17 Blood - Venous Blood Culture - Final Methicillin Res Staph Aureus 08/19/25 23:23 Knee aspirate Gram Stain - Final 08/19/25 23:23 Knee aspirate Anaerobic Culture - Final 08/19/25 23:23 Knee aspirate Gross Specimen Examination - Final 08/19/25 23:23 Knee aspirate Fluid Crystals - Final 08/19/25 23:23 Knee aspirate Joint Fluid Culture - Final Methicillin Res Staph Aureus 08/22/25 20:58 Blood - Venous Blood Culture - Final Methicillin Res Staph Aureus 08/22/25 15:00 Blood - Venous Blood Culture - Final Methicillin Res Staph Aureus 08/21/25 10:09 Blood - Venous Blood Culture - Final 08/21/25 13:05 Blood - Venous Blood Culture - Final Methicillin Res Staph Aureus 08/19/25 20:31 Blood - Venous Blood Culture - Final Methicillin Res Staph Aureus 08/19/25 20:31 Blood - Venous Blood Culture - Final Methicillin Res Staph Aureus Procedures Date of Service Date of Service: 09/02/25 Assessment & Plan Assessment and plan (1) RICHARD (acute kidney injury): Status: Acute Plan 44-year-old woman with hepatitis-C cirrhosis IV drug abuse with MRSA septic arthritis bacteremia history and severe anemia is currently in acute kidney injury. Differential diagnosis would include ATN. She likely has hepatorenal syndrome. Severe anemia with thrombocytopenia. LDH is marginally elevated. No schistocytes were reported. Low haptoglobin suggestive of hemolysis ?HUS Check peripheral smear for schiztocytes/ Hematology evaluation Concur with current medical management Dose all medications for EGFR of less than 10 Watch urine output closely. Avoid hypotension. Continue to avoid nephrotoxic agents including IV contrast NSAIDs etc. Overall prognosis is guarded. If there is no improvement renal function she may require renal replacement therapy. Time Spent With Patient Time: Total time managing care of this patient today ____ minutes. Progress Note: Quality Stroke Does the patient have a stroke diagnosis?: No
[2025-09-02 12:49] LABS: Anion Gap 15 (12-20); Blood Urea Nitrogen 76 mg/dL (9-16); Calcium 8.2 mg/dL (8.4-10.2); Carbon Dioxide 18 mmol/L (22-29); Chloride 102 mmol/L (96-108); Creatinine Clr Calc Pharmacy 17.0; Estimated Glomerular Filt Rate 10; Potassium 5.2 mmol/L (3.3-5.1); Sodium 130 mmol/L (135-145)
--- NOTE | 2025-09-02 12:54 | MHC.CM.PN ---
Addendum entered by Kiki Mcbride RN 09/02/25 13:17: CONTACT # FOR REGINE KHANNA [phone], BONNIE RECEIVED CALL BACK FROM REGINE REPORTS SHE HAS COMPLETED NEW FORM FOR [facility] AND WILL FAX TO [employer] ONCE SHE HAS PROVIDER SIGN. Original Note: EMR REVIEWED, PER HOSPITALIST ANTIC PT WILL BE ABLE TO DC TO [facility] OVER W/E, SNF UPDATED AND CM CONTACTED [facility] WHO ARE REQUESTING PAPERWORK W/NEW START DATE FROM PT'S HOME [facility], CM CONTACTED [facility] AND WAS TRANSFERRED TO REGINE KHANNA, DETAILED MESSAGE LEFT W/REQUEST FOR CALL BACK.
--- NOTE | 2025-09-02 13:26 | PC.NURSE ---
Pt's father HCP requested to speak with Hospitalist about her daughter health status and this was arranged . Pt's 2nd HCP is here and requesting to speak with the health care team about transfer her sister to a higher level of care facility .
--- NOTE | 2025-09-02 14:16 | P.CDIM_ITS ---
PROVIDER RESPONSE TEXT: To clarify, the appropriate diagnosis supported by the clinical indicators: Other (explain): Arthroscopic debrdement QUERY TEXT: PHYSICIAN'S DOCUMENTATION REQUEST Date of Query: 08/30/2025 10:59 AM EST Patient Name: Afia Jeff Admit Date: 08/20/2025 Dear Ty Muñoz MD, A review of the medical record indicates additional documentation may be needed. Please review below and update the documentation accordingly. Clinical Indicators: Brief Operative Note 08/20/25: Procedure: Arthroscopic lavage and debridement right knee Could you provide, in the Progress Notes, further clarification regarding the type and nature of the debridement? Excisional debridement Please also address the Type of instrument used, What was excised, Depth of debridement, and Size and appearance of the wound as able Non-excisional debridement Please also address the Depth of debridement, and Size and appearance of the wound as able Other (explain) Clinically unable to determine (explain) Thank you, Holly Flannery RN Use of terms such as suspected, likely, concern for, or probable (associated with a specific diagnosis that is being evaluated, monitored, or treated as if it exists) are acceptable and can be coded in the inpatient setting, when documented at the time of discharge. Please use your independent medical judgment in providing your response. THIS QUERY IS PART OF THE PERMANENT MEDICAL RECORD
[2025-09-02] MEDS: Albumin Human 25 % 100 ML IV ×2 (15:08→20:01)
[2025-09-02 15:39] LABS: Alanine Aminotransferase 28 U/L (0-31); Albumin Level 2.8 g/dL (3.5-5.0); Alkaline Phosphatase 86 U/L (39-117); Aspartate Amino Transferase 126 U/L (5-31); Total Protein 7.8 g/dL (6.5-8.0)
--- NOTE | 2025-09-02 16:39 | HO.PM.IMPN ---
Subjective Subjective Date of Service: 09/02/25 Interval History: Patient is more confused today, generally edematous, jaundic and complaint of gneralized pain, and pain in knee H and H has decreased since yesterday and will be transfused one more unit, clinical update given to father and sister attempt been made to transfer to tertiary facility, I have contacted [facility], [facility], [place], [facility] and [facility] all have declined transfer. Physical Exam Exam: Exam: General: more confused, generally edematous/anasarca HEET: Sclera icteris Resp: CTA bilateral CVS: S1,S2,RRR, anasarca GI: +BS, Non-specific tenderness, some distention Skin: No rash, yellowish looking Neuro: motor grossly intact Psych: appropriate affect Vital Signs: Vital Signs: Last Vital Signs Temp 97.0 F 09/02/25 16:00 Pulse 82 09/02/25 16:00 Resp 18 09/02/25 16:00 BP 132/77 09/02/25 16:00 Pulse Ox 97 09/02/25 16:00 O2 Del Method Nasal Cannula 09/02/25 16:00 O2 Flow Rate 1 09/02/25 16:00 BMI result Body Mass Index 27.4 Objective Data Active Medications Acetaminophen (Acetaminophen 325 Mg Tablet) 650 mg PO Q6H PRN PRN Reason: Pain, Mild 1-3,fever,headache Last Admin: 08/27/25 04:13 Dose: 650 mg Documented By: NENA Amlodipine Besylate (Amlodipine Besylate 5 Mg Tablet) 5 mg PO DAILY MARIKA; Protocol Last Admin: 09/02/25 08:17 Dose: 5 mg Documented By: GINA Calcium Carbonate (Calcium Carbonate 750 Mg Tab.Chew) 750 mg PO Q4H PRN PRN Reason: Heartburn Last Admin: 08/30/25 09:54 Dose: 750 mg Documented By: CHRIS Diazepam (Diazepam 10 Mg/2 Ml Cartridge) 5 mg IVPUSH Q6H PRN PRN Reason: Anxiety Last Admin: 09/02/25 02:44 Dose: 5 mg Documented By: YUE Daptomycin 650 mg/ Sodium (Chloride) 63 mls @ 99.912 mls/hr IV Q24H MARIKA On Hold: 09/02/25 13:20 Last Infusion: 09/01/25 20:17 Dose: Infused Documented By: SHUKRI Ceftriaxone Sodium 2 gm/ (Sodium Chloride) 50 mls @ 100 mls/hr IV Q24H [facility] Stop: 09/21/25 16:59 Last Infusion: 09/01/25 19:12 Dose: Infused Documented By: XIN Albumin Human (Kedbumin 25 %) 100 mls @ 100 mls/hr IV Q6H [facility] Stop: 09/02/25 21:44 Last Infusion: 09/02/25 16:24 Dose: Infused Documented By: GINA Lactulose (Lactulose 20 Gm/30 Ml Solution) 30 gm PO Q6H [facility] Last Admin: 09/02/25 14:03 Dose: 30 gm Documented By: GINA Magnesium Hydroxide (Milk Of Magnesia 30 Ml Oral.Susp) 30 ml PO DAILY PRN PRN Reason: Constipation Last Admin: 08/28/25 06:41 Dose: 30 ml Documented By: ANA Melatonin (Melatonin 3 Mg Tablet) 6 mg PO BEDTIME PRN PRN Reason: Insomnia Methadone HCl (Methadone Hcl 20 Mg/2 Ml Oral.Conc) 55 mg PO DAILY [facility] Last Admin: 09/02/25 08:09 Dose: 55 mg Documented By: GINA Co-signed By: CHRIS Morphine Sulfate (Morphine Sulfate 4 Mg/Ml Cartridge) 2 mg IVPUSH Q6H PRN; Protocol PRN Reason: Pain, Severe (Pain Scale 7-10) Naloxone HCl (Naloxone Hcl 0.4 Mg/Ml Vial) 0.04 mg IVPUSH Q5M PRN PRN Reason: Excessive sedation or RR < 8 Nystatin (Nystatin Powder 15 Gm Bottle) 1 appl TOPICAL BID [facility]; Protocol Last Admin: 09/02/25 08:18 Dose: 1 appl Documented By: GINA Octreotide Acetate (Octreotide Acetate 100 Mcg/Ml Ampul) 50 mcg SUBCUT Q8H [facility] Last Admin: 09/02/25 11:27 Dose: 50 mcg Documented By: GINA Ondansetron HCl (Ondansetron Hcl 4 Mg/2 Ml Vial) 4 mg IVPUSH Q8H PRN PRN Reason: Nausea and Vomiting Sodium Chloride (0.9 % Sodium Chloride Flush 3 Ml Syringe) 3 ml IVFLUSH QSHIFT [facility] Last Admin: 09/02/25 15:13 Dose: 3 ml Documented By: GINA Sodium Chloride (0.9 % Sodium Chloride Flush 10 Ml Syringe) 5 ml IVFLUSH QSHIFT [facility] Last Admin: 09/02/25 15:08 Dose: 5 ml Documented By: GINA Trazodone HCl (Trazodone Hcl 25 Mg Halftab) 25 mg PO BEDTIME MRX1 PRN PRN Reason: Sleep Last Admin: 09/02/25 04:41 Dose: 25 mg Documented By: YUE Labs 09/02/25 11:47 09/02/25 11:47 Labs: Laboratory Results - last 24 hr 09/01/25 09/02/25 09/02/25 05:13 11:47 12:11 MCV 92.1 MCH 31.4 MCHC 34.1 RDW 19.8 H Plt Count 64 L MPV 10.1 Absolute Nucleated RBC 0.000 Nucleated RBC % (auto) 0.0 Neutrophils % (Manual) 76 H Band Neutrophils % 10 H Lymphocytes % (Manual) 6 L Monocytes % (Manual) 8 Abs Neuts (Manual) 8.4 H Lymphocytes # (Manual) 0.6 L Monocytes # (Manual) 0.8 Toxic Vacuolation PRESENT Platelet Estimate DECREASED Plt Morphology Comment NORMAL RBC Morphology NOTED Polychromasia 1+ (0-2) Sasha Cells 1+ (0-2) Acanthocytes (Spur) 1+ (0-2) Schistocytes 1+ (0-2) Anion Gap 15 Estim Creat Clear Calc 17.0 Estimated GFR 10 Random Glucose 69 Calcium 8.2 L Total Bilirubin 11.4 H Direct Bilirubin 6.6 H AST 126 H ALT 28 Alkaline Phosphatase 86 Ammonia 82 H Total Creatine Kinase 71 Total Protein 7.8 Albumin 2.8 L Complement C3 22 L Complement C4 4 L Blood Type Antibody Screen Crossmatch 09/02/25 14:06 MCV MCH MCHC RDW Plt Count MPV Absolute Nucleated RBC Nucleated RBC % (auto) Neutrophils % (Manual) Band Neutrophils % Lymphocytes % (Manual) Monocytes % (Manual) Abs Neuts (Manual) Lymphocytes # (Manual) Monocytes # (Manual) Toxic Vacuolation Platelet Estimate Plt Morphology Comment RBC Morphology Polychromasia Lowgap Cells Acanthocytes (Spur) Schistocytes Anion Gap Estim Creat Clear Calc Estimated GFR Random Glucose Calcium Total Bilirubin Direct Bilirubin AST ALT Alkaline Phosphatase Ammonia Total Creatine Kinase Total Protein Albumin Complement C3 Complement C4 Blood Type A Negative Antibody Screen NEGATIVE Crossmatch See Detail Microbiology Microbiology Results: Microbiology 08/30/25 13:15 Gram Stain - Final Paracentesis Fluid Anaerobic Culture - Preliminary No growth to date. Body Fluid Culture - Final No growth after 2 days Assessment and Plan (1) Septic joint of right knee joint: Status: Acute (2) MRSA bacteremia: Status: Acute (3) Anxiety: Status: Acute Plan 44yo F with hep C cirrhosis, IVDA on methadone, HTN presenting with RLE pain/swelling; R knee aspirated in ED and ultimately found to have MRSA septic arthritis and bacteremia; now with RICHARD and severe anemia, ascites and worsening liver failure with hyperbiliriubinemia and RICHARD, renal function presentation was near 1 and now 4.67 and rising BUN as well hypoNa appear chronic and stable around 128 to 130 There is concern for hepatorenal syndrome. She's been treated with ocreaotide and Albumin, and will add Midodrine if low BP develops. check BMP daily. Nephrology following, will probably need dialysis, especially in light of developping hyperkalemia. ascites paracentesis done 01/28, 700 cc removed; no sings of SBP Liver disease, underlying cirrhosis, Hep C, now with high Bili, AST/ALT relatively unchged, prior CT and US reviewd, will get another CT of abdomen concern for HRS as disscussed above again. Referal made to [facility] (at capacity), [facility] at capacity, [facility] declined on basis of possible drug for consideration transplant and other services such as dialysis can be provider locally acute/chronic anemia/pancytopenia due to cirrhosis - +FOBT, transfused another 2u pRBCs 08/31/25[got 2u on 08/21/25], follow H/H, another unit of RBC today 09/02 - GI following hepatic encephalopathy - continue lactulose; titrate to 3 soft BMs/d, increased dose to 30 Q6, add Rifaximin MRSA bacteremia/MRSA septic arthritis of R knee/MRSA pneumonia - s/p OR washout 08/20; TTE without endocarditis - BCx 08/25 cleared, per ID 6 wk of daptomycin + ceftriaxone, PICC placed 08/30, end date of antibiotics 09/06/25 hyperK, mild - Monitor opioid abuse +patient was positive for opioid, methadone, fentanyl, benzo on admission, she also stated at triage that she had used IVD prior to coming in due to pain. - Addiction Medicine consulted, continue methadone HTN: amlodipine HCV, chronic: will need outpt treatment and follow up VTE ppx: SCDs dispo: STR In my clinical judgment, the patient requires continued inpatient hospitalization for the following reasons: IV ABX, renal failure Spoke to family (Sister, Father) about clinical course, prognosis which appear poor and possible transfer for a second opioinion whcich I did as discussed above. Additionally HCP invoked Total time managing care of this patient today: 55 minutes. Quality Stroke Does the patient have a stroke diagnosis?: No VTE Prior VTE?: No VTE Risk Level:: Medical - moderate - high VTE Device Contraindication: N/A - Device Ordered VTE Drug Contraindication: Treatment Not Tolerated
--- NOTE | 2025-09-02 17:08 | PC.NURSE ---
bladder scanned for 484, pt didnt urinate , has urge to go , not able , DR Majano was notified
--- NOTE | 2025-09-02 17:48 | W.MHC.ACPN ---
Advanced Care Planning Note Advanced Care Planning Note Time spent (in minutes): 25 Narrative: Gaols of care discusse with patient's Health care proxy (Father) and Sistter on 2 seprate occasionsand given her overall condition and in accordance of her wishes, they want her to be DNR/DNI. Additionally, father wants to transfer primary HCP responsibility to patient's sister. They are aware of tranfers to many hospitals being declined. RN was present during the conversation Problems Discussed (1) Septic joint of right knee joint: (2) MRSA bacteremia: (3) Anxiety:
--- NOTE | 2025-09-02 17:49 | PC.NURSE ---
family and health care team had a meeting : Mckenna Leal RN , pt's father Skinny Jeff and pt's sister Rico Keller . pt's father primary HCP is appointing his daughter , secondary HCP to act as a primary HCP . Pt's father stated that d/t his medical condition , he wants the secondary HCP to make a medical decision on this pt Afia Jeff.
[2025-09-02 22:10] LABS: VBG HCO3 16 mmol/L (22-26); VBG O2 % Saturation 79.0 %
[2025-09-02] MEDS: Albuterol Sulfate (0.083%) 2.5 MG/3 ML VIAL.NEB INHALE (22:10)
[2025-09-02 22:23] LABS: VBG HCO3 16 mmol/L (22-26)
[2025-09-02 22:27] LABS: Venous Blood Gas Refer to POC result
[2025-09-02 22:33] LABS: Anion Gap 20 (12-20); Blood Urea Nitrogen 79 mg/dL (9-16); Calcium 8.3 mg/dL (8.4-10.2); Carbon Dioxide 14 mmol/L (22-29); Chloride 103 mmol/L (96-108); Creatinine Clr Calc Pharmacy 16.4; Estimated Glomerular Filt Rate 10; Potassium 5.2 mmol/L (3.3-5.1); Sodium 132 mmol/L (135-145)
--- NOTE | 2025-09-02 22:47 | P.CONCC_ITS ---
History of Present Illness Data of Consult Service Date: 09/02/25 Requesting physician: Ehsan Miranda Primary Care Provider: Naye Hallman NP HPI Reason for consult: Hepatorenal The patient is a 44-year-old female with a past medical history of hepatitis-C cirrhosis, IV drug use on methadone but actively using, hypertension who presented to the emergency department on 08/19/25 with right lower extremity pain/swelling. Right knee was aspirated in ED and ultimately found to have MRSA septic arthritis and bacteremia. Treated with Daptomycin and ceftriaxone.? Urine toxicology on admission positive for opiates, methadone, fentanyl, and benzodiazepines. Hospital complicated by worsening liver failure with hyperbilirubinemia, new renal failure and severe anemia. Today patient noted to be significantly more confused, worsening edema, and jaundice throughout.? Hemoglobin and hematocrit down trending to 7.5/22.? Albumin 2.8.? Patient making minimal urine.? Hospitalist physician attempted to transfer patient to tertiary facilities ([facility], [facility], [facility] and [facility]) all have declined transfer. Goals of care conversation held with the hospitalist and family, a decision was made to transfer healthcare proxy responsibilities to sister Rico Keller.? Sister and father also decided to change code status to DNR/DNI. Tonight, patient hypoxic to 80% on 10 L Padilla, patient with significant amount of crackles.? Patient's oxygenation improved after deep suctioning to 94% on 15L. Laboratory data significant for Venous gas:? 7.39/26/88/16.? Potassium 5.2, serum bicarb 14, BUN 79, creatinine 4.83, BNP 12550. Patient transferred to ICU for close hemodynamic monitoring Review of Systems 2 Review of Systems: Yes Unobtainable due to mental status PMFSH Past Medical History Medical History Anxiety IVDU (intravenous drug user) Substance use disorder Liver fibrosis HTN (hypertension) Family History Family history: reviewed and not pertinent Social History Social History Household Members: Other Household Members Other:: 21 yr old niece Housing: Apartment Do you presently have visiting nurse or other home services: No Alcohol intake: never Comment: COUNTS CORRECT Patient Tobacco Use Status: Never used Tobacco Substance Use Type: Heroin service: No Meds Allergies Allergy/AdvReac Type Severity Reaction Status Date / Time Penicillins Allergy Unknown Verified 08/19/25 17:28 Sulfa (Sulfonamide Allergy Unknown Verified 08/19/25 17:28 Antibiotics) Active Medications: Current Medications Acetaminophen (Acetaminophen 325 Mg Tablet) 650 mg PO Q6H PRN PRN Reason: Pain, Mild 1-3,fever,headache Last Admin: 08/27/25 04:13 Dose: 650 mg Amlodipine Besylate (Amlodipine Besylate 5 Mg Tablet) 5 mg PO DAILY MARIKA; Protocol Last Admin: 09/02/25 08:17 Dose: 5 mg Calcium Carbonate (Calcium Carbonate 750 Mg Tab.Chew) 750 mg PO Q4H PRN PRN Reason: Heartburn Last Admin: 08/30/25 09:54 Dose: 750 mg Diazepam (Diazepam 10 Mg/2 Ml Cartridge) 5 mg IVPUSH Q6H PRN PRN Reason: Anxiety Last Admin: 09/02/25 18:41 Dose: 5 mg Daptomycin 650 mg/ Sodium (Chloride) 63 mls @ 99.912 mls/hr IV Q24H [facility] Last Infusion: 09/02/25 19:22 Dose: Infused Ceftriaxone Sodium 2 gm/ (Sodium Chloride) 50 mls @ 100 mls/hr IV Q24H [facility] Stop: 09/21/25 16:59 Last Infusion: 09/02/25 17:30 Dose: Infused Albumin Human (Kedbumin 25 %) 100 mls @ 100 mls/hr IV Q6H [facility] Stop: 09/03/25 09:44 Last Infusion: 09/02/25 21:09 Dose: Infused Lactulose (Lactulose 20 Gm/30 Ml Solution) 30 gm PO Q6H MARIKA Last Admin: 09/02/25 20:03 Dose: 30 gm Magnesium Hydroxide (Milk Of Magnesia 30 Ml Oral.Susp) 30 ml PO DAILY PRN PRN Reason: Constipation Last Admin: 08/28/25 06:41 Dose: 30 ml Melatonin (Melatonin 3 Mg Tablet) 6 mg PO BEDTIME PRN PRN Reason: Insomnia Morphine Sulfate (Morphine Sulfate 4 Mg/Ml Cartridge) 2 mg IVPUSH Q6H PRN; Protocol PRN Reason: Pain, Severe (Pain Scale 7-10) Last Admin: 09/02/25 16:52 Dose: 2 mg Naloxone HCl (Naloxone Hcl 0.4 Mg/Ml Vial) 0.04 mg IVPUSH Q5M PRN PRN Reason: Excessive sedation or RR < 8 Nystatin (Nystatin Powder 15 Gm Bottle) 1 appl TOPICAL BID [facility]; Protocol Last Admin: 09/02/25 20:09 Dose: 1 appl Octreotide Acetate (Octreotide Acetate 100 Mcg/Ml Ampul) 50 mcg SUBCUT Q8H [facility] Last Admin: 09/02/25 18:29 Dose: 50 mcg Ondansetron HCl (Ondansetron Hcl 4 Mg/2 Ml Vial) 4 mg IVPUSH Q8H PRN PRN Reason: Nausea and Vomiting Rifaximin (Rifaximin 550 Mg Tablet) 550 mg PO BID [facility] Last Admin: 09/02/25 20:02 Dose: 550 mg Sodium Chloride (0.9 % Sodium Chloride Flush 3 Ml Syringe) 3 ml IVFLUSH [facility] Last Admin: 09/02/25 20:04 Dose: 3 ml Sodium Chloride (0.9 % Sodium Chloride Flush 10 Ml Syringe) 5 ml IVFLUSH [facility] Last Admin: 09/02/25 15:08 Dose: 5 ml Trazodone HCl (Trazodone Hcl 25 Mg Halftab) 25 mg PO BEDTIME MRX1 PRN PRN Reason: Sleep Last Admin: 09/02/25 04:41 Dose: 25 mg Home Medications ?Medication ?Instructions ?Recorded ?Confirmed ?Last Taken ?Type methadone 10 mg/mL oral concentrate 55 mg PO DAILY 09/2108/20/25 08/19/25 07:21 History hydrochlorothiazide 12.5 mg capsule 12.5 mg PO DAILY 1 08/20/25 Unknown History Physical Exam 2 Exam: Exam: ?General:?Alert self ?HEENT:? Head is normocephalic, atraumatic, jaundiced sclera pupils equal round reactive to light accommodation bilaterally.? Extraocular movements appear intact.? Buccal mucosa is dry, Neck is supple ?Cardiac:? Sinus, Clear S1-S2, no murmurs rubs or gallops. ?Pulmonary:? Crackles in all lungs vaitia. ?Abdomen:? ?Abdomen semi firm, slightly distended , non-tender Normal bowel sounds. ?Musculoskeletal:? Moving all 4 extremities randomly.? ?Neurologic:?Confused, alert x1. cranial nerves 2-12 are grossly intact.? No focal deficits noted. Motor strength as above.?? ?Skin:?Jaundiced skin, Pitting edema in all etxremities and trunk. Vital Signs: Vital Signs: Last Vital Signs Temp 98 F 09/02/25 21:55 Pulse 92 09/02/25 22:11 Resp 20 09/02/25 22:11 BP 155/90 H 09/02/25 21:55 Pulse Ox 91 L 09/02/25 19:44 O2 Del Method Nasal Cannula 09/02/25 19:44 O2 Flow Rate 4 09/02/25 19:44 BMI result Body Mass Index 27.4 Results Labs 09/03/25 04:52 09/03/25 04:52 Labs: Short CBC 09/02/25 Range/Units 11:47 WBC 9.8 (4.8-10.8) X10*3/uL Hgb 7.5 L (12.0-16.0) g/dl Hct 22.0 L (37.0-47.0) % Plt Count 64 L (160-400) X10*3/uL BMP 09/02/25 09/02/25 11:47 22:10 Sodium 130 L 132 L Potassium 5.2 H 5.2 H Chloride 102 103 Carbon Dioxide 18 L 14 L BUN 76 H 79 H Creatinine 4.67 H* 4.83 H* Calcium 8.2 L 8.3 L Cardiac Enzymes 09/02/25 Range/Units 11:47 Total Creatine Kinase 71 (26-140) U/L Liver Function 09/02/25 Range/Units 11:47 Total Bilirubin 11.4 H (0.0-1.0) mg/dL Direct Bilirubin 6.6 H (0.0-0.5) mg/dL AST 126 H (5-31) U/L ALT 28 (0-31) U/L Alkaline Phosphatase 86 (39-117) U/L Albumin 2.8 L (3.5-5.0) g/dL Microbiology Microbiology Results: Microbiology 08/30/25 13:15 Paracentesis Fluid Gram Stain - Final 08/30/25 13:15 Paracentesis Fluid Anaerobic Culture - Preliminary No growth to date. 08/30/25 13:15 Paracentesis Fluid Body Fluid Culture - Final No growth after 2 days 08/24/25 14:17 Blood - Venous Blood Culture - Final No growth after 5 days. 08/25/25 06:16 Blood - Venous Blood Culture - Final No growth after 5 days. 08/25/25 06:16 Blood - Venous Blood Culture - Final No growth after 5 days. 08/24/25 14:17 Blood - Venous Blood Culture - Final Methicillin Res Staph Aureus 08/19/25 23:23 Knee aspirate Gram Stain - Final 08/19/25 23:23 Knee aspirate Anaerobic Culture - Final 08/19/25 23:23 Knee aspirate Gross Specimen Examination - Final 08/19/25 23:23 Knee aspirate Fluid Crystals - Final 08/19/25 23:23 Knee aspirate Joint Fluid Culture - Final Methicillin Res Staph Aureus 08/22/25 20:58 Blood - Venous Blood Culture - Final Methicillin Res Staph Aureus 08/22/25 15:00 Blood - Venous Blood Culture - Final Methicillin Res Staph Aureus 08/21/25 10:09 Blood - Venous Blood Culture - Final 08/21/25 13:05 Blood - Venous Blood Culture - Final Methicillin Res Staph Aureus 08/19/25 20:31 Blood - Venous Blood Culture - Final Methicillin Res Staph Aureus 08/19/25 20:31 Blood - Venous Blood Culture - Final Methicillin Res Staph Aureus Assessment and Plan (1) Metabolic acidosis: Status: Acute (2) RICHARD (acute kidney injury): Status: Acute (3) Liver failure: Status: Acute (4) Septic joint of right knee joint: Status: Acute (5) MRSA bacteremia: Status: Acute (6) Pulmonary edema: Status: Acute (7) Thrombocytopenia: Status: Acute (8) Anemia: Status: Acute Plan Neuro: Metabolic/ Hepatic encephalopathy:? Likely from liver failure, ammonia level elevated to 82.? We will start lactulose NM. Cardiac:?? Pulmonary edema:? From hepatorenal syndrome.? Unable to give Lasix at this time.? Possibility for hemodialysis.? Echocardiogram from 08/23/2025 left ventricular systolic function is normal normal EF. Underlying history of hypertension:? Continue amlodipine Pulmonary: Acute hypoxic respiratory failure:? From fluid overload/renal failure.? Unable to do Lasix at this time due to severe renal failure.? Oxygenation improved with supplemental oxygenation.? Wean off supplemental O2 as tolerated. Renal:? RICHARD-? since admission creatinine elevated to 4.83, from normal values 1.23. Concerning for hepatorenal syndrome. She's been treated with ocreaotide and Albumin.? Urine output has dropped to 0 in the last few hours. Potassium elevated to 5.2. Nephrology following.? Family was initially interested in dialysis, but tonight after goals of care conversation they do not wish to do dialysis at this time.? Patient has profound metabolic acidosis we will attempt to give bicarb IV push Endo:? No acute issues.?? GI:?? Hepatic failure with underlying cirrhosis, Hep C, [place] bill 11.4, AST/ALT worsening.? No change in abdominal CT today.? Patient is on subQ octreotide, rifaximin.? Ammonia level was elevated, due to mental status unable to take p.o. lactulose.? Will switch to NM lactulose. Heme/Onc:? Anemia/chronic pancytopenia/thrombocytopenia:? Due to Hemolytic component secondary to membrane abnormalities related to underlying liver disease/ anemia chronic disease. Patient is being followed by Heme-Onc.? H&H stable at this time. ?ID: ? MRSA bacteremia/MRSA septic arthritis of Right knee/MRSA pneumonia - s/p OR washout 08/20; TTE without endocarditis - BCx 08/25 cleared, per ID 6 wkof daptomycin + ceftriaxone. End date of antibiotics 09/06/25 Psych:? No acute issues. MISC:? Goals of care conversations held by hospitalist physician today.? Sister signed as healthcare proxy, ching patient is in significant fluid overload due to worsening renal failure.? Nephrology and hospitalist had discussed possibility for hemodialysis for patient.? Ching I spoke with patient's sister Rico, informed the patient's change in clinical condition and transferred to the ICU.? Possibility of initiation of hemodialysis tonight.? While speaking with the patient's sister, she does not want her to have hemodialysis line at this time.? Does not want to do [employer] at this time, but understands this might be the next step in patient's care. Diet: NPO ?Prophylaxis:? Compression devices ?Code? status: ? ? DNR/DNI ?Critical care time: x 30 min of critical care time?
--- NOTE | 2025-09-02 23:29 | PC.NURSE ---
Assumed care of pt at 1900. Became increasingly restless with increased work of breathing 24/ minute, crackles and expiratory wheezes in bilateral lung avitia with concerns of fluid overload. sats dropping with supplemental oxygenation; titrated up to 10L Padilla Nasal cannula with sats 82-84%. Provider called to bedside. Sats improved to 92-94% with 15L oxymask and deep suctioning. Morphine and Hydromorphone administered per provider orders. Stat chest X-ray with labs ordered. Continous monitoring and assessment ongoing. Pt transferred to higher level of care.
[2025-09-03] VITALS: BP 151/81; PULSE 92; RESP 30; TEMP 36.8; O2SAT 91
[2025-09-03] MEDS: Lactulose 320 GM/480 ML SOLUTION 200 GM PR
[2025-09-03] MEDS: diazePAM 10 MG/2 ML CARTRIDGE 5 MG IVPUSH ×3 (01:10→07:41)
[2025-09-03] MEDS: Octreotide Acetate 100 MCG/ML AMPUL 50 MCG SUBCUT (01:11)
[2025-09-03 01:59] VITALS: BP 135/83; PULSE 92; RESP 40; O2SAT 89
[2025-09-03 02:58] VITALS: BP 144/85; PULSE 93; RESP 32; O2SAT 96
[2025-09-03] MEDS: Albumin Human 25 % 100 ML IV (03:23)
[2025-09-03 04:00] VITALS: BP 153/86; PULSE 98; RESP 40; TEMP 36.3; O2SAT 91
[2025-09-03 04:06] VITALS: PULSE 97; RESP 26; O2SAT 90
[2025-09-03 04:55] LABS: MANUAL DIFF FLAG NO
[2025-09-03 05:00] VITALS: BP 133/74; PULSE 95; RESP 34; O2SAT 88
[2025-09-03 05:01] LABS: Imm Gran Abs Auto 0.07 X10*3/uL (0.00-0.03); Imm Gran Pct Auto 0.6 % (0.0-0.4); Lymphocytes Absolute Auto 0.7 X10*3/uL (1.2-4.9); Mean Corpuscular HGB Conc 33.5 g/dl (31.0-35.0); Mean Corpuscular Hemoglobin 31.5 pg (27.0-33.0); Mean Corpuscular Volume 94.0 fL (80.0-98.0); NRBC Abs Auto 0.000 X10*3/uL (0.0-0.012); NRBC Pct Auto 0.0 /100WBC (0.0-0.2); Red Blood Count 2.00 X10*6/uL (4.20-5.50); White Blood Count 11.0 X10*3/uL (4.8-10.8)
[2025-09-03 05:01] LABS: VBG HCO3 17 mmol/L (22-26); VBG O2 % Saturation 76.0 %
[2025-09-03 05:02] LABS: Platelet Count 56 X10*3/uL (160-400)
[2025-09-03 05:03] LABS: Hemoglobin 6.3 g/dl (12.0-16.0)
[2025-09-03 05:04] LABS: Hematocrit 18.8 % (37.0-47.0)
[2025-09-03 05:07] LABS: Venous Blood Gas Refer to POC result
[2025-09-03 05:08] LABS: INTERNATIONAL NORM RATIO 2.4 (0.9-1.1); Prothrombin Time 28.8 SEC (11.2-13.5)
[2025-09-03 05:10] LABS: Ammonia 108 umol/L (13-55)
--- NOTE | 2025-09-03 05:16 | HO.HCP_ITS ---
Health Care Proxy Invocation Health Care Proxy Declaration: I, Jermain Stewart, on the date cited below, have determined that, Afia Jeff, lacks the capacity to make or communicate, informed health care decision. This determination is made in accordance with accepted standards of medical judgment and pursuant to [place] c[place] 201[place], the [place] Health Care Proxy Law. The cause, nature, extent and probable duration of the patient's inapacity are described below: Cause: Metabolic/ hepatic Encephalopathy, liver failure Nature: Organic Extent:Severe Probable Duration of Patient's Incapacity: unable to determine
--- NOTE | 2025-09-03 05:16 | W.MHC.ACPN ---
Advanced Care Planning Note Advanced Care Planning Note Discussed with: family member(s) Time spent (in minutes): 30 Narrative: Goals of care conversations held by hospitalist physician Yesterday.? Sister Rico Keller, asigned as healthcare proxy, overnight patient was transferred to the intensive care unit for hemodynamic monitoring due to development of pulmonary edema due to worsening renal failure likely due to hepatorenal syndrome. Sister decline hemodialysis at the time of transfer, with possibility to head towards comfort measures. Patient has continued to deteriorate overnight, requiring max O2 support. This morning hemoglobin/hematocrit dropped to 6.3/18.3. Informed sister Rico. Goals of care held again, sister wishes to change code status to comfort measures only at this time. Sister requests for all life-saving medications/interventions to stop when she is at bedside. Code status changed in chart. Problems Discussed (1) Metabolic acidosis: (2) RICHARD (acute kidney injury): (3) Liver failure: (4) Septic joint of right knee joint: (5) MRSA bacteremia: (6) Pulmonary edema: (7) Thrombocytopenia: (8) Anemia:
[2025-09-03 05:31] LABS: Alanine Aminotransferase 25 U/L (0-31); Albumin Level 3.2 g/dL (3.5-5.0); Alkaline Phosphatase 93 U/L (39-117); Anion Gap 20 (12-20); Aspartate Amino Transferase 109 U/L (5-31); Blood Urea Nitrogen 81 mg/dL (9-16); Calcium 8.1 mg/dL (8.4-10.2); Carbon Dioxide 15 mmol/L (22-29); Chloride 103 mmol/L (96-108); Creatinine Clr Calc Pharmacy 15.7; Estimated Glomerular Filt Rate 9; Magnesium 3.4 mg/dL (1.6-2.6); Potassium 5.3 mmol/L (3.3-5.1); Sodium 133 mmol/L (135-145); Total Protein 7.3 g/dL (6.5-8.0)
[2025-09-03] MEDS: fentaNYL citrate/NS 1,000 MCG/100 ML PLAST..BAG 2.5 MCG IVCONT (05:43)
[2025-09-03] MEDS: 0.9 % Sodium Chloride Flush 3 ML SYRINGE IVFLUSH (07:28)
--- NOTE | 2025-09-03 11:02 | P.DN_ITS ---
Discharge Sum: Prov Provider Primary care physician: Naye Hallman NP Consults: 08/20/25 00:32 Addiction Medicine Provider Routine Consulting Provider: Addiction Covering Reason for consultation: IVDU Consult to Infectious Diseases Routine Consulting Provider: [facility] Reason for consultation: ?septic arthritis Has provider been notified: No Consult to Orthopedics Routine Consulting Provider: [facility] Reason for consultation: ?septic arthritis 08/29/25 07:46 Consult to Nephrology Routine Consulting Provider: [facility] Reason for consultation: RICHARD, hypoN 08/30/25 16:28 Consult to Gastroenterology Routine Consulting Provider: [facility] Reason for consultation: worsening liver failure 08/30/25 16:47 Consult to Psychiatry Routine Consulting Provider: [facility] Psych Covering Reason for consultation: depression 09/01/25 09:19 Consult to Hematology / Oncology Routine Consulting Provider: [facility] Oncology/Hematology Reason for consultation: pancytopenenia, renal failure ? HUS Discharge Sum: Diag PCOD Cause of : Acute liver failure with hepatic coma Contributing Factors (1) Metabolic acidosis: (2) RICHARD (acute kidney injury): (3) Liver failure: (4) Septic joint of right knee joint: (5) MRSA bacteremia: (6) Pulmonary edema: (7) Thrombocytopenia: (8) Anemia: Discharge Sum: Summary Date and Time Date of admission: 08/20/25 00:15 Date of : 09/03/25 Time of : 07:52 Summary Details: 44-year-old lady with underlying hepatitis-C cirrhosis, active IV drug use despite methadone therapy, hypotension admitted on 08/19/2025 with MRSA septic arthritis and bacteremia with hospital course complicated by development of acute liver failure with hepatic encephalopathy, hepatorenal syndrome, and progressive decompensation. Discussions of goals of care was held with healthcare proxy by attending hospitalist in patient's code status changed to DNR/DNI per healthcare proxy request. Patient was transferred to intensive care unit on 09/02/2025. Patient continued with progressive deterioration including refractory hypoxemia. Progressive clinical deterioration was discussed with patient's healthcare proxy who decided to change goals of care to palliation. Patient code status was changed to comfort measures only and she passed in comfort on 09/03/2025 at 07:52 a.m. Additional Data Confirmation of as documented by pronouncing clinician: no pulse, no respirations, no heart sounds and pupils fixed and dilated Family: contacted Attending physician: Rajesh Bajwa MD
--- NOTE | 2025-09-03 11:03 | P.CDIM_ITS ---
PROVIDER RESPONSE TEXT: To clarify, the appropriate diagnosis supported by the clinical indicators: Acute QUERY TEXT: PHYSICIAN'S DOCUMENTATION REQUEST Date of Query: 09/03/2025 10:41 AM EST Patient Name: Afia Jeff Admit Date: 08/20/2025 Dear Rajesh Bajwa MD, A review of the medical record indicates additional documentation may be needed. Please review below and update the documentation accordingly. Clinical Indicators: patient with liver failure, Hepatitis C Cirrhosis total bili 11.4 Clarify which of the following accurately represents the acuity of the Liver Failure. Possible options might include: Acute Acute on chronic Compensated Chronic stable condition Remission Other (explain) Clinically unable to determine (explain) Thank you, Holly Flannery RN Use of terms such as suspected, likely, concern for, or probable (associated with a specific diagnosis that is being evaluated, monitored, or treated as if it exists) are acceptable and can be coded in the inpatient setting, when documented at the time of discharge. Please use your independent medical judgment in providing your response. THIS QUERY IS PART OF THE PERMANENT MEDICAL RECORD
--- NOTE | 2025-09-03 11:03 | P.CDIM_ITS ---
PROVIDER RESPONSE TEXT: To clarify, the appropriate diagnosis supported by the clinical indicators: Other (explain): Acute renal failure secondary to hepatorenal syndrome QUERY TEXT: PHYSICIAN'S DOCUMENTATION REQUEST Date of Query: 09/03/2025 10:45 AM EST Patient Name: Afia Jeff Admit Date: 08/20/2025 Dear Rajesh Bajwa MD, A review of the medical record indicates additional documentation may be needed. Please review below and update the documentation accordingly. Clinical Indicators: patient with RICHARD making minimal urine new renal failure Please clarify which of the following accurately represents the patient's renal status: Acute renal failure Acute renal failure with suspected ATN Acute renal failure with other pathology (medullary, papillary, or cortical necrosis) Acute renal failure (with type, appropriate) on Chronic Kidney Disease (CKD) Please specify stage of CKD Acute kidney injury (non-traumatic) CKD, please provide stage ESRD - CKD V now requiring permanent dialysis and/or transplant Other (explain) Clinically unable to determine (explain) Thank you, Holly Flannery RN Use of terms such as suspected, likely, concern for, or probable (associated with a specific diagnosis that is being evaluated, monitored, or treated as if it exists) are acceptable and can be coded in the inpatient setting, when documented at the time of discharge. Please use your independent medical judgment in providing your response. THIS QUERY IS PART OF THE PERMANENT MEDICAL RECORD
--- NOTE | 2025-09-03 11:29 | PC.NURSE ---
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 Fentantyl gtt titrated per DEC. PRN valium and haldol given. Pt. TOTiara @[id number]- Pronounced by fuel truck driver, family notified. NEMIC notified at 0805, case #[id number], declined.
--- NOTE | 2025-09-10 09:17 | W.PM.OPN ---
Operative Note Operative Note Date of Service: 08/20/25 Narrative: Date of Service: 08/20/25 Pre-op diagnosis: Septic right knee Post-op diagnosis: same Procedure: Arthroscopic lavage and debridement right knee Implants: none Surgeon: Ty Muñoz MD Anesthesia: GLMA and local Was an Math And Science Instructor used for this Procedure?: No Estimated blood loss (mL): 25 Tourniquet time (min): 29 IV fluids (mL): 750 Pathology: none sent Condition: stable Disposition: PACU Indications: 44 yo IVDU with aspirate + for 168k PMNS and clinical signs of septic knee taken to OR for arthroscopic lavage and debridement. Procedure in detail: Patient was brought to the operating room placed supine on the arthroscopic table and prepped and draped in standard sterile fashion. A time-out was called to identify proper site proper procedure proper surgeon and IV antibiotics per weight were administered. I began by insufflating tourniquet to 300 mm Hg without exsanguination. Then made a standard anterolateral stab incision. The knee was insufflated with water and 30 degree arthroscope was placed. There was immediate expression of cloudy synovial fluid but no bc puss and overall not a tremendous amount. There suprapatellar pouch was difficult to visualize initially and with abundant synovial tissue and debris. I flushed several times and then descended into the medial compartment and a medial portal was made under direct visualization. There was There was grade 1 fibrillations of the patella but overall suprapatellar pouch and the gutters were clean. I descended into the medial compartment where I made my medial portal under direct visualization. I then began a comprehensive debridement. The medial and lateral compartment were examined and there was no gross anatomic abnormalities. The ACL and menisci and cartilage were grossly intact. I debrided the synovium of the medial and lateral gutters and irrigated the tibiofemoral compartments copiously. I then re entered the suprapatellar pouch and used a combination of cautery and a shaver to fully debride the synovial tissue and cauterize bleeding tissue. I then established a lateral infra patellar portal and irrigated copiously. I felt the synovium was fully debrided and there was no evidence of purulence or abnormal tissue. I removed all instrumentation and the portals were closed with nylon. The patient was then placed in sterile dressing extubated brought recovery room stable condition. There were no known complications.
--- NOTE | 2025-09-10 09:35 | W.PM.OPN ---
Operative Note Operative Note Date of Service: 08/23/25 Narrative: Date of Service: 08/23/25 Narrative: Date of Service: 08/23/25 Pre-op diagnosis: Septic right knee Post-op diagnosis: same Procedure: Arthroscopic lavage and debridement right knee Implants: none Surgeon: Ty Muñoz MD Anesthesia: GLMA and local Was an Hotel Valet Attendant used for this Procedure?: No Estimated blood loss (mL): 25 Tourniquet time (min): 29 IV fluids (mL): 750 Pathology: none sent Condition: stable Disposition: PACU Indications: 44 yo IVDU with aspirate + septic right knee MRSA+ taken to OR for repeat arthroscopic lavage and debridement. Procedure in detail: Patient was brought to the operating room placed supine on the arthroscopic table and prepped and draped in standard sterile fashion. A time-out was called to identify proper site proper procedure proper surgeon and IV antibiotics per weight were administered. I began by insufflating tourniquet to 300 mm Hg without exsanguination. Then made a anterolateral stab incision throught the prior incision.. The knee was insufflated with water and 30 degree arthroscope was placed. There was clot and bloody debris but no visual evidence of active infection. I flushed the suprapatellar pouch several times and then descended into the medial compartment and a medial portal was made under direct visualization.I debrided the loose tissue of the medial and lateral gutters and irrigated the tibiofemoral compartments copiously. I then re entered the suprapatellar pouch and used a combination of cautery and a shaver to debrdied any remaining synovial tissue and old clot anbd cauterized bleeding tissue. I then established a lateral infra patellar portal and irrigated copiously. I felt the knee was fully debrided and there was no evidence of purulence. I removed all instrumentation and the portals were closed with nylon. The patient was then placed in sterile dressing extubated brought recovery room stable condition. There were no known complications.
== END 2025-09-03 07:52 | disposition expired | DRG 548 ==
LOC: HO.ED 22:51 → HO.EDOVER 08-20 00:18 → HO.SSSA 08-20 12:07 → HO.S3 08-20 14:04 → HO.IMC 08-29 13:44 → HO.ICU 09-02 23:06
PROVIDERS: Family Medicine; Hospitalist; Internal Medicine; Internal Medicine Gastroenterology; Internal Medicine Hypertension Specialist; Nurse Practitioner; Nurse Practitioner Acute Care; Orthopaedic Surgery; Physician Assistant Medical; Registered Nurse Community Health; Student in an Organized Health Care Education/Training Program; Admitting Provider Physician Assistant; Emergency Provider Emergency Medicine; PCP Nurse Practitioner Family; Visit Provider Internal Medicine Pulmonary Disease
PROC: 3E1U48Z Irrigation of Joints using Irrigating Substance, Percutaneous Endoscopic Approach (ICD-10-PCS; CPT 29870; principal; 2025-08-20 11:00)
DX: M00.061 Staphylococcal arthritis, right knee (principal); J15.212 Pneumonia due to Methicillin resistant Staphylococcus aureus; K76.7 Hepatorenal syndrome; N17.0 Acute kidney failure with tubular necrosis; K72.00 Acute and subacute hepatic failure without coma; D61.818 Other pancytopenia; F11.20 Opioid dependence, uncomplicated; E87.20 Acidosis, unspecified; R78.81 Bacteremia; R18.8 Other ascites; E87.1 Hypo-osmolality and hyponatremia; K76.6 Portal hypertension; E87.5 Hyperkalemia; K76.82 Hepatic encephalopathy; D69.59 Other secondary thrombocytopenia; Z66 Do not resuscitate; Z51.5 Encounter for palliative care; F41.9 Anxiety disorder, unspecified; B18.2 Chronic viral hepatitis C; K74.69 Other cirrhosis of liver; K59.00 Constipation, unspecified; D63.8 Anemia in other chronic diseases classified elsewhere; B95.62 Methicillin resistant Staphylococcus aureus infection as the cause of diseases classified elsewhere; I10 Essential (primary) hypertension; K74.00 Hepatic fibrosis, unspecified; Z79.899 Other long term (current) drug therapy
CPT/HCPCS: 36415; 36573; 49083; 71045; 73560; 74018; 74176; 76705; 80048; 80053; 80076; 80202; 80307; 81001; 81003; 81025; 82042; 82140; 82272; 82550; 82565; 82570; 82728; 82803; 82945; 82947; 83010; 83036; 83540; 83605; 83615; 83735; 83880; 83930; 83935; 84100; 84156; 84157; 84300; 84550; 84560; 85007; 85014; 85018; 85025; 85027; 85045; 85610; 85652; 86140; 86160; 86850; 86880; 86900; 86901; 86923; 87040; 87070; 87073; 87077; 87147; 87186; 87205; 87389; 87522; 88112; 88305; 89051; 89060; 93306; 93971; 94640; 97162; 97166; 97530; 99284; C1751; J0131; J0165; J0696; J0878; J1100; J1171; J1630; J1885; J1938; J1956; J2003; J2004; J2250; J2270; J2354; J2405; J2470; J2704; J2795; J3010; J3360; J3374; J7120; P9016; P9047; Q9957; S9485

== ENCOUNTER → 2025-08-19 17:31 | Outpatient (BNV) | payer MEDICARE, MEDICAID, SELFPAY | PROVIDERS: PCP Nurse Practitioner Family; Visit Provider Radiology Diagnostic Radiology | DX: M25.461 Effusion, right knee (principal); R60.0 Localized edema | CPT/HCPCS: 73560 ==

== ENCOUNTER 2025-08-20 00:15 | Outpatient (BNV) | payer MEDICARE, MEDICAID, SELFPAY | END 2025-08-23 07:00 | PROVIDERS: Admitting Provider Physician Assistant; Emergency Provider Emergency Medicine; PCP Nurse Practitioner Family; Visit Provider Internal Medicine | DX: I77.810 Thoracic aortic ectasia (principal); A41.02 Sepsis due to Methicillin resistant Staphylococcus aureus | CPT/HCPCS: 93306 ==

== ENCOUNTER 2025-08-20 00:15 | Outpatient (BNV) | payer MEDICARE, MEDICAID, SELFPAY | END 2025-08-29 11:02 | PROVIDERS: Admitting Provider Physician Assistant; Emergency Provider Emergency Medicine; PCP Nurse Practitioner Family; Visit Provider Radiology Diagnostic Radiology | DX: R10.84 Generalized abdominal pain (principal); D64.9 Anemia, unspecified; K74.60 Unspecified cirrhosis of liver | CPT/HCPCS: 74176 ==

== ENCOUNTER 2025-08-20 00:15 | Outpatient (BNV) | payer MEDICARE, MEDICAID, SELFPAY | END 2025-08-30 15:44 | PROVIDERS: Admitting Provider Physician Assistant; Emergency Provider Emergency Medicine; PCP Nurse Practitioner Family; Visit Provider Radiology Diagnostic Radiology | DX: R18.8 Other ascites (principal) | CPT/HCPCS: 49083 ==

== ENCOUNTER 2025-08-20 00:15 | Outpatient (BNV) | payer MEDICARE, MEDICAID, SELFPAY | END 2025-08-26 13:30 | PROVIDERS: Admitting Provider Physician Assistant; Emergency Provider Emergency Medicine; PCP Nurse Practitioner Family; Visit Provider Radiology Diagnostic Radiology | DX: R10.84 Generalized abdominal pain (principal) | CPT/HCPCS: 74018 ==

== ENCOUNTER 2025-08-20 00:15 | Outpatient (BNV) | payer MEDICARE, MEDICAID, SELFPAY | END 2025-08-22 12:01 | PROVIDERS: Admitting Provider Physician Assistant; Emergency Provider Emergency Medicine; PCP Nurse Practitioner Family; Visit Provider Radiology Diagnostic Radiology | DX: M25.461 Effusion, right knee (principal) | CPT/HCPCS: 73560 ==

== ENCOUNTER 2025-08-20 00:15 | Outpatient (BNV) | payer MEDICARE, MEDICAID, SELFPAY | END 2025-08-28 13:00 | PROVIDERS: Admitting Provider Physician Assistant; Emergency Provider Emergency Medicine; PCP Nurse Practitioner Family; Visit Provider Specialist | DX: R18.8 Other ascites (principal) | CPT/HCPCS: 76705 ==

== ENCOUNTER 2025-08-20 00:15 | Outpatient (BNV) | payer MEDICARE, MEDICAID, SELFPAY | END 2025-09-02 16:18 | PROVIDERS: Admitting Provider Physician Assistant; Emergency Provider Emergency Medicine; PCP Nurse Practitioner Family; Visit Provider Radiology Diagnostic Radiology | DX: J18.9 Pneumonia, unspecified organism (principal); I51.7 Cardiomegaly; Z95.9 Presence of cardiac and vascular implant and graft, unspecified | CPT/HCPCS: 71045; 74176 ==

== ENCOUNTER → 2025-08-20 00:15 | Outpatient (BNV) | payer MEDICARE, MEDICAID, SELFPAY | PROVIDERS: Admitting Provider Physician Assistant; Emergency Provider Emergency Medicine; PCP Nurse Practitioner Family; Visit Provider Internal Medicine Pulmonary Disease | DX: E87.20 Acidosis, unspecified (principal); N17.9 Acute kidney failure, unspecified; K72.90 Hepatic failure, unspecified without coma; M00.9 Pyogenic arthritis, unspecified; R78.81 Bacteremia; B95.62 Methicillin resistant Staphylococcus aureus infection as the cause of diseases classified elsewhere; J81.1 Chronic pulmonary edema; D69.6 Thrombocytopenia, unspecified; D64.9 Anemia, unspecified | CPT/HCPCS: 99238 ==

== ENCOUNTER → 2025-08-20 00:15 | Outpatient (BNV) | payer MEDICARE, MEDICAID, SELFPAY | PROVIDERS: Admitting Provider Physician Assistant; Emergency Provider Emergency Medicine; PCP Nurse Practitioner Family; Visit Provider Nurse Practitioner Psychiatric/Mental Health | DX: F11.90 Opioid use, unspecified, uncomplicated (principal) | CPT/HCPCS: 99221 ==

== ENCOUNTER → 2025-08-20 00:15 | Outpatient (BNV) | payer MEDICARE, MEDICAID, SELFPAY | PROVIDERS: Admitting Provider Physician Assistant; Emergency Provider Emergency Medicine; PCP Nurse Practitioner Family; Visit Provider Registered Nurse Community Health | DX: K72.90 Hepatic failure, unspecified without coma (principal); M00.9 Pyogenic arthritis, unspecified; N17.9 Acute kidney failure, unspecified; E87.20 Acidosis, unspecified; R78.81 Bacteremia; B95.62 Methicillin resistant Staphylococcus aureus infection as the cause of diseases classified elsewhere; J81.1 Chronic pulmonary edema; D69.6 Thrombocytopenia, unspecified; D64.9 Anemia, unspecified | CPT/HCPCS: 99291 ==

== ENCOUNTER → 2025-08-20 00:15 | Outpatient (BNV) | payer MEDICARE, MEDICAID, SELFPAY | PROVIDERS: Admitting Provider Physician Assistant; Emergency Provider Emergency Medicine; PCP Nurse Practitioner Family; Visit Provider Physician Assistant | DX: F19.90 Other psychoactive substance use, unspecified, uncomplicated (principal); M00.9 Pyogenic arthritis, unspecified | CPT/HCPCS: 99024 ==

== ENCOUNTER → 2025-08-20 00:15 | Outpatient (BNV) | payer MEDICARE, MEDICAID, SELFPAY | PROVIDERS: Admitting Provider Physician Assistant; Emergency Provider Emergency Medicine; PCP Nurse Practitioner Family; Visit Provider Internal Medicine Hypertension Specialist | DX: N17.9 Acute kidney failure, unspecified (principal) | CPT/HCPCS: 99232 ==

== ENCOUNTER → 2025-08-20 00:15 | Outpatient (BNV) | payer MEDICARE, MEDICAID, SELFPAY | PROVIDERS: Admitting Provider Physician Assistant; Emergency Provider Emergency Medicine; PCP Nurse Practitioner Family; Visit Provider Internal Medicine Gastroenterology | DX: N17.9 Acute kidney failure, unspecified (principal); D64.9 Anemia, unspecified | CPT/HCPCS: 99232 ==

== ENCOUNTER → 2025-08-20 00:15 | Outpatient (BNV) | payer MEDICARE, MEDICAID, SELFPAY | PROVIDERS: Admitting Provider Physician Assistant; Emergency Provider Emergency Medicine; PCP Nurse Practitioner Family; Visit Provider Internal Medicine Medical Oncology | DX: D69.6 Thrombocytopenia, unspecified (principal); D50.0 Iron deficiency anemia secondary to blood loss (chronic); N18.9 Chronic kidney disease, unspecified; D63.1 Anemia in chronic kidney disease | CPT/HCPCS: 99222 ==

== ENCOUNTER → 2025-08-20 00:15 | Outpatient (BNV) | payer MEDICARE, MEDICAID, SELFPAY | PROVIDERS: Admitting Provider Physician Assistant; Emergency Provider Emergency Medicine; PCP Nurse Practitioner Family; Visit Provider Physician Assistant Medical | DX: F41.9 Anxiety disorder, unspecified (principal) | CPT/HCPCS: 99222; 99232; 99499 ==

== ENCOUNTER → 2025-08-20 00:15 | Outpatient (BNV) | payer MEDICARE, MEDICAID, SELFPAY | PROVIDERS: Admitting Provider Physician Assistant; Emergency Provider Emergency Medicine; PCP Nurse Practitioner Family; Visit Provider Internal Medicine | DX: F19.90 Other psychoactive substance use, unspecified, uncomplicated (principal); F11.90 Opioid use, unspecified, uncomplicated; M00.9 Pyogenic arthritis, unspecified | CPT/HCPCS: 99222 ==